=== PATIENT | female | born 1945 | race Caucasian/White ===

== ENCOUNTER → 2016-12-24 | Outpatient (CLI) | payer OTHER, BC ==
[~2016-12-24] MED LIST: ALBUAER INH; ALL60 PO; ASPI81TA21 PO; ATV/1 PO; ATV1 PO; CALC-393 PO; CALC600T14 PO; CARV6.252 PO; CHOL100027 PO; CRG625 PO; FEXO1TAB45 PO; FLNIN NAE; FLUT0.15 NAE; GABA-113 PO; GUAI400T29 PO; HYDR-5688 PO; LISI-461 PO; LRT5 PO; MELATAB2 PO; MUCUS RELIEF PO; MULT-513 PO; PROBCAP PO; QUALAQUIN PO; QUIN1CAP5 PO; SERT50TA PO; TRIA0.1C55 TOP
--- NOTE | 2016-12-24 14:55 | MAMMOGRAPHY REPORT ---
BILATERAL DIGITAL SCREENING MAMMOGRAM WITH CAD: 12/24/2016 CLINICAL HISTORY: Routine screening. Patient has no complaints. TECHNIQUE: Bilateral CC, MLO and repeat right cc views were obtained. Current study was also evalua naa with a Computer Aided Detection (CAD) system. COMPARISON: Comparison is made to exams dated: 12/19/2015 mammogram, 12/13/2014 mammogram, 12/09/2013 robbie mogram, 12/08/2012 mammogram, 12/04/2011 mammogram, and 11/27/2010 mammogram - [facility] er. BREAST COMPOSITION: There are scattered areas of fibroglandular density in both breasts. FINDINGS: There are stable intramammary lymph nodes in each upper outer posterior breast. Scattered benign-appearing calcifications in the breasts. No new suspicious mass, architectural distortion or cluster of microcalcifications is seen. IMPRESSION: ACR BI-RADS CATEGORY 1: NEGATIVE There is no mammographic evidence of malignancy. A 1 year screening mammogram is recommended. The pa tient will receive written notification of the results. Approximately 10% of breast cancers are not detected with mammography. A negative mammographic report should not delay biopsy if a clinically suggestive mass is present. Radha Terrazas M.D. ay/:12/24/2016 12:06:01 Neonatologist: Madie Valle, [facility] letter sent: Normal 1/2 BI-RADS Code: ACR BI-RADS Category 1: Negative
== END | disposition home or self-care (01) ==
LOC: C.MAMM 10:30
PROVIDERS: ATTEND Family Medicine
DX: Z12.31 Encounter for screening mammogram for malignant neoplasm of breast (principal)

== ENCOUNTER 2017-01-04 19:30 | Emergency (ER) | payer OTHER, BC ==
[~2017-01-04] VITALS: Ht 165.1 cm; Wt 128.4 kg
[~2017-01-04 19:30] MED LIST changes: -ALBUAER INH; -ATV/1 PO; -CALC-393 PO; -CARV6.252 PO; -FEXO1TAB45 PO; -FLUT0.15 NAE; -GUAI400T29 PO; -HYDR-5688 PO; -MULT-513 PO; -PROBCAP PO; -QUIN1CAP5 PO
[2017-01-04 19:32] VITALS: TEMP 36.9; Ht 165.1 cm; Wt 128.4 kg
--- NOTE | 2017-01-04 20:20 | DIAGNOSTIC IMAGING REPORT ---
RIGHT FOOT 3 VIEWS CLINICAL HISTORY: Right foot injury. FINDINGS: 3 views of the right foot are obtained. No prior studies are available for comparison at the time of dictation. The skeletal structures are osteopenic. Question a subtle nonobstructed fracture through the base of the fourth metatarsal. No additional fracture is suspected. Mild arthritic change is present at the first metatarsophalangeal joint. A large enthesophyte is seen at the base of the fifth metatarsal. Degenerative spurring is noted along the dorsal last of the tarsal bones. There are large dorsal and plantar calcaneal enthesophytes. Soft tissue swelling is present on the dorsal aspect of the foot. IMPRESSION: 1. Dorsal soft tissue swelling. 2. Question a subtle nonobstructed fracture through the base of the fourth metatarsal. Correlate for point tenderness at this site. 3. No additional findings are concerning for acute fracture. 4. Osteopenia, mild degenerative change, and large heel spurs as above. Electronically signed by: Freddie Irwin M.D. 01/04/2017 8:19 PM Dictated Date/Time: 01/04/2017 8:16 PM
--- NOTE | 2017-01-04 20:25 | EMERGENCY ROOM VISIT NOTE ---
ED Visit Note First contact with patient: 19:42 I have seen and examined this patient with Araceli Maddox and generally agree with the treatment plan as discussed. Current/Historical Medications Scheduled Aspirin Enteric Coated (Ecotrin Or Generic), 81 MG PO DAILY Calcium (Caltrate), 600 MG PO BID Carvedilol (Coreg *), 6.25 MG PO BID Cholecalciferol (Vitamin D 1000 Unit), 1,000 INTER.UNIT PO DAILY Fexofenadine Hcl (Amelia *), 180 MG PO DAILY Fluticasone Propionate (Flonase Nasal [place] *), 2 SPRAYS MERRY DAILY Gabapentin (Neurontin), 600 MG PO TID Hydrocodone/Acetaminophen 5MG/500MG (Vicodin 5MG/500MG), 1 TABLET PO Q4HR PRN Lisinopril (Zestril), 5 MG PO DAILY Lorazepam (Ativan *), 1-2 TABLETS PO DHS Melatonin (Melatonin Maximum Strengt), 1 TAB PO HS Sertraline (Zoloft), 1 TAB PO HS Triamcinolone Acet 0.1% (Aristocort 0.1%), 1 APPLN TOP BID PRN [Mucus Relief], 400 MG PO QID [Qualaquin], 1-2 TABLETS PO DAILY Allergies Coded Allergies: Tetracycline (Verified Allergy, Unknown, 11/25/11) Aspirin (Verified Adverse Reaction, Intermediate, HAS TAKEN IBUPROFEN W/O PROBLEM, ASPIRIN-EPISTAXIS, 11/25/11) Adhesives (Verified Adverse Reaction, Unknown, 11/25/11) Vital Signs Date Time Temp Pulse Resp B/P (MAP) Pulse Ox O2 Delivery O2 Flow Rate FiO2 01/04/17 19:32 36.9 79 18 184/84 95 Room Air Departure Information Referrals Terry Valenzuela M.D. (PCP) Patient Instructions My [facility]
--- NOTE | 2017-01-04 20:42 | EMERGENCY ROOM VISIT NOTE ---
ED Visit Note First contact with patient: 19:42 CHIEF COMPLAINT: Right Foot pain HISTORY OF PRESENT ILLNESS: This 71-year-old female patient presents to the emergency department with her , ambulatory, complaining of swelling and pain in the right foot at rest and worse with weight bearing. The patient sates she was helping her with railing on a porch, when she dropped a 2 x 4 on top of her right foot yesterday. She states the injury occurred approximately 28 hours ago. The patient rates the pain as throbbing, coming in waves, and 10/10. The patient has had minimal relief of the pain with the use of her Vicodin she takes on a regular basis. The patient is able to walk. No numbness or weakness. No ankle pain. There are no lacerations of the foot. The patient is able to move all of their toes and their ankle without pain. No previous fracture to this foot. REVIEW OF SYSTEMS: GENERAL: A 6 system review of systems was completed with positives and pertinent negatives in the HPI. ALLERGIES: Adhesives, NSAIDs, tetracycline MEDICATIONS: See list. I have personally reviewed all of the patient's medications with her. PMH: Arthritis, hypertension, hyperlipidemia, heart disease, osteopenia, anxiety , depression, chronic pain, seasonal allergies SOCIAL HISTORY: Pt. lives locally with her family. She denies tobacco, alcohol , drug use. PHYSICAL EXAM: Vital Signs: Reviewed Nurse's notes, vital signs stable. GENERAL : 71-year-old female, in no acute distress, but appears in pain, well-developed , well-nourished. MUSCULOSKELATAL: There is no visual deformity of the right foot. There is moderate erythema and ecchymosis. There is no warmth. There is tenderness and swelling over the entire dorsal aspect of the right foot. There is no tenderness over the lateral or medial malleolus. No tenderness of the tib /fib. The range of motion of the right foot and toes is mildly limited secondary to pain. There is no tenderness over the plantar fascia. The skin is intact and there are no lacerations or puncture wounds. Dorsalis pedis pulse 2+ . Capillary refill less than 2 seconds. EMERGENCY DEPARTMENT COURSE: I examined the patient. An X-ray of the right foot was reviewed by myself and radiologist and reveals: FINDINGS: 3 views of the right foot are obtained. No prior studies are available for comparison at the time of dictation. The skeletal structures are osteopenic. Question a subtle nonobstructed fracture through the base of the fourth metatarsal. No additional fracture is suspected. Mild arthritic change is present at the first metatarsophalangeal joint. A large enthesophyte is seen at the base of the fifth metatarsal. Degenerative spurring is noted along the dorsal last of the tarsal bones. There are large dorsal and plantar calcaneal enthesophytes. Soft tissue swelling is present on the dorsal aspect of the foot. IMPRESSION: 1. Dorsal soft tissue swelling. 2. Question a subtle nonobstructed fracture through the base of the fourth metatarsal. Correlate for point tenderness at this site. 3. No additional findings are concerning for acute fracture. 4. Osteopenia, mild degenerative change, and large heel spurs as above. The patient was placed in actual boot and advised to use her cane and walker she has at home to avoid weightbearing on the foot. I discussed the plan of care with Dr. Sanchez, who agrees with the assessment and plan. The patient was discharged home in good condition. DIAGNOSIS: Fourth metatarsal fracture DIFFERENTIAL DIAGNOSIS: Foot contusion, phalange fracture, DVT, and others TREATMENT: ORTHOPEDIC INSTRUCTIONS: Vicodin 5/325 mg: Take as directed by your PCP for breakthrough pain. Avoid alcohol, operating machinery or dangerous equipment, working on ladders or roofs , DRIVING, or situations where being under the influence may be dangerous. It is recommended to use an mxle-rxi-jsuczfd stool softener such as Colace, 100mg twice daily while taking this medication to avoid constipation. Acetaminophen(Tylenol) may be used for fever or pain. You may use up to 1000mg every six hours as needed. Avoid using more than 3000mg in a 24 hour period, this includes acetaminophen which is already found in the Vicodin you take on a regular basis. Ice compresses for 20 minutes at a time four times daily for 2-3 days. Use your cane or walker that you have at home to help you maneuver while wearing the boot. Rest and elevate your injury. Do not get the boot wet. If your splint feels excessively tight, you have worsening pain, develop numbness or tingling, or your digits appear blue, loosen the boot. If your symptoms are not quickly relieved return to the ER for re-evaluation. Return to the ER immediately for any numbness, tingling, severe pain, extreme swelling in the extremity or as needed. Call [facility], [phone], in 1 to 2 days to arrange follow up for your injury. Follow-up with your primary care physician in 2 to 3 days for a recheck of your current condition. Current/Historical Medications Scheduled Aspirin Enteric Coated (Ecotrin Or Generic), 81 MG PO DAILY Calcium (Caltrate), 600 MG PO BID Carvedilol (Coreg *), 6.25 MG PO BID Cholecalciferol (Vitamin D 1000 Unit), 1,000 INTER.UNIT PO DAILY Fexofenadine Hcl (Amelia *), 180 MG PO DAILY Fluticasone Propionate (Flonase Nasal [place] *), 2 SPRAYS MERRY DAILY Gabapentin (Neurontin), 600 MG PO TID Hydrocodone/Acetaminophen 5MG/500MG (Vicodin 5MG/500MG), 1 TABLET PO Q4HR PRN Lisinopril (Zestril), 5 MG PO DAILY Lorazepam (Ativan *), 1-2 TABLETS PO DHS Melatonin (Melatonin Maximum Strengt), 1 TAB PO HS Sertraline (Zoloft), 1 TAB PO HS Triamcinolone Acet 0.1% (Aristocort 0.1%), 1 APPLN TOP BID PRN [Mucus Relief], 400 MG PO QID [Qualaquin], 1-2 TABLETS PO DAILY Allergies Coded Allergies: Tetracycline (Verified Allergy, Unknown, 11/25/11) Aspirin (Verified Adverse Reaction, Intermediate, HAS TAKEN IBUPROFEN W/O PROBLEM, ASPIRIN-EPISTAXIS, 11/25/11) Adhesives (Verified Adverse Reaction, Unknown, 11/25/11) Vital Signs Date Time Temp Pulse Resp B/P (MAP) Pulse Ox O2 Delivery O2 Flow Rate FiO2 01/04/17 19:32 36.9 79 18 184/84 95 Room Air Departure Information Impression Primary Impression: Fracture of metatarsal bone Dispostion Home / Self-Care Condition GOOD Referrals Terry Valenzuela M.D. (PCP) [facility] Patient Instructions My [facility] Additional Instructions ORTHOPEDIC INSTRUCTIONS: Vicodin 5/325 mg: Take as directed by your PCP for breakthrough pain. Avoid alcohol, operating machinery or dangerous equipment, working on ladders or roofs , DRIVING, or situations where being under the influence may be dangerous. It is recommended to use an xraw-wpo-stpbkgn stool softener such as Colace, 100mg twice daily while taking this medication to avoid constipation. Acetaminophen(Tylenol) may be used for fever or pain. You may use up to 1000mg every six hours as needed. Avoid using more than 3000mg in a 24 hour period, this includes acetaminophen which is already found in the Vicodin you take on a regular basis. Ice compresses for 20 minutes at a time four times daily for 2-3 days. Use your cane or walker that you have at home to help you maneuver while wearing the boot. Rest and elevate your injury. Do not get the boot wet. If your splint feels excessively tight, you have worsening pain, develop numbness or tingling, or your digits appear blue, loosen the boot. If your symptoms are not quickly relieved return to the ER for re-evaluation. Return to the ER immediately for any numbness, tingling, severe pain, extreme swelling in the extremity or as needed. Call [facility], [phone], in 1 to 2 days to arrange follow up for your injury. Follow-up with your primary care physician in 2 to 3 days for a recheck of your current condition. Problem Qualifiers Primary Impression: Fracture of metatarsal bone Encounter type: initial encounter Metatarsal bone: fourth Fracture type: closed Fracture alignment: nondisplaced Laterality: right Qualified Codes: S92.344A - Nondisplaced fracture of fourth metatarsal bone, right foot, initial encounter for closed fracture
[2017-01-04] MEDS ORDERED: MULT-513 PO (20:46)
[2017-01-04] MEDS ORDERED: PROBCAP PO (20:46)
[2017-01-04] MEDS ORDERED: FLUT0.15 NAE (20:46)
[2017-01-04] MEDS ORDERED: GUAI400T29 PO (20:46)
[2017-01-04] MEDS ORDERED: CARV6.252 PO (20:46)
[2017-01-04] MEDS ORDERED: QUIN1CAP5 PO (20:46)
[2017-01-04] MEDS ORDERED: FEXO1TAB45 PO (20:46)
[2017-01-04] MEDS ORDERED: ATV/1 PO (20:46)
[2017-01-04] MEDS ORDERED: HYDR-5688 PO (20:46)
[2017-01-04] MEDS ORDERED: ALBUAER INH (20:46)
[2017-01-04] MEDS ORDERED: CALC-393 PO (20:47)
[2017-01-04 21:12] VITALS: BP 148/75; PULSE 64; O2SAT 95
== END 2017-01-04 21:13 | disposition home or self-care (01) ==
LOC: C.EDB 19:30 → C.EDD 21:13
DX: S92.344A Nondisplaced fracture of fourth metatarsal bone, right foot, initial encounter for closed fracture (principal); W20.8XXA Other cause of strike by thrown, projected or falling object, initial encounter; I10 Essential (primary) hypertension; E78.5 Hyperlipidemia, unspecified; F41.9 Anxiety disorder, unspecified; F32.9 Major depressive disorder, single episode, unspecified; M19.90 Unspecified osteoarthritis, unspecified site; I51.9 Heart disease, unspecified

== ENCOUNTER 2017-06-26 09:51 | Inpatient (IN) | payer OTHER, BC ==
[~2017-06-26] VITALS: Ht 154.9 cm; Wt 123.8 kg
[~2017-06-26 09:51] MED LIST changes: +ALBUAER INH; -ALL60 PO; +ASPI-319 PO; -ASPI81TA21 PO; +ATV/1 PO; -ATV1 PO; +CALC-393 PO; -CALC600T14 PO; +CARV6.252 PO; -CRG625 PO; +FEXO1TAB45 PO; -FLNIN NAE; +FLUT0.15 NAE; +GUAI400T29 PO; +HYDR-5688 PO; -LRT5 PO; -MUCUS RELIEF PO; +MULT-513 PO; +PROBCAP PO; -QUALAQUIN PO; +QUIN1CAP5 PO; -TRIA0.1C55 TOP
[2017-06-26] MEDS ORDERED: DILTIAZEM BOLUS / DRIP IV STA ×2 (10:07→12:31)
[2017-06-26] MEDS ORDERED: ASPIRIN 81 MG CHEW PO STA (10:10)
[2017-06-26] MEDS ORDERED: DILTIAZEM HCL INJ 125 MG in DEXTROSE 5% 100ML IV PRN ×2 (10:15→14:45)
[2017-06-26] MEDS ORDERED: DILTIAZEM BOLUS FROM BAG IV ONE (10:15)
[2017-06-26 10:45] LABS: BASO % 0.6 %; BASO ABS # 0.06 K/uL (0-0.2); EOS % 3.3 %; EOS ABS # 0.33 K/uL (0-0.5); HEMOGLOBIN 15.5 g/dL (12.0-16.0); IG# 0.02 K/uL (0.00-0.02); LYMPH % 33.9 %; LYMPH ABS # 3.39 K/uL (1.2-3.4); MEAN CELL VOLUME 90.5 fL (80-100); MEAN CORPUSCULAR HEMOGLOBIN 31.2 pg (25-34); MEAN CORPUSCULAR HGB CONC 34.4 g/dl (32-36); MEAN PLATELET VOLUME 9.3 fL (7.4-10.4); MONO % 7.2 %; MONO ABS # 0.72 K/uL (0.11-0.59); NEUT % 54.8 %; NEUT ABS # 5.48 K/uL (1.4-6.5); PLATELET COUNT 255 K/uL (130-400); RED CELL DISTRIBUTION WIDTH CV 13.4 % (11.5-14.5); RED CELL DISTRIBUTION WIDTH SD 43.6 fL (36.4-46.3)
[2017-06-26] MEDS ORDERED: MAGN400T6 PO (10:49)
[2017-06-26] MEDS ORDERED: CYM/30 PO (10:49)
[2017-06-26] MEDS ORDERED: ASPCH81X PO (10:49)
--- NOTE | 2017-06-26 10:49 | DIAGNOSTIC IMAGING REPORT ---
CHEST ONE VIEW PORTABLE CLINICAL HISTORY: Atypical chest pain COMPARISON STUDY: 11/25/2011 FINDINGS: The heart is mildly enlarged. There is no focal pulmonary consolidation. There is no failure. There are no pleural effusions.[ IMPRESSION: No active disease in the chest. Electronically signed by: Sav Odonnell M.D. 06/26/2017 10:47 AM Dictated Date/Time: 06/26/2017 10:47 AM
[2017-06-26 10:56] LABS: BLOOD UREA NITROGEN 15 mg/dl (7-18); CALCIUM 9.1 mg/dl (8.5-10.1); CARBON DIOXIDE 23 mmol/L (21-32); CREATININE 1.09 mg/dl (0.60-1.20); GLUCOSE 143 mg/dl (70-99); POTASSIUM 3.9 mmol/L (3.5-5.1); SODIUM 140 mmol/L (136-145)
[2017-06-26] MEDS ORDERED: ACETAMINOPHEN 325 MG TAB PO PRN (12:15)
[2017-06-26] MEDS ORDERED: LISI-730 PO (12:45)
[2017-06-26] MEDS ORDERED: HYDROCODONE/ACETAMIN 5/325MG TAB PO PRN (13:00)
[2017-06-26] MEDS ORDERED: ALBUTEROL HFA 8 GM INHALER INH PRN (13:00)
[2017-06-26] MEDS ORDERED: GUAIFENESIN 200 MG TAB PO PRN (13:00)
[2017-06-26] MEDS ORDERED: HEPARIN 25000 UNIT/500 ML D5W ONE (13:08)
[2017-06-26 14:28] VITALS: BP 147/97; PULSE 87; TEMP 36.6; O2SAT 96; Ht 154.9 cm; Wt 123.8 kg
--- NOTE | 2017-06-26 14:38 | NUR ---
A-ID: Patient transferred from the e.r.. Patient is alert and oriented. Denies any pain or resp issues. Lungs clear with sats 90's on room air. Telemetry in place and verified. See labs. Abd wnl.Patient on cardizem@5cc/hr, heparin to be started. +pp with no edema, denies any calf pain. Vss noted. Patient oob with supervision/cane and completes adls. Encourage patient to ring for assist do to iv's. Verbalizes understanding of orientation to room/code/fall paper work. Family at bedside . Call seo in reach. Will continue to monitor.
[2017-06-26 14:43] LABS: PTT PATIENT 24.1 SECONDS (21.0-31.0)
[2017-06-26] MEDS ORDERED: METOPROLOL TARTRATE 25 MG TAB PO ONE (15:19)
[2017-06-26 15:32] VITALS: BP 129/85; PULSE 88; TEMP 36.6; O2SAT 94
[2017-06-26] MEDS: HEPARIN 25,000 UNIT/500ML D5W 500 ML IV PRN ×2 (15:38→23:46)
[2017-06-26] MEDS: GABAPENTIN 600 MG TAB PO SCH ×2 (15:39→20:23)
--- NOTE | 2017-06-26 15:42 | CARDIOLOGY CONSULTATION ---
DATE OF CONSULTATION: 06/26/2017 INPATIENT CONSULTATION CONSULTATION REQUESTED BY: Tres Sandoval PA-C. REASON FOR CONSULTATION: New onset atrial fibrillation. HISTORY OF PRESENT ILLNESS: Mrs. Lozano is a very pleasant 71-year-old woman who presented to [facility] Emergency Department on 06/26/2017 with a complaint of palpitations. The patient states she woke up this morning and was in her normal state of health and then at approximately 8:00 a.m., she felt a flumping in her chest. She states it felt as though her heart was pounding over her chest and was associated with some substernal pressure sensation. She also became short of breath with this and just felt overwhelmed. Her convinced her to come in the Emergency Department and upon arrival, she was found to be in atrial fibrillation with rapid ventricular response. She was placed on a Cardizem drip and heparin in the Emergency Department with good symptomatic response once her heart rate came down in the 80s. She was admitted to the telemetry unit. She is currently symptom free at rest. Upon further questioning, the patient states that she never had similar symptoms in the past. Lately, she has been feeling okay, she has been a little tired but she has chalk this up to being busy getting ready for the holidays and she has been having shortness of breath with exertion, but this has been going on for over a year. Of note, she does have a history of paroxysmal supraventricular tachycardia; however, she states the palpitations she has experiencing now are very different from that. Of note, the patient does walk with the aid of a cane at home, but she has no significant dysfunction and is not a fall risk. PAST SURGICAL HISTORY: 1. Knee surgery. 2. Bladder repair. 3. Multiple colonoscopies. 4. Tubal ligation. 5. Cholecystectomy. 6. Total abdominal hysterectomy. 7. Upper endoscopy, which the patient was told that she has a very small esophagus and the pediatric probe should only be ever used on her in the future. MEDICAL ILLNESSES: 1. Hypertension. 2. Ovarian carcinoma status post hysterectomy. 3. Polyneuropathy. 4. Elevated BMI. 5. Osteoarthritis. 6. Crohn disease. 7. Obstructive sleep apnea. FAMILY HISTORY: Noncontributory. SOCIAL HISTORY: Denies any alcohol, tobacco or recreational drug use. She is . She lives at home with her . REVIEW OF SYSTEMS: As per HPI, all other review of systems reviewed and negative at this time. ALLERGIES: 1. TETRACYCLINE. 2. ADHESIVE TAPE. 3. CHOCOLATE FLAVOR. 4. NSAIDS. 5. TETRACYCLINE, AGAIN. MEDICATIONS AN OUTPATIENT: 1. Aspirin 81 mg daily. 2. Coreg 6.25 mg b.i.d. 3. Lisinopril 5 mg daily. 4. Cymbalta daily. 5. Percocet as needed. 6. Neurontin 3 times a day. PHYSICAL EXAMINATION: VITALS: Temperature 36.6, pulse 87, respiratory rate 12, blood pressure 147/97. GENERAL: Awake, alert, oriented x3 in no acute distress. HEENT: Normocephalic, atraumatic. Pupils equal, round, and reactive to light and accommodation. Extraocular muscles intact. Anicteric sclerae. Moist mucous membranes. NECK: No JVD, no bruit. CARDIOVASCULAR: Irregularly irregular, unable to appreciate any murmurs, rubs or gallops. PULMONARY: Clear to auscultation bilaterally. No rales, rhonchi, or wheezing. ABDOMEN: Bowel sounds x4, soft. No rebound, guarding, tenderness. No organomegaly. EXTREMITIES: No clubbing, cyanosis or edema. +2 pedal pulses bilaterally. SKIN: Warm and dry. TEST RESULTS: A 12-lead EKG performed in the Emergency Department independently reviewed at this time shows atrial fibrillation with rapid ventricular response at 156 beats per minute. LABORATORY STUDIES OF SIGNIFICANCE: Sodium 140, potassium 3.9, BUN 15, creatinine 1.1, magnesium and TSH were both attending. IMPRESSION: 1. New onset atrial fibrillation with rapid ventricular response, symptomatic. 2. Hypertension. 3. Elevated body mass index. 4. History of small esophagus. RECOMMENDATIONS: It was my pleasure to see Mrs. Lozano in consultation today. The patient and her were counseled, given the fact that she has difficulty with a small esophagus that a JOHN would not be an option at this point. So, we are pretty much forced to follow a rate control strategy. So, anticoagulation was discussed with she and her and the options of novel oral anticoagulant versus Coumadin was discussed with him including the risks and benefits of each and they would prefer to be on Coumadin, actually I will give her first dose of 10 mg today. I will change her Coreg to metoprolol tartrate for better rate control. She will be maintained on Cardizem drip for now, but likely transition to p.o. in the a.m. A 2D echocardiogram will be performed.
[2017-06-26] MEDS ORDERED: WARFARIN SOD 10 MG TAB PO ONE (16:00)
--- NOTE | 2017-06-26 16:00 | NUR ---
pt alert in bed. assessment completed cardizem titrated to 7.5. heparin drip @30/hr coumadin teaching initiated. call seo in reach will cont to monitor.
[2017-06-26] MEDS ORDERED: PERFLUTREN LIPID MICROSPHERE (DEFINITY) IV ONE (16:14)
--- NOTE | 2017-06-26 17:05 | EMERGENCY ROOM VISIT NOTE ---
History Report prepared by Aysha: Corbin Fischer Under the Supervision of: Dr. Christopher Kennedy D.O. First contact with patient: 09:59 Chief Complaint: CHEST PAIN Stated Complaint: CHEST PAIN AND PRESSURE, CARDIC HISTORY History of Present Illness The patient is a 71 year old female who presents to the Emergency Room with complaints of constant chest pressure that began 2 hours ago while not exerting herself getting breakfast. Patient admits to having similar symptoms before. Per , patient had a blood pressure of 132/102 at the time. Patient describes the pressure as not painful, but "like an elephant on her chest". Patient states that the pressure does not radiate. She states she has associated symptoms of shortness of breath and diaphoresis. Patient reports taking Corex and Cetaphil but denies taking any blood thinners. Patient adds that she has a history of irregular heartbeats, such as AFib, and hypertension. Patient denies having chronic AFib, a history of headaches, or being a smoker. Patient denies any jaw or arm pain. She adds she has no new swelling of legs. Pt denies change in vision, fevers, nausea, vomiting, diarrhea, pain with urination, and melena. Source of History: patient Onset: 2 hours ago Position: chest Quality: other ("elephant on her chest") Timing: constant Associated Symptoms: + diaphoresis, + SOB, No nausea, No vomiting, No diarrhea Review of Systems See HPI for pertinent positives & negatives. A total of 10 systems reviewed and were otherwise negative. Past Medical & Surgical Medical Problems: (1) Atrial fibrillation with RVR Family History No pertinent family medical history. Social History Smoking Status: Never Smoker Alcohol Use: none Marital Status: Current/Historical Medications Scheduled Aspirin (Aspirin Chewable), 81 MG PO DAILY Calcium Carbonate (Calcium), 600 MG PO BID Carvedilol (Coreg), 6.25 MG PO BID Cholecalciferol (Vitamin D 1000 Unit), 1,000 INTER.UNIT PO DAILY Duloxetine HCl (Cymbalta), 30 MG PO DAILY Fluticasone Propionate (Nasal) (Flonase Allergy Relief), 2 SPRAYS MERRY DAILY Gabapentin (Neurontin), 600 MG PO TID Guaifenesin (Mucus Relief), 400 MG PO UD Lisinopril (Lisinopril), 1 TAB PO DAILY Lorazepam (Ativan), 1 MG PO HS Magnesium Oxide (Mag-Ox), 400 MG PO DAILY Melatonin (Melatonin Maximum Strengt), 15 MG PO HS Multivitamins/Minerals (Mvi With Minerals), 1 TAB PO DAILY Probiotic Product ([employer]), 1 CAP PO DAILY Scheduled PRN Albuterol Sulfate (Proventil Hfa), 2 PUFF INH QID PRN for Wheezing Fexofenadine Hcl (Amelia), 60 MG PO BID PRN for ALLERGY SYMPTOMS Hydrocodone/Acetaminophen 5MG/325MG (Creola 5MG/325MG), 1 TABLET PO Q4 PRN for Pain Allergies Coded Allergies: Tetracycline (Verified Allergy, Unknown, 11/25/11) Aspirin (Verified Adverse Reaction, Intermediate, HAS TAKEN IBUPROFEN W/O PROBLEM, ASPIRIN-EPISTAXIS, 11/25/11) Adhesives (Verified Adverse Reaction, Unknown, 11/25/11) Physical Exam Vital Signs Date Time Temp Pulse Resp B/P (MAP) Pulse Ox O2 Delivery O2 Flow Rate FiO2 06/26/17 12:00 117 22 148/91 98 Room Air 06/26/17 10:51 111 24 155/83 06/26/17 10:42 150/95 06/26/17 10:41 103 22 06/26/17 10:33 176/110 06/26/17 10:31 115 21 94 06/26/17 10:28 126/76 06/26/17 10:27 140 20 126/76 98 Room Air 06/26/17 10:21 153 39 06/26/17 10:12 143 06/26/17 09:58 96 Room Air 06/26/17 09:54 36.3 76 20 97 Room Air Physical Exam GENERAL: Sitting up in bed, alert, disheveled, well nourished, minimal distress , non-toxic EYE EXAM: normal conjunctiva. OROPHARYNX: no exudate, no erythema, lips, buccal mucosa, and tongue normal and mucous membranes are moist NECK: supple, no nuchal rigidity, no adenopathy, non-tender LUNGS: Clear to auscultation. Normal chest wall mechanics HEART: Tachycardiac, irregular irregular ABDOMEN: abdomen soft, non-tender, normo-active bowel sounds, no masses, no rebound or guarding. BACK: Back is symmetrical on inspection and there is no deformity, no midline tenderness, no CVA tenderness. SKIN: no rashes and no bruising UPPER EXTREMITIES: upper extremities are grossly normal. LOWER EXTREMITIES: No pitting edema. NEURO EXAM: Normal sensorium, cranial nerves II-XII grossly intact, normal speech, no gross weakness of arms, no gross weakness of legs. Medical Decision & Procedures ER Provider Diagnostic Interpretation: Radiology results as stated below per my review and the radiologist's interpretation: CHEST ONE VIEW PORTABLE CLINICAL HISTORY: Atypical chest pain COMPARISON STUDY: 11/25/2011 FINDINGS: The heart is mildly enlarged. There is no focal pulmonary consolidation. There is no failure. There are no pleural effusions.[ IMPRESSION: No active disease in the chest. Electronically signed by: Sav Odonnell M.D. 06/26/2017 10:47 AM Laboratory Results 06/26/17 10:25 Red Blood Count 4.97, Mean Corpuscular Volume 90.5, Mean Corpuscular Hemoglobin 31.2, Mean Corpuscular Hemoglobin Concent 34.4, Mean Platelet Volume 9.3, Neutrophils (%) (Auto) 54.8, Lymphocytes (%) (Auto) 33.9, Monocytes (%) (Auto) 7.2, Eosinophils (%) (Auto) 3.3, Basophils (%) (Auto) 0.6, Neutrophils # (Auto) 5.48, Lymphocytes # (Auto) 3.39, Monocytes # (Auto) 0.72, Eosinophils # (Auto) 0.33, Basophils # (Auto) 0.06 06/26/17 10:25 Test 06/26/17 10:25 White Blood Count 10.00 K/uL (4.8-10.8) Red Blood Count 4.97 M/uL (4.2-5.4) Hemoglobin 15.5 g/dL (12.0-16.0) Hematocrit 45.0 % (37-47) Mean Corpuscular Volume 90.5 fL (80-100) Mean Corpuscular Hemoglobin 31.2 pg (25-34) Mean Corpuscular Hemoglobin Concent 34.4 g/dl (32-36) Platelet Count 255 K/uL (130-400) Mean Platelet Volume 9.3 fL (7.4-10.4) Neutrophils (%) (Auto) 54.8 % Lymphocytes (%) (Auto) 33.9 % Monocytes (%) (Auto) 7.2 % Eosinophils (%) (Auto) 3.3 % Basophils (%) (Auto) 0.6 % Neutrophils # (Auto) 5.48 K/uL (1.4-6.5) Lymphocytes # (Auto) 3.39 K/uL (1.2-3.4) Monocytes # (Auto) 0.72 K/uL (0.11-0.59) Eosinophils # (Auto) 0.33 K/uL (0-0.5) Basophils # (Auto) 0.06 K/uL (0-0.2) RDW Standard Deviation 43.6 fL (36.4-46.3) RDW Coefficient of Variation 13.4 % (11.5-14.5) Immature Granulocyte % (Auto) 0.2 % Immature Granulocyte # (Auto) 0.02 K/uL (0.00-0.02) Prothrombin Time 10.5 SECONDS (9.0-12.0) Prothromb Time International Ratio 1.0 (0.9-1.1) Activated Partial Thromboplast Time 24.1 SECONDS (21.0-31.0) Partial Thromboplastin Ratio 0.9 Anion Gap 9.0 mmol/L (3-11) Est Creatinine Clear Calc Drug Dose 61.5 ml/min Estimated GFR () 58.3 Estimated GFR (Non- 50.3 BUN/Creatinine Ratio 13.4 (10-20) Calcium Level 9.1 mg/dl (8.5-10.1) Magnesium Level 2.0 mg/dl (1.8-2.4) Total Creatine Kinase 98 U/L (26-192) Creatine Kinase MB 2.0 ng/ml (0.5-3.6) Creatine Kinase MB Ratio 2.0 (0-3.0) Troponin I < 0.015 ng/ml (0-0.045) Thyroid Stimulating Hormone (TSH) 1.420 uIu/ml (0.300-4.500) Laboratory results per my review. Medications Administered Medications (Trade) Dose Ordered Sig/Jordan Route Start Time Stop Time Status Last Admin Dose Admin Aspirin (Aspirin Chew) 324 mg NOW STAT PO 06/26/17 10:10 06/26/17 10:11 DC 06/26/17 10:19 324 MG Diltiazem HCl (Cardizem Bolus From Bag) 10 mg ONE ONCE IV 06/26/17 10:15 06/26/17 10:16 DC 06/26/17 10:31 10 MG Diltiazem HCl 125 mg/Dextrose 125 ml @ 0 mls/hr Q0M PRN IV 06/26/17 10:15 06/26/17 14:33 DC 06/26/17 10:31 5 MLS/HR ECG Indication: chest pain Rate (beats per minute): 156 Rhythm: atrial fibrillation (with RVR) Findings: nonspecific-ST abn (Inferior, anterior, and lateral), other (Normal axis.) Change: Nonspecific T wave change ED Course ED COURSE: Vital signs were reviewed and showed tachycardia The patients medical record was reviewed The above diagnostic studies were performed and reviewed. ED treatments and interventions as stated above. 1000: The patient was evaluated in room B2. A complete history and physical examination was performed. 1007: Diltiazem HCl 1 ea IV 1010: Aspirin 324mg PO 1118: I checked up with patient and she is resting comfortably. 1211: Upon reevaluation, the patient will be evaluated for further care.I discussed my findings with the patient and she understands and agrees with the treatment plan. Based on the patients age, coexisting illnesses, exam and lab findings the decision to treat as an outpatient was made. The patient remained stable while under my care. The patient will be evaluated for further management. Medical Decision Differential diagnoses includes but is not limited to acute coronary syndrome, myocardial infarction, pericarditis, pulmonary embolus, aortic dissection, pneumonia, pneumothorax, musculoskeletal, shingles, esophageal. Patient is a 71-year-old female who presents to ER for chest pain associated with shortness of breath. She does feel her heart racing. This all started around 8 AM this morning. On exam she is in A. fib with RVR which is confirmed with EKG. CBC all BMP, LFTs, bilirubin and troponin was negative. Chest x-ray was unremarkable. She was given a Cardizem bolus as her heart rate was in the 150s. Following this her heart rate trended down into the 100s. She is placed on a Cardizem drip as well. This stayed at a rate of 5. Heart rate remained in the low 100s. Her chest pain and shortness of breath completely resolved with this. She was given aspirin. Patient was feeling significantly better. She was admitted on a Cardizem drip with A. fib RVR. She did have a short period of time at which her systolic blood pressures dropped into the 70s but this resolved with a small fluid bolus. Medication Reconcilliation Current Medication List: was personally reviewed by me Blood Pressure Screening Patient's blood pressure: Elevated blood pressure Blood pressure disposition: Elevated BP felt to be situational Consults Time Called: 1119 Consulting Physician: Francine Sandoval PA-C - [facility] Returned Call: [phone] I reviewed the patient's case with Francine Sandoval PA-C. She will evaluate the patient for further management. Impression Primary Impression: Atrial fibrillation with RVR Critical Care I have personally spent 35 minutes of critical care time in the direct management of this patient. This includes bedside care, interpretation of diagnostic studies, and testing, discussion with consultants, patient, and family members, and other required patient management activities. This 35 minutes is in excess of all separately billable procedures. Scribe Attestation The scribe's documentation has been prepared under my direction and personally reviewed by me in its entirety. I confirm that the note above accurately reflects all work, treatment, procedures, and medical decision making performed by me. Departure Information Dispostion Being Evaluated By Hospitalist Terry Dao M.D. (PCP) Forms Call Back Authorization, HOME CARE DOCUMENTATION FORM, IMPORTANT VISIT INFORMATION Patient Instructions My [facility]
--- NOTE | 2017-06-26 17:17 | ECHOCARDIOGRAM REPORT ---
*NOTICE TO RECEIVING LIBERTARIAN AGENCY This information is strictly Confidential and protected under [place] law. [place] law prohibits you from making any further disclosure of this information unless further disclosure is expressly permitted by the written consent of the person to whom it pertains or is authorized by law. A general authorization for the release of medical or other information is not sufficient for this purpose. Hospital accepts no responsibility if the information is made available to any other person, INCLUDING THE PATIENT. Interpretation Summary * Name: KRISTOFER SUÁREZ Study Date: 06/26/2017 03:43 PM BP: 129/85 mmHg * Patient Location: C.2T\S\S236\S\1 HR: 101 * : 1945 (M/d/yyyy) Gender: Female Height: 61 in * Age: 71 yrs Ethnicity: CA Weight: 277 lb * Ordering Physician: Blair Cox * Referring Physician: Self, Referred * Performed By: Padmini Jafef RCS * * Reason For Study: A-FIB * BSA: 2.2 m2 * -- Conclusions -- * Technically difficult study due to patient body habitus. * Grossly normal LV chamber size. * Normal LV systolic function, EF 60-65%. * No segmental left ventricular wall motion abnormalities are noted. * Poorly visualized valvular structures without significant stenosis or regurgitation by Doppler. Procedure Details * A complete two-dimensional transthoracic echocardiogram was performed (2D, M-mode, Doppler and color flow Doppler). * The study was technically difficult. * There were technical limitations due to patient'sbody habitus * A contrast injection of Definity was performed to improve assessment of LV function. * Contrast was injected into an intravenous site in the right arm. * One vial of Definity ultrasound contrast was diluted in normal saline to a total volume of 10 ml. A total of '2' ml of solution was administered during imaging. * Lot # [id number] of Definity utilized for procedure. * Expiration date 1 AUG 26. * The attending nurse who injected the contrast agent was DARRON CARMONA, RN. Left Ventricle * The left ventricle is normal in size. * Left ventricular systolic function is normal. * No segmental left ventricular wall motion abnormalities are noted. * Ejection Fraction = 60-65%. * The left ventricular wall motion is normal. Right Ventricle * The right ventricular cavity size is normal (basal dimension <4.2 cm in right ventricular apical 4-chamber view). * The right ventricular systolic function is normal as assessed by tricuspid annular plane systolic excursion (TAPSE) (normal >1.5 cm). Atria * The left atrium is not well visualized. * Right atrium not well visualized. Mitral Valve * The mitral valve is not well visualized. * There is no mitral valve stenosis. * There is no mitral regurgitation noted. Tricuspid Valve * The tricuspid valve is not well visualized. * There is no tricuspid stenosis. * No tricuspid regurgitation. Aortic Valve * The aortic valve is not well visualized. * No hemodynamically significant valvular aortic stenosis. * There is no significant aortic regurgitation. Pulmonic Valve * The pulmonary valve is not well seen, but the Doppler examination is normal without significant regurgitation or stenosis. Great Vessels * The aortic root is not well visualized. Pericardium/Pleural * There is no pericardial effusion. MMode 2D Measurements and Calculations Ao root diam 2.5 cm Ao root area 4.8 cm\S\2 ACS 1.8 cm LA dimension 3.7 cm LA/Ao 1.5 Doppler Measurements and Calculations MV E max genoveva 98.4 cm/sec MV P1/2t max genoveva 100.9 cm/sec MV P1/2t 94.9 msec MVA(P1/2t) 2.3 cm\S\2 MV dec slope 311.5 cm/sec\S\2 MV dec time 0.24 sec Ao V2 max 117.4 cm/sec Ao max PG 5.5 mmHg Ao max PG (full) -0.65 mmHg LV V1 max PG 6.2 mmHg LV V1 max 124.2 cm/sec MR max genoveva 531.5 cm/sec MR max PG 113.0 mmHg TR max genoveva 249.3 cm/sec
--- NOTE | 2017-06-26 18:28 | History and Physical ---
History & Physical Date & Time of Service: Jun 26, 2017 at 12:00 Chief Complaint: Atrial Fibrillation With Rvr Primary Care Physician: Terry Valenzuela M.D. History of Present Illness Source: patient, family (, grandson at bedside ), clinic records, hospital records This is a 71yo F with PMH of HTN, HLD, RAYMUNDO (on CPAP), anxiety, OA and other problems listed below with presents with chest pressure and SOB that began today at 8am. States that she woke up with fast beating of her heart and 5/10 central chest pressure. Also endorses exertional lightheadedness and SOB. brought her to the ED for further evaluation. States that she was evaluated for similar symptoms in 2011. Per chart review, patient does have a reported history of paroxysmal SVT in 2011 that was symptomatic but has not experienced any symptomatic episode since then. Was found to be in A Fib with RVR at 156bpm initially in the ED and a cardizem drip was initiated. HR decreased to 110s and patient's chest pressure and SOB resolved. Denies h/o heart disease or CVA. Remote h/o DVT when patient was in her 20s on oral contraceptives. Past Medical/Surgical History Medical Problems: (1) HLD (hyperlipidemia) Status: Chronic (2) HTN (hypertension) Status: Chronic (3) RAYMUNDO (obstructive sleep apnea) Status: Chronic (4) Osteoporosis Status: Chronic Surgical Problems: (1) H/O total hysterectomy Status: Resolved Family History FH: heart disease FATHER Social History Smoking Status: Never Smoker Alcohol Use: none Marital Status: Housing status: lives with family Immunizations History of Influenza Vaccine: N/A History of Tetanus Vaccine?: Yes History of Pneumococcal: Yes History of Hepatitis B Vaccine: Yes Multi-Drug Resistant Organisms History of MDRO: No Allergies Coded Allergies: Tetracycline (Verified Allergy, Unknown, 11/25/11) Aspirin (Verified Adverse Reaction, Intermediate, HAS TAKEN IBUPROFEN W/O PROBLEM, ASPIRIN-EPISTAXIS, 11/25/11) Adhesives (Verified Adverse Reaction, Unknown, 11/25/11) Home Medications Scheduled Aspirin (Aspirin Chewable), 81 MG PO DAILY Calcium Carbonate (Calcium), 600 MG PO BID Cholecalciferol (Vitamin D 1000 Unit), 1,000 INTER.UNIT PO DAILY Duloxetine HCl (Cymbalta), 30 MG PO DAILY Fluticasone Propionate (Nasal) (Flonase Allergy Relief), 2 SPRAYS MERRY DAILY Gabapentin (Neurontin), 600 MG PO TID Guaifenesin (Mucus Relief), 400 MG PO UD Lisinopril (Lisinopril), 1 TAB PO DAILY Lorazepam (Ativan), 1 MG PO HS Magnesium Oxide (Mag-Ox), 400 MG PO DAILY Melatonin (Melatonin Maximum Strengt), 15 MG PO HS Metoprolol Tartrate (Lopressor) (Lopressor), 50 MG PO BID Multivitamins/Minerals (Mvi With Minerals), 1 TAB PO DAILY Probiotic Product ([employer]), 1 CAP PO DAILY Warfarin Sod (Coumadin), 2.5 MG PO DAILY Scheduled PRN Albuterol Sulfate (Proventil Hfa), 2 PUFF INH QID PRN for Wheezing Fexofenadine Hcl (Amelia), 60 MG PO BID PRN for ALLERGY SYMPTOMS Hydrocodone/Acetaminophen 5MG/325MG (Suches 5MG/325MG), 1 TABLET PO Q4 PRN for Pain Review of Systems Ten systems reviewed and negative except as noted in the HPI. Physical Exam Vital Signs Date Time Temp Pulse Resp B/P (MAP) Pulse Ox O2 Delivery O2 Flow Rate FiO2 06/26/17 16:00 Room Air 06/26/17 15:32 36.6 88 18 129/85 (100) 94 Room Air 06/26/17 14:28 36.6 87 20 147/97 96 Room Air 06/26/17 14:00 96 18 165/79 96 06/26/17 13:30 96 18 165/79 96 Room Air 06/26/17 12:00 117 22 148/91 98 Room Air 06/26/17 10:51 111 24 155/83 06/26/17 10:42 150/95 06/26/17 10:41 103 22 06/26/17 10:33 176/110 06/26/17 10:31 115 21 94 06/26/17 10:28 126/76 06/26/17 10:27 140 20 126/76 98 Room Air 06/26/17 10:21 153 39 06/26/17 10:12 143 06/26/17 09:58 96 Room Air 06/26/17 09:54 36.3 76 20 97 Room Air General Appearance: no apparent distress, + obese Head: normocephalic, atraumatic Eyes: normal inspection, PERRL, sclerae normal ENT: normal ENT inspection, hearing grossly normal, pharynx normal (moist mucous membranes ) Neck: supple, thyroid normal, trachea midline Respiratory/Chest: chest non-tender, lungs clear, normal breath sounds, no respiratory distress, no accessory muscle use Cardiovascular: no murmur, + irregularly irregular Abdomen/GI: non tender, soft, no organomegaly Extremities/Musculoskelatal: normal inspection, no calf tenderness, no pedal edema Neurologic/Psych: no motor/sensory deficits, alert, normal mood/affect, oriented x 3 Skin: normal color, warm/dry Diagnostics Laboratory Results Results Past 24 Hours Test 06/26/17 10:25 Range/Units White Blood Count 10.00 4.8-10.8 K/uL Red Blood Count 4.97 4.2-5.4 M/uL Hemoglobin 15.5 12.0-16.0 g/dL Hematocrit 45.0 37-47 % Mean Corpuscular Volume 90.5 80-100 fL Mean Corpuscular Hemoglobin 31.2 25-34 pg Mean Corpuscular Hemoglobin Concent 34.4 32-36 g/dl Platelet Count 255 130-400 K/uL Mean Platelet Volume 9.3 7.4-10.4 fL Neutrophils (%) (Auto) 54.8 % Lymphocytes (%) (Auto) 33.9 % Monocytes (%) (Auto) 7.2 % Eosinophils (%) (Auto) 3.3 % Basophils (%) (Auto) 0.6 % Neutrophils # (Auto) 5.48 1.4-6.5 K/uL Lymphocytes # (Auto) 3.39 1.2-3.4 K/uL Monocytes # (Auto) 0.72 0.11-0.59 K/uL Eosinophils # (Auto) 0.33 0-0.5 K/uL Basophils # (Auto) 0.06 0-0.2 K/uL RDW Standard Deviation 43.6 36.4-46.3 fL RDW Coefficient of Variation 13.4 11.5-14.5 % Immature Granulocyte % (Auto) 0.2 % Immature Granulocyte # (Auto) 0.02 0.00-0.02 K/uL Prothrombin Time 10.5 9.0-12.0 SECONDS Prothromb Time International Ratio 1.0 0.9-1.1 Activated Partial Thromboplast Time 24.1 21.0-31.0 SECONDS Partial Thromboplastin Ratio 0.9 Sodium Level 140 136-145 mmol/L Potassium Level 3.9 3.5-5.1 mmol/L Chloride Level 108 98-107 mmol/L Carbon Dioxide Level 23 21-32 mmol/L Anion Gap 9.0 3-11 mmol/L Blood Urea Nitrogen 15 7-18 mg/dl Creatinine 1.09 0.60-1.20 mg/dl Est Creatinine Clear Calc Drug Dose 61.5 ml/min Estimated GFR () 58.3 Estimated GFR (Non- 50.3 BUN/Creatinine Ratio 13.4 10-20 Random Glucose 143 70-99 mg/dl Calcium Level 9.1 8.5-10.1 mg/dl Magnesium Level 2.0 1.8-2.4 mg/dl Total Creatine Kinase 98 26-192 U/L Creatine Kinase MB 2.0 0.5-3.6 ng/ml Creatine Kinase MB Ratio 2.0 0-3.0 Troponin I < 0.015 0-0.045 ng/ml Thyroid Stimulating Hormone (TSH) 1.420 0.300-4.500 uIu/ml CXR normal EKG Atrial fibrillation with rapid ventricular response at 156 bpm Impression Assessment and Plan This is a 71yo F with PMH of HTN, HLD, RAYMUNDO (on CPAP), anxiety, OA and other problems listed below with presents with chest pressure and SOB that began today at 8am. A fib with RVR: -HR [id number], now 88 -Cardizem drip -IV heparin -Monitor on tele -Cardio consulted -TTE is not an option due to small esophagus -Started on warfarin 10mg daily -Transition to PO metoprolol in AM -2D echo: LV systolic function normal, EF of 60-65% No wall motion abnormalities HTN: -Cont lisinopril -Metoprolol to be added in AM RAYMUNDO: -Brought own CPAP Anxiety: -Stable -Continue cymbalta, ativan HS PRN OA: -Cont Suches, gabapentin per home dose Vit D deficiency: -Cont home dose Vit D, calcium DVT Ppx: On IV heparin for A Fib Code status: FULL PCP: Nicolas Dispo: Plan to return home once medically stable Patient seen in collaboration with Dr. Bateman. Please see addendum. Agree with above H and P. Briefly 71F presents with chest pressure , sob and palpitations and found to be in rapid a.fib. N fever/chills. No nausea. p/e Ge not in distress Cvs s1 and s2 heard irregular tachycardia Rs cta b/l no added sounds Abd benign a/p Rapid afib Cardizem drip iv heparin and Coumadin cardiology consult monitor in tele RAYMUNDO cpap Level of Care Telemetry Advanced Directives Existing Living Will: No Existing Power of Division Road Supervisor: No Resuscitation Status FULL RESUSCITATION VTE Prophylaxis VTE Risk Assessment Done? Y/N: Yes Risk Level: High Given or contraindicated: Other Anticoagulation (IV heparin)
[2017-06-26 18:51] VITALS: BP 113/71; PULSE 71; TEMP 36.4; O2SAT 94
--- NOTE | 2017-06-26 20:00 | NUR ---
pt reassessed. heart rate 60-75. cardizem titrated down. denies complaints. informed pt to have bring in melatonin bottles from home tomorrow so that pharmacy may verify medications. pt verbalized understanding. call seo in reach will cont to monitor.
[2017-06-26] MEDS: METOPROLOL TARTRATE 25 MG TAB PO SCH (20:22)
[2017-06-26] MEDS: CALCIUM CARBONATE 1250MG TAB PO SCH (20:23)
[2017-06-26] MEDS ORDERED: MELATONIN 3 MG PO SCH (21:00)
[2017-06-26] MEDS ORDERED: MELATONIN 10 MG PO SCH (21:00)
[2017-06-26] MEDS ORDERED: MELATONIN 5 MG PO SCH (21:00)
[2017-06-26] MEDS ORDERED: CARVEDILOL 6.25 MG TAB PO SCH (21:00)
[2017-06-26] MEDS: LORAZEPAM 1 MG TAB PO SCH (22:14)
[2017-06-26 22:55] LABS: PTT PATIENT 41.2 SECONDS (21.0-31.0)
[2017-06-26] MEDS ORDERED: HEPARIN IV BOLUS 3,000 UNIT in SYRINGE 0 ML IV ONE (23:30)
[2017-06-27] VITALS (8 sets, daily range): BP systolic 114–147; BP diastolic 70–108; PULSE 70–99; TEMP 36.4–37; O2SAT 93–97
--- NOTE | 2017-06-27 00:05 | NUR ---
A: Full assessment complete; see EMR. A&OX4. VSS. Afib on tele monitor; HR 80s. Lungs clear/diminished on CPAP. Denies CP, SOB, numbness/tingling, nausea, pain. Pulses WNL. No edema noted. Abdomen soft, NT & ND w/+BSx4. Voiding clear, yellow urine in toilet; OOB w/minimum assistance. Scattered ecchymosis noted to BUE. Heparin infusing at 33ml/hr per protocol. Denies needs at this time. Call seo within reach. RN will continue to monitor.
--- NOTE | 2017-06-27 04:03 | NUR ---
A: Patient OOB to VIT at this time. HR increased w/ambulation. Other VSS. Afib on tele monitor. Heparin continues to infuse per protocol. Denies pain/resp distress. Call seo within reach. RN will continue to monitor
[2017-06-27 06:21] LABS: HEMOGLOBIN 15.4 g/dL (12.0-16.0); MEAN CELL VOLUME 89.8 fL (80-100); MEAN CORPUSCULAR HEMOGLOBIN 30.7 pg (25-34); MEAN CORPUSCULAR HGB CONC 34.2 g/dl (32-36); MEAN PLATELET VOLUME 9.2 fL (7.4-10.4); PLATELET COUNT 236 K/uL (130-400); RED CELL DISTRIBUTION WIDTH CV 13.3 % (11.5-14.5); RED CELL DISTRIBUTION WIDTH SD 43.3 fL (36.4-46.3); WHITE BLOOD COUNT 12.67 K/uL (4.8-10.8)
[2017-06-27 06:45] LABS: PTT PATIENT 76.2 SECONDS (21.0-31.0)
[2017-06-27 06:46] LABS: CALCIUM 9.1 mg/dl (8.5-10.1); CREATININE 0.94 mg/dl (0.60-1.20); POTASSIUM 3.9 mmol/L (3.5-5.1)
--- NOTE | 2017-06-27 07:52 | Clinical Documentation Query ---
CLINICAL DOCUMENTATION QUERY Dr. LEE, In your clinical opinion is this patient being managed for: ( ) Morbid obesity with BMI 51.9 ( ) Not Agree ( ) Other explanation of clinical findings (Please Explain) ( ) Unable to determine (Please Define) ( ) Need to Discuss The medical record reflects the following clinical findings, treatment, and risk factors. Clinical Indicators: 71 yo female noted to be "obese". Also noted to have RAYMUNDO. Treatment: CPAP, treatment of associated comorbid diseases including HTN, HDL Comorbid conditions: RAYMUNDO, HTN, HDL Please clarify and document your clinical opinion in the progress notes and discharge summary. Terms such as "probable", "suspected", "likely", "questionable", "possible", or "still to be ruled out" are acceptable. IF IN AGREEMENT, YOU MUST DOCUMENT ABOVE DIAGNOSTIC STATEMENT IN DAILY PROGRESS NOTES AND DISCHARGE SUMMARY. This document is not part of the patient's record. Thank You, Skylar Alejo RN [phone]
--- NOTE | 2017-06-27 08:00 | NUR ---
A: Assessment completed. Patient oob with supervision and completes adls. Patients heart rate increased with setting up at bedside and continue at rest, spoke with Dr Cox,new medication ordered.Patient complains of hip pain, does take routine pain medications at home, ordered prn on admission, will speak with Dr Bateman. Telemetry in place, afib. No needs at this time. Continues on heparin gtt, site wnl. Call seo in reach. Will continue to monitor.See emr assessment
[2017-06-27] MEDS: ASPIRIN 81 MG ECTAB PO SCH (08:16)
[2017-06-27] MEDS: FLUTICASONE PROPIONATE NA SPR 16 GM BTL NAE SCH (08:16)
[2017-06-27] MEDS: GABAPENTIN 600 MG TAB PO SCH ×3 (08:16→20:53)
[2017-06-27] MEDS: METOPROLOL TARTRATE 25 MG TAB PO SCH ×2 (08:16→20:52)
[2017-06-27] MEDS: CALCIUM CARBONATE 1250MG TAB PO SCH ×2 (08:16→20:53)
[2017-06-27] MEDS: LACTOBACILLUS ACIDOPHILUS (FLORANEX) TAB PO SCH (08:16)
[2017-06-27] MEDS: MAGNESIUM OXIDE 400 MG TAB PO SCH (08:16)
[2017-06-27] MEDS: DULOXETINE (CYMBALTA) 30 MG CAP PO SCH ×2 (08:17→20:53)
[2017-06-27] MEDS: CHOLECALCIFEROL 1000 INTER.UNIT TAB PO SCH (08:17)
[2017-06-27] MEDS: LISINOPRIL 5 MG TAB PO SCH (08:17)
[2017-06-27] MEDS ORDERED: NURSING VERBAL MED ORDER ONE (08:45)
[2017-06-27] MEDS: DILTIAZEM HCL 120 MG CAPCR PO SCH (09:03)
--- NOTE | 2017-06-27 10:48 | Cardiology Follow-Up ---
Subjective Subjective Date of Service: Jun 27, 2017. Pt evaluation today including: conversation w/ patient, physical exam, chart review, lab review, review of studies, review of inpatient medication list Additional Details: Pt seen and examined, no further chest discomfort/palpitations since admission. Only complaint now is arthritis pain. Denies cp, sob, palpitations, lightheadedness or dizziness. Tele reviewed: afib with variable rates, rvr with activity Problem List Medical Problems: (1) Fracture of metatarsal bone Status: Acute Review of Systems Respiratory: No see HPI, No cough, No sputum, No wheezing, No shortness of breath, No dyspnea on exertion, No dyspnea at rest, No hemoptysis, No problem reported Cardiac: No see HPI, No chest pain, No orthopnea, No PND, No edema, No claudication, No palpitations, No problem reported Objective Vital Signs Last Vital Signs Documentation Date Time Temp Pulse Resp B/P (MAP) Pulse Ox O2 Delivery O2 Flow Rate FiO2 06/27/17 08:19 36.8 99 22 147/98 (114) 94 Room Air 138/108 (118) Physical Exam: General Appearance: WD/WN, no apparent distress Eyes: bilateral eyes normal inspection, bilateral eyes PERRL, bilateral eyes EOMI ENT: normal ENT inspection, hearing grossly normal, pharynx normal Neck: supple, no adenopathy, thyroid normal, no JVD, no carotid bruits, trachea midline Respiratory/Chest: chest non-tender, lungs clear, normal breath sounds, no respiratory distress, no accessory muscle use Cardiovascular: no edema, no gallop, no JVD, no murmur, + irregularly irregular Abdomen: normal bowel sounds, non tender, soft, no organomegaly, no pulsatile mass Extremities: normal inspection, no pedal edema, no calf tenderness Neurologic/Psychiatric: care program director II-XII nml as tested, no motor/sensory deficits, alert, normal mood/affect, oriented x 3 Skin: normal color, warm/dry, no rash Lymphatic: no adenopathy Assessment and Plan 1. new onset afib unable to perform JOHN due to esophageal disorder per patient rates improved overnight and cardizem gtt turned off rates now elevated this AM when active out of bed but asymptomatic will give cardizem cd 120mg now cont metoprolol 25mg bid, may uptitrate if necessary cont heparin bridge and coumadin goal INR of 2-3 may possibly go home with bid lovenox once rates controlled
[2017-06-27] MEDS ORDERED: HYDROCODONE/ACETAMIN 5/325MG TAB ONE (11:13)
--- NOTE | 2017-06-27 12:20 | NUR ---
A: Assessment completed. Patient oob to chair, continues to get tachy with activity,in the 120's improved. Denies any needs or concerns. at bedside. Call seo in reach. Will continue to monitor. See emr assessment
[2017-06-27 13:35] LABS: PTT PATIENT 59.6 SECONDS (21.0-31.0)
[2017-06-27] MEDS: HYDROCODONE/ACETAMIN 5/325MG TAB PO SCH ×2 (15:28→20:53)
[2017-06-27 15:40] LABS: INR 1.3 (0.9-1.1)
[2017-06-27] MEDS ORDERED: WARFARIN SOD 5 MG TAB PO SCH (16:00)
[2017-06-27] MEDS ORDERED: WARFARIN SOD 7.5 MG TAB PO SCH (16:00)
--- NOTE | 2017-06-27 16:00 | NUR ---
A:ID/ pt assessed. plan is to go home with when anticoagulated. currently no complaints. hr 108. heparin drip infusing per order. call seo in reach will cont to monitor.
--- NOTE | 2017-06-27 16:59 | Progress Note ---
Internal Med Progress Note Date of Service: Jun 27, 2017. Provider Documentation: SUBJECTIVE: says having pain in her hips and knees her chronic arthritis pain for which she takes pain meds ever 4hrs and while we placed prn and she missed them and requests to place pain Meds every 4hrs denies any palpitations no chest pain or sob moved bowels afebrile OBJECTIVE: Vital Signs-as noted below Exam: General-alert and oriented. not in distress ENT-Normal hearing Neck-no neck masses Lungs-Cta b/l no wheezing or crackles Heart-S1 and S2 heard irregular No murmurs Abdomen-Soft Bowel sounds present Non tender No distension Extremities-No edema No erythema Neuro-alert and awake moves extremities Lab data as noted below. ASSESSMENT & PLAN: This is a 71yo F with PMH of HTN, HLD, RAYMUNDO (on CPAP), anxiety, OA and other problems listed below with presents with chest pressure and SOB that began today at 8am. A fib with RVR: started on Cardizem drip iv heparin and Coumadin rates controlled and drip was stopped last night started on po Cardizem 120 cd today and to monitor HR and titrate echo unremarkable f/u inr monitor in tele appreciate cardiology inputs HTN: on lisinopril coreg stopped started on Cardizem cd will monitor RAYMUNDO: CPAP Anxiety: Stable on cymbalta, ativan HS PRN OA: will continue home meds [place], gabapentin per home dose Vit D deficiency: Vit D, calcium DVT Ppx: On IV heparin for A Fib Code status: FULL PCP: Nicolas Dispo: Plan to return home once medically stable Vital Signs: Date Time Temp Pulse Resp B/P (MAP) Pulse Ox O2 Delivery O2 Flow Rate FiO2 06/27/17 15:33 36.4 93 18 118/78 (91) 96 Room Air 06/27/17 12:00 Room Air 06/27/17 10:50 36.7 94 117/70 (86) 93 Room Air 06/27/17 08:19 36.8 99 22 147/98 (114) 94 Room Air 138/108 (118) 06/27/17 08:00 Room Air 06/27/17 04:07 36.8 81 18 134/83 (100) 97 BiPAP 06/27/17 04:00 CPAP 06/27/17 00:57 37.0 81 20 125/78 (94) 96 BiPAP 06/27/17 00:02 CPAP 06/26/17 20:00 Room Air 06/26/17 18:51 36.4 71 18 113/71 (85) 94 Room Air Lab Results: Results Past 24 Hours Test 06/26/17 22:12 06/27/17 05:41 06/27/17 13:07 Range/Units Activated Partial Thromboplast Time 41.2 76.2 59.6 21.0-31.0 SECONDS Partial Thromboplastin Ratio 1.6 2.9 2.3 White Blood Count 12.67 4.8-10.8 K/uL Red Blood Count 5.01 4.2-5.4 M/uL Hemoglobin 15.4 12.0-16.0 g/dL Hematocrit 45.0 37-47 % Mean Corpuscular Volume 89.8 80-100 fL Mean Corpuscular Hemoglobin 30.7 25-34 pg Mean Corpuscular Hemoglobin Concent 34.2 32-36 g/dl RDW Standard Deviation 43.3 36.4-46.3 fL RDW Coefficient of Variation 13.3 11.5-14.5 % Platelet Count 236 130-400 K/uL Mean Platelet Volume 9.2 7.4-10.4 fL Sodium Level 139 136-145 mmol/L Potassium Level 3.9 3.5-5.1 mmol/L Chloride Level 105 98-107 mmol/L Carbon Dioxide Level 28 21-32 mmol/L Anion Gap 6.0 3-11 mmol/L Blood Urea Nitrogen 16 7-18 mg/dl Creatinine 0.94 0.60-1.20 mg/dl Est Creatinine Clear Calc Drug Dose 66.1 ml/min Estimated GFR () 69.8 Estimated GFR (Non- 60.2 BUN/Creatinine Ratio 17.0 10-20 Random Glucose 111 70-99 mg/dl Calcium Level 9.1 8.5-10.1 mg/dl Magnesium Level 2.1 1.8-2.4 mg/dl Prothrombin Time 13.8 9.0-12.0 SECONDS Prothromb Time International Ratio 1.3 0.9-1.1
--- NOTE | 2017-06-27 20:00 | NUR ---
pt reassessed. currently no complaints. remains at bedside. heart rate into the 160's with ambulation, pt asymptomatic. heart rate immediately decreases with rest. call seo in reach will cont to monitor.
[2017-06-27] MEDS: LORAZEPAM 1 MG TAB PO SCH (20:53)
[2017-06-27] MEDS: MELATONIN 10 MG PO SCH (20:54)
[2017-06-27] MEDS: MELATONIN 5 MG PO SCH (20:54)
[2017-06-27] MEDS ORDERED: MELATONIN 5 MG PO SCH (21:00)
[2017-06-27] MEDS ORDERED: MELATONIN PO SCH (21:00)
[2017-06-28] VITALS (7 sets, daily range): BP systolic 93–136; BP diastolic 60–100; PULSE 64–106; TEMP 36.5–36.8; O2SAT 92–96
--- NOTE | 2017-06-28 | NUR ---
A: PT is alert and oriented x4, A-Fib on ekg monitor tech, denies chest pain or SOB, VSS, heparin infusing at 30ml/hr, pts on BiPAP at night, independent in room, denies pain, DC plan uncertain, assessment compleat.
[2017-06-28] MEDS: HEPARIN 25,000 UNIT/500ML D5W 500 ML IV PRN (02:10)
--- NOTE | 2017-06-28 04:00 | NUR ---
A: PT is alert and oriented x4, A-Fib on threat monitoring analyst, denies chest pain or SOB, VSS, heparin infusing at 30ml/hr, no complaints at this time, assessment compleat.
[2017-06-28] MEDS: HYDROCODONE/ACETAMIN 5/325MG TAB PO SCH ×6 (04:35→20:54)
[2017-06-28 06:16] LABS: INR 2.2 (0.9-1.1)
[2017-06-28 07:35] LABS: PTT PATIENT 66.9 SECONDS (21.0-31.0)
[2017-06-28] MEDS: DILTIAZEM HCL 120 MG CAPCR PO SCH (08:45)
[2017-06-28] MEDS: ASPIRIN 81 MG ECTAB PO SCH (08:56)
[2017-06-28] MEDS: LACTOBACILLUS ACIDOPHILUS (FLORANEX) TAB PO SCH (08:56)
[2017-06-28] MEDS: FLUTICASONE PROPIONATE NA SPR 16 GM BTL NAE SCH (08:56)
[2017-06-28] MEDS: METOPROLOL TARTRATE 50 MG TAB PO SCH ×2 (08:57→20:55)
[2017-06-28] MEDS: LISINOPRIL 5 MG TAB PO SCH (08:57)
[2017-06-28] MEDS: CHOLECALCIFEROL 1000 INTER.UNIT TAB PO SCH (08:57)
[2017-06-28] MEDS: MAGNESIUM OXIDE 400 MG TAB PO SCH (08:57)
[2017-06-28] MEDS: GABAPENTIN 600 MG TAB PO SCH ×3 (08:57→20:54)
[2017-06-28] MEDS: CALCIUM CARBONATE 1250MG TAB PO SCH ×2 (08:57→20:55)
--- NOTE | 2017-06-28 09:08 | NUR ---
NOTE-Heart rate fluctuating and Dr Bateman aware.
[2017-06-28] MEDS ORDERED: METOPROLOL TARTRATE 1 MG/ML VIAL IV PRN (09:15)
--- NOTE | 2017-06-28 09:48 | Cardiology Follow-Up ---
Subjective Subjective Date of Service: Jun 28, 2017. Pt evaluation today including: conversation w/ patient, physical exam, chart review, lab review, review of studies, review of inpatient medication list Additional Details: Pt seen and examined, states that she feels fine. Again this AM HR up into 160' s with activity but symptom free. Denies cp, sob, palpitations, lightheadedness or dizziness. Tele reviewed: afib with variable rates Problem List Medical Problems: (1) Fracture of metatarsal bone Status: Acute Review of Systems Respiratory: No see HPI, No cough, No sputum, No wheezing, No shortness of breath, No dyspnea on exertion, No dyspnea at rest, No hemoptysis, No problem reported Cardiac: No see HPI, No chest pain, No orthopnea, No PND, No edema, No claudication, No palpitations, No problem reported Objective Vital Signs Last Vital Signs Documentation Date Time Temp Pulse Resp B/P (MAP) Pulse Ox O2 Delivery O2 Flow Rate FiO2 06/28/17 08:02 Room Air 06/28/17 07:56 36.7 97 19 104/69 (81) 94 06/28/17 03:45 2.0 Physical Exam: General Appearance: WD/WN, no apparent distress Eyes: bilateral eyes normal inspection, bilateral eyes PERRL, bilateral eyes EOMI ENT: normal ENT inspection, hearing grossly normal, pharynx normal Neck: supple, no adenopathy, thyroid normal, no JVD, no carotid bruits, trachea midline Respiratory/Chest: chest non-tender, lungs clear, normal breath sounds, no respiratory distress, no accessory muscle use Cardiovascular: no edema, no gallop, no JVD, no murmur, + irregularly irregular Abdomen: normal bowel sounds, non tender, soft, no organomegaly, no pulsatile mass Extremities: normal inspection, no pedal edema, no calf tenderness Neurologic/Psychiatric: head rose grower II-XII nml as tested, no motor/sensory deficits, alert, normal mood/affect, oriented x 3 Skin: normal color, warm/dry, no rash Lymphatic: no adenopathy Assessment and Plan 1. new onset afib unable to perform JOHN due to esophageal disorder per patient rates remain elevated with activity will increase metoprolol to 50mg bid now will then have her ambulate in 2 hours and if rates remain elevated will increase cardizem cd to 240mg daily as well INR therapeutic at 2.2, will d/c heparin
[2017-06-28] MEDS ORDERED: DILTIAZEM HCL 120 MG CAPCR PO ONE (11:45)
--- NOTE | 2017-06-28 12:50 | NUR ---
Patient asymptomatic when in afib. Converted to NSR this pm.
[2017-06-28] MEDS ORDERED: WARFARIN SOD 5 MG TAB PO SCH (16:00)
--- NOTE | 2017-06-28 16:33 | Progress Note ---
Progress Note Date of Service Jun 28, 2017. Progress Note Pt spontaneously converted to sinus rhythm this PM. Did not feel any different INR therapeutic at 2.2 today will hold AM cardizem but cont metoprolol will likely d/c home in AM on metoprolol and coumadin f/u with me in 1 month along with outpatient coag clinic referral (my office will call to arrange both)
--- NOTE | 2017-06-28 17:00 | NUR ---
A note: pt alert and oriented x4. Voiding in the bathroom without difficulty. Denies chest pain and SOB. Scheduled [place] given for bilateral knee pain. Lungs clear on RA. Pt assessed and charted.
--- NOTE | 2017-06-28 18:23 | Progress Note ---
Internal Med Progress Note Date of Service: Jun 28, 2017. Provider Documentation: SUBJECTIVE: patient HR were elevated on monitor in the monitor samra patient didn't feel any palpitations denies chest pain or sob or dizziness no nausea got extra dose of Cardizem and Lopressor and later in the day converted to sinus OBJECTIVE: Vital Signs-as noted below Exam: General-alert and oriented. not in distress ENT-Normal hearing Neck-no neck masses Lungs-Cta b/l no wheezing or crackles Heart-S1 and S2 heard irregular No murmurs Abdomen-Soft Bowel sounds present Non tender No distension Extremities-No edema No erythema Neuro-alert and awake moves extremities Lab data as noted below. ASSESSMENT & PLAN: This is a 71yo F with PMH of HTN, HLD, RAYMUNDO (on CPAP), anxiety, OA and other problems listed below with presents with chest pressure and SOB that began today at 8am. A fib with RVR: started on Cardizem drip iv heparin and Coumadin rates controlled and drip was stopped last night started on po Cardizem 120 cd and to monitor HR and titrate echo unremarkable monitor in tele 06/28/17:HR elevated in morning received Lopressor 50mg and extra dose of cardizem 120mg later converted to sinus. plan to stop Cardizem and d/c on Lopressor 50mg bid in am if stable and f/u with cardiology inr 2.2. heparin stopped appreciate cardiology inputs HTN: on lisinopril coreg stopped started on Lopressor will monitor RAYMUNDO: CPAP Anxiety: Stable on Cymbalta, Ativan HS PRN OA: will continue home meds [place], gabapentin per home dose Vit D deficiency: Vit D, calcium DVT Ppx: On IV heparin for A Fib Code status: FULL PCP: Nicolas Dispo: Plan to return home possible in am pt/ot Vital Signs: Date Time Temp Pulse Resp B/P (MAP) Pulse Ox O2 Delivery O2 Flow Rate FiO2 06/28/17 16:30 Room Air 06/28/17 16:15 36.5 73 20 109/68 (82) 92 Room Air 06/28/17 12:43 93/60 (71) 06/28/17 12:11 36.7 106 19 136/100 (112) 92 Room Air 06/28/17 08:02 Room Air 06/28/17 07:56 36.7 97 19 104/69 (81) 94 Room Air 06/28/17 04:00 Room Air 06/28/17 03:45 36.8 97 18 102/62 (75) 94 Nasal Cannula 2.0 06/28/17 00:00 Room Air 06/27/17 23:30 36.7 70 20 114/70 (85) 95 Room Air 06/27/17 20:00 Room Air 06/27/17 19:59 36.4 87 20 138/76 (96) 95 Room Air Lab Results: Results Past 24 Hours Test 06/28/17 05:38 Range/Units Prothrombin Time 22.7 9.0-12.0 SECONDS Prothromb Time International Ratio 2.2 0.9-1.1 Activated Partial Thromboplast Time 66.9 21.0-31.0 SECONDS Partial Thromboplastin Ratio 2.6
--- NOTE | 2017-06-28 20:00 | NUR ---
Patient sitting in strait back chair beside . Pt denies discomfort. Monitor SR. Lungs clear. Pulses +. Reviewed Coumadin teaching. Pt reports having a copied Coumadin Teaching packet. Pt given Stroke teaching packet.
[2017-06-28] MEDS: LORAZEPAM 1 MG TAB PO SCH (20:54)
[2017-06-28] MEDS: MELATONIN 10 MG PO SCH (20:55)
[2017-06-28] MEDS: MELATONIN 5 MG PO SCH (20:55)
--- NOTE | 2017-06-28 21:00 | NUR ---
Patient placed her on BiPap treatment on. Laying on side. No c/o discomfort.
--- NOTE | 2017-06-28 22:00 | NUR ---
Pt sleeping comfortably on Bipap. Monitor unchanged.
[2017-06-29] VITALS: O2SAT 96
--- NOTE | 2017-06-29 00:20 | NUR ---
Patient awoken for [place]. Reports being pain free, No changes in assessment. Lungs unchanged.
[2017-06-29] MEDS: HYDROCODONE/ACETAMIN 5/325MG TAB PO SCH ×4 (00:28→12:25)
[2017-06-29 03:45] VITALS: BP 107/56; PULSE 62; TEMP 36.5; O2SAT 92
[2017-06-29 04:00] VITALS: O2SAT 95
--- NOTE | 2017-06-29 04:20 | NUR ---
Pt awoken for [place]. Patient asking questions about taking Coumadin such as can she Quilt. Reinforced need to maintain active life style within parameters. Reviewed what to do for minor cuts and injuries. Referred patient to physician who will be controlling Coumadin dosing.
[2017-06-29 06:47] LABS: INR 3.5 (0.9-1.1)
[2017-06-29 07:48] VITALS: BP 96/56; PULSE 69; TEMP 36.7; O2SAT 92
--- NOTE | 2017-06-29 08:05 | NUR ---
A/ID: Patient is AAOX4, denies n/t, pain to bilateral knees that is chronic. LS clear on RA, denies SOB or cough. SR on monitor in 60-70s, denies CP/palp, PPP, no edema noted. Abdomen soft nontender nondistended, denies n/v, tolerating diet. Voids in toilet, clear yellow. Skin intact. Up ad bita in room. Possible discharge home today, waiting to be cleared by cardiology. Call seo in reach, will continue to monitor.
[2017-06-29] MEDS: LACTOBACILLUS ACIDOPHILUS (FLORANEX) TAB PO SCH (08:24)
[2017-06-29] MEDS: LISINOPRIL 5 MG TAB PO SCH (08:24)
[2017-06-29] MEDS: MAGNESIUM OXIDE 400 MG TAB PO SCH (08:25)
[2017-06-29] MEDS: GABAPENTIN 600 MG TAB PO SCH (08:26)
[2017-06-29] MEDS: ASPIRIN 81 MG ECTAB PO SCH (08:26)
[2017-06-29] MEDS: CHOLECALCIFEROL 1000 INTER.UNIT TAB PO SCH (08:26)
[2017-06-29] MEDS: CALCIUM CARBONATE 1250MG TAB PO SCH (08:26)
[2017-06-29] MEDS: DULOXETINE (CYMBALTA) 30 MG CAP PO SCH (08:26)
[2017-06-29] MEDS: FLUTICASONE PROPIONATE NA SPR 16 GM BTL NAE SCH (08:27)
[2017-06-29] MEDS: METOPROLOL TARTRATE 50 MG TAB PO SCH (08:38)
--- NOTE | 2017-06-29 11:22 | PROGRESS NOTE ---
DATE: 06/29/2017 FOLLOWUP VISIT RECOMMENDATIONS: The patient converted to normal sinus rhythm spontaneously late yesterday. She was kept 1 additional night just for observation. Today, she has no complaints. She is maintaining sinus rhythm. All questions were answered for her and her . At this point, she can be discharged home. She already has arrangements made for followup through our office in 1 month.
--- NOTE | 2017-06-29 11:40 | NUR ---
A: Physical assessment unchanged, no complaints at this time. Cleared for discharge home per Dr Kalen RN notified hospitalist Dr Bateman and patient will be discharged home today.
[2017-06-29 11:43] VITALS: BP 88/50; PULSE 62; TEMP 36.5; O2SAT 95
[2017-06-29] MEDS ORDERED: CMD25 PO (11:57)
[2017-06-29] MEDS ORDERED: METO50TA16 PO (11:57)
[2017-06-29 11:58] VITALS: BP 96/56; PULSE 62; TEMP 36.5; O2SAT 95
--- NOTE | 2017-06-29 12:00 | Discharge Instructions ---
Discharge Instructions Date of Service Jun 29, 2017. Admission Reason for Admission: Atrial Fibrillation With Rvr Discharge Discharge Diagnosis / Problem: a FIB WITH rvr Discharge Goals Goal(s): Decrease discomfort Activity Recommendations Activity Limitations: resume your previous activity . Instructions / Follow-Up Instructions / Follow-Up FOLLOWUP WITH FAMILY DOCTOR ON Jun AT 10:45AM. FOLLOWUP WITH CARDIOLOGY SCHEDULED. TO NOT TAKE COUMADIN TODAY. TO START TAKING COUMADIN FROM TOMORROW : COUMADIN 2.5MG PO DAILY IN EVENING UNTIL FURTHER INSTRUCTIONS FROM COUMADIN CLINIC. LAB: PT/INR IN 3-4 DAYS AND FOLLOW RESULTS WITH COUMADIN CLINIC FOR FURTHER ADJUSTMENTS IN COUMADIN DOSING. Current Hospital Diet Patient's current hospital diet: Low Sodium Diet (2gm Na) Discharge Diet Recommended Diet: AHA Diet (Heart Healthy) Pending Studies Studies pending at discharge: no Medical Emergencies . Who to Call and When: Medical Emergencies: If at any time you feel your situation is an emergency, please call 911 immediately. . Non-Emergent Contact Non-Emergency issues call your: Primary Care Provider ([facility]) . . "Provider Documentation" section prepared by Zay Bateman. . VTE Core Measure Inpt VTE Proph given/why not?: Warfarin (Coumadin), Other Anticoagulation (IV heparin)
--- NOTE | 2017-06-29 18:27 | Progress Note ---
Internal Med Progress Note Date of Service: Jun 29, 2017. Provider Documentation: SUBJECTIVE: currently in sinus denies any palpitations ambulating fine' no chest pain ok for discharge OBJECTIVE: Vital Signs-as noted below Exam: General-alert and oriented. not in distress ENT-Normal hearing Neck-no neck masses Lungs-Cta b/l no wheezing or crackles Heart-S1 and S2 heard regular No murmurs Abdomen-Soft Bowel sounds present Non tender No distension Extremities-No edema No erythema Neuro-alert and awake moves extremities Lab data as noted below. ASSESSMENT & PLAN: This is a 71yo F with PMH of HTN, HLD, RAYMUNDO (on CPAP), anxiety, OA and other problems listed below with presents with chest pressure and SOB that began today at 8am. A fib with RVR: started on Cardizem drip iv heparin and Coumadin rates controlled and drip was stopped started on po Cardizem 120 cd and to monitor HR and titrate echo unremarkable monitor in tele 06/28/17:HR elevated in morning received Lopressor 50mg and extra dose of Cardizem 120mg later converted to sinus. plan to stop Cardizem and d/c on Lopressor 50mg bid if stable and f/u with cardiology inr 2.2. heparin stopped appreciate cardiology inputs discharged on Lopressor 50mg bid and Coumadin 2.5 mg daily f/u with pcp, cardiology and Coumadin clinic HTN: on lisinopril coreg stopped started on Lopressor will monitor RAYMUNDO: CPAP Anxiety: Stable on Cymbalta, Ativan HS PRN OA: will continue home meds [place], gabapentin per home dose Vit D deficiency: Vit D, calcium discharged home Vital Signs: Date Time Temp Pulse Resp B/P (MAP) Pulse Ox O2 Delivery O2 Flow Rate FiO2 06/29/17 11:58 36.5 62 18 95 Room Air 06/29/17 11:43 36.5 62 18 88/50 (63) 95 Room Air 06/29/17 08:00 Room Air 06/29/17 07:48 36.7 69 16 96/56 (69) 92 Room Air 06/29/17 04:00 95 BiPAP 06/29/17 03:45 36.5 62 19 107/56 (73) 92 BiPAP 06/29/17 00:00 96 BiPAP 06/28/17 23:30 36.8 64 18 135/77 (96) 96 BiPAP 06/28/17 20:09 36.5 73 18 97/65 (76) 94 Room Air 06/28/17 20:00 Room Air Lab Results: Results Past 24 Hours Test 06/29/17 06:10 Range/Units Prothrombin Time 36.0 9.0-12.0 SECONDS Prothromb Time International Ratio 3.5 0.9-1.1
--- NOTE | 2017-06-29 18:57 | Discharge Summary ---
Discharge Summary Date of Service Jun 29, 2017. Discharge Summary Admission Date: Jun 26, 2017 at 12:13 Discharge Date: Jun 29, 2017 Discharge Disposition: Home Principal Diagnosis: RAPID AFIB Secondary Diagnoses/Problems: (1) HLD (hyperlipidemia) Status: Chronic (2) HTN (hypertension) Status: Chronic (3) RAYMUNDO (obstructive sleep apnea) Status: Chronic (4) Osteoporosis Status: Chronic Procedures: CXR: No active disease in the chest. Consultations: CARDIOLOGY Medication Reconciliation New Medications: Warfarin Sod (Coumadin) 2.5 Mg Tab 2.5 MG PO DAILY, #30 2 Refills Metoprolol Tartrate (Lopressor) (Lopressor) 50 Mg Tab 50 MG PO BID, #60 TAB 1 Refill Continued Medications: Albuterol Sulfate (Proventil Hfa) 108 Mcg/Act Aer 2 PUFF INH QID PRN for Wheezing Aspirin (Aspirin Chewable) 81 Mg Chew 81 MG PO DAILY, TAB Calcium Carbonate (Calcium) 600 Mg Tab 600 MG PO BID Cholecalciferol (Vitamin D 1000 Unit) 1,000 Unit Cap 1000 INTER.UNIT PO DAILY, CAP Duloxetine HCl (Cymbalta) 30 Mg Cap 30 MG PO DAILY for 30 Days, #30 CAP 2 Refills Fexofenadine Hcl (Amelia) 60 Mg Tab 60 MG PO BID PRN for ALLERGY SYMPTOMS, TAB Fluticasone Propionate (Nasal) (Flonase Allergy Relief) 50 Mcg/Act Spr 2 SPRAYS MERRY DAILY Gabapentin (Neurontin) 300 Mg Cap 600 MG PO TID, 0 Refills Guaifenesin (Mucus Relief) 400 Mg Tab 400 MG PO UD Hydrocodone/Acetaminophen 5MG/325MG ([place] 5MG/325MG) Tab 1 TABLET PO Q4 PRN for Pain, TAB PRN PAIN Lisinopril (Lisinopril) 5 Mg Tab 1 TAB PO DAILY Lorazepam (Ativan) 1 Mg Tab 1 MG PO HS, TAB Magnesium Oxide (Mag-Ox) 400 Mg Tab 400 MG PO DAILY, TAB Melatonin (Melatonin Maximum Strengt) 5 Mg Tab 15 MG PO HS for 30 Days, #30 TAB Multivitamins/Minerals (Mvi With Minerals) Tab 1 TAB PO DAILY, TAB Probiotic Product (Kickanotch mobile) 1 Cap Cap 1 CAP PO DAILY Discontinued Medications: Carvedilol (Coreg) 6.25 Mg Tab 6.25 MG PO BID, TAB Admission Information HPI (per Admitting provider): This is a 71yo F with PMH of HTN, HLD, RAYMUNDO (on CPAP), anxiety, OA and other problems listed below with presents with chest pressure and SOB that began today at 8am. States that she woke up with fast beating of her heart and 5/10 central chest pressure. Also endorses exertional lightheadedness and SOB. brought her to the ED for further evaluation. States that she was evaluated for similar symptoms in 2011. Per chart review, patient does have a reported history of paroxysmal SVT in 2012 that was symptomatic but has not experienced any symptomatic episode since then. Was found to be in A Fib with RVR at 156bpm initially in the ED and a cardizem drip was initiated. HR decreased to 110s and patient's chest pressure and SOB resolved. Denies h/o heart disease or CVA. Remote h/o DVT when patient was in her 20s on oral contraceptives. Physical Exam (per Admitting): General Appearance: no apparent distress, + obese Head: normocephalic, atraumatic Eyes: normal inspection, PERRL, sclerae normal ENT: normal ENT inspection, hearing grossly normal, pharynx normal (moist mucous membranes ) Neck: supple, thyroid normal, trachea midline Respiratory/Chest: chest non-tender, lungs clear, normal breath sounds, no respiratory distress, no accessory muscle use Cardiovascular: no murmur, + irregularly irregular Abdomen/GI: non tender, soft, no organomegaly Extremities/Musculoskelatal: normal inspection, no calf tenderness, no pedal edema Neurologic/Psych: no motor/sensory deficits, alert, normal mood/affect, oriented x 3 Skin: normal color, warm/dry Hospital Course This is a 71yo F with PMH of HTN, HLD, RAYMUNDO (on CPAP), anxiety, OA and other problems listed below with presents with chest pressure and SOB that began today at 8am. A fib with RVR: started on Cardizem drip iv heparin and Coumadin rates controlled and drip was stopped started on po Cardizem 120 cd and to monitor HR and titrate echo unremarkable monitor in tele 06/28/17:HR elevated in morning received Lopressor 50mg and extra dose of Cardizem 120mg later converted to sinus. plan to stop Cardizem and d/c on Lopressor 50mg bid if stable and f/u with cardiology inr 2.2. heparin stopped appreciate cardiology inputs discharged on Lopressor 50mg bid and Coumadin 2.5 mg daily f/u with pcp, cardiology and Coumadin clinic HTN: on lisinopril coreg stopped started on Lopressor will monitor RAYMUNDO: CPAP Anxiety: Stable on Cymbalta, Ativan HS PRN OA: will continue home meds [place], gabapentin per home dose Vit D deficiency: Vit D, calcium discharged home Total time spent on discharge = 35MINUTES This includes examination of the patient, discharge planning, medication reconciliation, and communication with other providers. Discharge Instructions Discharge Instructions Date of Service Jun 29, 2017. Admission Reason for Admission: Atrial Fibrillation With Rvr Discharge Discharge Diagnosis / Problem: a FIB WITH rvr Discharge Goals Goal(s): Decrease discomfort Activity Recommendations Activity Limitations: resume your previous activity . Instructions / Follow-Up Instructions / Follow-Up FOLLOWUP WITH FAMILY DOCTOR ON Jun AT 10:45AM. FOLLOWUP WITH CARDIOLOGY SCHEDULED. TO NOT TAKE COUMADIN TODAY. TO START TAKING COUMADIN FROM TOMORROW : COUMADIN 2.5MG PO DAILY IN EVENING UNTIL FURTHER INSTRUCTIONS FROM COUMADIN CLINIC. LAB: PT/INR IN 3-4 DAYS AND FOLLOW RESULTS WITH COUMADIN CLINIC FOR FURTHER ADJUSTMENTS IN COUMADIN DOSING. Current Hospital Diet Patient's current hospital diet: Low Sodium Diet (2gm Na) Discharge Diet Recommended Diet: AHA Diet (Heart Healthy) Pending Studies Studies pending at discharge: no Medical Emergencies . Who to Call and When: Medical Emergencies: If at any time you feel your situation is an emergency, please call 911 immediately. . Non-Emergent Contact Non-Emergency issues call your: Primary Care Provider ([facility]) . . "Provider Documentation" section prepared by Zay Bateman. . VTE Core Measure Inpt VTE Proph given/why not?: Warfarin (Coumadin), Other Anticoagulation (IV heparin)
--- NOTE | 2017-07-04 13:04 | EDITING REQUIRED CODING QUERY ---
CODING QUERY To promote full compliance with coding requirements relating to patient care, provider participation is requested in all cases of clinical trial specialist uncertainty. Please assist us with the question(s) below: Coding Question(s): There is documentation in the record of elevated BMI and descriptor of "obese" in the physical section but no diagnosis of obesity. Please clarify below, in your clinical opinion. ( ) Obese and Elevated BMI mean diagnosis of obesity ( ) Unspecified Obesity ( x ) Morbid Obesity ( ) Obese and Elevated BMI are description only and do not mean a diagnosis of obesity Physician's Response(s): Thank you Litzy Galicia Principal Diagnosis: "_that condition established after study, to be chiefly responsible for occasioning the admission of the patient to the hospital for care." Co-Existing Principal Diagnosis: "_when two or more diagnoses equally meet the criteria for principal diagnosis as determined by the circumstances of admission, diagnostic work up, and/or therapy provided, and the Alphabetic Index, Tabular List, or another coding guideline does not provide sequencing direction, any one of the diagnoses may be sequenced first." "When the physician has documented what appears to be a current diagnosis in the body of the record, but has not included the diagnosis in the final diagnostic statement, the physician should be asked whether the diagnosis should be added." (Source Coding [facility] 2 QTR90. p3-4)
== END 2017-06-29 12:43 | disposition home or self-care (01) | DRG 309 ==
LOC: C.EDB 09:52 → C.2T 12:13 → EDBEDREQ 12:45 → ENRESERV 13:01
PROVIDERS: ADMIT Internal Medicine; ATTEND Internal Medicine
DX: I48.91 Unspecified atrial fibrillation (principal); Z68.43 Body mass index [BMI] 50.0-59.9, adult; I11.9 Hypertensive heart disease without heart failure; G62.9 Polyneuropathy, unspecified; G47.33 Obstructive sleep apnea (adult) (pediatric); F41.9 Anxiety disorder, unspecified; M19.90 Unspecified osteoarthritis, unspecified site; E55.9 Vitamin D deficiency, unspecified; E66.01 Morbid (severe) obesity due to excess calories; Z51.81 Encounter for therapeutic drug level monitoring; Z79.899 Other long term (current) drug therapy; Z79.82 Long term (current) use of aspirin; Z85.43 Personal history of malignant neoplasm of ovary

== ENCOUNTER 2021-10-22 10:03 | Inpatient (IN) ==
[2021-10-22] MEDS ORDERED: METOPROLOL TARTRATE 50 MG TAB PO STA (10:17)
[2021-10-22] MEDS ORDERED: SODIUM CHLORIDE 0.9% 1000ML 1,000 ML IV ONE (10:17)
--- NOTE | 2021-10-22 11:00 | Emergency Department Note ---
History of Present Illness General Chief complaint: Fall Stated complaint: BACK & KNEE PAIN, SOB, Time Seen by Provider: 10/22/21 10:13 History of Present Illness Provider complaint: Fall Onset (ago): minute(s) (90) Location: head, chest and abdomen Radiation: back Maximum Pain Intensity: 8 Current Pain Intensity: 8 Quality: + aching Associated symptoms: + headaches and + shortness of breath; no chest pain, no cough or no nausea/vomiting 76-year-old female presents emergency department status post fall. Patient sta eyad she was on the toilet earlier today and fell off striking her back. Patient also reports she hit her head. Patient reports difficulty breathing. She is reporting abdominal pain. Patient is on Coumadin. No loss of consciousness. Patient states she called her family member who came and got her after 20 minutes of her lying on the floor. Home Medications Medication Instructions Recorded Confirmed Type calcium carbonate 600 mg calcium 600 mg PO BID 04/04/18 10/22/21 History (1,500 mg) tablet cholecalciferol (vitamin D3) 25 1,000 unit PO QAM 04/04/18 10/22/21 History mcg (1,000 unit) capsule (Vitamin D3) duloxetine 30 mg capsule,delayed 60 mg PO HS 04/04/18 10/22/21 History release (Cymbalta) fexofenadine 60 mg tablet (Amelia 60 mg PO BID PRN 04/04/18 10/22/21 History Allergy) fluticasone propionate 50 2 spray [facility] 04/04/18 10/22/21 History mcg/actuation nasal spray,suspension (Flonase Allergy Relief) gabapentin 300 mg capsule 600 mg PO TID 04/04/18 10/22/21 History hydrocodone 5 mg-acetaminophen 325 1 tab PO Q4 PRN 04/04/18 10/22/21 History mg tablet melatonin 5 mg tablet 10 mg PO HS 04/04/18 10/22/21 History metoprolol tartrate 50 mg tablet 50 mg PO BID 04/04/18 10/22/21 History multivitamin 1 tab PO QAM 04/04/18 10/22/21 History warfarin 2.5 mg tablet 1.25 - 2.5 mg PO DAILY 04/04/18 10/22/21 History losartan 25 mg tablet 25 mg PO HS 09/14/20 10/22/21 History Lactobacills gasseri-Bifidobac 1 cap PO DAILY 10/22/21 10/22/21 History bifidum,longum 1.5 billion cell capsule (Wallarm) albuterol sulfate 90 mcg/actuation 2 inh INHALATION QID PRN 10/22/21 10/22/21 History aerosol inhaler aluminum chloride 20 % topical 1 applic TOPICAL HS 10/22/21 10/22/21 History solution (Drysol Dab-O-Matic) aspirin 81 mg tablet,delayed 81 mg PO DAILY 10/22/21 10/22/21 History release atorvastatin 20 mg tablet 20 mg PO DAILY 10/22/21 10/22/21 History diclofenac sodium 1 % topical gel 2 g TOPICAL QID 10/22/21 10/22/21 History furosemide 40 mg tablet 40 mg PO QAM 10/22/21 10/22/21 History guaifenesin 400 mg tablet (Mucus 400 mg PO QID PRN 10/22/21 10/22/21 History Relief) magnesium oxide 400 mg PO DAILY 10/22/21 10/22/21 History mupirocin 2 % topical ointment 1 applic TOPICAL BID 10/22/21 10/22/21 History potassium chloride 10 mEq 10 meq PO DAILY 10/22/21 10/22/21 History capsule,extended release triamcinolone acetonide 0.1 % 1 applic TOPICAL BID 10/22/21 10/22/21 History topical cream Allergies Allergy/AdvReac Type Severity Reaction Status Date / Time tetracycline Allergy Unknown Rash Verified 10/22/21 15:37 esomeprazole [From Nexium] AdvReac Intermediate EPISTAXIS Verified 10/22/21 15:37 adhesive AdvReac Unknown SKIN Verified 10/22/21 15:37 IRRITATION Past Med/Surg History Medical History Atrial fibrillation DX'D 06/2017 [facility]-HAS BEEN ON THINNER SINCE Cancer OVARIAN 1975 Chronic back pain Difficult airway for intubation [id number] INTUBATION-NEEDS SMALL SIZE TUBE-NO INTUBATION EXPERIENCES SINCE Hx of deep venous thrombosis HX LLE -WITHOUT ANY INJURY OR SURGERY-NO ISSUES SINCE Hyperlipidemia Hypertension Kidney stones no surgical intervention Morbid obesity with BMI of 45.0-49.9, adult Osteoarthritis Sleep apnea CPAP SOB (shortness of breath) LYING FLAT/WITH 1 FLIGHT STAIRS Surgical History History of cardiac cath 2014 X 2-[facility] NO STENTS-NO BLOCKAGES History of colonoscopy History of dilatation and curettage History of hysterectomy BSO History of surgical removal of skin lesion "fatty tumor" History of tonsillectomy History of total knee replacement RIGHT Hx of hemorrhoidectomy Family History Father Family hx of colon cancer Other No family history of adverse response to anesthesia Social History Smoking Status: Never smoker Second Hand Exposure: No; Hx Alcohol Use: No Hx Substance Use: No Preferred Language: Bur[place]ian Communication Ability: Effective Casing Tier Required: No Beliefs That Will Affect Care: None Current Living Situation: Alone Feels Safe at Home: Yes Assistive Devices: Cane, CPAP and Glasses Review of Systems A total of 10 systems reviewed and were otherwise negative Physical Exam Vital Signs Vital Signs - 24 hr 10/22/21 10:20 10/22/21 10:30 10/22/21 10:35 Temperature 36.7 C Temperature Source Oral Pulse Rate 136 H Pulse Rate [Apical] 139 H Pulse Rhythm Irregular Pulse Rhythm [Apical] Irregular Respiratory Rate 26 H 28 H Blood Pressure 90/49 L Blood Pressure [Right Arm] 97/58 L Blood Pressure Mean 62 Blood Pressure Mean [Right Arm] 71 Pulse Oximetry 94 93 Oxygen Delivery Method Room Air Room Air Room Air Oxygen Flow Rate Sepsis Recent Fever Within 48 Hours No Sepsis New/Unexplained Change in Mental Status No Sepsis Action Taken by Nursing No Action Required 10/22/21 11:02 10/22/21 12:00 10/22/21 13:30 Temperature Temperature Source Pulse Rate Pulse Rate [Apical] 92 H 91 H Pulse Rhythm Pulse Rhythm [Apical] Respiratory Rate 20 22 20 Blood Pressure Blood Pressure [Right Arm] 117/54 L Blood Pressure Mean Blood Pressure Mean [Right Arm] 75 Pulse Oximetry 95 99 98 Oxygen Delivery Method Nasal Cannula Nasal Cannula Nasal Cannula Oxygen Flow Rate 3 3 3 Sepsis Recent Fever Within 48 Hours Sepsis New/Unexplained Change in Mental Status Sepsis Action Taken by Nursing 10/22/21 15:33 Temperature Temperature Source Pulse Rate Pulse Rate [Apical] 85 Pulse Rhythm Pulse Rhythm [Apical] Respiratory Rate 20 Blood Pressure Blood Pressure [Right Arm] 117/61 Blood Pressure Mean Blood Pressure Mean [Right Arm] 79 Pulse Oximetry 95 Oxygen Delivery Method Nasal Cannula Oxygen Flow Rate Sepsis Recent Fever Within 48 Hours Sepsis New/Unexplained Change in Mental Status Sepsis Action Taken by Nursing Physical Exam HENT: Exam performed. -Head: Normocephalic and atraumatic. -Right Ear: External ear normal. No mastoid tenderness. -Left Ear: External ear normal. No mastoid tenderness. -Mouth/Throat: The oropharynx is clear and moist. No trismus in the jaw. No dental abscesses or uvula swelling. No oropharyngeal exudate or tonsillar abscesses. EYES: Conjunctivae and EOM are normal. Pupils are equal, round, and reactive to light. Right eye exhibits no discharge. Left eye exhibits no discharge. No scleral icterus. NECK: Normal range of motion. Neck supple. No JVD present. No spinous process tenderness present. No carotid bruit present. No rigidity. No tracheal deviation and normal range of motion present. No Brudzinski's sign and no Kernig's sign noted. CV: tachycardic rate, irregular rhythm, normal heart sounds and intact distal pulses. There is no peripheral edema. Palpable radial pulses bue. PULM/CHEST: Effort normal and breath sounds normal. No respiratory distress. No stridor. She has no wheezes. She has no rales. -Chest Wall: She exhibits no tenderness. ABD: The abdomen is soft. Bowel sounds are normal. She has no distension. No mass is present. There is no tenderness. There is no rebound, no guarding, no Whitt's sign and no tenderness at McBurney's point. Rovsig negative MUSC/SKEL: Pelvis stable. LYMPH: No cervical adenopathy. NEURO: Motor and Sensation grossly intact Course Course 1013: The patient was evaluated in room A12. A complete history and physical exam was performed Cardiac monitoring: An order was placed for continuous cardiac monitoring. The monitor shows a rate of 140 with atrial fibrilation rhythm Patient reports she did not take any of her home medications this morning. Patient has her list of medications from [facility] with her. Patient is supposed to take metoprolol 50 mg daily. Patient will be given metoprolol p.o. and labs and imaging will be conducted. 1115: Status post IV fluids and her home metoprolol the patient is in A. fib rhythm with a controlled ventricular rate. 1520: Vital signs stable status post IV fluids. Labs show leukocytosis of 25.9. INR therapeutic at 4.2. Creatinine elevated 2.8.. Patient's creatinine usually runs around 1. None elevated 156.7. Lactic acid 2.6 urine appears infected. Imaging of the head and C-spine showed no acute traumatic injury. CT of the abdomen pelvis shows no acute traumatic injury but does show 9 mm kidney stone at the UVJ with hydroureteronephrosis. Patient be treated with Rocephin 1 g IV piggyback. IV fluids ordered for the patient. Discussed case with Dr. Munoz on-call urology who agrees that the patient should be admitted to the hospitalist team and he will be on consult. 1602: X-ray showed no acute traumatic fractures. Vital signs stable. Discussed the case with Dr. Vincent Brito hospitalist who agrees to admit the patient to Administered Medications Sodium Chloride (Nss 1000ml) 1,000 mls @ 125 mls/hr IV .Q8H ELLIE Stop: 11/21/21 15:14 Last Admin: 10/22/21 15:32 Dose: 125 mls/hr Documented by: [id number] Discontinued Medications Sodium Chloride (Nss 1000ml) 1,000 mls @ 999 mls/hr IV .Q1H1M ONE Stop: 10/22/21 11:17 Last Infusion: 10/22/21 13:46 Dose: 0 mls/hr Documented by: [id number] Admin: 10/22/21 12:35 Dose: 999 mls/hr Documented by: [id number] Ceftriaxone Sodium (Rocephin) 1,000 mg in 50 mls @ 100 mls/hr IV NOW STA Stop: 10/22/21 15:42 Last Admin: 10/22/21 15:32 Dose: 100 mls/hr Documented by: [id number] Metoprolol Tartrate (Metoprolol Tartrate 50 Mg Tab) 50 mg PO NOW STA Stop: 10/22/21 10:18 Last Admin: 10/22/21 10:34 Dose: 50 mg Documented by: [id number] Medical Decision Making Laboratory Data Result diagrams: 10/22/21 12:29 10/22/21 12:29 Lab Results 10/22/21 10/22/21 10/22/21 Range/Units 12:29 12:29 12:29 WBC 25.96 H (4.8-10.8) K/uL RBC 3.98 L (4.2-5.4) M/uL Hgb 12.6 (12.0-16.0) g/dL Hct 38.2 (37-47) % MCV 96.0 (80-100) fL MCH 31.7 (25-34) pg MCHC 33.0 (32-36) g/dL RDW Std Deviation 50.8 H (36.4-46.3) fL RDW Coeff of Massiel 14.3 (11.5-14.5) % Plt Count 192 (130-400) K/uL MPV 9.5 (7.4-10.4) fL Neutrophils % (Manual) 92.5 % Lymphocytes % (Manual) 3.4 % Monocytes % (Manual) 2.5 % Basophils % (Manual) 0.8 % Metamyelocytes % (Man) 0.8 % Neutrophils # (Manual) 24.01 H (1.4-6.5) K/uL Total Absolute Neuts 24.01 H (1.4-6.5) K/uL Lymphocytes # (Manual) 0.88 L (1.2-3.4) K/uL Total Abs Lymphocytes 0.88 L (1.2-3.4) K/uL Monocytes # (Manual) 0.65 H (0.11-0.59) K/uL Basophils # (Manual) 0.21 H (0-0.2) K/uL Metamyelocytes # (Man) 0.21 H (0-0) K/uL PT (9.0-12.0) Seconds INR (0.9-1.1) APTT (21.0-31.0) Seconds PTT Ratio Sodium 136 (136-145) mmol/L Potassium 4.3 (3.5-5.1) mmol/L Chloride 103 (98-107) mmol/L Carbon Dioxide 25 (21-32) mmol/L Anion Gap 8 (3-11) BUN 37 H (6-23) mg/dl Creatinine 2.80 H (0.6-1.2) mg/dl Est Cr Clr Drug Dosing 24.3 ml/min Est GFR ( Amer) 18.0 ml/min Est GFR (Non-Af Amer) 15.5 ml/min BUN/Creatinine Ratio 13.2 (10-20) Glucose 100 H (70-99(Fasting)) mg/dl Lactate (0.4-2.0) mmol/L Calcium 8.6 (8.5-10.1) mg/dl Total Bilirubin 0.9 (0.2-1.0) mg/dl AST 168 H (13-39) U/L ALT 239 H (7-52) U/L Alkaline Phosphatase 118 H (34-104) U/L Troponin I High Sens 156.7 H* (0-14) pg/ml Total Protein 5.8 L (6.0-8.3) gm/dl Albumin 3.2 L (3.4-5.0) gm/dl Globulin 2.6 (2.5-4.0) gm/dl Albumin/Globulin Ratio 1.2 (0.9-2) Lipase 27 (11-82) U/L Urine Color Urine Appearance (Clear) Urine pH (4.5-7.5) Ur Specific [place] (1.000-1.030) Urine Protein (Negative) Urine Glucose (UA) (Negative) Urine Ketones (Negative) Urine Blood (Negative) Urine Nitrite (Negative) Urine Bilirubin (Negative) Urine Urobilinogen (Negative) Ur Leukocyte Esterase (Negative) Urine WBC (Auto) (0-5) /hpf Urine RBC (Auto) (0-4) /hpf U Hyaline Cast (Auto) (0-5) /lpf U Epithel Cells (Auto) (0-5) /lpf Urine Bacteria (Auto) (Negative) Granular Casts (0) /lpf Urine Yeast SARS-CoV-2, RNA, NAAT (NEGATIVE) 10/22/21 10/22/21 10/22/21 Range/Units 12:29 14:17 14:37 WBC (4.8-10.8) K/uL RBC (4.2-5.4) M/uL Hgb (12.0-16.0) g/dL Hct (37-47) % MCV (80-100) fL MCH (25-34) pg MCHC (32-36) g/dL RDW Std Deviation (36.4-46.3) fL RDW Coeff of Massiel (11.5-14.5) % Plt Count (130-400) K/uL MPV (7.4-10.4) fL Neutrophils % (Manual) % Lymphocytes % (Manual) % Monocytes % (Manual) % Basophils % (Manual) % Metamyelocytes % (Man) % Neutrophils # (Manual) (1.4-6.5) K/uL Total Absolute Neuts (1.4-6.5) K/uL Lymphocytes # (Manual) (1.2-3.4) K/uL Total Abs Lymphocytes (1.2-3.4) K/uL Monocytes # (Manual) (0.11-0.59) K/uL Basophils # (Manual) (0-0.2) K/uL Metamyelocytes # (Man) (0-0) K/uL PT 41.3 H (9.0-12.0) Seconds INR 4.2 H (0.9-1.1) APTT 39.5 H (21.0-31.0) Seconds PTT Ratio 1.4 Sodium (136-145) mmol/L Potassium (3.5-5.1) mmol/L Chloride (98-107) mmol/L Carbon Dioxide (21-32) mmol/L Anion Gap (3-11) BUN (6-23) mg/dl Creatinine (0.6-1.2) mg/dl Est Cr Clr Drug Dosing ml/min Est GFR ( Amer) ml/min Est GFR (Non-Af Amer) ml/min BUN/Creatinine Ratio (10-20) Glucose (70-99(Fasting)) mg/dl Lactate 2.6 H* (0.4-2.0) mmol/L Calcium (8.5-10.1) mg/dl Total Bilirubin (0.2-1.0) mg/dl AST (13-39) U/L ALT (7-52) U/L Alkaline Phosphatase (34-104) U/L Troponin I High Sens (0-14) pg/ml Total Protein (6.0-8.3) gm/dl Albumin (3.4-5.0) gm/dl Globulin (2.5-4.0) gm/dl Albumin/Globulin Ratio (0.9-2) Lipase (11-82) U/L Urine Color Dark Yellow Urine Appearance Turbid A (Clear) Urine pH 5.0 (4.5-7.5) Ur Specific [place] 1.022 (1.000-1.030) Urine Protein 1+ H (Negative) Urine Glucose (UA) Negative (Negative) Urine Ketones Trace H (Negative) Urine Blood 1+ H (Negative) Urine Nitrite Negative (Negative) Urine Bilirubin Negative (Negative) Urine Urobilinogen Negative (Negative) Ur Leukocyte Esterase 2+ H (Negative) Urine WBC (Auto) >30 H (0-5) /hpf Urine RBC (Auto) 5-10 H (0-4) /hpf U Hyaline Cast (Auto) 1-5 (0-5) /lpf U Epithel Cells (Auto) >30 H (0-5) /lpf Urine Bacteria (Auto) Negative (Negative) Granular Casts 1-5 H (0) /lpf Urine Yeast Not Reportable SARS-CoV-2, RNA, NAAT (NEGATIVE) 10/22/21 Range/Units 15:26 WBC (4.8-10.8) K/uL RBC (4.2-5.4) M/uL Hgb (12.0-16.0) g/dL Hct (37-47) % MCV (80-100) fL MCH (25-34) pg MCHC (32-36) g/dL RDW Std Deviation (36.4-46.3) fL RDW Coeff of Massiel (11.5-14.5) % Plt Count (130-400) K/uL MPV (7.4-10.4) fL Neutrophils % (Manual) % Lymphocytes % (Manual) % Monocytes % (Manual) % Basophils % (Manual) % Metamyelocytes % (Man) % Neutrophils # (Manual) (1.4-6.5) K/uL Total Absolute Neuts (1.4-6.5) K/uL Lymphocytes # (Manual) (1.2-3.4) K/uL Total Abs Lymphocytes (1.2-3.4) K/uL Monocytes # (Manual) (0.11-0.59) K/uL Basophils # (Manual) (0-0.2) K/uL Metamyelocytes # (Man) (0-0) K/uL PT (9.0-12.0) Seconds INR (0.9-1.1) APTT (21.0-31.0) Seconds PTT Ratio Sodium (136-145) mmol/L Potassium (3.5-5.1) mmol/L Chloride (98-107) mmol/L Carbon Dioxide (21-32) mmol/L Anion Gap (3-11) BUN (6-23) mg/dl Creatinine (0.6-1.2) mg/dl Est Cr Clr Drug Dosing ml/min Est GFR ( Amer) ml/min Est GFR (Non-Af Amer) ml/min BUN/Creatinine Ratio (10-20) Glucose (70-99(Fasting)) mg/dl Lactate (0.4-2.0) mmol/L Calcium (8.5-10.1) mg/dl Total Bilirubin (0.2-1.0) mg/dl AST (13-39) U/L ALT (7-52) U/L Alkaline Phosphatase (34-104) U/L Troponin I High Sens (0-14) pg/ml Total Protein (6.0-8.3) gm/dl Albumin (3.4-5.0) gm/dl Globulin (2.5-4.0) gm/dl Albumin/Globulin Ratio (0.9-2) Lipase (11-82) U/L Urine Color Urine Appearance (Clear) Urine pH (4.5-7.5) Ur Specific [place] (1.000-1.030) Urine Protein (Negative) Urine Glucose (UA) (Negative) Urine Ketones (Negative) Urine Blood (Negative) Urine Nitrite (Negative) Urine Bilirubin (Negative) Urine Urobilinogen (Negative) Ur Leukocyte Esterase (Negative) Urine WBC (Auto) (0-5) /hpf Urine RBC (Auto) (0-4) /hpf U Hyaline Cast (Auto) (0-5) /lpf U Epithel Cells (Auto) (0-5) /lpf Urine Bacteria (Auto) (Negative) Granular Casts (0) /lpf Urine Yeast SARS-CoV-2, RNA, NAAT NEGATIVE (NEGATIVE) Imaging Data Radiologist's Impression: Chest X-Ray 10/22/21 10:18 XR chest 1V portable HISTORY: 76 years-old Female Chest Pain acute atypical chest pain COMPARISON: Chest radiograph 06/26/2017 TECHNIQUE: Portable AP view of the chest FINDINGS: The cardiac silhouette is enlarged. Atherosclerosis of the thoracic aorta. No pneumothorax. Suspected trace pleural effusions with mild bibasilar densities. Pulmonary vascular congestion. Degenerative changes of the shoulders and spine. Mid thoracic dextroscoliosis. IMPRESSION: 1. Cardiomegaly with pulmonary vascular congestion. 2. Trace pleural effusions suspected with mild bibasilar opacities. ACT 112: Negative or not required by law. The above report was generated using voice recognition software. It may contain grammatical, syntax or spelling errors. Electronically signed by: Andrey Bates M.D. 10/22/2021 3:[address] 10/22/21 10:18 CT head/brain wo con CLINICAL HISTORY: 76 years-old Female with fall on coumadin. Acute head trauma status post fall TECHNIQUE: Multiple axial CT images of the head were obtained without contrast. A dose lowering technique was utilized adhering to the principles of ALARA. COMPARISON: CT cervical spine of same day FINDINGS: No acute intracranial hemorrhage, midline shift, intracranial mass, hydrocephalus, territorial ischemia or abnormal extra-axial collection. Motion degraded exam. The study was then repeated. Mild involutional changes. White matter hypodensities suggest chronic microvascular ischemic disease. The calvarium is intact. Prior bilateral lens repair. The paranasal sinuses, mastoid air cells, and middle ear cavities are clear. IMPRESSION: Motion degraded exam. No acute intracranial abnormality or calvarial fracture ACT 112: Negative or not required by law. The above report was generated using voice recognition software. It may contain grammatical, syntax or spelling errors. Electronically signed by: Andrey Bates M.D. 10/22/2021 2:45 PM Lumbar Spine X-Ray 10/22/21 10:18 XR lumbar spine 3V, XR pelvis 1-2V routine HISTORY: 76 years-old Female fall on coumadin acute low back and pelvic pain status post fall COMPARISON: CT abdomen and pelvis of same day TECHNIQUE: 3 views of the lumbar spine with 2 views of the pelvis FINDINGS: LUMBAR SPINE: Lumbar levoscoliosis. Bridging osteophytic spurring with intervertebral disc space narrowing and severe facet arthrosis. Transitional lumbosacral anatomy. No acute fracture, subluxation or endplate erosion. 10 mm anterolisthesis L4 on L5 is likely secondary to chronic severe facet disease. Transitional lumbosacral anatomy. 1.6 cm right renal calculus. PELVIS: Mild osteoarthritis of the hips. No acute fracture, dislocation or avascular necrosis. The 9 mm distal right ureteral calculus likely projects over the right pubic bone. Additional distal right ureteral calculus is not definitively seen. IMPRESSION: 1. Degenerative changes as above without acute fracture. 2. Right nephrolithiasis with 9 mm distal right ureteral calculus, better seen on the CT abdomen and pelvis study of same day. ACT 112: Negative or not required by law. The above report was generated using voice recognition software. It may contain grammatical, syntax or spelling errors. Electronically signed by: Andrey Bates M.D. 10/22/2021 3:[address] 10/22/21 10:20 CT cervical spine wo con CT DOSE: 4428.83 mGy.cm CLINICAL HISTORY: 76 years-old Female with fall on coumadin. Acute head and neck injury status post fall COMPARISON: Head CT of same day TECHNIQUE: Multiple axial CT images of the cervical spine were obtained without contrast. A dose lowering technique was utilized adhering to the principles of ALARA. FINDINGS: Motion degraded exam. Severe multilevel facet arthrosis. De xtroscoliosis. Moderate to advanced multilevel intervertebral disc space narrowing. Degenerative partial bony fusion at C2-C3. Severe multilevel facet arthrosis with multilevel partial bony fusion. Multilevel neural foraminal narrowing. The cervical soft tissues appear unremarkable. The visualized lung apices appear clear. IMPRESSION: No acute cervical spine fracture or subluxation. ACT 112: Negative or not required by law. The above report was generated using voice recognition software. It may contain grammatical, syntax or spelling errors. Electronically signed by: Andrey Bates M.D. 10/22/2021 2:49 PM Pelvis X-Ray 10/22/21 11:01 XR lumbar spine 3V, XR pelvis 1-2V routine HISTORY: 76 years-old Female fall on coumadin acute low back and pelvic pain status post fall COMPARISON: CT abdomen and pelvis of same day TECHNIQUE: 3 views of the lumbar spine with 2 views of the pelvis FINDINGS: LUMBAR SPINE: Lumbar levoscoliosis. Bridging osteophytic spurring with intervertebral disc space narrowing and severe facet arthrosis. Transitional lumbosacral anatomy. No acute fracture, subluxation or endplate erosion. 10 mm anterolisthesis L4 on L5 is likely secondary to chronic severe facet disease. Transitional lumbosacral anatomy. 1.6 cm right renal calculus. PELVIS: Mild osteoarthritis of the hips. No acute fracture, dislocation or avascular necrosis. The 9 mm distal right ureteral calculus likely projects over the right pubic bone. Additional distal right ureteral calculus is not definitively seen. IMPRESSION: 1. Degenerative changes as above without acute fracture. 2. Right nephrolithiasis with 9 mm distal right ureteral calculus, better seen on the CT abdomen and pelvis study of same day. ACT 112: Negative or not required by law. The above report was generated using voice recognition software. It may contain grammatical, syntax or spelling errors. Electronically signed by: Andrey Bates M.D. 10/22/2021 3:39 PM Abdomen/Pelvis CT 10/22/21 13:[address] WITHOUT CONTRAST HISTORY: Acute abdominal trauma status post fall fall TECHNIQUE: Multiaxial CT images of the abdomen and pelvis were performed without contrast. A dose lowering technique was utilized adhering to the principles of ALARA. COMPARISON STUDY: None FINDINGS: No acute process of the imaged lower chest. Mild subsegmental bi basilar atelectasis/scarring. 6 mm solid nodule the basal right lower lobe. No pneumatosis or pneumoperitoneum. Limited exam secondary to patient body habitus, motion and lack of contrast. The unenhanced spleen, pancreas and adrenal glands are unremarkable. Hepatic steatosis with mild hepatomegaly. No evidence of cirrhosis. The gallbladder appears surgically absent. Unremarkable left kidney. Moderate right-sided hydroureteronephrosis with perinephric and periureteral inflammation. Calculi of the left kidney measure up to 1.6 cm within the interpolar distribution. Obstructing 5 x 6 mm calculus of the right ureter on image 342 within the pelvis. 8 x 5 x 9 mm calculus is noted within the right ureterovesicular junction. Pelvic basin phleboliths. Partial distention of the urinary bladder. Hysterectomy with pelvic floor relaxation. No adnexal mass lesion. Atherosclerosis of the aorta without aneurysm. Small hiatal hernia. No bowel obstruction or bowel wall thickening. No ascites or mesenteric inflammation. No CT evidence of acute appendicitis. Unremarkable soft tissues. Degenerative changes of the spine, pelvis and hips. 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 No definite acute fracture identified. IMPRESSION: 1. Motion degraded exam. 2. Moderate right-sided hydroureteronephrosis secondary to two obstructing calculi in the distal right ureter, the largest of which is noted just proximal to the ureterovesicular junction measuring 9 mm. 3. Right nephrolithiasis. 4. No bowel obstruction or bowel wall thickening. 5. Hepatomegaly with hepatic steatosis. 6. Additional findings as above. ACT 112: Negative or not required by law. The above report was generated using voice recognition software. It may contain grammatical, syntax or spelling errors. Electronically signed by: Andrey Bates M.D. 10/22/2021 3:03 PM ECG Data Additional Comments: EKG #1 at 1018: Atrial fibrillation with a rate of 135. QRS [address] elevation or ST depression. EKG #2 at 1107: Atrial fibrillation with rate of 110. QRS [address] elevation or ST depression. [facility] Narrative 1013: The patient was evaluated in room A12. A complete history and physical exam was performed Cardiac monitoring: An order was placed for continuous cardiac monitoring. The monitor shows a rate of 140 with atrial fibrilation rhythm Patient reports she did not take any of her home medications this morning. Patient has her list of medications from [facility] with her. Patient is supposed to take metoprolol 50 mg daily. Patient will be given metoprolol p.o. and labs and imaging will be conducted. 1115: Status post IV fluids and her home metoprolol the patient is in A. fib rhythm with a controlled ventricular rate. 1520: Vital signs stable status post IV fluids. Labs show leukocytosis of 25.9. INR therapeutic at 4.2. Creatinine elevated 2.8.. Patient's creatinine usually runs around 1. None elevated 156.7. Lactic acid 2.6 urine appears infected. Imaging of the head and C-spine showed no acute traumatic injury. CT of the abdomen pelvis shows no acute traumatic injury but does show 9 mm kidney stone at the UVJ with hydroureteronephrosis. Patient be treated with Rocephin 1 g IV piggyback. IV fluids ordered for the patient. Discussed case with Dr. Munoz on-call urology who agrees that the patient should be admitted to the hospitalist team and he will be on consult. 1602: X-ray showed no acute traumatic fractures. Vital signs stable. Discussed the case with Dr. Vincent Brito hospitalist who agrees to admit the patient to Impression & Plan GILBERTO (acute kidney injury), Hydronephrosis concurrent with and due to calculi of kidney and ureter, Acute UTI, Atrial fibrillation Discharge Plan Visit Data Chief Complaint: Fall Stated Complaint: BACK & KNEE PAIN, SOB, ED Provider: Ambrose Leon Discharge Problem: GILBERTO (acute kidney injury), Hydronephrosis concurrent with and due to calculi of kidney and ureter, Acute UTI, Atrial fibrillation Patient Disposition: Admitted As Inpatient Forms Stand Alone Forms: [facility] Prescriptions Prescriptions: No Action losartan 25 mg Tablet 25 mg PO HS RF: 0 multivitamin Tablet 1 tab PO QAM RF: 0 fexofenadine [Amelia Allergy] 60 mg Tablet 60 mg PO BID PRN (Reason: allergies) RF: 0 hydrocodone-acetaminophen 5-325 mg Tablet 1 tab PO Q4 PRN (Reason: Mild Pain (Scale Score 1-4)) RF: 0 warfarin 2.5 mg Tablet 1.25 - 2.5 mg PO DAILY RF: 0 calcium carbonate 600 mg calcium (1,500 mg) Tablet 600 mg PO BID RF: 0 metoprolol tartrate 50 mg Tablet 50 mg PO BID RF: 0 gabapentin 300 mg Capsule 600 mg PO TID RF: 0 fluticasone propionate [Flonase Allergy Relief] 50 mcg/actuation [place],Suspens ion 2 spray INTRANASAL QAM RF: 0 duloxetine [Cymbalta] 30 mg Capsule,Delayed Release(Dr/Ec) 60 mg PO HS RF: 0 melatonin 5 mg Tablet 10 mg PO HS RF: 0 cholecalciferol (vitamin D3) [Vitamin D3] 1,000 unit Capsule 1,000 unit PO QAM RF: 0 furosemide 40 mg tablet 40 mg PO QAM RF: 0 potassium chloride 10 mEq capsule, extended release 10 meq PO DAILY RF: 0 atorvastatin 20 mg tablet 20 mg PO DAILY RF: 0 Drysol Dab-O-Matic 20 % solution 1 applic TOPICAL HS RF: 0 aspirin [Aspir-Low] 81 mg Tablet,Delayed Release (Dr/Ec) 81 mg PO DAILY RF: 0 triamcinolone acetonide 0.1 % cream 1 applic TOPICAL BID RF: 0 mupirocin 2 % ointment 1 applic TOPICAL BID RF: 0 albuterol sulfate 90 mcg/actuation Hfa Aerosol Inhaler 2 inh INHALATION QID PRN (Reason: Wheezing) RF: 0 guaifenesin [Mucus Relief] 400 mg Tablet 400 mg PO QID PRN (Reason: Congestion) RF: 0 diclofenac sodium 1 % gel 2 g TOPICAL QID RF: 0 [place] 1.5 billion cell Capsule 1 cap PO DAILY RF: 0 magnesium oxide 400 mg magnesium Capsule 400 mg PO DAILY RF: 0 Referrals Referrals: Terry Valenzuela MD [Primary Care Provider] -
--- NOTE | 2021-10-22 12:41 | Electrocardiogram Report ---
Test Reason : Blood Pressure : / mmHG Vent. Rate : 135 BPM Atrial Rate : 135 BPM P-R Int : 128 ms QRS Dur : 074 ms QT Int : 290 ms P-R-T Axes : 038 029 038 degrees QTc Int : 435 ms Sinus tachycardia with sinus arrhythmia Otherwise normal ECG When compared with ECG of 28-JUN-2017 06:31, Sinus rhythm has replaced Atrial fibrillation Confirmed by Krunal Mcintyre ([id number]) on 10/22/2021 12:40:55 PM Referred By: Confirmed By:Alfred Mcintyre
[2021-10-22 12:44] LABS: Hematocrit (blood only) 38.2 % (37-47); Hemoglobin 12.6 g/dL (12.0-16.0); Mean Corpuscular Hemoglobin 31.7 pg (25-34); Mean Platelet Volume 9.5 fL (7.4-10.4); Platelet Count 192 K/uL (130-400); RDW Coefficient of Variation 14.3 % (11.5-14.5); RDW Standard Deviation 50.8 fL (36.4-46.3); Red Blood Count 3.98 M/uL (4.2-5.4); White Blood Count 25.96 K/uL (4.8-10.8)
[2021-10-22 13:00] LABS: Albumin Globulin Ratio 1.2 (0.9-2); Albumin Level 3.2 gm/dl (3.4-5.0); BUN Creatinine Ratio 13.2 (10-20); Bilirubin,Total 0.9 mg/dl (0.2-1.0); Calcium 8.6 mg/dl (8.5-10.1); Creatinine Clr Calc Pharmacy 24.3 ml/min; Est GFR (Non-African American) 15.5 ml/min; Globulin 2.6 gm/dl (2.5-4.0); Potassium 4.3 mmol/L (3.5-5.1); Total Protein 5.8 gm/dl (6.0-8.3)
[2021-10-22 13:02] LABS: INR 4.2 (0.9-1.1); Partial Thromboplastin Ratio 1.4; Partial Thromboplastin Time 39.5 Seconds (21.0-31.0); Prothrombin Time 41.3 Seconds (9.0-12.0)
[2021-10-22 13:08] LABS: ALC (manual) 0.88 K/uL (1.2-3.4); ANC (manual) 24.01 K/uL (1.4-6.5); Basophils # (manual) 0.21 K/uL (0-0.2); Basophils % (manual) 0.8 %; Lymphocytes # (manual) 0.88 K/uL (1.2-3.4); Lymphocytes % (manual) 3.4 %; Metamyelocytes # (manual) 0.21 K/uL (0-0); Metamyelocytes % (manual) 0.8 %; Monocytes # (manual) 0.65 K/uL (0.11-0.59); Monocytes % (manual) 2.5 %; Neutrophils # (manual) 24.01 K/uL (1.4-6.5); Neutrophils % (manual) 92.5 %
--- NOTE | 2021-10-22 14:47 | CT Scan Report ---
CT head/brain wo con CLINICAL HISTORY: 76 years-old Female with fall on coumadin. Acute head trauma status post fall TECHNIQUE: Multiple axial CT images of the head were obtained without contrast. A dose lowering tech nique was utilized adhering to the principles of ALARA. COMPARISON: CT cervical spine of same day FINDINGS: No acute intracranial hemorrhage, midline shift, intracranial mass, hydrocephalus, territorial ischem ia or abnormal extra-axial collection. Motion degraded exam. The study was then repeated. Mild involu tional changes. White matter hypodensities suggest chronic microvascular ischemic disease. The calvarium is intact. Prior bilateral lens repair. The paranasal sinuses, mastoid air cells, and m iddle ear cavities are clear. IMPRESSION: Motion degraded exam. No acute intracranial abnormality or calvarial fracture ACT 112: Negative or not required by law. The above report was generated using voice recognition software. It may contain grammatical, syntax o r spelling errors. Electronically signed by: Andrey Bates M.D. 10/22/2021 2:45 PM
[2021-10-22 14:49] LABS: Appearance Urine Turbid (Clear); Bacteria Urine Automated Negative (Negative); Bilirubin Urine Negative (Negative); Blood Urine 1+ (Negative); Color Urine Dark Yellow; Epithelial Cell Urine Auto >30 /lpf (0-5); Glucose Urine UA Negative (Negative); Ketones Urine Trace (Negative); Leukocyte Esterase Urine 2+ (Negative); Nitrite Urine Negative (Negative); Protein Urine 1+ (Negative); Specific Gravity Urine 1.022 (1.000-1.030); Urobilinogen Urine Negative (Negative); WBC Urine Automated >30 /hpf (0-5)
--- NOTE | 2021-10-22 14:51 | CT Scan Report ---
CT cervical spine wo con CT DOSE: 4428.83 mGy.cm CLINICAL HISTORY: 76 years-old Female with fall on coumadin. Acute head and neck injury status post fall COMPARISON: Head CT of same day TECHNIQUE: Multiple axial CT images of the cervical spine were obtained without contrast. A dose low ering technique was utilized adhering to the principles of ALARA. FINDINGS: Motion degraded exam. Severe multilevel facet arthrosis. Dextroscoliosis. Moderate to advan kiah multilevel intervertebral disc space narrowing. Degenerative partial bony fusion at C2-C3. Severe multilevel facet arthrosis with multilevel partial bony fusion. Multilevel neural foraminal narrowin g. The cervical soft tissues appear unremarkable. The visualized lung apices appear clear. IMPRESSION: No acute cervical spine fracture or subluxation. ACT 112: Negative or not required by law. The above report was generated using voice recognition software. It may contain grammatical, syntax o r spelling errors. Electronically signed by: Andrey Bates M.D. 10/22/2021 2:49 PM
--- NOTE | 2021-10-22 15:05 | CT Scan Report ---
ABDOMEN AND PELVIS CT WITHOUT CONTRAST HISTORY: Acute abdominal trauma status post fall fall TECHNIQUE: Multiaxial CT images of the abdomen and pelvis were performed without contrast. A dose lo wering technique was utilized adhering to the principles of ALARA. COMPARISON STUDY: None FINDINGS: No acute process of the imaged lower chest. Mild subsegmental bibasilar atelectasis/scarrin g. 6 mm solid nodule the basal right lower lobe. No pneumatosis or pneumoperitoneum. Limited exam sec ondary to patient body habitus, motion and lack of contrast. The unenhanced spleen, pancreas and adre nal glands are unremarkable. Hepatic steatosis with mild hepatomegaly. No evidence of cirrhosis. The gallbladder appears surgically absent. Unremarkable left kidney. Moderate right-sided hydroureteronephrosis with perinephric and periuretera l inflammation. Calculi of the left kidney measure up to 1.6 cm within the interpolar distribution. O bstructing 5 x 6 mm calculus of the right ureter on image 342 within the pelvis. 8 x 5 x 9 mm calculu s is noted within the right ureterovesicular junction. Pelvic basin phleboliths. Partial distention o f the urinary bladder. Hysterectomy with pelvic floor relaxation. No adnexal mass lesion. Atheroscler osis of the aorta without aneurysm. Small hiatal hernia. No bowel obstruction or bowel wall thickening. No ascites or mesenteric inflamma tion. No CT evidence of acute appendicitis. Unremarkable soft tissues. Degenerative changes of the sp ine, pelvis and hips. Multilevel central canal stenosis of the lumbar spine. No definite acute fractu re identified. IMPRESSION: 1. Motion degraded exam. 2. Moderate right-sided hydroureteronephrosis secondary to two obstructing calculi in the distal righ t ureter, the largest of which is noted just proximal to the ureterovesicular junction measuring 9 mm . 3. Right nephrolithiasis. 4. No bowel obstruction or bowel wall thickening. 5. Hepatomegaly with hepatic steatosis. 6. Additional findings as above. ACT 112: Negative or not required by law. The above report was generated using voice recognition software. It may contain grammatical, syntax o r spelling errors. Electronically signed by: Andrey Bates M.D. 10/22/2021 3:03 PM
[2021-10-22] MEDS ORDERED: cefTRIAXone SODIUM 1,000 MG/50 ML BAG IV STA (15:13)
[2021-10-22] MEDS: SODIUM CHLORIDE 0.9% 1000ML 1,000 ML IV SCH (15:32)
--- NOTE | 2021-10-22 15:34 | XRay Report ---
XR chest 1V portable HISTORY: 76 years-old Female Chest Pain acute atypical chest pain COMPARISON: Chest radiograph 06/26/2017 TECHNIQUE: Portable AP view of the chest FINDINGS: The cardiac silhouette is enlarged. Atherosclerosis of the thoracic aorta. No pneumothorax. Suspected trace pleural effusions with mild bibasilar densities. Pulmonary vascular congestion. Degenerative c hanges of the shoulders and spine. Mid thoracic dextroscoliosis. IMPRESSION: 1. Cardiomegaly with pulmonary vascular congestion. 2. Trace pleural effusions suspected with mild bibasilar opacities. ACT 112: Negative or not required by law. The above report was generated using voice recognition software. It may contain grammatical, syntax o r spelling errors. Electronically signed by: Andrey Bates M.D. 10/22/2021 3:31 PM
--- NOTE | 2021-10-22 15:41 | XRay Report ---
XR lumbar spine 3V, XR pelvis 1-2V routine HISTORY: 76 years-old Female fall on coumadin acute low back and pelvic pain status post fall COMPARISON: CT abdomen and pelvis of same day TECHNIQUE: 3 views of the lumbar spine with 2 views of the pelvis FINDINGS: LUMBAR SPINE: Lumbar levoscoliosis. Bridging osteophytic spurring with intervertebral disc space narrowing and bibi re facet arthrosis. Transitional lumbosacral anatomy. No acute fracture, subluxation or endplate eros ion. 10 mm anterolisthesis L4 on L5 is likely secondary to chronic severe facet disease. Transitional lumbosacral anatomy. 1.6 cm right renal calculus. PELVIS: Mild osteoarthritis of the hips. No acute fracture, dislocation or avascular necrosis. The 9 mm dista l right ureteral calculus likely projects over the right pubic bone. Additional distal right ureteral calculus is not definitively seen. IMPRESSION: 1. Degenerative changes as above without acute fracture. 2. Right nephrolithiasis with 9 mm distal right ureteral calculus, better seen on the CT abdomen and pelvis study of same day. ACT 112: Negative or not required by law. The above report was generated using voice recognition software. It may contain grammatical, syntax o r spelling errors. Electronically signed by: Andrey Bates M.D. 10/22/2021 3:39 PM
--- NOTE | 2021-10-22 16:16 | Urology Consultation ---
Date of Consultation October 22, 2021 Assessment & Plan (1) GILBERTO (acute kidney injury): I suspect much of her GILBERTO is prerenal in nature, as her left kidney is not obstructed. However, on CT scan the right kidney appears slightly larger than the left, and may be contributing more to her overall renal function. Ideally, we will obtain maximal drainage of her kidneys with right ureteral stent placement. (2) Hydronephrosis concurrent with and due to calculi of kidney and ureter: Multiple obstructing stones in the distal right ureter, causing hydronephrosis, as well as large nonobstructing stone in the kidney. We discussed that the plan today will be ureteral stent placement to allow drainage, but we will not plan to remove the stones. Stone removal will be performed at a later date once she is more stable and any possible infection has been treated. (3) Acute UTI: Urinalysis equivocal for infection. The leukocyte esterase and blood may be simply related to irritation from the stone. Her leukocytosis, tachycardia and soft blood pressures raise concern that there may be infection, hence the discussion for ureteral stent placement. We discussed her nephrolithiasis. I think the stones are large enough that they are unlikely to pass spontaneously. Furthermore, I am concerned about the possibility of a urinary tract infection obstructed by the right ureteral stones. We discussed cystoscopy, right retrograde pyelogram and right ureteral stent placement to allow maximal drainage of the right kidney. We discussed the risks and benefits of this procedure including bleeding, infection, injury to the urinary tract, inability to place a stent, stent discomfort, need for future procedure to remove her stones. She expressed understanding and agreed to proceed with surgery. History of Present Illness Reason for Consultation: ureteral stone, possible UTI, GILBERTO Attending Physician: Jason Kaur MD History of Present Illness This is a 76 yo female with prior history of nephrolithiasis, AF, who presented to the ED on 10/22/2021 after a fall in the bathroom. She reports that over the past week she has been feeling progressively weaker. She also notes significant cramps in her legs. Today when she was in the bathroom, she just did not have enough strength to hold herself up and fell. She was on the floor for several minutes, but was able to eventually call her family who helped assist her up and to call EMS. In the emergency department, she was noted to be in atrial fibrillation with RVR. She was given her home medications and resuscitated with IV fluid, which helped control her heart rate. Lab work was performed which was notable for a leukocytosis (25.96). Creatinine was elevated to 2.80 (prior baseline was close to 1 in 2017). A urinalysis demonstrated 2+ leukocyte esterase, greater than 30 WBC/hpf, no bacteria and negative nitrites. A CT scan was performed which demonstrated obstructing stones in the distal right ureter as well as a stone in the right kidney. Urology was consulted for further evaluation regarding her nephrolithiasis, GILBERTO and possible urinary tract infection. She reports that she has always passed her stones and has never required surgery in the past. She reports having a history of urinary tract infections, but has not had the burning and dysuria that she typically gets. She denies any right- sided flank pain, although notes she has longstanding lower back pain. Allergies Allergy/AdvReac Type Severity Reaction Status Date / Time tetracycline Allergy Unknown Rash Verified 10/22/21 15:37 esomeprazole [From Nexium] AdvReac Intermediate EPISTAXIS Verified 10/22/21 15:37 adhesive AdvReac Unknown SKIN Verified 10/22/21 15:37 IRRITATION Home Medications Medication Instructions Recorded Confirmed Type calcium carbonate 600 mg calcium 600 mg PO BID 04/04/18 10/22/21 History (1,500 mg) tablet cholecalciferol (vitamin D3) 25 1,000 unit PO QAM 04/04/18 10/22/21 History mcg (1,000 unit) capsule (Vitamin D3) duloxetine 30 mg capsule,delayed 60 mg PO HS 04/04/18 10/22/21 History release (Cymbalta) fexofenadine 60 mg tablet (Amelia 60 mg PO BID PRN 04/04/18 10/22/21 History Allergy) fluticasone propionate 50 2 spray INTRANASAL QAM 04/04/18 10/22/21 History mcg/actuation nasal spray,suspension (Flonase Allergy Relief) gabapentin 300 mg capsule 600 mg PO TID 04/04/18 10/22/21 History hydrocodone 5 mg-acetaminophen 325 1 tab PO QID 04/04/18 10/22/21 History mg tablet melatonin 5 mg tablet 10 mg PO HS 04/04/18 10/22/21 History metoprolol tartrate 50 mg tablet 50 mg PO BID 04/04/18 10/22/21 History multivitamin 1 tab PO QAM 04/04/18 10/22/21 History warfarin 2.5 mg tablet 1.25 - 2.5 mg PO DAILY 04/04/18 10/22/21 History losartan 25 mg tablet 25 mg PO HS 09/14/20 10/22/21 History Lactobacills gasseri-Bifidobac 1 cap PO DAILY 10/22/21 10/22/21 History bifidum,longum 1.5 billion cell capsule ([employer]) aluminum chloride 20 % topical 1 applic TOPICAL HS 10/22/21 10/22/21 History solution (Drysol Dab-O-Matic) aspirin 81 mg tablet,delayed 81 mg PO DAILY 10/22/21 10/22/21 History release atorvastatin 20 mg tablet 20 mg PO DAILY 10/22/21 10/22/21 History diclofenac sodium 1 % topical gel 2 g TOPICAL QID 10/22/21 10/22/21 History furosemide 40 mg tablet 40 mg PO QAM 10/22/21 10/22/21 History guaifenesin 400 mg tablet (Mucus 400 mg PO QID PRN 10/22/21 10/22/21 History Relief) magnesium oxide 400 mg PO DAILY 10/22/21 10/22/21 History mupirocin 2 % topical ointment 1 applic TOPICAL BID 10/22/21 10/22/21 History potassium chloride 10 mEq 10 meq PO DAILY 10/22/21 10/22/21 History capsule,extended release triamcinolone acetonide 0.1 % 1 applic TOPICAL BID 10/22/21 10/22/21 History topical cream vitamin A-vitamin C-vit E-min 1 tab PO DAILY 10/22/21 10/22/21 History tablet Patient History Medical History Atrial fibrillation DX'D 06/2017 [facility]-HAS BEEN ON THINNER SINCE Cancer OVARIAN 1975 Chronic back pain Difficult airway for intubation [id number] INTUBATION-NEEDS SMALL SIZE TUBE-NO INTUBATION EXPERIENCES SINCE Hx of deep venous thrombosis HX LLE 1959'S-WITHOUT ANY INJURY OR SURGERY-NO ISSUES SINCE Hyperlipidemia Hypertension Kidney stones no surgical intervention Morbid obesity with BMI of 45.0-49.9, adult Osteoarthritis Sleep apnea CPAP SOB (shortness of breath) LYING FLAT/WITH 1 FLIGHT STAIRS Surgical History History of cardiac cath 2014 X 2-[facility] NO STENTS-NO BLOCKAGES History of colonoscopy History of dilatation and curettage History of hysterectomy BSO History of surgical removal of skin lesion "fatty tumor" History of tonsillectomy History of total knee replacement RIGHT Hx of hemorrhoidectomy Family History Father Family hx of colon cancer Other No family history of adverse response to anesthesia Social History Smoking Status: Never smoker Second Hand Exposure: No; Hx Alcohol Use: No Hx Substance Use: No Preferred Language: Turkmen Communication Ability: Effective Invoice Clerk Required: No Beliefs That Will Affect Care: None Current Living Situation: Alone Feels Safe at Home: Yes Assistive Devices: Cane, CPAP and Glasses Review of Systems Review of Systems: 14 point review of systems negative except for otherwise indicated. Constitutional: worsening fatigue over the past week Respiratory: Shortness of breath Genitourinary: Prior urinary tract infections Musculoskeletal: Chronic lower back pain Physical Exam Constitutional: Obese, uncomfortable appearing Eyes: Conjugate gaze. Respiratory: No increased work of breathing, on oxygen by nasal cannula. Cardiovascular: A. fib, rate well controlled on telemetry. Gastrointestinal (Abdomen): Obese, nontender. Musculoskeletal: Grossly normal Skin: Somewhat flushed Neurologic: Alert and oriented, grossly neurologically intact Results & Data ([facility]) Vital Signs (Past 12 Hours) Vital Signs Temp Pulse Pulse Resp BP BP Pulse Ox 10/22/21 15:33 85 20 117/61 95 10/22/21 13:30 91 H 20 117/54 L 98 10/22/21 12:00 92 H 22 99 10/22/21 11:02 20 95 10/22/21 10:35 139 H 28 H 97/58 L 93 10/22/21 10:20 36.7 C 136 H 26 H 90/49 L 94 PG Care Time/CCT Total # of Minutes Spent Total Time Spent with Patient: Total time spent is greater than 50% in coordination of care (as documented) at patient's floor/unit and/or counseling patient: Coding Level of Care Code 95355 Initial Inpt Care Lvl 2 Diagnoses GILBERTO (acute kidney injury) N17.9 Hydronephrosis concurrent with and due to calculi of kidney and ureter N13.2 Acute UTI N39.0
[2021-10-22] MEDS ORDERED: POLYETHYLENE (MIRALAX) 17 GM PACK PO PRN (16:20)
--- NOTE | 2021-10-22 16:46 | History & Physical Report ---
Date of Service October 22, 2021 Assessment & Plan (1) Hydronephrosis concurrent with and due to calculi of kidney and ureter: (2) Acute UTI: Plan: Sepsis, POA Obstructive uropathy Pt meets SIRS criteria for sepsis with elevated WBC at 25.9 K, and tachycardia HR 140, patient presented with A. fib with RVR Lactic acid 2.6 Creatinine elevated at 2.8, up from baseline 8.9, troponin elevated 157 - secondary to above, will monitor LFTs elevated - secondary to above, also poss. secondary to liver dis. (hepatomegaly w/ steatosis noted on CT), will monitor CT abd. pelvis Moderate right-sided hydroureteronephrosis secondary to two obstructing calculi in the distal right ureter, the largest of which is noted just proximal to the ureterovesicular junction measuring 9 mm. Blood cultx - ordered UA -positive for blood, leuk esterase, WBCs ucultx - pending Received IV normal saline in the ED, and IV ceftriaxone. Continue IV ceftriaxone for now Urology, Dr. Munoz consulted, plan for urological procedure today (10/22/21) (3) GILBERTO (acute kidney injury): Plan: Creatinine elevated at 2.8, up from baseline at 0.9 Secondary to obstructive uropathy Patient provided with IV fluids Plan for urological procedure which is believed to resolve the problem Monitor creatinine (4) Atrial fibrillation: Plan: Troponin elevated at 157, secondary to above Patient has history of A. fib, and history of A. fib with RVR Continue metoprolol and Coumadin After metoprolol given in the ED, heart rate better controlled INR 4.2, cont. to monitor trend trop Continue to monitor on telemetry RAYMUNDO (on CPAP) - provide CPAP at Morbid obesity -BMI over 50 -Last modification encouraged Anxiety - cont. home medications -cymbalta History of Present Illness Chief Complaint: Fall, flank pain Primary Care Provider: Terry Valenzuela MD Patient is a 76-year-old female, with history of hypertension, hyperlipidemia, A. fib with RVR, osteoarthritis, RAYMUNDO on CPAP, morbid obesity, nephrolithiasis, anxiety, who presents after a fall. Patient has been progressively weaker over the past several days, and then had a fall in the bathroom earlier today. She reports right flank pain however has also pain in her joints, which seem to be chronic. Denies having fevers or chills. Denies any nausea or vomiting, abdominal pain. Denies any burning with urination. Reports having history of UTIs, however did not notice blood in the urine or burning with urination recently. Says previously was drinking cranberry juice on a regular basis, but then stopped due to taking Coumadin. Patient's daughter is present at the bedside. Patient reports history of nephrolithiasis, however previously did not need any procedure, and stones passed on their own. Patient was brought in by EMS. In the ED, she was found to be in A. fib with RVR, heart rate elevated at 140. Patient did not take her home medications, and after getting metoprolol, her heart rate improved. CT of the abdomen pelvis, consistent with right-sided hydroureteronephrosis secondary to 2 obstructing calculi. Urology was contacted. Patient seen after receiving metoprolol, at that time patient denies any chest pain. She also denies any shortness of breath however is currently on supplemental oxygen, nasal cannula 2 to 3 L/min. At home patient does not use oxygen, however has history of RAYMUNDO and uses CPAP. In the ED, labs significant for leukocytosis with white blood cell count of 25.9 thousand, and elevated lactate at 2.6, creatinine also elevated at 2.8, and troponin at 157. Allergies Allergy/AdvReac Type Severity Reaction Status Date / Time tetracycline Allergy Unknown Rash Verified 10/22/21 15:37 esomeprazole [From Nexium] AdvReac Intermediate EPISTAXIS Verified 10/22/21 15:37 adhesive AdvReac Unknown SKIN Verified 10/22/21 15:37 IRRITATION Home Medications Medication Instructions Recorded Confirmed Type calcium carbonate 600 mg calcium 600 mg PO BID 04/04/18 10/22/21 History (1,500 mg) tablet cholecalciferol (vitamin D3) 25 1,000 unit PO QAM 04/04/18 10/22/21 History mcg (1,000 unit) capsule (Vitamin D3) duloxetine 30 mg capsule,delayed 60 mg PO HS 04/04/18 10/22/21 History release (Cymbalta) fexofenadine 60 mg tablet (Amelia 60 mg PO BID PRN 04/04/18 10/22/21 History Allergy) fluticasone propionate 50 2 spray INTRANASAL QAM 04/04/18 10/22/21 History mcg/actuation nasal spray,suspension (Flonase Allergy Relief) gabapentin 300 mg capsule 600 mg PO TID 04/04/18 10/22/21 History hydrocodone 5 mg-acetaminophen 325 1 tab PO QID 04/04/18 10/22/21 History mg tablet melatonin 5 mg tablet 10 mg PO HS 04/04/18 10/22/21 History metoprolol tartrate 50 mg tablet 50 mg PO BID 04/04/18 10/22/21 History multivitamin 1 tab PO QAM 04/04/18 10/22/21 History warfarin 2.5 mg tablet 1.25 - 2.5 mg PO DAILY 04/04/18 10/22/21 History losartan 25 mg tablet 25 mg PO HS 09/14/20 10/22/21 History Lactobacills gasseri-Bifidobac 1 cap PO DAILY 10/22/21 10/22/21 History bifidum,longum 1.5 billion cell capsule (qunb) aluminum chloride 20 % topical 1 applic TOPICAL HS 10/22/21 10/22/21 History solution (Drysol Dab-O-Matic) aspirin 81 mg tablet,delayed 81 mg PO DAILY 10/22/21 10/22/21 History release atorvastatin 20 mg tablet 20 mg PO DAILY 10/22/21 10/22/21 History diclofenac sodium 1 % topical gel 2 g TOPICAL QID 10/22/21 10/22/21 History furosemide 40 mg tablet 40 mg PO QAM 10/22/21 10/22/21 History guaifenesin 400 mg tablet (Mucus 400 mg PO QID PRN 10/22/21 10/22/21 History Relief) magnesium oxide 400 mg PO DAILY 10/22/21 10/22/21 History mupirocin 2 % topical ointment 1 applic TOPICAL BID 10/22/21 10/22/21 History potassium chloride 10 mEq 10 meq PO DAILY 10/22/21 10/22/21 History capsule,extended release triamcinolone acetonide 0.1 % 1 applic TOPICAL BID 10/22/21 10/22/21 History topical cream vitamin A-vitamin C-vit E-min 1 tab PO DAILY 10/22/21 10/22/21 History tablet Past Med/Surg History Medical History Atrial fibrillation DX'D 06/2017 [facility]-HAS BEEN ON THINNER SINCE Cancer OVARIAN 1975 Chronic back pain Difficult airway for intubation [id number] INTUBATION-NEEDS SMALL SIZE TUBE-NO INTUBATION EXPERIENCES SINCE Hx of deep venous thrombosis HX LLE 1959'S-WITHOUT ANY INJURY OR SURGERY-NO ISSUES SINCE Hyperlipidemia Hypertension Kidney stones no surgical intervention Morbid obesity with BMI of 45.0-49.9, adult Osteoarthritis Sleep apnea CPAP SOB (shortness of breath) LYING FLAT/WITH 1 FLIGHT STAIRS Surgical History History of cardiac cath 2014 X 2-[facility] NO STENTS-NO BLOCKAGES History of colonoscopy History of dilatation and curettage History of hysterectomy BSO History of surgical removal of skin lesion "fatty tumor" History of tonsillectomy History of total knee replacement RIGHT Hx of hemorrhoidectomy Family History Father Family hx of colon cancer Other No family history of adverse response to anesthesia Social History Smoking Status: Never smoker Second Hand Exposure: No; Hx Alcohol Use: No Hx Substance Use: No Preferred Language: Beninese Communication Ability: Effective 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 O2) Eyes: PERRL, conjunctivae normal, anicteric sclerae ENMT: external ear and nose normal, oropharynx normal Neck: + thick neck Respiratory: normal respiratory effort, lungs clear to auscultation Cardiovascular: Rate/Rhythm: + irregularly irregular Chest (Breasts): Chest: normal inspection of chest Gastrointestinal (Abdomen): Inspection/Auscultation: normal bowel sounds Percussion/Palpation: abdomen soft nontender to palp. Musculoskeletal: no cyanosis or clubbing, extremities motor strength 5/5 Skin: no rashes, warm and dry Neurologic: PERRL, EOMI, accommodation nl, no face palsy, no dysarthria Psychiatric: A+Ox3, euthymic affect Genitourinary: + CVA tenderness (R flank) Lymphatic: no lymphedema Results & Data Results & Data ([facility]) Vital Signs (Past 12 Hours) Vital Signs Temp Pulse Pulse Resp BP BP Pulse Ox 10/22/21 15:33 85 20 117/61 95 10/22/21 13:30 91 H 20 117/54 L 98 10/22/21 12:00 92 H 22 99 10/22/21 11:02 20 95 10/22/21 10:35 139 H 28 H 97/58 L 93 10/22/21 10:20 36.7 C 136 H 26 H 90/49 L 94 Laboratory Results 10/22/21 10/22/21 10/22/21 Range/Units 16:08 15:26 14:37 WBC (4.8-10.8) K/uL RBC (4.2-5.4) M/uL Hgb (12.0-16.0) g/dL Hct (37-47) % MCV (80-100) fL MCH (25-34) pg MCHC (32-36) g/dL RDW Std Deviation (36.4-46.3) fL RDW Coeff of Massiel (11.5-14.5) % Plt Count (130-400) K/uL MPV (7.4-10.4) fL Neutrophils % (Manual) % Lymphocytes % (Manual) % Monocytes % (Manual) % Basophils % (Manual) % Metamyelocytes % (Man) % Neutrophils # (Manual) (1.4-6.5) K/uL Total Absolute Neuts (1.4-6.5) K/uL Lymphocytes # (Manual) (1.2-3.4) K/uL Total Abs Lymphocytes (1.2-3.4) K/uL Monocytes # (Manual) (0.11-0.59) K/uL Basophils # (Manual) (0-0.2) K/uL Metamyelocytes # (Man) (0-0) K/uL PT (9.0-12.0) Seconds INR (0.9-1.1) APTT (21.0-31.0) Seconds PTT Ratio Sodium (136-145) mmol/L Potassium (3.5-5.1) mmol/L Chloride (98-107) mmol/L Carbon Dioxide (21-32) mmol/L Anion Gap (3-11) BUN (6-23) mg/dl Creatinine (0.6-1.2) mg/dl Est Cr Clr Drug Dosing ml/min Est GFR ( Amer) ml/min Est GFR (Non-Af Amer) ml/min BUN/Creatinine Ratio (10-20) Glucose (70-99(Fasting)) mg/dl Lactate Pending (0.4-2.0) mmol/L Calcium (8.5-10.1) mg/dl Total Bilirubin (0.2-1.0) mg/dl AST (13-39) U/L ALT (7-52) U/L Alkaline Phosphatase (34-104) U/L Troponin I High Sens (0-14) pg/ml Total Protein (6.0-8.3) gm/dl Albumin (3.4-5.0) gm/dl Globulin (2.5-4.0) gm/dl Albumin/Globulin Ratio (0.9-2) Lipase (11-82) U/L Urine Color Dark Yellow Urine Appearance Turbid A (Clear) Urine pH 5.0 (4.5-7.5) Ur Specific [place] 1.022 (1.000-1.030) Urine Protein 1+ H (Negative) Urine Glucose (UA) Negative (Negative) Urine Ketones Trace H (Negative) Urine Blood 1+ H (Negative) Urine Nitrite Negative (Negative) Urine Bilirubin Negative (Negative) Urine Urobilinogen Negative (Negative) Ur Leukocyte Esterase 2+ H (Negative) Urine WBC (Auto) >30 H (0-5) /hpf Urine RBC (Auto) 5-10 H (0-4) /hpf U Hyaline Cast (Auto) 1-5 (0-5) /lpf U Epithel Cells (Auto) >30 H (0-5) /lpf Urine Bacteria (Auto) Negative (Negative) Granular Casts 1-5 H (0) /lpf Urine Yeast Not Reportable SARS-CoV-2, RNA, NAAT NEGATIVE (NEGATIVE) 10/22/21 10/22/21 10/22/21 Range/Units 14:17 12:29 12:29 WBC (4.8-10.8) K/uL RBC (4.2-5.4) M/uL Hgb (12.0-16.0) g/dL Hct (37-47) % MCV (80-100) fL MCH (25-34) pg MCHC (32-36) g/dL RDW Std Deviation (36.4-46.3) fL RDW Coeff of Massiel (11.5-14.5) % Plt Count (130-400) K/uL MPV (7.4-10.4) fL Neutrophils % (Manual) % Lymphocytes % (Manual) % Monocytes % (Manual) % Basophils % (Manual) % Metamyelocytes % (Man) % Neutrophils # (Manual) (1.4-6.5) K/uL Total Absolute Neuts (1.4-6.5) K/uL Lymphocytes # (Manual) (1.2-3.4) K/uL Total Abs Lymphocytes (1.2-3.4) K/uL Monocytes # (Manual) (0.11-0.59) K/uL Basophils # (Manual) (0-0.2) K/uL Metamyelocytes # (Man) (0-0) K/uL PT 41.3 H (9.0-12.0) Seconds INR 4.2 H (0.9-1.1) APTT 39.5 H (21.0-31.0) Seconds PTT Ratio 1.4 Sodium 136 (136-145) mmol/L Potassium 4.3 (3.5-5.1) mmol/L Chloride 103 (98-107) mmol/L Carbon Dioxide 25 (21-32) mmol/L Anion Gap 8 (3-11) BUN 37 H (6-23) mg/dl Creatinine 2.80 H (0.6-1.2) mg/dl Est Cr Clr Drug Dosing 24.3 ml/min Est GFR ( Amer) 18.0 ml/min Est GFR (Non-Af Amer) 15.5 ml/min BUN/Creatinine Ratio 13.2 (10-20) Glucose 100 H (70-99(Fasting)) mg/dl Lactate 2.6 H* (0.4-2.0) mmol/L Calcium 8.6 (8.5-10.1) mg/dl Total Bilirubin 0.9 (0.2-1.0) mg/dl AST 168 H (13-39) U/L ALT 239 H (7-52) U/L Alkaline Phosphatase 118 H (34-104) U/L Troponin I High Sens (0-14) pg/ml Total Protein 5.8 L (6.0-8.3) gm/dl Albumin 3.2 L (3.4-5.0) gm/dl Globulin 2.6 (2.5-4.0) gm/dl Albumin/Globulin Ratio 1.2 (0.9-2) Lipase 27 (11-82) U/L Urine Color Urine Appearance (Clear) Urine pH (4.5-7.5) Ur Specific [place] (1.000-1.030) Urine Protein (Negative) Urine Glucose (UA) (Negative) Urine Ketones (Negative) Urine Blood (Negative) Urine Nitrite (Negative) Urine Bilirubin (Negative) Urine Urobilinogen (Negative) Ur Leukocyte Esterase (Negative) Urine WBC (Auto) (0-5) /hpf Urine RBC (Auto) (0-4) /hpf U Hyaline Cast (Auto) (0-5) /lpf U Epithel Cells (Auto) (0-5) /lpf Urine Bacteria (Auto) (Negative) Granular Casts (0) /lpf Urine Yeast SARS-CoV-2, RNA, NAAT (NEGATIVE) 10/22/21 10/22/21 Range/Units 12:29 12:29 WBC 25.96 H (4.8-10.8) K/uL RBC 3.98 L (4.2-5.4) M/uL Hgb 12.6 (12.0-16.0) g/dL Hct 38.2 (37-47) % MCV 96.0 (80-100) fL MCH 31.7 (25-34) pg MCHC 33.0 (32-36) g/dL RDW Std Deviation 50.8 H (36.4-46.3) fL RDW Coeff of Massiel 14.3 (11.5-14.5) % Plt Count 192 (130-400) K/uL MPV 9.5 (7.4-10.4) fL Neutrophils % (Manual) 92.5 % Lymphocytes % (Manual) 3.4 % Monocytes % (Manual) 2.5 % Basophils % (Manual) 0.8 % Metamyelocytes % (Man) 0.8 % Neutrophils # (Manual) 24.01 H (1.4-6.5) K/uL Total Absolute Neuts 24.01 H (1.4-6.5) K/uL Lymphocytes # (Manual) 0.88 L (1.2-3.4) K/uL Total Abs Lymphocytes 0.88 L (1.2-3.4) K/uL Monocytes # (Manual) 0.65 H (0.11-0.59) K/uL Basophils # (Manual) 0.21 H (0-0.2) K/uL Metamyelocytes # (Man) 0.21 H (0-0) K/uL PT (9.0-12.0) Seconds INR (0.9-1.1) APTT (21.0-31.0) Seconds PTT Ratio Sodium (136-145) mmol/L Potassium (3.5-5.1) mmol/L Chloride (98-107) mmol/L Carbon Dioxide (21-32) mmol/L Anion Gap (3-11) BUN (6-23) mg/dl Creatinine (0.6-1.2) mg/dl Est Cr Clr Drug Dosing ml/min Est GFR ( Amer) ml/min Est GFR (Non-Af Amer) ml/min BUN/Creatinine Ratio (10-20) Glucose (70-99(Fasting)) mg/dl Lactate (0.4-2.0) mmol/L Calcium (8.5-10.1) mg/dl Total Bilirubin (0.2-1.0) mg/dl AST (13-39) U/L ALT (7-52) U/L Alkaline Phosphatase (34-104) U/L Troponin I High Sens 156.7 H* (0-14) pg/ml Total Protein (6.0-8.3) gm/dl Albumin (3.4-5.0) gm/dl Globulin (2.5-4.0) gm/dl Albumin/Globulin Ratio (0.9-2) Lipase (11-82) U/L Urine Color Urine Appearance (Clear) Urine pH (4.5-7.5) Ur Specific [place] (1.000-1.030) Urine Protein (Negative) Urine Glucose (UA) (Negative) Urine Ketones (Negative) Urine Blood (Negative) Urine Nitrite (Negative) Urine Bilirubin (Negative) Urine Urobilinogen (Negative) Ur Leukocyte Esterase (Negative) Urine WBC (Auto) (0-5) /hpf Urine RBC (Auto) (0-4) /hpf U Hyaline Cast (Auto) (0-5) /lpf U Epithel Cells (Auto) (0-5) /lpf Urine Bacteria (Auto) (Negative) Granular Casts (0) /lpf Urine Yeast SARS-CoV-2, RNA, NAAT (NEGATIVE) Diagnostic Findings CT Abd. pelvis IMPRESSION: 1. Motion degraded exam. 2. Moderate right-sided hydroureteronephrosis secondary to two obstructing calculi in the distal right ureter, the largest of which is noted just proximal to the ureterovesicular junction measuring 9 mm. 3. Right nephrolithiasis. 4. No bowel obstruction or bowel wall thickening. 5. Hepatomegaly with hepatic steatosis. 6. Additional findings as above. CXR IMPRESSION: 1. Cardiomegaly with pulmonary vascular congestion. 2. Trace pleural effusions suspected with mild bibasilar opacities. Code Status & VTE Plan VTE Prophylaxis Plan VTE Prophylaxis will be ordered: Yes (1) Atrial fibrillation Atrial fibrillation type: unspecified Qualified Code(s): I48.91 - Unspecified atrial fibrillation
[2021-10-22] MEDS ORDERED: fentaNYL citrate 100 MCG/2 ML VIAL ONE (16:50)
[2021-10-22] MEDS ORDERED: ATROPINE SULFATE 0.1 MG/ML 10ML SYR IV PRN (17:02)
[2021-10-22] MEDS ORDERED: ePHEDrine sulfate 50 MG/ML AMP IV PRN (17:02)
--- NOTE | 2021-10-22 17:02 | Anesthesiology Consultation ---
Date of Service October 22, 2021 Assessment & Plan (1) Encounter for pre-operative examination: Consults Requested none emergent procedure History Surgery Operation Date: 10/22/21 17:00 Proposed Procedures p Cystoscopy - Rocky Munoz MD Height/Weight Height: 5 ft 5.5 in Weight: 144.9 kg Allergies Allergy/AdvReac Type Severity Reaction Status Date / Time tetracycline Allergy Unknown Rash Verified 10/22/21 15:37 esomeprazole [From Nexium] AdvReac Intermediate EPISTAXIS Verified 10/22/21 15:37 adhesive AdvReac Unknown SKIN Verified 10/22/21 15:37 IRRITATION Medications Home Medications Medication Instructions Recorded Confirmed Last Taken calcium carbonate 600 mg calcium 600 mg PO BID 04/04/18 10/22/21 04/07/18 10:30 (1,500 mg) tablet cholecalciferol (vitamin D3) 25 1,000 unit PO QAM 04/04/18 10/22/21 04/06/18 08:00 mcg (1,000 unit) capsule (Vitamin D3) duloxetine 30 mg capsule,delayed 60 mg PO 04/04/18 10/22/21 04/07/18 00:00 release (Cymbalta) fexofenadine 60 mg tablet (Amelia 60 mg PO BID PRN 04/04/18 10/22/21 04/06/18 08:30 Allergy) fluticasone propionate 50 2 spray INTRANASAL QA 04/04/18 10/22/21 04/05/18 mcg/actuation nasal spray,suspension (Flonase Allergy Relief) gabapentin 300 mg capsule 600 mg PO TID 04/04/18 10/22/21 04/08/18 02:30 hydrocodone 5 mg-acetaminophen 325 1 tab PO QID 04/04/18 10/22/21 04/08/18 02:30 mg tablet melatonin 5 mg tablet 10 mg PO HS 04/04/18 10/22/21 04/06/18 23:00 metoprolol tartrate 50 mg tablet 50 mg PO BID 04/04/18 10/22/21 04/08/18 02:30 multivitamin 1 tab PO QAM 04/04/18 10/22/21 04/06/18 08:30 warfarin 2.5 mg tablet 1.25 - 2.5 mg PO DAILY 04/04/18 10/22/21 10/21/21 losartan 25 mg tablet 25 mg PO HS 09/14/20 10/22/21 Unknown Lactobacills gasseri-Bifidobac 1 cap PO DAILY 10/22/21 10/22/21 Unknown bifidum,longum 1.5 billion cell capsule ([employer]) aluminum chloride 20 % topical 1 applic TOPICAL HS 10/22/21 10/22/21 Unknown solution (Drysol Dab-O-Matic) aspirin 81 mg tablet,delayed 81 mg PO DAILY 10/22/21 10/22/21 Unknown release atorvastatin 20 mg tablet 20 mg PO DAILY 10/22/21 10/22/21 Unknown diclofenac sodium 1 % topical gel 2 g TOPICAL QID 10/22/21 10/22/21 Unknown furosemide 40 mg tablet 40 mg PO QAM 10/22/21 10/22/21 Unknown guaifenesin 400 mg tablet (Mucus 400 mg PO QID PRN 10/22/21 10/22/21 Unknown Relief) magnesium oxide 400 mg PO DAILY 10/22/21 10/22/21 Unknown mupirocin 2 % topical ointment 1 applic TOPICAL BID 10/22/21 10/22/21 Unknown potassium chloride 10 mEq 10 meq PO DAILY 10/22/21 10/22/21 Unknown capsule,extended release triamcinolone acetonide 0.1 % 1 applic TOPICAL BID 10/22/21 10/22/21 Unknown topical cream vitamin A-vitamin C-vit E-min 1 tab PO DAILY 10/22/21 10/22/21 Unknown tablet Active Medications Generic Name Dose Route Start Last Admin Trade Name Freq PRN Reason Stop Dose Admin Sodium Chloride 1,000 mls @ 125 mls/hr 10/22/21 15:15 10/22/21 15:32 Nss 1000ml IV 11/21/21 15:14 125 mls/hr .Q8H ELLIE Administration Past Medical History Medical History Atrial fibrillation DX'D 06/2017 [facility]-HAS BEEN ON THINNER SINCE Cancer OVARIAN 1975 Chronic back pain Difficult airway for intubation [id number] INTUBATION-NEEDS SMALL SIZE TUBE-NO INTUBATION EXPERIENCES SINCE Hx of deep venous thrombosis HX LLE 1959'S-WITHOUT ANY INJURY OR SURGERY-NO ISSUES SINCE Hyperlipidemia Hypertension Kidney stones no surgical intervention Morbid obesity with BMI of 45.0-49.9, adult Osteoarthritis Sleep apnea CPAP SOB (shortness of breath) LYING FLAT/WITH 1 FLIGHT STAIRS Past Family History Family History Father Family hx of colon cancer Other No family history of adverse response to anesthesia Past Surgical History Surgical History History of cardiac cath 2014 X 2-[facility] NO STENTS-NO BLOCKAGES History of colonoscopy History of dilatation and curettage History of hysterectomy BSO History of surgical removal of skin lesion "fatty tumor" History of tonsillectomy History of total knee replacement RIGHT Hx of hemorrhoidectomy Social History Smoking Status: Never smoker Hx Alcohol Use: No Hx Substance Use: No substance use type: does not use Physical Exam Vital Signs Last Vital Signs Temp 98.1 F 10/22/21 10:20 Pulse 85 10/22/21 15:33 Resp 20 10/22/21 15:33 BP 117/61 10/22/21 15:33 Pulse Ox 95 10/22/21 15:33 Testing Laboratory Results 10/22/21 12:29 10/22/21 12:29 PT 41.3 Seconds (9.0-12.0) H 10/22/21 12:29 INR 4.2 (0.9-1.1) H 10/22/21 12:29 APTT 39.5 Seconds (21.0-31.0) H 10/22/21 12:29 Urine Color Dark Yellow 10/22/21 14:37 Urine Appearance Turbid (Clear) A 10/22/21 14:37 Urine pH 5.0 (4.5-7.5) 10/22/21 14:37 Ur Specific [place] 1.022 (1.000-1.030) 10/22/21 14:37 Urine Protein 1+ (Negative) H 10/22/21 14:37 Urine Glucose (UA) Negative (Negative) 10/22/21 14:37 Urine Ketones Trace (Negative) H 10/22/21 14:37 Urine Nitrite Negative (Negative) 10/22/21 14:37 Ur Leukocyte Esterase 2+ (Negative) H 10/22/21 14:37 Urine WBC (Auto) >30 /hpf (0-5) H 10/22/21 14:37 Urine RBC (Auto) 5-10 /hpf (0-4) H 10/22/21 14:37 U Hyaline Cast (Auto) 1-5 /lpf (0-5) 10/22/21 14:37 U Epithel Cells (Auto) >30 /lpf (0-5) H 10/22/21 14:37 Urine Bacteria (Auto) Negative (Negative) 10/22/21 14:37 Electrocardiogram Date: 10/22/21 Findings: + NSR @ (Tachycardia)
[2021-10-22] MEDS ORDERED: DIATRIZOATE MEGLUMINE 30% 100ML VIAL INSTIL ONE (18:06)
--- NOTE | 2021-10-22 18:15 | Operative Report ---
PG Post Operative Report Pre & Post Diagnosis Operation Date: 10/22/21 17:00 Pre-Op Diagnosis: Acute kidney injury Hydronephrosis concurrent with and due to calculi of right kidney and right ureter Acute urinary tract infection Post-Op Diagnosis: Acute kidney injury Hydronephrosis concurrent with and due to calculi of right kidney and right ureter Acute urinary tract infection I identified the patient and participated in the time-out.: Yes Procedure Operation Date: 10/22/21 17:00 Actual Procedures p Cystoscopy, Retrograde Pyelgram, Right Ureteral Stent Insertion(Right) - Rocky Munoz MD Surgeon Rocky Munoz MD Entertainment Manager None Estimated Blood Loss 0 Findings See Below Successful right ureteral stent placement with immediate drainage of purulent appearing urine. Specimens Urine from right kidney for culture Drains 6 [place] by 24 cm double-J ureteral stent in the right ureter 16 [place] Ang catheter per urethra with 10 mL in balloon Anesthesia Type MAC Complications none Disposition Disposition: Recovery Room Indications This is a 76-year-old female who presented to the emergency department on 10/22/2021 after sustaining a fall. She was noted to be in A. fib with RVR and was somewhat hypotensive. Urinalysis was equivocal and a CT scan demonstrated multiple stones in the distal right ureter with associated right-sided hydronephrosis. Out of concern for an obstructed urinary tract infection, she is being brought to the OR today for right ureteral stent placement. Description of Procedure The patient was identified in the holding area and informed consent was confirmed. They were marked on the right side, then were taken to the operating room where general anesthesia was initiated. They were placed in the dorsal lithotomy position with all pressure points appropriately padded. They were prepped and draped in the usual sterile fashion and a preoperative timeout was performed. A well-lubricated cystoscope was inserted per urethra and panendoscopy was performed. The bladder showed some cystitis cystica, but was otherwise normal with no tumors or stones appreciated. Ureteral orifices were in orthotopic position bilaterally. The right ureteral orifice was identified and cannulated with a 5 [place] open- ended catheter. A retrograde pyelogram was performed to confirm position of the ureter. I tried to minimize the amount of dye and pressure I used while injecting to minimize any possible pyelovenous backflow of the infection. A 0.038" ZIPwire was advanced to the level of the kidney under fluoroscopic guidance. As soon as the wire was advanced past the stones, there was drainage of purulent appearing urine. Over the wire, a 6 [place] x 24 centimeter double-J ureteral stent was advanced. When the wire was removed, the proximal curl was visualized in the kidney with x-ray, and the distal curl visualized in the bladder with the cystoscope. A sample of the purulent urine was collected and was sent for culture. A 16 [place] Ang catheter was placed per urethra with 10 mL in the balloon to allow maximal drainage of the urinary tract. The patient was then awakened from anesthesia and was brought to the PACU in stable condition. I attest to the content of the Intraoperative Record and any orders documented therein. Any exceptions are noted below.
[2021-10-22] MEDS ORDERED: FEXOFENADINE 60 MG TAB PO PRN (18:16)
--- NOTE | 2021-10-22 18:21 | Anesthesiology Progress Note ---
Date of Service October 22, 2021 Anesthesia Post Procedure Vital Signs Vital Signs: Temp Pulse Pulse Resp BP BP Pulse Ox 10/22/21 15:33 85 20 117/61 95 10/22/21 13:30 91 H 20 117/54 L 98 10/22/21 12:00 92 H 22 99 10/22/21 11:02 20 95 10/22/21 10:35 139 H 28 H 97/58 L 93 10/22/21 10:20 98.1 F 136 H 26 H 90/49 L 94 Pain Intensity Lower Back: Pain Intensity: 8 Bilateral Knee: Pain Intensity: 4 Transfer of Care Handoff Completed per policy Notes Mental Status: alert / awake / arousable and participated in evaluation Patient Amnestic to Procedure: Yes Nausea / Vomiting: adequately controlled Pain: adequately controlled Airway Patency, RR, SpO2: stable & adequate BP & HR: stable & adequate Hydration State: stable & adequate Anesthetic Complications: no major complications apparent and Pt Satisfied with anesthetic care
--- NOTE | 2021-10-22 18:26 | Fluoroscopy Report ---
FL KUB HISTORY: 76 years-old Female CYSTO STENT STATUS post placement of a right ureteral stent COMPARISON: CT abdomen and pelvis 10/22/2021 TECHNIQUE: One spot fluoroscopic image of the right abdomen was obtained utilizing 10.8 seconds fluor oscopy time FINDINGS: The proximal portion of a right ureteral stent appears to be in satisfactory positioning. The distal portion of the stent was not imaged. IMPRESSION: Fluoroscopic assistance as above. ACT 112: Negative or not required by law. The above report was generated using voice recognition software. It may contain grammatical, syntax o r spelling errors. Electronically signed by: Andrey Bates M.D. 10/22/2021 6:24 PM
[2021-10-22] MEDS ORDERED: MELATONIN 3 MG TAB PO PRN (18:39)
[2021-10-22] MEDS ORDERED: guaiFENesin 200 MG TAB PO PRN (18:41)
[2021-10-22] MEDS: HYDROCODONE/ACETAMOPHEN 5/325MG TAB PO PRN (20:07)
[2021-10-22] MEDS ORDERED: MICONAZOLE NITRATE POWDER 43 GM EXT PRN (21:59)
[2021-10-22] MEDS: ATORVASTATIN 20 MG TAB PO SCH (22:00)
[2021-10-22] MEDS: GABAPENTIN 300 MG CAP PO SCH (22:01)
[2021-10-22] MEDS: DULoxetine HCL 60 MG CAP PO SCH (22:01)
[2021-10-22] MEDS: METOPROLOL TARTRATE 50 MG TAB PO SCH (22:01)
[2021-10-23] MEDS: SODIUM CHLORIDE 0.9% 1000ML 1,000 ML IV SCH ×2 (04:18→12:11)
[2021-10-23 06:00] LABS: Hematocrit (blood only) 34.6 % (37-47); Hemoglobin 11.2 g/dL (12.0-16.0); Mean Corpuscular Hemoglobin 30.9 pg (25-34); Mean Corpuscular Hgb Conc 32.4 g/dL (32-36); Mean Corpuscular Volume 95.3 fL (80-100); Mean Platelet Volume 9.6 fL (7.4-10.4); Platelet Count 147 K/uL (130-400); RDW Coefficient of Variation 14.5 % (11.5-14.5); RDW Standard Deviation 51.2 fL (36.4-46.3); Red Blood Count 3.63 M/uL (4.2-5.4); White Blood Count 16.26 K/uL (4.8-10.8)
[2021-10-23 06:10] LABS: INR 2.6 (0.9-1.1); Prothrombin Time 26.3 Seconds (9.0-12.0)
[2021-10-23 06:37] LABS: Albumin Globulin Ratio 1.2 (0.9-2); Albumin Level 2.8 gm/dl (3.4-5.0); BUN Creatinine Ratio 18.8 (10-20); Bilirubin,Total 1.2 mg/dl (0.2-1.0); Calcium 8.3 mg/dl (8.5-10.1); Creatinine Clr Calc Pharmacy 36.7 ml/min; Est GFR (African American) 29.5 ml/min; Est GFR (Non-African American) 25.5 ml/min; Globulin 2.4 gm/dl (2.5-4.0); Potassium 4.6 mmol/L (3.5-5.1); Total Protein 5.2 gm/dl (6.0-8.3)
[2021-10-23 06:51] LABS: Troponin I High Sensitivity 56.3 pg/ml (0-14)
--- NOTE | 2021-10-23 07:39 | Hospitalist Progress Note ---
Date of Service October 23, 2021 Assessment & Plan (1) Hydronephrosis concurrent with and due to calculi of kidney and ureter: (2) Acute UTI: Plan: Sepsis, POA Obstructive uropathy Pt meets SIRS criteria for sepsis with elevated WBC at 25.9 K, and tachycardia HR 140, patient presented with A. fib with RVR Lactic acid 2.6 Creatinine elevated at 2.8, up from baseline 8.9, troponin elevated 157 - secondary to above, will monitor LFTs elevated - secondary to above, also poss. secondary to liver dis. (hepatomegaly w/ steatosis noted on CT), will monitor CT abd. pelvis Moderate right-sided hydroureteronephrosis secondary to two obstructing calculi in the distal right ureter, the largest of which is noted just proximal to the ureterovesicular junction measuring 9 mm. Blood cultx - ordered, pending UA -positive for blood, leuk esterase, WBCs ucultx - pending Received IV normal saline in the ED, and IV ceftriaxone. Continue IV ceftriaxone for now Urology, Dr. Munoz consulted Pt is s/p cystoscopy, retrograde pyelogram and right ureteral stent placement (10/22) Tolerated procedure well Continues to have Ang, now with pink urine (3) GILBERTO (acute kidney injury): Plan: Creatinine elevated at 2.8 on admission, up from baseline at 0.9 Secondary to obstructive uropathy Patient provided with IV fluids s/p urological procedure which is believed to resolve the problem Current Cr improved at 1.8, cont. to monitor creatinine (4) Atrial fibrillation: Plan: Troponin elevated at 157, secondary to above Patient has history of A. fib, and history of A. fib with RVR Continue metoprolol and Coumadin After metoprolol given in the ED, heart rate better controlled INR 4.2 on admission, current 2.6, cont. to monitor trend trop (trop now down to 50s), should resolve after GILBERTO resolves Continue to monitor on telemetry RAYMUNDO (on CPAP) - provide CPAP at HS Morbid obesity -BMI over 50 -Lifestyle modification encouraged Anxiety - cont. home medications -cymbalta Admission and Anticipated Discharge Date Admission Date: October 22, 2021 Subjective Patient seen in follow-up of obstructive uropathy, s/p urological procedure yesterday, right ureteral stent placement Currently patient is laying in bed, in no acute distress She reports she is feeling much better Currently she has a Ang, draining pink urine Patient denies any chest pain, shortness of breath, nausea vomiting, abdominal pain, only slight tenderness at right flank Review of Systems Review of Systems: All systems reviewed & are unremarkable except as noted in Subjective Physical Exam Constitutional: + morbidly obese (F in NAD, on suppl. O2) Eyes: PERRL, conjunctivae normal, anicteric sclerae ENMT: external ear and nose normal, oropharynx normal Neck: + thick neck Respiratory: normal respiratory effort, lungs clear to auscultation Cardiovascular: Rate/Rhythm: + irregularly irregular Chest (Breasts): Chest: normal inspection of chest Gastrointestinal (Abdomen): Inspection/Auscultation: normal bowel sounds Percussion/Palpation: abdomen soft Musculoskeletal: no cyanosis or clubbing, extremities motor strength 5/5 Skin: no rashes, warm and dry Neurologic: PERRL, EOMI, accommodation nl, no face palsy, no dysarthria Psychiatric: A+Ox3, euthymic affect Genitourinary: + CVA tenderness (R flank (improved)) Lymphatic: no lymphedema Results & Data Results & Data ([facility]) Vital Signs (Past 12 Hours) Vital Signs Temp Pulse Pulse Pulse Resp BP BP 10/23/21 06:14 81 10/23/21 02:43 37.3 C 87 18 104/64 10/22/21 22:35 36.4 C L 105 H 25 H 137/53 L 10/22/21 20:15 36.7 C 99 H 22 120/76 10/22/21 20:00 36.8 C 102 H 25 H 141/71 H Pulse Ox 10/23/21 06:14 10/23/21 02:43 94 10/22/21 22:35 97 10/22/21 20:15 98 10/22/21 20:00 95 Laboratory Results 10/23/21 10/23/21 10/23/21 Range/Units 05:33 05:33 05:33 WBC 16.26 H (4.8-10.8) K/uL RBC 3.63 L (4.2-5.4) M/uL Hgb 11.2 L (12.0-16.0) g/dL Hct 34.6 L (37-47) % MCV 95.3 (80-100) fL MCH 30.9 (25-34) pg MCHC 32.4 (32-36) g/dL RDW Std Deviation 51.2 H (36.4-46.3) fL RDW Coeff of Massiel 14.5 (11.5-14.5) % Plt Count 147 (130-400) K/uL MPV 9.6 (7.4-10.4) fL Neutrophils % (Manual) % Lymphocytes % (Manual) % Monocytes % (Manual) % Basophils % (Manual) % Metamyelocytes % (Man) % Neutrophils # (Manual) (1.4-6.5) K/uL Total Absolute Neuts (1.4-6.5) K/uL Lymphocytes # (Manual) (1.2-3.4) K/uL Total Abs Lymphocytes (1.2-3.4) K/uL Monocytes # (Manual) (0.11-0.59) K/uL Basophils # (Manual) (0-0.2) K/uL Metamyelocytes # (Man) (0-0) K/uL PT 26.3 H (9.0-12.0) Seconds INR 2.6 H (0.9-1.1) APTT (21.0-31.0) Seconds PTT Ratio Sodium 138 (136-145) mmol/L Potassium 4.6 (3.5-5.1) mmol/L Chloride 107 (98-107) mmol/L Carbon Dioxide 25 (21-32) mmol/L Anion Gap 6 (3-11) BUN 35 H (6-23) mg/dl Creatinine 1.86 H D (0.6-1.2) mg/dl Est Cr Clr Drug Dosing 36.7 ml/min Est GFR ( Amer) 29.5 ml/min Est GFR (Non-Af Amer) 25.5 ml/min BUN/Creatinine Ratio 18.8 (10-20) Glucose 117 H (70-99(Fasting)) mg/dl Lactate (0.4-2.0) mmol/L Calcium 8.3 L (8.5-10.1) mg/dl Phosphorus 4.0 (2.5-4.9) mg/dl Magnesium 2.0 (1.7-2.4) mg/dl Total Bilirubin 1.2 H (0.2-1.0) mg/dl AST 118 H (13-39) U/L ALT 165 H (7-52) U/L Alkaline Phosphatase 119 H (34-104) U/L Troponin I High Sens 56.3 H* D (0-14) pg/ml Total Protein 5.2 L (6.0-8.3) gm/dl Albumin 2.8 L (3.4-5.0) gm/dl Globulin 2.4 L (2.5-4.0) gm/dl Albumin/Globulin Ratio 1.2 (0.9-2) Lipase (11-82) U/L Urine Color Urine Appearance (Clear) Urine pH (4.5-7.5) Ur Specific [place] (1.000-1.030) Urine Protein (Negative) Urine Glucose (UA) (Negative) Urine Ketones (Negative) Urine Blood (Negative) Urine Nitrite (Negative) Urine Bilirubin (Negative) Urine Urobilinogen (Negative) Ur Leukocyte Esterase (Negative) Urine WBC (Auto) (0-5) /hpf Urine RBC (Auto) (0-4) /hpf U Hyaline Cast (Auto) (0-5) /lpf U Epithel Cells (Auto) (0-5) /lpf Urine Bacteria (Auto) (Negative) Granular Casts (0) /lpf Urine Yeast SARS-CoV-2, RNA, NAAT (NEGATIVE) 10/22/21 10/22/21 10/22/21 Range/Units 21:20 16:08 15:26 WBC (4.8-10.8) K/uL RBC (4.2-5.4) M/uL Hgb (12.0-16.0) g/dL Hct (37-47) % MCV (80-100) fL MCH (25-34) pg MCHC (32-36) g/dL RDW Std Deviation (36.4-46.3) fL RDW Coeff of Massiel (11.5-14.5) % Plt Count (130-400) K/uL MPV (7.4-10.4) fL Neutrophils % (Manual) % Lymphocytes % (Manual) % Monocytes % (Manual) % Basophils % (Manual) % Metamyelocytes % (Man) % Neutrophils # (Manual) (1.4-6.5) K/uL Total Absolute Neuts (1.4-6.5) K/uL Lymphocytes # (Manual) (1.2-3.4) K/uL Total Abs Lymphocytes (1.2-3.4) K/uL Monocytes # (Manual) (0.11-0.59) K/uL Basophils # (Manual) (0-0.2) K/uL Metamyelocytes # (Man) (0-0) K/uL PT (9.0-12.0) Seconds INR (0.9-1.1) APTT (21.0-31.0) Seconds PTT Ratio Sodium (136-145) mmol/L Potassium (3.5-5.1) mmol/L Chloride (98-107) mmol/L Carbon Dioxide (21-32) mmol/L Anion Gap (3-11) BUN (6-23) mg/dl Creatinine (0.6-1.2) mg/dl Est Cr Clr Drug Dosing ml/min Est GFR ( Amer) ml/min Est GFR (Non-Af Amer) ml/min BUN/Creatinine Ratio (10-20) Glucose (70-99(Fasting)) mg/dl Lactate 2.2 H* (0.4-2.0) mmol/L Calcium (8.5-10.1) mg/dl Phosphorus (2.5-4.9) mg/dl Magnesium (1.7-2.4) mg/dl Total Bilirubin (0.2-1.0) mg/dl AST (13-39) U/L ALT (7-52) U/L Alkaline Phosphatase (34-104) U/L Troponin I High Sens 90.4 H* D (0-14) pg/ml Total Protein (6.0-8.3) gm/dl Albumin (3.4-5.0) gm/dl Globulin (2.5-4.0) gm/dl Albumin/Globulin Ratio (0.9-2) Lipase (11-82) U/L Urine Color Urine Appearance (Clear) Urine pH (4.5-7.5) Ur Specific [place] (1.000-1.030) Urine Protein (Negative) Urine Glucose (UA) (Negative) Urine Ketones (Negative) Urine Blood (Negative) Urine Nitrite (Negative) Urine Bilirubin (Negative) Urine Urobilinogen (Negative) Ur Leukocyte Esterase (Negative) Urine WBC (Auto) (0-5) /hpf Urine RBC (Auto) (0-4) /hpf U Hyaline Cast (Auto) (0-5) /lpf U Epithel Cells (Auto) (0-5) /lpf Urine Bacteria (Auto) (Negative) Granular Casts (0) /lpf Urine Yeast SARS-CoV-2, RNA, NAAT NEGATIVE (NEGATIVE) 10/22/21 10/22/21 10/22/21 Range/Units 14:37 14:17 12:29 WBC (4.8-10.8) K/uL RBC (4.2-5.4) M/uL Hgb (12.0-16.0) g/dL Hct (37-47) % MCV (80-100) fL MCH (25-34) pg MCHC (32-36) g/dL RDW Std Deviation (36.4-46.3) fL RDW Coeff of Massiel (11.5-14.5) % Plt Count (130-400) K/uL MPV (7.4-10.4) fL Neutrophils % (Manual) % Lymphocytes % (Manual) % Monocytes % (Manual) % Basophils % (Manual) % Metamyelocytes % (Man) % Neutrophils # (Manual) (1.4-6.5) K/uL Total Absolute Neuts (1.4-6.5) K/uL Lymphocytes # (Manual) (1.2-3.4) K/uL Total Abs Lymphocytes (1.2-3.4) K/uL Monocytes # (Manual) (0.11-0.59) K/uL Basophils # (Manual) (0-0.2) K/uL Metamyelocytes # (Man) (0-0) K/uL PT 41.3 H (9.0-12.0) Seconds INR 4.2 H (0.9-1.1) APTT 39.5 H (21.0-31.0) Seconds PTT Ratio 1.4 Sodium (136-145) mmol/L Potassium (3.5-5.1) mmol/L Chloride (98-107) mmol/L Carbon Dioxide (21-32) mmol/L Anion Gap (3-11) BUN (6-23) mg/dl Creatinine (0.6-1.2) mg/dl Est Cr Clr Drug Dosing ml/min Est GFR ( Amer) ml/min Est GFR (Non-Af Amer) ml/min BUN/Creatinine Ratio (10-20) Glucose (70-99(Fasting)) mg/dl Lactate 2.6 H* (0.4-2.0) mmol/L Calcium (8.5-10.1) mg/dl Phosphorus (2.5-4.9) mg/dl Magnesium (1.7-2.4) mg/dl Total Bilirubin (0.2-1.0) mg/dl AST (13-39) U/L ALT (7-52) U/L Alkaline Phosphatase (34-104) U/L Troponin I High Sens (0-14) pg/ml Total Protein (6.0-8.3) gm/dl Albumin (3.4-5.0) gm/dl Globulin (2.5-4.0) gm/dl Albumin/Globulin Ratio (0.9-2) Lipase (11-82) U/L Urine Color Dark Yellow Urine Appearance Turbid A (Clear) Urine pH 5.0 (4.5-7.5) Ur Specific [place] 1.022 (1.000-1.030) Urine Protein 1+ H (Negative) Urine Glucose (UA) Negative (Negative) Urine Ketones Trace H (Negative) Urine Blood 1+ H (Negative) Urine Nitrite Negative (Negative) Urine Bilirubin Negative (Negative) Urine Urobilinogen Negative (Negative) Ur Leukocyte Esterase 2+ H (Negative) Urine WBC (Auto) >30 H (0-5) /hpf Urine RBC (Auto) 5-10 H (0-4) /hpf U Hyaline Cast (Auto) 1-5 (0-5) /lpf U Epithel Cells (Auto) >30 H (0-5) /lpf Urine Bacteria (Auto) Negative (Negative) Granular Casts 1-5 H (0) /lpf Urine Yeast Not Reportable SARS-CoV-2, RNA, NAAT (NEGATIVE) 10/22/21 10/22/21 10/22/21 Range/Units 12:29 12:29 12:29 WBC 25.96 H (4.8-10.8) K/uL RBC 3.98 L (4.2-5.4) M/uL Hgb 12.6 (12.0-16.0) g/dL Hct 38.2 (37-47) % MCV 96.0 (80-100) fL MCH 31.7 (25-34) pg MCHC 33.0 (32-36) g/dL RDW Std Deviation 50.8 H (36.4-46.3) fL RDW Coeff of Massiel 14.3 (11.5-14.5) % Plt Count 192 (130-400) K/uL MPV 9.5 (7.4-10.4) fL Neutrophils % (Manual) 92.5 % Lymphocytes % (Manual) 3.4 % Monocytes % (Manual) 2.5 % Basophils % (Manual) 0.8 % Metamyelocytes % (Man) 0.8 % Neutrophils # (Manual) 24.01 H (1.4-6.5) K/uL Total Absolute Neuts 24.01 H (1.4-6.5) K/uL Lymphocytes # (Manual) 0.88 L (1.2-3.4) K/uL Total Abs Lymphocytes 0.88 L (1.2-3.4) K/uL Monocytes # (Manual) 0.65 H (0.11-0.59) K/uL Basophils # (Manual) 0.21 H (0-0.2) K/uL Metamyelocytes # (Man) 0.21 H (0-0) K/uL PT (9.0-12.0) Seconds INR (0.9-1.1) APTT (21.0-31.0) Seconds PTT Ratio Sodium 136 (136-145) mmol/L Potassium 4.3 (3.5-5.1) mmol/L Chloride 103 (98-107) mmol/L Carbon Dioxide 25 (21-32) mmol/L Anion Gap 8 (3-11) BUN 37 H (6-23) mg/dl Creatinine 2.80 H (0.6-1.2) mg/dl Est Cr Clr Drug Dosing 24.3 ml/min Est GFR ( Amer) 18.0 ml/min Est GFR (Non-Af Amer) 15.5 ml/min BUN/Creatinine Ratio 13.2 (10-20) Glucose 100 H (70-99(Fasting)) mg/dl Lactate (0.4-2.0) mmol/L Calcium 8.6 (8.5-10.1) mg/dl Phosphorus (2.5-4.9) mg/dl Magnesium (1.7-2.4) mg/dl Total Bilirubin 0.9 (0.2-1.0) mg/dl AST 168 H (13-39) U/L ALT 239 H (7-52) U/L Alkaline Phosphatase 118 H (34-104) U/L Troponin I High Sens 156.7 H* (0-14) pg/ml Total Protein 5.8 L (6.0-8.3) gm/dl Albumin 3.2 L (3.4-5.0) gm/dl Globulin 2.6 (2.5-4.0) gm/dl Albumin/Globulin Ratio 1.2 (0.9-2) Lipase 27 (11-82) U/L Urine Color Urine Appearance (Clear) Urine pH (4.5-7.5) Ur Specific [place] (1.000-1.030) Urine Protein (Negative) Urine Glucose (UA) (Negative) Urine Ketones (Negative) Urine Blood (Negative) Urine Nitrite (Negative) Urine Bilirubin (Negative) Urine Urobilinogen (Negative) Ur Leukocyte Esterase (Negative) Urine WBC (Auto) (0-5) /hpf Urine RBC (Auto) (0-4) /hpf U Hyaline Cast (Auto) (0-5) /lpf U Epithel Cells (Auto) (0-5) /lpf Urine Bacteria (Auto) (Negative) Granular Casts (0) /lpf Urine Yeast SARS-CoV-2, RNA, NAAT (NEGATIVE) Medications Administered Current Inpatient Medications Acetaminophen (Acetaminophen 325 Mg Tab) 650 mg PO Q4H PRN PRN Reason: Pain or Fever Stop: 11/21/21 16:19 Hydrocodone Bitart/Acetaminophen (Hydrocodone/Acetamophen 5/325mg Tab) 1 tab PO Q4 PRN PRN Reason: Mild Pain (Scale Score 1-4) Stop: 11/05/21 18:15 Last Admin: 10/22/21 20:07 Dose: 1 tab Documented by: Albuterol (Albuterol Hfa 8 Gm Inhaler) 2 puffs INH QID PRN PRN Reason: Wheezing Stop: 11/21/21 18:15 Aspirin (Aspirin 81 Mg Ectab) 81 mg PO DAILY ELLIE Stop: 11/22/21 08:59 Atorvastatin Calcium (Atorvastatin 20 Mg Tab) 20 mg PO DAILY [facility] Stop: 11/21/21 18:15 Last Admin: 10/22/21 22:00 Dose: 20 mg Documented by: Duloxetine HCl (Duloxetine Hcl 60 Mg Cap) 60 mg PO HS [facility] Stop: 11/21/21 20:59 Last Admin: 10/22/21 22:01 Dose: 60 mg Documented by: Fexofenadine HCl (Fexofenadine 60 Mg Tab) 60 mg PO BID PRN PRN Reason: allergies Stop: 11/21/21 18:15 Fluticasone Propionate (Fluticasone Propionate Na Spr 16 Gm Btl) 2 sprays NA QAM [facility] Stop: 11/22/21 08:59 Gabapentin (Gabapentin 300 Mg Cap) 600 mg PO TID [facility] Stop: 11/21/21 20:59 Last Admin: 10/22/21 22:01 Dose: 600 mg Documented by: Guaifenesin (Guaifenesin 200 Mg Tab) 400 mg PO QID PRN PRN Reason: Congestion Stop: 11/21/21 18:40 Sodium Chloride (Nss 1000ml) 1,000 mls @ 125 mls/hr IV .Q8H [facility] Stop: 11/21/21 15:14 Last Admin: 10/23/21 04:18 Dose: 125 mls/hr Documented by: Ceftriaxone Sodium 2,000 mg/ (Dextrose) 70 mls @ 100 mls/hr IV Q24H [facility]; Protocol Stop: 10/25/21 15:59 Magnesium Oxide (Magnesium Oxide 400 Mg Tab) 400 mg PO DAILY [facility] Stop: 11/22/21 08:59 Melatonin (Melatonin 3 Mg Tab) 9 mg PO HSZ PRN PRN Reason: Sleep Stop: 11/21/21 18:38 Metoprolol Tartrate (Metoprolol Tartrate 50 Mg Tab) 50 mg PO BID [facility] Stop: 11/21/21 20:59 Last Admin: 10/22/21 22:01 Dose: 50 mg Documented by: Miconazole Nitrate (Miconazole Nitrate Powder 43 Gm) 1 appln EXT PRN PRN PRN Reason: Affected Skin Folds Stop: 11/21/21 21:58 Miscellaneous (Drysol~Order Awaiting Action) 1 ea N/A QS [facility] Stop: 11/22/21 07:59 Polyethylene Glycol (Polyethylene (Miralax) 17 Gm Pack) 17 gm PO DAILY PRN PRN Reason: Constipation Stop: 11/21/21 16:19 Warfarin Sodium (Warfarin Sod 2.5 Mg Tab) 2.5 mg PO [id number] ELLIE Stop: 11/23/21 15:59 Warfarin Sodium (Warfarin Sod 1.25 Mg Tab) 1.25 mg PO Mo@1600 ELLIE Stop: 11/22/21 15:59 (1) Atrial fibrillation Atrial fibrillation type: unspecified Qualified Code(s): I48.91 - Unspecified atrial fibrillation
[2021-10-23] MEDS: GABAPENTIN 300 MG CAP PO SCH ×3 (08:41→20:57)
[2021-10-23] MEDS: ASPIRIN 81 MG ECTAB PO SCH (08:41)
[2021-10-23] MEDS: MAGNESIUM OXIDE 400 MG TAB PO SCH (08:41)
[2021-10-23] MEDS: FLUTICASONE PROPIONATE NA SPR 16 GM BTL SCH (08:42)
[2021-10-23] MEDS: ATORVASTATIN 20 MG TAB PO SCH (08:42)
[2021-10-23] MEDS: METOPROLOL TARTRATE 50 MG TAB PO SCH ×2 (08:43→20:57)
--- NOTE | 2021-10-23 08:51 | Urology Progress Note ---
Date of Service October 23, 2021 Assessment & Plan (1) Hydronephrosis concurrent with and due to calculi of kidney and ureter: (2) S/P ureteral stent placement: (3) Acute UTI: Plan: - Pt POD#1 s/p cystoscopy, retrograde pyelogram and right ureteral stent placement with Dr. Munoz. - Subjectively doing well. - Afebrile overnight, lab work reviewed - creatinine improved to 1.86, WBC downtrending -> 16.26. - Urine culture and blood cultures are pending, currently on IV Ceftriaxone - follow cultures. - Tolerating right ureteral stent with minimal bother. - Ang catheter intact, patent and draining appropriately - likely d/c Ang catheter later this AM. - Continue supportive care, antibiotics and management per primary service. - Recommend d/c with course of appropriate PO antibiotics per sensitivities when medically stable. - Recommend d/c with Tamsulosin, prn Pyridium and prn pain medication if indicated for stent management. - Reviewed with pt that she will follow-up outpt with our service to discuss stone treatment after acute infection has resolved. - Expected clinical course reviewed, all questions answered. - Pt reassessed later this AM. After discussion, she wishes to keep catheter for time being. - Recommend remove catheter tomorrow or prior to discharge. - Will arrange outpatient follow-up with our service to discuss definitive stone management. - will sign off, please contact us for any additional questions or concerns. Admission and Anticipated Discharge Date Admission Date: October 22, 2021 Subjective Pt seen and examined at bedside this AM. She is awake, alert and sitting up in bed eating breakfast. Subjectively feeling better today. No acute issues overnight. No flank or abdominal pain. No nausea or vomiting. Ang catheter intact, patent and draining pink to light red urine. No dysuria. No fever or chills. Review of Systems Constitutional: as per Subjective / HPI Gastrointestinal: as per Subjective / HPI Genitourinary: as per Subjective / HPI Physical Exam Constitutional: well developed, well nourished and + obese; no acute distress and not ill appearing Respiratory: able to speak in complete sentences; no respiratory distress and no labored breathing O2 via nasal cannula Cardiovascular: Extremities: + pedal edema (trace) Gastrointestinal (Abdomen): Inspection/Auscultation: abdomen normal to inspection; abdomen not distended Neurologic: moves all extremities and awake Psychiatric: Orientation: alert and oriented x 3 Genitourinary: Ang intact, patent and draining pink to light red urine Results & Data ([facility]) Vital Signs (Past 12 Hours) Vital Signs Temp Pulse Pulse Resp BP BP Pulse Ox 10/23/21 07:45 36.8 C 98 H 20 125/66 97 10/23/21 06:14 81 10/23/21 02:43 37.3 C 87 18 104/64 94 10/22/21 22:35 36.4 C L 105 H 25 H 137/53 L 97 PG Care Time/CCT Total # of Minutes Spent Total Time Spent with Patient: Total time spent is greater than 50% in coordination of care (as documented) at patient's floor/unit and/or counseling patient: Coding Level of Care Code 57745 Subseq Hosp Care Lvl 2 Diagnoses Hydronephrosis concurrent with and due to calculi of kidney and ureter N13.2 Acute UTI N39.0 S/P ureteral stent placement Z96.0
[2021-10-23] MEDS ORDERED: NON-FORMULARY MEDICATION (L. Gasseri-B. Bifidum-B Longum [Phillips' Colon Health] 1.5 bill PO SCH (09:00)
[2021-10-23] MEDS: HYDROCODONE/ACETAMOPHEN 5/325MG TAB PO PRN (09:57)
[2021-10-23] MEDS: ACETAMINOPHEN 325 MG TAB PO PRN (13:22)
--- NOTE | 2021-10-23 14:00 | Electrocardiogram Report ---
Test Reason : Blood Pressure : / mmHG Vent. Rate : 110 BPM Atrial Rate : 110 BPM P-R Int : 130 ms QRS Dur : 084 ms QT Int : 314 ms P-R-T Axes : 040 034 034 degrees QTc Int : 424 ms Sinus tachycardia with Premature supraventricular complexes Otherwise normal ECG When compared with ECG of 22-OCT-2021 10:18, Premature supraventricular complexes are now Present Confirmed by Krunal Mcintyre ([id number]) on 10/23/2021 2:00:24 PM Referred By: REFERRED SELF Confirmed By:Alfred Mcintyre
[2021-10-23] MEDS ORDERED: FUROSEMIDE INJ 20 MG/2 ML VIAL IV ONE (14:46)
[2021-10-23] MEDS: ALBUTEROL HFA 8 GM INHALER INH PRN (14:56)
[2021-10-23] MEDS: cefTRIAXone SODIUM 2,000 MG in DEXTROSE 5% 50 ML IV SCH (15:52)
[2021-10-23] MEDS ORDERED: WARFARIN SOD 1.25 MG TAB PO SCH (16:00)
[2021-10-23] MEDS: DULoxetine HCL 60 MG CAP PO SCH (20:57)
[2021-10-24 06:07] LABS: Hematocrit (blood only) 34.2 % (37-47); Hemoglobin 11.2 g/dL (12.0-16.0); Mean Corpuscular Hemoglobin 31.3 pg (25-34); Mean Corpuscular Hgb Conc 32.7 g/dL (32-36); Mean Corpuscular Volume 95.5 fL (80-100); Mean Platelet Volume 9.9 fL (7.4-10.4); Platelet Count 127 K/uL (130-400); RDW Coefficient of Variation 14.4 % (11.5-14.5); RDW Standard Deviation 50.4 fL (36.4-46.3); Red Blood Count 3.58 M/uL (4.2-5.4); White Blood Count 13.52 K/uL (4.8-10.8)
[2021-10-24 06:14] LABS: INR 1.5 (0.9-1.1)
[2021-10-24 06:44] LABS: Albumin Level 2.7 gm/dl (3.4-5.0); BUN Creatinine Ratio 18.9 (10-20); Bilirubin,Total 1.2 mg/dl (0.2-1.0); Calcium 8.5 mg/dl (8.5-10.1); Est GFR (African American) 38.9 ml/min; Est GFR (Non-African American) 33.6 ml/min; Globulin 2.8 gm/dl (2.5-4.0); Magnesium 1.8 mg/dl (1.7-2.4); Potassium 4.4 mmol/L (3.5-5.1); Total Protein 5.5 gm/dl (6.0-8.3)
--- NOTE | 2021-10-24 08:54 | Hospitalist Progress Note ---
Date of Service October 24, 2021 Assessment & Plan (1) Hydronephrosis concurrent with and due to calculi of kidney and ureter: (2) Acute UTI: Plan: Sepsis, POA Obstructive uropathy Pt meets SIRS criteria for sepsis with elevated WBC at 25.9 K, and tachycardia HR 140, patient presented with A. fib with RVR Lactic acid 2.6 Creatinine elevated at 2.8, up from baseline 8.9, troponin elevated 157 - secondary to above, will monitor LFTs elevated - secondary to above, also poss. secondary to liver dis. (hepatomegaly w/ steatosis noted on CT), will monitor LFTs trending down CT abd. pelvis Moderate right-sided hydroureteronephrosis secondary to two obstructing calculi in the distal right ureter, the largest of which is noted just proximal to the ureterovesicular junction measuring 9 mm. Blood cultx - ordered, pending UA -positive for blood, leuk esterase, WBCs ucultx - Gram negat. bacilli, final pending Received IV normal saline in the ED, and IV ceftriaxone. Continue IV ceftriaxone for now Urology, Dr. Munoz consulted Pt is s/p cystoscopy, retrograde pyelogram and right ureteral stent placement (10/22) Tolerated procedure well Continues to have Ang, plan to DC today WBC down to 13K (3) GILBERTO (acute kidney injury): Plan: Creatinine elevated at 2.8 on admission, up from baseline at 0.9 Secondary to obstructive uropathy Patient provided with IV fluids s/p urological procedure which is believed to resolve the problem Current Cr improved at 1.5, cont. to monitor creatinine (4) Atrial fibrillation: Plan: Troponin elevated at 157, secondary to above Patient has history of A. fib, and history of A. fib with RVR Continue metoprolol and Coumadin After metoprolol given in the ED, heart rate better controlled INR 4.2 on admission, current 2.6, cont. to monitor trend trop (trop now down to 50s), should resolve after GILBERTO resolves Continue to monitor on telemetry RAYMUNDO (on CPAP) - provide CPAP at HS Morbid obesity -BMI over 50 -Lifestyle modification encouraged Anxiety - cont. home medications -cymbalta Admission and Anticipated Discharge Date Admission Date: October 22, 2021 Subjective Patient seen in follow-up of obstructive uropathy, s/p urological procedure yesterday, right ureteral stent placement Currently patient is laying in bed, in no acute distress She reports she is feeling much better Patient denies any chest pain, shortness of breath, nausea vomiting, abdominal pain, only slight tenderness at right flank Review of Systems Review of Systems: All systems reviewed & are unremarkable except as noted in Subjective Physical Exam Physical Exam: Constitutional:J + morbidly obese (F in NAD, on supp l. O2) Eyes: PERRL, conjunctiva e normal, anicteri c sclerae ENMT: external ear and n ose normal, oropha rynx normal Neck: + thick neck Respiratory: normal respiratory effort, lungs jossy ar to auscultation Cardiovascular:J Rate/Rhythm: + irr egularly irregular Chest (Breasts): Chest: normal insp ection of chest Gastrointestinal ( Abdomen): Inspection/Auscult ation: normal venus l sounds Percussi on/Palpation: abdo men soft Musculoskeletal: no cyanosis or clu bbing, extremities motor strength 5/ 5 Skin: no rashes, warm an d dry Neurologic: PERRL, EOMI, accom modation nl, no fa ce palsy, no dysar thria Psychiatric: A+Ox3, euthymic af fect Genitourinary: + CVA tenderness (R flank (improved )) Lymphatic: no lymphedema Results & Data Results & Data ([facility]) Vital Signs (Past 12 Hours) Vital Signs Temp Pulse Pulse Resp BP Pulse Ox 10/24/21 06:48 36.8 C 94 H 20 149/74 H 96 10/24/21 06:25 102 H 10/24/21 03:44 36.9 C 98 H 20 145/80 H 95 10/23/21 23:07 37.5 C 98 H 20 141/70 H 95 Laboratory Results 10/24/21 10/24/21 10/24/21 Range/Units 05:36 05:36 05:36 WBC 13.52 H (4.8-10.8) K/uL RBC 3.58 L (4.2-5.4) M/uL Hgb 11.2 L (12.0-16.0) g/dL Hct 34.2 L (37-47) % MCV 95.5 (80-100) fL MCH 31.3 (25-34) pg MCHC 32.7 (32-36) g/dL RDW Std Deviation 50.4 H (36.4-46.3) fL RDW Coeff of Massiel 14.4 (11.5-14.5) % Plt Count 127 L (130-400) K/uL MPV 9.9 (7.4-10.4) fL PT 16.0 H (9.0-12.0) Seconds INR 1.5 H (0.9-1.1) Sodium 137 (136-145) mmol/L Potassium 4.4 (3.5-5.1) mmol/L Chloride 106 (98-107) mmol/L Carbon Dioxide 25 (21-32) mmol/L Anion Gap 6 (3-11) BUN 28 H (6-23) mg/dl Creatinine 1.48 H D (0.6-1.2) mg/dl Est Cr Clr Drug Dosing 46.0 ml/min Est GFR ( Amer) 38.9 ml/min Est GFR (Non-Af Amer) 33.6 ml/min BUN/Creatinine Ratio 18.9 (10-20) Glucose 119 H (70-99(Fasting)) mg/dl Calcium 8.5 (8.5-10.1) mg/dl Magnesium 1.8 (1.7-2.4) mg/dl Total Bilirubin 1.2 H (0.2-1.0) mg/dl AST 73 H (13-39) U/L ALT 116 H (7-52) U/L Alkaline Phosphatase 133 H (34-104) U/L Total Protein 5.5 L (6.0-8.3) gm/dl Albumin 2.7 L (3.4-5.0) gm/dl Globulin 2.8 (2.5-4.0) gm/dl Albumin/Globulin Ratio 1.0 (0.9-2) Medications Administered Current Inpatient Medications Acetaminophen (Acetaminophen 325 Mg Tab) 650 mg PO Q4H PRN PRN Reason: Pain or Fever Stop: 11/21/21 16:19 Last Admin: 10/23/21 13:22 Dose: 650 mg Documented by: Hydrocodone Bitart/Acetaminophen (Hydrocodone/Acetamophen 5/325mg Tab) 1 tab PO Q4 PRN PRN Reason: Mild Pain (Scale Score 1-4) Stop: 11/05/21 18:15 Last Admin: 10/23/21 09:57 Dose: 1 tab Documented by: Albuterol (Albuterol Hfa 8 Gm Inhaler) 2 puffs INH QID PRN PRN Reason: Wheezing Stop: 11/21/21 18:15 Last Admin: 10/23/21 14:56 Dose: 2 puffs Documented by: Aspirin (Aspirin 81 Mg Ectab) 81 mg PO DAILY [facility] Stop: 11/22/21 08:59 Last Admin: 10/23/21 08:41 Dose: 81 mg Documented by: Atorvastatin Calcium (Atorvastatin 20 Mg Tab) 20 mg PO DAILY [facility] Stop: 11/21/21 18:15 Last Admin: 10/23/21 08:42 Dose: 20 mg Documented by: Duloxetine HCl (Duloxetine Hcl 60 Mg Cap) 60 mg PO HS [facility] Stop: 11/21/21 20:59 Last Admin: 10/23/21 20:57 Dose: 60 mg Documented by: Fexofenadine HCl (Fexofenadine 60 Mg Tab) 60 mg PO BID PRN PRN Reason: allergies Stop: 11/21/21 18:15 Fluticasone Propionate (Fluticasone Propionate Na Spr 16 Gm Btl) 2 sprays NA QAM [facility] Stop: 11/22/21 08:59 Last Admin: 10/23/21 08:42 Dose: 2 sprays Documented by: Gabapentin (Gabapentin 300 Mg Cap) 600 mg PO TID [facility] Stop: 11/21/21 20:59 Last Admin: 10/23/21 20:57 Dose: 600 mg Documented by: Guaifenesin (Guaifenesin 200 Mg Tab) 400 mg PO QID PRN PRN Reason: Congestion Stop: 11/21/21 18:40 Ceftriaxone Sodium 2,000 mg/ (Dextrose) 70 mls @ 100 mls/hr IV Q24H [facility]; Prot ocol Stop: 10/25/21 15:59 Last Infusion: 10/23/21 16:56 Dose: Infused Documented by: Magnesium Oxide (Magnesium Oxide 400 Mg Tab) 400 mg PO DAILY [facility] Stop: 11/22/21 08:59 Last Admin: 10/23/21 08:41 Dose: 400 mg Documented by: Melatonin (Melatonin 3 Mg Tab) 9 mg PO HSZ PRN PRN Reason: Sleep Stop: 11/21/21 18:38 Metoprolol Tartrate (Metoprolol Tartrate 50 Mg Tab) 50 mg PO BID [facility] Stop: 11/21/21 20:59 Last Admin: 10/23/21 20:57 Dose: 50 mg Documented by: Miconazole Nitrate (Miconazole Nitrate Powder 43 Gm) 1 appln EXT PRN PRN PRN Reason: Affected Skin Folds Stop: 11/21/21 21:58 Last Admin: 10/23/21 14:29 Dose: 1 appln Documented by: Polyethylene Glycol (Polyethylene (Miralax) 17 Gm Pack) 17 gm PO DAILY PRN PRN Reason: Constipation Stop: 11/21/21 16:19 Warfarin Sodium (Warfarin Sod 2.5 Mg Tab) 2.5 mg PO SuTuWeThFrSa@1600 [facility] Stop: 11/23/21 15:59 Warfarin Sodium (Warfarin Sod 1.25 Mg Tab) 1.25 mg PO Mo@1600 [facility] Stop: 11/22/21 15:59 Last Admin: 10/23/21 15:59 Dose: 1.25 mg Documented by: (1) Atrial fibrillation Atrial fibrillation type: unspecified Qualified Code(s): I48.91 - Unspecified atrial fibrillation
[2021-10-24] MEDS: FLUTICASONE PROPIONATE NA SPR 16 GM BTL SCH (09:40)
[2021-10-24] MEDS: GABAPENTIN 300 MG CAP PO SCH ×3 (09:41→20:00)
[2021-10-24] MEDS: ASPIRIN 81 MG ECTAB PO SCH (09:41)
[2021-10-24] MEDS: ATORVASTATIN 20 MG TAB PO SCH (09:41)
[2021-10-24] MEDS: MAGNESIUM OXIDE 400 MG TAB PO SCH (09:41)
[2021-10-24] MEDS: METOPROLOL TARTRATE 50 MG TAB PO SCH ×2 (09:42→20:01)
[2021-10-24] MEDS: ALBUTEROL HFA 8 GM INHALER INH PRN (11:49)
[2021-10-24] MEDS ORDERED: XOPENEX/ATROVENT 1.25mg/0.5MG NEB COMBO NEB PRN (14:53)
[2021-10-24] MEDS: cefTRIAXone SODIUM 2,000 MG in DEXTROSE 5% 50 ML IV SCH (15:21)
[2021-10-24] MEDS: WARFARIN SOD 2.5 MG TAB PO SCH (15:35)
[2021-10-24] MEDS ORDERED: LEVALBUTEROL HCL 1.25 MG/3 ML NEB ONE (15:36)
[2021-10-24] MEDS: IPRATROPIUM BROMIDE NEB SOLN 0.02% 2.5 ML VIAL INH PRN (15:38)
[2021-10-24] MEDS: LEVALBUTEROL 1.25MG/0.5ML NEB INH PRN (15:38)
[2021-10-24] MEDS: DULoxetine HCL 60 MG CAP PO SCH (20:01)
[2021-10-25] MEDS: ACETAMINOPHEN 325 MG TAB PO PRN (03:20)
[2021-10-25] MEDS ORDERED: METOPROLOL TARTRATE 1 MG/ML VIAL IV STA ×3 (05:08→10:21)
[2021-10-25] MEDS ORDERED: ACETAMINOPHEN 325 MG TAB PO STA (05:08)
[2021-10-25] MEDS ORDERED: ALBUMIN 25% 100 mL 25 GM/100 ML VIAL IV ONE (05:09)
[2021-10-25] MEDS ORDERED: METOPROLOL TARTRATE 1 MG/ML VIAL IV ONE (05:10)
[2021-10-25] MEDS ORDERED: CEFEPIME 2,000 MG in SYRINGE 0 ML IV SCH (05:15)
--- NOTE | 2021-10-25 05:16 | Communication Note ---
Date of Service: October 25, 2021 Patient noted to be in rapid A. fib, heart rate 180s at the highest, SBP 110s. Temperature elevation in early a.m. Patient sleeping but diaphoretic as per RN. AP Rapid A. fib Sepsis secondary to complicated UTI PCU transfer to for better heart rate control and monitoring IV Lopressor 1 dose now and IV digoxin in addition to early administration of oral Lopressor IV Cardizem bolus (cannot be given at med telemetry unit as per pharmacy) Broaden antibiotic coverage to Cefepime Will relay to AM provider.
[2021-10-25] MEDS ORDERED: DIGOXIN 250 MCG in SYRINGE 9 ML IV ONE (05:30)
[2021-10-25] MEDS: METOPROLOL TARTRATE 50 MG TAB PO SCH ×2 (05:35→20:24)
[2021-10-25] MEDS ORDERED: dilTIAZem HCl 5 MG/ML 5 ML VIAL IV STA (05:50)
[2021-10-25] MEDS ORDERED: MAGNESIUM SULFATE / D5W 1 GM/100 ML BAG IV ONE (06:00)
[2021-10-25] MEDS: CEFEPIME 1,000 MG in SYRINGE 0 ML IV SCH ×2 (06:04→17:05)
[2021-10-25 06:06] LABS: Hematocrit (blood only) 38.3 % (37-47); Hemoglobin 12.9 g/dL (12.0-16.0); Mean Corpuscular Hemoglobin 31.4 pg (25-34); Mean Corpuscular Hgb Conc 33.7 g/dL (32-36); Mean Corpuscular Volume 93.2 fL (80-100); Mean Platelet Volume 9.5 fL (7.4-10.4); Platelet Count 162 K/uL (130-400); RDW Coefficient of Variation 14.1 % (11.5-14.5); RDW Standard Deviation 48.2 fL (36.4-46.3); Red Blood Count 4.11 M/uL (4.2-5.4); White Blood Count 16.05 K/uL (4.8-10.8)
[2021-10-25 06:37] LABS: BUN Creatinine Ratio 17.6 (10-20); Calcium 8.8 mg/dl (8.5-10.1); Creatinine Clr Calc Pharmacy 57.3 ml/min; Est GFR (African American) 50.6 ml/min; Est GFR (Non-African American) 43.7 ml/min; Phosphorus 3.4 mg/dl (2.5-4.9); Potassium 4.3 mmol/L (3.5-5.1)
--- NOTE | 2021-10-25 06:55 | CT Scan Report ---
CT head/brain wo con CLINICAL HISTORY: 76 years-old Female with blurred vision, ffup scan for head trauma. Acute blurry v ision TECHNIQUE: Multiple axial CT images of the head were obtained without contrast. A dose lowering tech nique was utilized adhering to the principles of ALARA. CT DOSE: 1117.96 mGy.cm COMPARISON: 10/22/[address] FINDINGS: No acute intracranial hemorrhage, midline shift, intracranial mass, hydrocephalus, territorial ischem ia or abnormal extra-axial collection. Motion degraded exam. A portion of the study was then repeated . Mild involutional changes. White matter hypodensities suggest chronic microvascular ischemic diseas e. The calvarium is intact. Prior bilateral lens repair. The paranasal sinuses, mastoid air cells, an d middle ear cavities are clear. IMPRESSION: 1. Limited exam secondary to patient motion. 2. No acute intracranial abnormality identified. ACT 112: Negative or not required by law. The above report was generated using voice recognition software. It may contain grammatical, syntax o r spelling errors. Electronically signed by: Andrey Bates M.D. 10/25/2021 6:53 AM
--- NOTE | 2021-10-25 07:09 | Hospitalist Progress Note ---
Date of Service October 25, 2021 Assessment & Plan (1) Hydronephrosis concurrent with and due to calculi of kidney and ureter: (2) Acute UTI: Plan: Sepsis, POA Obstructive uropathy Pt meets SIRS criteria for sepsis with elevated WBC at 25.9 K, and tachycardia HR 140, patient presented with A. fib with RVR Lactic acid 2.6 Creatinine elevated at 2.8, up from baseline 8.9, troponin elevated 157 - secondary to above, will monitor LFTs elevated - secondary to above, also poss. secondary to liver dis. (hepatomegaly w/ steatosis noted on CT), will monitor LFTs trending down CT abd. pelvis Moderate right-sided hydroureteronephrosis secondary to two obstructing calculi in the distal right ureter, the largest of which is noted just proximal to the ureterovesicular junction measuring 9 mm. Blood cultx - no growth in 48 hrs UA -positive for blood, leuk esterase, WBCs ucultx -positive for Proteus mirabillis Received IV normal saline in the ED, and IV ceftriaxone. Continued with IV ceftriaxone, now switched to cefepime overnight, as she developed A. fib with RVR (10/25) Urology, Dr. Munoz consulted Pt is s/p cystoscopy, retrograde pyelogram and right ureteral stent placement (10/22) Tolerated procedure well Continued to have Ang, DC'ed on (10/24) WBC down to 13K, now up slightly again at 16K (10/25) Urinary retention 10/25 - Ang removed yesterday, this morning patient voided about 400 cc,. Bladder scan shows pt continues to retain about 300 cc, straight cath'ed 500cc Re- insert Ang and continue to monitor (3) GILBERTO (acute kidney injury): Plan: Creatinine elevated at 2.8 on admission, up from baseline at 0.9 Secondary to obstructive uropathy Patient provided with IV fluids s/p urological procedure which is believed to resolve the problem Current Cr improved at 1.2, cont. to monitor creatinine (4) Atrial fibrillation: Plan: Afib w/ RVR Troponin elevated at 157, secondary to above Patient has history of A. fib, and history of A. fib with RVR Continue metoprolol and Coumadin After metoprolol given in the ED, heart rate better controlled INR 4.2 on admission, current 2.6, cont. to monitor INR 1.2 (10/25) - start IV heparin, cont. coumadin trend trop (trop now down to 50s), should resolve after GILBERTO resolves Continue to monitor on telemetry 10/25 - overnight/this morning, patient again in A. fib with RVR. Digoxin, IV metoprolol, and Cardizem given by sound assistant. Patient continues to have elevated heart rates, IV metoprolol ordered, will further discuss with cardiology. RAYMUNDO (on CPAP) - provide CPAP at HS Morbid obesity -BMI over 50 -Lifestyle modification encouraged Anxiety - cont. home medications - [facility] Admission and Anticipated Discharge Date Admission Date: October 22, 2021 Subjective Patient seen in follow-up of obstructive uropathy, s/p urological procedure, right ureteral stent placement Overnight/early this morning, patient went into A. fib with RVR again. Patient received several medications by sound assistant, including digoxin, metoprolol, Cardizem. Patient continues to have elevated heart rates, IV metoprolol ordered. She seems to be retaining urine, after voiding over 400 cc, bladder scan positive for over 300 cc, she was straight cathed for 500c -we will reinsert Ang. White blood cell count was trending down to 13,000 yesterday, now slightly back up at 16,000. Currently patient is laying in bed, in no acute distress. Says she did not feel palpitations at all, she was sleeping. She reports being diaphoretic overnight, now feeling better. Patient denies any chest pain, shortness of breath, nausea vomiting, abdominal pain, only slight tenderness at right flank Review of Systems Review of Systems: All systems reviewed & are unremarkable except as noted in Subjective Physical Exam Physical Exam: Constitutional:J + morbidly obese (F in NAD, on supp l. O2) Eyes: PERRL, conjunctiva e normal, anicteri c sclerae ENMT: external ear and n ose normal, oropha rynx normal Neck: + thick neck Respiratory: normal respiratory effort, lungs jossy ar to auscultation Cardiovascular:J Rate/Rhythm: + tac hycardic, irregula rly irregular Chest (Breasts): Chest: normal insp ection of chest Gastrointestinal ( Abdomen): Inspection/Auscult ation: normal venus l sounds Percussi on/Palpation: abdo men soft Musculoskeletal: no cyanosis or clu bbing, extremities motor strength 5/ 5 Skin: no rashes, warm an d dry Neurologic: PERRL, EOMI, no fa ce palsy, no dysar thria Psychiatric: A+Ox3, euthymic af fect Genitourinary: + CVA tenderness (R flank (improved )) Lymphatic: no lymphedema Results & Data Results & Data ([facility]) Vital Signs (Past 12 Hours) Vital Signs Temp Pulse Pulse Resp BP BP Pulse Ox 10/25/21 05:59 174 H 10/25/21 05:49 183 H 118/80 10/25/21 05:14 190 H 119/66 10/25/21 05:09 37 C 181 H 22 119/66 96 10/25/21 03:07 37.8 C H 87 19 150/82 H 96 10/25/21 00:34 86 10/24/21 23:15 37.5 C 88 20 138/68 93 10/24/21 21:29 Pulse Ox 10/25/21 05:59 10/25/21 05:49 10/25/21 05:14 10/25/21 05:09 10/25/21 03:07 10/25/21 00:34 10/24/21 23:15 10/24/21 21:29 94 Laboratory Results 10/25/21 10/25/21 10/25/21 Range/Units 05:36 05:36 05:36 WBC 16.05 H (4.8-10.8) K/uL RBC 4.11 L (4.2-5.4) M/uL Hgb 12.9 (12.0-16.0) g/dL Hct 38.3 (37-47) % MCV 93.2 (80-100) fL MCH 31.4 (25-34) pg MCHC 33.7 (32-36) g/dL RDW Std Deviation 48.2 H (36.4-46.3) fL RDW Coeff of Massiel 14.1 (11.5-14.5) % Plt Count 162 (130-400) K/uL MPV 9.5 (7.4-10.4) fL PT (9.0-12.0) Seconds INR (0.9-1.1) APTT (21.0-31.0) Seconds PTT Ratio Sodium 138 (136-145) mmol/L Potassium 4.3 (3.5-5.1) mmol/L Chloride 106 (98-107) mmol/L Carbon Dioxide 24 (21-32) mmol/L Anion Gap 8 (3-11) BUN 21 (6-23) mg/dl Creatinine 1.19 (0.6-1.2) mg/dl Est Cr Clr Drug Dosing 57.3 ml/min Est GFR ( Amer) 50.6 ml/min Est GFR (Non-Af Amer) 43.7 ml/min BUN/Creatinine Ratio 17.6 (10-20) Glucose 127 H (70-99(Fasting)) mg/dl POC Glucose (70-99) mg/dl Calcium 8.8 (8.5-10.1) mg/dl Phosphorus 3.4 (2.5-4.9) mg/dl Magnesium 1.8 (1.7-2.4) mg/dl 10/25/21 10/24/21 Range/Units 05:19 18:02 WBC (4.8-10.8) K/uL RBC (4.2-5.4) M/uL Hgb (12.0-16.0) g/dL Hct (37-47) % MCV (80-100) fL MCH (25-34) pg MCHC (32-36) g/dL RDW Std Deviation (36.4-46.3) fL RDW Coeff of Massiel (11.5-14.5) % Plt Count (130-400) K/uL MPV (7.4-10.4) fL PT 13.0 H (9.0-12.0) Seconds INR 1.2 H (0.9-1.1) APTT 33.0 H (21.0-31.0) Seconds PTT Ratio 1.2 Sodium (136-145) mmol/L Potassium (3.5-5.1) mmol/L Chloride (98-107) mmol/L Carbon Dioxide (21-32) mmol/L Anion Gap (3-11) BUN (6-23) mg/dl Creatinine (0.6-1.2) mg/dl Est Cr Clr Drug Dosing ml/min Est GFR ( Amer) ml/min Est GFR (Non-Af Amer) ml/min BUN/Creatinine Ratio (10-20) Glucose (70-99(Fasting)) mg/dl POC Glucose 155 H (70-99) mg/dl Calcium (8.5-10.1) mg/dl Phosphorus (2.5-4.9) mg/dl Magnesium (1.7-2.4) mg/dl Medications Administered Current Inpatient Medications Acetaminophen (Acetaminophen 325 Mg Tab) 650 mg PO Q4H PRN PRN Reason: Pain or Fever Stop: 11/21/21 16:19 Last Admin: 10/25/21 03:20 Dose: 650 mg Documented by: Hydrocodone Bitart/Acetaminophen (Hydrocodone/Acetamophen 5/325mg Tab) 1 tab PO Q4 PRN PRN Reason: Mild Pain (Scale Score 1-4) Stop: 11/05/21 18:15 Last Admin: 10/25/21 08:37 Dose: 1 tab Documented by: Aspirin (Aspirin 81 Mg Ectab) 81 mg PO DAILY [facility] Stop: 11/22/21 08:59 Last Admin: 10/25/21 09:11 Dose: 81 mg Documented by: Atorvastatin Calcium (Atorvastatin 20 Mg Tab) 20 mg PO DAILY [facility] Stop: 11/21/21 18:15 Last Admin: 10/25/21 09:11 Dose: 20 mg Documented by: Duloxetine HCl (Duloxetine Hcl 60 Mg Cap) 60 mg PO HS [facility] Stop: 11/21/21 20:59 Last Admin: 10/24/21 20:01 Dose: 60 mg Documented by: Fexofenadine HCl (Fexofenadine 60 Mg Tab) 60 mg PO BID PRN PRN Reason: allergies Stop: 11/21/21 18:15 Fluticasone Propionate (Fluticasone Propionate Na Spr 16 Gm Btl) 2 sprays NA QAM [facility] Stop: 11/22/21 08:59 Last Admin: 10/25/21 09:11 Dose: 2 sprays Documented by: Gabapentin (Gabapentin 300 Mg Cap) 600 mg PO TID [facility] Stop: 11/21/21 20:59 Last Admin: 10/25/21 09:10 Dose: 600 mg Documented by: Guaifenesin (Guaifenesin 200 Mg Tab) 400 mg PO QID PRN PRN Reason: Congestion Stop: 11/21/21 18:40 Cefepime HCl 1,000 mg/ Syringe 11.3 mls @ 5.5 mls/min IV Q12H [facility]; Protocol Stop: 11/04/21 05:59 Last Admin: 10/25/21 06:04 Dose: 5.5 mls/min Documented by: Heparin Sodium/Dextrose (Heparin Sodium/Dextrose) 25,000 units in 500 mls @ 20 mls/hr IV .Q24H [facility]; Protocol Stop: 11/24/21 07:44 Last Admin: 10/25/21 08:32 Dose: 1,000 units/hr, 20 mls/hr Documented by: Albumin Human (Albumin 25% 100 Ml) 25 gm in 100 mls @ 50 mls/hr IV Q8H [facility] Stop: 10/28/21 09:59 Ipratropium Temple (Ipratropium [place] Neb Soln 0.02% 2.5 Ml Vial) 0.5 mg INH Q6R PRN PRN Reason: Wheezing Stop: 11/23/21 14:59 Last Admin: 10/25/21 07:35 Dose: 0.5 mg Documented by: Levalbuterol HCl (Levalbuterol 1.25mg/0.5ml Neb) 1.25 mg INH Q6R PRN PRN Reason: Wheezing Stop: 11/23/21 14:59 Last Admin: 10/25/21 07:34 Dose: 1.25 mg Documented by: Magnesium Oxide (Magnesium Oxide 400 Mg Tab) 400 mg PO DAILY [facility] Stop: 11/22/21 08:59 Last Admin: 10/25/21 09:10 Dose: 400 mg Documented by: Melatonin (Melatonin 3 Mg Tab) 9 mg PO HSZ PRN PRN Reason: Sleep Stop: 11/21/21 18:38 Metoprolol Tartrate (Metoprolol Tartrate 50 Mg Tab) 50 mg PO BID [facility] Stop: 11/24/21 05:19 Last Admin: 10/25/21 05:35 Dose: 50 mg Documented by: Miconazole Nitrate (Miconazole Nitrate Powder 43 Gm) 1 appln EXT PRN PRN PRN Reason: Affected Skin Folds Stop: 11/21/21 21:58 Last Admin: 10/23/21 14:29 Dose: 1 appln Documented by: Polyethylene Glycol (Polyethylene (Miralax) 17 Gm Pack) 17 gm PO DAILY PRN PRN Reason: Constipation Stop: 05/17/22 16:19 Warfarin Sodium (Warfarin Sod 2.5 Mg Tab) 2.5 mg PO SuTuWeThFrSa@1600 [facility] Stop: 11/23/21 15:59 Last Admin: 10/24/21 15:35 Dose: 2.5 mg Documented by: Warfarin Sodium (Warfarin Sod 1.25 Mg Tab) 1.25 mg PO Mo@1600 [facility] Stop: 11/22/21 15:59 Last Admin: 10/23/21 15:59 Dose: 1.25 mg Documented by: (1) Atrial fibrillation Atrial fibrillation type: unspecified Qualified Code(s): I48.91 - Unspecified atrial fibrillation
[2021-10-25 07:13] LABS: INR 1.2 (0.9-1.1); Partial Thromboplastin Ratio 1.2
[2021-10-25] MEDS: LEVALBUTEROL 1.25MG/0.5ML NEB INH PRN (07:34)
[2021-10-25] MEDS: IPRATROPIUM BROMIDE NEB SOLN 0.02% 2.5 ML VIAL INH PRN (07:35)
[2021-10-25] MEDS ORDERED: Heparin IV Adult Wt-Based Low-Dose *NO* Bolus Protocol IV SCH (07:42)
[2021-10-25] MEDS: HEPARIN SODIUM/DEXTROSE 25,000 UNITS/500 ML BAG IV SCH (08:32)
[2021-10-25] MEDS: HYDROCODONE/ACETAMOPHEN 5/325MG TAB PO PRN ×3 (08:37→19:27)
--- NOTE | 2021-10-25 08:41 | XRay Report ---
XR chest 1V portable CLINICAL HISTORY: afib RVR, sob, hx of abnormal cxr COMPARISON STUDY: Chest CT November 25, 2011. Chest radiograph October 22, 2021. FINDINGS: Patient is rotated. No pneumothorax is present. Possible trace left pleural effusion. Left basilar opacity has increased. Right basilar opacity is similar to prior exam. Cardiomegaly is noted without evidence for pulmonary edema. IMPRESSION: 1. Rotated study. 2. Cardiomegaly without evidence for pulmonary edema. 2. Increase in left basilar opacity. This favors atelectasis although an infectious process could kasi ear similar. ACT 112: Negative or not required by law. Electronically signed by: Jose Dunn M.D. 10/25/2021 8:39 AM
[2021-10-25] MEDS: MAGNESIUM OXIDE 400 MG TAB PO SCH (09:10)
[2021-10-25] MEDS: GABAPENTIN 300 MG CAP PO SCH ×3 (09:10→20:24)
[2021-10-25] MEDS: FLUTICASONE PROPIONATE NA SPR 16 GM BTL SCH (09:11)
[2021-10-25] MEDS: ASPIRIN 81 MG ECTAB PO SCH (09:11)
[2021-10-25] MEDS: ATORVASTATIN 20 MG TAB PO SCH (09:11)
[2021-10-25] MEDS: ALBUMIN 25% 100 mL 25 GM/100 ML VIAL IV SCH ×2 (09:46→17:05)
--- NOTE | 2021-10-25 10:29 | Cardiology Consultation ---
Date of Consultation October 25, 2021 Assessment & Plan (1) S/P ureteral stent placement: (2) Acute UTI: (3) Atrial fibrillation: The patient has a history of paroxysmal atrial fibrillation. She is currently treated with warfarin and metoprolol which has been effective for a long time. I think it would be reasonable to continue with the beta-agnes. If she has a reoccurrence of the atrial fibrillation that I think would not be unreasonable to start her on amiodarone at that point. History of Present Illness Attending Physician: Jason Kaur MD History of Present Illness Patient well-known to me. I followed her as an outpatient. She has a history of paroxysmal atrial fibrillation, obesity, and sleep apnea. She was admitted with sepsis and found to have hydronephrosis due to a stone. Patient had a ureteral stent placed and had been convalescing on the floor until late yesterday she developed atrial fibrillation with RVR. She was moved to the telemetry progressive care unit and early this morning converted spontaneously back to normal sinus rhythm. She has no ongoing complaints today. The plan is to move her to rehab when she is stable. PAST MEDICAL HISTORY: 1.Paroxysmal atrial fibrillation with achads Vasc score of 4 2.Hypertension. 3.Obstructive sleep apnea on nocturnal CPAP. 4.Elevated BMI. 5.Polyneuropathy. 6.A very small esophagus. Allergies Allergy/AdvReac Type Severity Reaction Status Date / Time tetracycline Allergy Unknown Rash Verified 10/22/21 15:37 esomeprazole [From Nexium] AdvReac Intermediate EPISTAXIS Verified 10/22/21 15:37 adhesive AdvReac Unknown SKIN Verified 10/22/21 15:37 IRRITATION Home Medications Medication Instructions Recorded Confirmed Type calcium carbonate 600 mg calcium 600 mg PO BID 04/04/18 10/22/21 History (1,500 mg) tablet cholecalciferol (vitamin D3) 25 1,000 unit PO QAM 04/04/18 10/22/21 History mcg (1,000 unit) capsule (Vitamin D3) duloxetine 30 mg capsule,delayed 60 mg PO HS 04/04/18 10/22/21 History release (Cymbalta) fexofenadine 60 mg tablet (Amelia 60 mg PO BID PRN 04/04/18 10/22/21 History Allergy) fluticasone propionate 50 2 spray INTRANASAL QAM 04/04/18 10/22/21 History mcg/actuation nasal spray,suspension (Flonase Allergy Relief) gabapentin 300 mg capsule 600 mg PO TID 04/04/18 10/22/21 History hydrocodone 5 mg-acetaminophen 325 1 tab PO QID 04/04/18 10/22/21 History mg tablet melatonin 5 mg tablet 10 mg PO HS 04/04/18 10/22/21 History metoprolol tartrate 50 mg tablet 50 mg PO BID 04/04/18 10/22/21 History multivitamin 1 tab PO QAM 04/04/18 10/22/21 History warfarin 2.5 mg tablet 1.25 - 2.5 mg PO DAILY 04/04/18 10/22/21 History losartan 25 mg tablet 25 mg PO HS 09/14/20 10/22/21 History Lactobacills gasseri-Bifidobac 1 cap PO DAILY 10/22/21 10/22/21 History bifidum,longum 1.5 billion cell capsule ([employer]) aluminum chloride 20 % topical 1 applic TOPICAL HS 10/22/21 10/22/21 History solution (Drysol Dab-O-Matic) aspirin 81 mg tablet,delayed 81 mg PO DAILY 10/22/21 10/22/21 History release atorvastatin 20 mg tablet 20 mg PO DAILY 10/22/21 10/22/21 History diclofenac sodium 1 % topical gel 2 g TOPICAL QID 10/22/21 10/22/21 History furosemide 40 mg tablet 40 mg PO QAM 10/22/21 10/22/21 History guaifenesin 400 mg tablet (Mucus 400 mg PO QID PRN 10/22/21 10/22/21 History Relief) magnesium oxide 400 mg PO DAILY 10/22/21 10/22/21 History mupirocin 2 % topical ointment 1 applic TOPICAL BID 10/22/21 10/22/21 History potassium chloride 10 mEq 10 meq PO DAILY 10/22/21 10/22/21 History capsule,extended release triamcinolone acetonide 0.1 % 1 applic TOPICAL BID 10/22/21 10/22/21 History topical cream vitamin A-vitamin C-vit E-min 1 tab PO DAILY 10/22/21 10/22/21 History tablet Patient History Medical History Atrial fibrillation DX'D 06/2017 [facility]-HAS BEEN ON THINNER SINCE Cancer OVARIAN 1975 Chronic back pain Difficult airway for intubation [id number] INTUBATION-NEEDS SMALL SIZE TUBE-NO INTUBATION EXPERI ENCES SINCE Hx of deep venous thrombosis HX LLE 1959'S-WITHOUT ANY INJURY OR SURGERY-NO ISSUES SINCE Hyperlipidemia Hypertension Kidney stones no surgical intervention Morbid obesity with BMI of 45.0-49.9, adult Osteoarthritis Sleep apnea CPAP SOB (shortness of breath) LYING FLAT/WITH 1 FLIGHT STAIRS Surgical History History of cardiac cath 2014 X 2-[facility] NO STENTS-NO BLOCKAGES History of colonoscopy History of dilatation and curettage History of hysterectomy BSO History of surgical removal of skin lesion "fatty tumor" History of tonsillectomy History of total knee replacement RIGHT Hx of hemorrhoidectomy Family History Father Family hx of colon cancer Other No family history of adverse response to anesthesia Social History Smoking Status: Never smoker Second Hand Exposure: No; Hx Alcohol Use: No Hx Substance Use: No Preferred Language: French Communication Ability: Effective Emergency Department Technician Required: No Beliefs That Will Affect Care: None marital status: / Current Living Situation: Alone Other Information That Helps Us Care for You: No Feels Safe at Home: Yes Safety Concerns: Feels Safe At This Time Assistive Devices: Cane, CPAP, Glasses and Walker Review of Systems Review of Systems: Review of Systems: See HPI for pertinent positives. All other 10 point review of systems are negative. Physical Exam Physical Exam: General: no acute distress and stated age Head: normocephalic, no masses, lesions, tenderness or abnormalities Eyes: conjunctiva are pink and non-injected, sclera clear Neck: supple, no adenopathy, no bruits, normal jugular venous pulse, no hepato jugular reflux Chest: normal shape and normal respiratory effort Lungs: clear to auscultation and percussion Cardiac Exam: - regular rate & rhythm, no murmurs gallops or rubs - normal S1, normal S2 Pulses: 2(+) throughout Abdomen: abdomen soft, non-tender, no abnormal masses and no hepatosplenomegaly Musculoskeletal: no gait disturbance, no joint inflammation, no deforming arthritis Extremities: no edema and no cyanosis Neuro: grossly normal exam Results & Data ([facility]) Vital Signs (Past 12 Hours) Vital Signs Temp Pulse Pulse Resp BP BP Pulse Ox 10/25/21 10:20 112/61 10/25/21 09:45 150 H 117/67 10/25/21 07:23 172 H 77 20 97 10/25/21 07:18 36.8 C 128 H 20 110/60 95 10/25/21 06:35 36.7 C 133 H 18 103/61 98 10/25/21 05:59 174 H 10/25/21 05:49 183 H 118/80 10/25/21 05:14 190 H 119/66 10/25/21 05:09 37 C 181 H 22 119/66 96 10/25/21 03:07 37.8 C H 87 19 150/82 H 96 10/25/21 00:34 86 10/24/21 23:15 37.5 C 88 20 138/68 93 Diagnostic Findings Laboratory Results - last 24 hr 10/24/21 10/25/21 10/25/21 18:02 05:19 05:36 WBC 16.05 H RBC 4.11 L Hgb 12.9 Hct 38.3 MCV 93.2 MCH 31.4 MCHC 33.7 RDW Std Deviation 48.2 H RDW Coeff of Massiel 14.1 Plt Count 162 MPV 9.5 PT 13.0 H INR 1.2 H APTT 33.0 H PTT Ratio 1.2 Sodium Potassium Chloride Carbon Dioxide Anion Gap BUN Creatinine Est Cr Clr Drug Dosing Est GFR ( Amer) Est GFR (Non-Af Amer) BUN/Creatinine Ratio Glucose POC Glucose 155 H Calcium Phosphorus Magnesium 10/25/21 10/25/21 05:36 05:36 WBC RBC Hgb Hct MCV MCH MCHC RDW Std Deviation RDW Coeff of Massiel Plt Count MPV PT INR APTT PTT Ratio Sodium 138 Potassium 4.3 Chloride 106 Carbon Dioxide 24 Anion Gap 8 BUN 21 Creatinine 1.19 Est Cr Clr Drug Dosing 57.3 Est GFR ( Amer) 50.6 Est GFR (Non-Af Amer) 43.7 BUN/Creatinine Ratio 17.6 Glucose 127 H POC Glucose Calcium 8.8 Phosphorus 3.4 Magnesium 1.8 Medications Administered Current Inpatient Medications Acetaminophen (Acetaminophen 325 Mg Tab) 650 mg PO Q4H PRN PRN Reason: Pain or Fever Stop: 11/21/21 16:19 Last Admin: 10/25/21 03:20 Dose: 650 mg Documented by: Hydrocodone Bitart/Acetaminophen (Hydrocodone/Acetamophen 5/325mg Tab) 1 tab PO Q4 PRN PRN Reason: Mild Pain (Scale Score 1-4) Stop: 11/05/21 18:15 Last Admin: 10/25/21 13:34 Dose: 1 tab Documented by: Aspirin (Aspirin 81 Mg Ectab) 81 mg PO DAILY [facility] Stop: 11/22/21 08:59 Last Admin: 10/25/21 09:11 Dose: 81 mg Documented by: Atorvastatin Calcium (Atorvastatin 20 Mg Tab) 20 mg PO DAILY [facility] Stop: 11/21/21 18:15 Last Admin: 10/25/21 09:11 Dose: 20 mg Documented by: Duloxetine HCl (Duloxetine Hcl 60 Mg Cap) 60 mg PO HS [facility] Stop: 11/21/21 20:59 Last Admin: 10/24/21 20:01 Dose: 60 mg Documented by: Fexofenadine HCl (Fexofenadine 60 Mg Tab) 60 mg PO BID PRN PRN Reason: allergies Stop: 11/21/21 18:15 Fluticasone Propionate (Fluticasone Propionate Na Spr 16 Gm Btl) 2 sprays NA QAM [facility] Stop: 11/22/21 08:59 Last Admin: 10/25/21 09:11 Dose: 2 sprays Documented by: Gabapentin (Gabapentin 300 Mg Cap) 600 mg PO TID [facility] Stop: 11/21/21 20:59 Last Admin: 10/25/21 13:35 Dose: 600 mg Documented by: Guaifenesin (Guaifenesin 200 Mg Tab) 400 mg PO QID PRN PRN Reason: Congestion Stop: 11/21/21 18:40 Cefepime HCl 1,000 mg/ Syringe 11.3 mls @ 5.5 mls/min IV Q12H [facility]; Protocol Stop: 11/04/21 05:59 Last Admin: 10/25/21 06:04 Dose: 5.5 mls/min Documented by: Heparin Sodium/Dextrose (Heparin Sodium/Dextrose) 25,000 units in 500 mls @ 20 mls/hr IV .Q24H [facility]; Protocol Stop: 11/24/21 07:44 Last Admin: 10/25/21 08:32 Dose: 1,000 units/hr, 20 mls/hr Documented by: Albumin Human (Albumin 25% 100 Ml) 25 gm in 100 mls @ 50 mls/hr IV Q8H [facility] Stop: 10/28/21 09:59 Last Infusion: 10/25/21 11:50 Dose: Infused Documented by: Ipratropium [place] (Ipratropium [place] Neb Soln 0.02% 2.5 Ml Vial) 0.5 mg INH Q6R PRN PRN Reason: Wheezing Stop: 11/23/21 14:59 Last Admin: 10/25/21 07:35 Dose: 0.5 mg Documented by: Levalbuterol HCl (Levalbuterol 1.25mg/0.5ml Neb) 1.25 mg INH Q6R PRN PRN Reason: Wheezing Stop: 11/23/21 14:59 Last Admin: 10/25/21 07:34 Dose: 1.25 mg Documented by: Magnesium Oxide (Magnesium Oxide 400 Mg Tab) 400 mg PO DAILY [facility] Stop: 11/22/21 08:59 Last Admin: 10/25/21 09:10 Dose: 400 mg Documented by: Melatonin (Melatonin 3 Mg Tab) 9 mg PO HSZ PRN PRN Reason: Sleep Stop: 11/21/21 18:38 Metoprolol Tartrate (Metoprolol Tartrate 50 Mg Tab) 50 mg PO BID [facility] Stop: 11/24/21 05:19 Last Admin: 10/25/21 05:35 Dose: 50 mg Documented by: Metoprolol Tartrate (Metoprolol Tartrate 1 Mg/Ml Vial) 5 mg IV Q4H PRN; Protocol PRN Reason: Tachycardia Stop: 11/24/21 12:50 Miconazole Nitrate (Miconazole Nitrate Powder 43 Gm) 1 appln EXT PRN PRN PRN Reason: Affected Skin Folds Stop: 11/21/21 21:58 Last Admin: 10/23/21 14:29 Dose: 1 appln Documented by: Polyethylene Glycol (Polyethylene (Miralax) 17 Gm Pack) 17 gm PO DAILY PRN PRN Reason: Constipation Stop: 11/21/21 16:19 Warfarin Sodium (Warfarin Sod 2.5 Mg Tab) 2.5 mg PO [id number]@1600 [facility] Stop: 11/23/21 15:59 Last Admin: 10/24/21 15:35 Dose: 2.5 mg Documented by: Warfarin Sodium (Warfarin Sod 1.25 Mg Tab) 1.25 mg PO Mo@1600 [facility] Stop: 11/22/21 15:59 Last Admin: 10/23/21 15:59 Dose: 1.25 mg Documented by: (1) Atrial fibrillation Atrial fibrillation type: unspecified Qualified Code(s): I48.91 - Unspecified atrial fibrillation
[2021-10-25] MEDS ORDERED: METOPROLOL TARTRATE 1 MG/ML VIAL IV PRN (12:51)
--- NOTE | 2021-10-25 15:35 | Electrocardiogram Report ---
Test Reason : Blood Pressure : / mmHG Vent. Rate : 174 BPM Atrial Rate : 187 BPM P-R Int : 000 ms QRS Dur : 084 ms QT Int : 262 ms P-R-T Axes : 000 043 254 degrees QTc Int : 445 ms Atrial fibrillation with rapid ventricular response Abnormal ECG When compared with ECG of 22-OCT-2021 11:07, Atrial fibrillation has replaced Sinus rhythm Vent. rate has increased BY [address] now depressed in Lateral leads Nonspecific T wave abnormality now evident in Inferior leads Nonspecific T wave abnormality now evident in Lateral leads Confirmed by Krunal Mcintyre ([id number]) on 10/25/2021 3:35:13 PM Referred By: REFERRED SELF Confirmed By:Alfred Mcintyre
[2021-10-25] MEDS: WARFARIN SOD 2.5 MG TAB PO SCH (16:57)
[2021-10-25 17:34] LABS: Partial Thromboplastin Ratio 1.2; Partial Thromboplastin Time 33.4 Seconds (21.0-31.0)
[2021-10-25] MEDS ORDERED: HEPARIN SOD (PORCINE) 1000 UNIT/ML IV ONE (17:50)
[2021-10-25] MEDS: DULoxetine HCL 60 MG CAP PO SCH (20:24)
[2021-10-26 00:48] LABS: Partial Thromboplastin Ratio 1.6; Partial Thromboplastin Time 43.7 Seconds (21.0-31.0)
[2021-10-26] MEDS: ALBUMIN 25% 100 mL 25 GM/100 ML VIAL IV SCH (01:11)
[2021-10-26] MEDS: HEPARIN SODIUM/DEXTROSE 25,000 UNITS/500 ML BAG IV SCH ×2 (05:02→23:55)
[2021-10-26] MEDS: CEFEPIME 1,000 MG in SYRINGE 0 ML IV SCH (05:12)
[2021-10-26 07:27] LABS: Hematocrit (blood only) 33.8 % (37-47); Mean Corpuscular Hemoglobin 30.6 pg (25-34); Mean Corpuscular Hgb Conc 32.5 g/dL (32-36); Mean Corpuscular Volume 93.9 fL (80-100); Mean Platelet Volume 9.7 fL (7.4-10.4); Platelet Count 171 K/uL (130-400); RDW Standard Deviation 48.3 fL (36.4-46.3)
[2021-10-26 08:12] LABS: BUN Creatinine Ratio 21.2 (10-20); Calcium 8.7 mg/dl (8.5-10.1); Creatinine Clr Calc Pharmacy 68.1 ml/min; Est GFR (African American) 63.3 ml/min; Est GFR (Non-African American) 54.6 ml/min; Potassium 4.1 mmol/L (3.5-5.1)
[2021-10-26 08:29] LABS: Partial Thromboplastin Ratio 2.3
[2021-10-26 08:30] LABS: Partial Thromboplastin Time 64.3 Seconds (21.0-31.0)
[2021-10-26] MEDS: ATORVASTATIN 20 MG TAB PO SCH (09:17)
[2021-10-26] MEDS: FLUTICASONE PROPIONATE NA SPR 16 GM BTL SCH (09:17)
[2021-10-26] MEDS: ASPIRIN 81 MG ECTAB PO SCH (09:17)
[2021-10-26] MEDS: GABAPENTIN 300 MG CAP PO SCH ×3 (09:18→20:23)
[2021-10-26] MEDS: MAGNESIUM OXIDE 400 MG TAB PO SCH (09:18)
[2021-10-26] MEDS: HYDROCODONE/ACETAMOPHEN 5/325MG TAB PO PRN ×2 (09:19→18:13)
[2021-10-26] MEDS: METOPROLOL TARTRATE 50 MG TAB PO SCH ×2 (09:19→20:24)
[2021-10-26] MEDS: ACETAMINOPHEN 325 MG TAB PO PRN (09:21)
[2021-10-26 09:29] LABS: INR 1.3 (0.9-1.1); Prothrombin Time 13.5 Seconds (9.0-12.0)
[2021-10-26] MEDS ORDERED: AMIODARONE / D5W 150 MG/100 ML BAG IV STA (09:59)
[2021-10-26] MEDS ORDERED: AMIODARONE IV BOLUS & DRIP IV STA (09:59)
[2021-10-26] MEDS ORDERED: STAT IV Infusion **Titration per Protocol STA (09:59)
[2021-10-26] MEDS ORDERED: 0.2 MICRON FILTER SET 1 EA IV ONE (09:59)
[2021-10-26] MEDS: AMIODARONE 360MG / 200ML D5W IV ONE ×2 (10:03→10:29)
[2021-10-26] MEDS: AMIODARONE 150MG / 100ML D5W IV ONE ×2 (10:03→10:19)
[2021-10-26] MEDS ORDERED: FUROSEMIDE 40 MG/4 ML VIAL IV ONE ×2 (10:04→10:06)
[2021-10-26] MEDS ORDERED: AMIODARONE / D5W 360 MG/200 ML BAG IV ONE (10:09)
--- NOTE | 2021-10-26 10:10 | Cardiology Progress Note ---
Date of Service October 26, 2021 Assessment & Plan (1) S/P ureteral stent placement: (2) Acute UTI: (3) Atrial fibrillation: Plan: The patient will receive a bolus and then infusion of amiodarone starting now. I also gave her 40 mg of IV Lasix. Hopefully like yesterday she will convert to normal sinus rhythm and then I would continue the amiodarone as oral. Admission and Anticipated Discharge Date Admission Date: October 22, 2021 Subjective The patient is sitting in a chair this morning and went into rapid atrial fibrillation. Review of Systems Review of Systems: Review of Systems: See HPI for pertinent positives. All other 10 point review of systems are negative. Physical Exam Physical Exam: General: no acute distress and stated age Head: normocephalic, no masses, lesions, tenderness or abnormalities Eyes: conjunctiva are pink and non-injected, sclera clear Neck: supple, no adenopathy, no bruits, normal jugular venous pulse, no hepatojugular reflux Chest: normal shape and normal respiratory effort Lungs: clear to auscultation and percussion Cardiac Exam: - irregular rate & rhythm, no murmurs gallops or rubs - normal S1, normal S2 Pulses: 2(+) throughout Abdomen: abdomen soft, non-tender, no abnormal masses and no hepatosplenomegaly Musculoskeletal: no gait disturbance, no joint inflammation, no deforming arthritis Extremities: no edema and no cyanosis Neuro: grossly normal exam Results & Data ([facility]) Vital Signs (Past 12 Hours) Vital Signs Temp Pulse Pulse Resp BP BP Pulse Ox 10/26/21 08:03 36.7 C 79 22 167/78 H 96 10/26/21 08:00 86 10/26/21 03:00 36.9 C 77 22 168/68 H 95 10/25/21 23:00 36.6 C 84 75 16 136/71 95 Laboratory Results Laboratory Results - last 24 hr 10/25/21 10/25/21 10/25/21 15:01 15:47 17:04 WBC RBC Hgb Hct MCV MCH MCHC RDW Std Deviation RDW Coeff of Massiel Plt Count MPV PT INR APTT Cancelled Cancelled 33.4 H PTT Ratio Cancelled Cancelled 1.2 Sodium Potassium Chloride Carbon Dioxide Anion Gap BUN Creatinine Est Cr Clr Drug Dosing Est GFR ( Amer) Est GFR (Non-Af Amer) BUN/Creatinine Ratio Glucose Calcium 10/26/21 10/26/21 10/26/21 00:13 07:09 07:09 WBC 15.10 H RBC 3.60 L Hgb 11.0 L Hct 33.8 L MCV 93.9 MCH 30.6 MCHC 32.5 RDW Std Deviation 48.3 H RDW Coeff of Massiel 14.0 Plt Count 171 MPV 9.7 PT INR APTT 43.7 H PTT Ratio 1.6 Sodium 136 Potassium 4.1 Chloride 103 Carbon Dioxide 26 Anion Gap 7 BUN 21 Creatinine 0.99 Est Cr Clr Drug Dosing 68.1 Est GFR ( Amer) 63.3 Est GFR (Non-Af Amer) 54.6 BUN/Creatinine Ratio 21.2 H Glucose 157 H Calcium 8.7 10/26/21 10/26/21 07:09 07:09 WBC RBC Hgb Hct MCV MCH MCHC RDW Std Deviation RDW Coeff of Massiel Plt Count MPV PT 13.5 H INR 1.3 H APTT 64.3 H* PTT Ratio 2.3 Sodium Potassium Chloride Carbon Dioxide Anion Gap BUN Creatinine Est Cr Clr Drug Dosing Est GFR ( Amer) Est GFR (Non-Af Amer) BUN/Creatinine Ratio Glucose Calcium Medications Administered Current Inpatient Medications Acetaminophen (Acetaminophen 325 Mg Tab) 650 mg PO Q4H PRN PRN Reason: Pain or Fever Stop: 11/21/21 16:19 Last Admin: 10/26/21 09:21 Dose: 650 mg Documented by: Hydrocodone Bitart/Acetaminophen (Hydrocodone/Acetamophen 5/325mg Tab) 1 tab PO Q4 PRN PRN Reason: Mild Pain (Scale Score 1-4) Stop: 11/05/21 18:15 Last Admin: 10/26/21 09:19 Dose: 1 tab Documented by: Aspirin (Aspirin 81 Mg Ectab) 81 mg PO DAILY [facility] Stop: 11/22/21 08:59 Last Admin: 10/26/21 09:17 Dose: 81 mg Documented by: Atorvastatin Calcium (Atorvastatin 20 Mg Tab) 20 mg PO DAILY [facility] Stop: 11/21/21 18:15 Last Admin: 10/26/21 09:17 Dose: 20 mg Documented by: Duloxetine HCl (Duloxetine Hcl 60 Mg Cap) 60 mg PO HS [facility] Stop: 11/21/21 20:59 Last Admin: 10/25/21 20:24 Dose: 60 mg Documented by: Fexofenadine HCl (Fexofenadine 60 Mg Tab) 60 mg PO BID PRN PRN Reason: allergies Stop: 11/21/21 18:15 Fluticasone Propionate (Fluticasone Propionate Na Spr 16 Gm Btl) 2 sprays NA QAM [facility] Stop: 11/22/21 08:59 Last Admin: 10/26/21 09:17 Dose: 2 sprays Documented by: Furosemide (Furosemide 40 Mg/4 Ml Vial) 40 mg IV ONE ONE Stop: 10/26/21 10:05 Gabapentin (Gabapentin 300 Mg Cap) 600 mg PO TID [facility] Stop: 11/21/21 20:59 Last Admin: 10/26/21 09:18 Dose: 600 mg Documented by: Guaifenesin (Guaifenesin 200 Mg Tab) 400 mg PO QID PRN PRN Reason: Congestion Stop: 11/21/21 18:40 Cefepime HCl 1,000 mg/ Syringe 11.3 mls @ 5.5 mls/min IV Q12H [facility]; Protocol Stop: 11/04/21 05:59 Last Admin: 10/26/21 05:12 Dose: 5.5 mls/min Documented by: Heparin Sodium/Dextrose (Heparin Sodium/Dextrose) 25,000 units in 500 mls @ 26 mls/hr IV .[id number] [facility]; Protocol Stop: 11/24/21 07:44 Last Titration: 10/26/21 07:07 Dose: 1,300 units/hr, 26 mls/hr Documented by: Amiodarone HCl/Dextrose (Nexterone / D5w) 360 mg in 200 mls @ 33.333 mls/hr IV ONE ONE Stop: 10/26/21 16:08 Amiodarone HCl/Dextrose (Nexterone / D5w) 360 mg in 200 mls @ 16.667 mls/hr IV .Q12H [facility] Stop: 11/25/21 15:59 Ipratropium [place] (Ipratropium [place] Neb Soln 0.02% 2.5 Ml Vial) 0.5 mg INH Q6R PRN PRN Reason: Wheezing Stop: 11/23/21 14:59 Last Admin: 10/25/21 07:35 Dose: 0.5 mg Documented by: Levalbuterol HCl (Levalbuterol 1.25mg/0.5ml Neb) 1.25 mg INH Q6R PRN PRN Reason: Wheezing Stop: 11/23/21 14:59 Last Admin: 10/25/21 07:34 Dose: 1.25 mg Documented by: Magnesium Oxide (Magnesium Oxide 400 Mg Tab) 400 mg PO DAILY [facility] Stop: 11/22/21 08:59 Last Admin: 10/26/21 09:18 Dose: 400 mg Documented by: Melatonin (Melatonin 3 Mg Tab) 9 mg PO HSZ PRN PRN Reason: Sleep Stop: 11/21/21 18:38 Metoprolol Tartrate (Metoprolol Tartrate 50 Mg Tab) 50 mg PO BID [facility] Stop: 11/24/21 05:19 Last Admin: 10/26/21 09:19 Dose: 50 mg Documented by: Metoprolol Tartrate (Metoprolol Tartrate 1 Mg/Ml Vial) 5 mg IV Q4H PRN; Protocol PRN Reason: Tachycardia Stop: 11/24/21 12:50 Miconazole Nitrate (Miconazole Nitrate Powder 43 Gm) 1 appln EXT PRN PRN PRN Reason: Affected Skin Folds Stop: 11/21/21 21:58 Last Admin: 10/23/21 14:29 Dose: 1 appln Documented by: Polyethylene Glycol (Polyethylene (Miralax) 17 Gm Pack) 17 gm PO DAILY PRN PRN Reason: Constipation Stop: 11/21/21 16:19 Warfarin Sodium (Warfarin Sod 2.5 Mg Tab) 2.5 mg PO [id number] [facility] Stop: 11/23/21 15:59 Last Admin: 10/25/21 16:57 Dose: 2.5 mg Documented by: Warfarin Sodium (Warfarin Sod 1.25 Mg Tab) 1.25 mg PO Mo@1600 [facility] Stop: 11/22/21 15:59 Last Admin: 10/23/21 15:59 Dose: 1.25 mg Documented by: (1) Atrial fibrillation Atrial fibrillation type: unspecified Qualified Code(s): I48.91 - Unspecified atrial fibrillation
[2021-10-26] MEDS: AMOXICILLIN/CLAVULANATE 875 MG TAB PO SCH (15:46)
[2021-10-26] MEDS: AMIODARONE / D5W 360 MG/200 ML BAG IV SCH (15:59)
[2021-10-26] MEDS ORDERED: WARFARIN SOD 5 MG TAB PO ONE (16:00)
--- NOTE | 2021-10-26 16:30 | Hospitalist Progress Note ---
Date of Service October 26, 2021 Assessment & Plan (1) Hydronephrosis concurrent with and due to calculi of kidney and ureter: (2) Acute UTI: Plan: Sepsis, POA Obstructive uropathy Pt meets SIRS criteria for sepsis with elevated WBC at 25.9 K, and tachycardia HR 140, patient presented with A. fib with RVR -sepsis treated and resolved Right Obstructing ureteral stone with hydronephrosis -s/p right ureteral stent placement 10/22 Complicated UTI -Urine culture positive for proteus. Patient was on ceftriaxone--> broadened to cefepime due to rapid A fib--> will switch to Augmentin. Plan for 7-10 day course Acute urinary retention -Failed void trial, yeboah catheter placed back in 10/25 -Will likely need yeboah at discharge, void trial again at [facility] when patient is more ambulatory (3) GILBERTO (acute kidney injury): Plan: Creatinine elevated at 2.8 on admission, up from baseline at 0.9 Secondary to obstructive uropathy Patient provided with IV fluids Current Cr improved at 1.2, cont. to monitor creatinine (4) Atrial fibrillation: Plan: -Patient with history of paroxysmal A fib -started on amiodarone drip today per cardiology -continue heparin to coumadin bridge. Plan: RAYMUNDO (on CPAP) - provide CPAP at HS Morbid obesity -BMI over 50 -Lifestyle modification encouraged Anxiety - cont. home medications - cymbalta Right knee pain and swelling -Will obtain X ray, Ortho evaluation Disposition -[facility] when medically stable. Hopefully in next 1-2 days Admission and Anticipated Discharge Date Admission Date: October 22, 2021 Subjective Went into A fib again today. Started on amiodarone drip then later went back into sinus rhythm Patient reports right knee pain and swelling which she noticed just yesterday, apparently she had fallen on that knee prior to hospitalization Physical Exam Physical Exam: Appears weak and debilitated, no acute distress Respiratory: breathing comfortably on room air, no wheezing/rhonchi/rales Cardiovascular: regular rate and rhythm, no murmurs/rubs/gallops Gastrointestinal (Abdomen): soft, non tender, non distended Musculoskeletal: right knee with significant effusion and tender to palpation Genitourinary: yeboah catheter in place and draining clear yellow urine Results & Data Results & Data ([facility]) Vital Signs (Past 12 Hours) Vital Signs Temp Pulse Pulse Resp BP BP Pulse Ox 10/26/21 15:23 37.3 C 71 20 136/84 94 10/26/21 14:59 71 10/26/21 11:47 37.0 C 73 18 136/58 L 95 10/26/21 08:03 36.7 C 79 22 167/78 H 96 10/26/21 08:00 86 Laboratory Results Short CBC 10/26/21 Range/Units 07:09 WBC 15.10 H (4.8-10.8) K/uL Hgb 11.0 L (12.0-16.0) g/dL Hct 33.8 L (37-47) % Plt Count 171 (130-400) K/uL BMP 10/26/21 07:09 Sodium 136 Potassium 4.1 Chloride 103 Carbon Dioxide 26 BUN 21 Creatinine 0.99 Glucose 157 H Calcium 8.7 Medications Administered Current Inpatient Medications Acetaminophen (Acetaminophen 325 Mg Tab) 650 mg PO Q4H PRN PRN Reason: Pain or Fever Stop: 11/21/21 16:19 Last Admin: 10/26/21 09:21 Dose: 650 mg Documented by: Hydrocodone Bitart/Acetaminophen (Hydrocodone/Acetamophen 5/325mg Tab) 1 tab PO Q4 PRN PRN Reason: Mild Pain (Scale Score 1-4) Stop: 11/05/21 18:15 Last Admin: 10/26/21 09:19 Dose: 1 tab Documented by: Amoxicillin/Clavulanate Potassium (Amoxicillin/Clavulanate 875 Mg Tab) 1 tab PO BIDM [facility] Stop: 11/02/21 16:59 Last Admin: 10/26/21 15:46 Dose: 1 tab Documented by: Aspirin (Aspirin 81 Mg Ectab) 81 mg PO DAILY [facility] Stop: 11/22/21 08:59 Last Admin: 10/26/21 09:17 Dose: 81 mg Documented by: Atorvastatin Calcium (Atorvastatin 20 Mg Tab) 20 mg PO DAILY [facility] Stop: 11/21/21 18:15 Last Admin: 10/26/21 09:17 Dose: 20 mg Documented by: Duloxetine HCl (Duloxetine Hcl 60 Mg Cap) 60 mg PO HS [facility] Stop: 11/21/21 20:59 Last Admin: 10/25/21 20:24 Dose: 60 mg Documented by: Fexofenadine HCl (Fexofenadine 60 Mg Tab) 60 mg PO BID PRN PRN Reason: allergies Stop: 11/21/21 18:15 Fluticasone Propionate (Fluticasone Propionate Na Spr 16 Gm Btl) 2 sprays NA QAM ELLIE Stop: 11/22/21 08:59 Last Admin: 10/26/21 09:17 Dose: 2 sprays Documented by: Gabapentin (Gabapentin 300 Mg Cap) 600 mg PO TID ELLIE Stop: 11/21/21 20:59 Last Admin: 10/26/21 13:28 Dose: 600 mg Documented by: Guaifenesin (Guaifenesin 200 Mg Tab) 400 mg PO QID PRN PRN Reason: Congestion Stop: 11/21/21 18:40 Heparin Sodium/Dextrose (Heparin Sodium/Dextrose) 25,000 units in 500 mls @ 26 mls/hr IV .[id number] ELLIE; Protocol Stop: 11/24/21 07:44 Last Titration: 10/26/21 07:07 Dose: 1,300 units/hr, 26 mls/hr Documented by: Amiodarone HCl/Dextrose (Nexterone / D5w) 360 mg in 200 mls @ 16.667 mls/hr IV .Q12H ELLIE Stop: 11/25/21 15:59 Last Admin: 10/26/21 15:59 Dose: 0.5 mg/min, 16.7 mls/hr Documented by: Ipratropium [place] (Ipratropium [place] Neb Soln 0.02% 2.5 Ml Vial) 0.5 mg INH Q6R PRN PRN Reason: Wheezing Stop: 11/23/21 14:59 Last Admin: 10/25/21 07:35 Dose: 0.5 mg Documented by: Levalbuterol HCl (Levalbuterol 1.25mg/0.5ml Neb) 1.25 mg INH Q6R PRN PRN Reason: Wheezing Stop: 11/23/21 14:59 Last Admin: 10/25/21 07:34 Dose: 1.25 mg Documented by: Magnesium Oxide (Magnesium Oxide 400 Mg Tab) 400 mg PO DAILY ELLIE Stop: 11/22/21 08:59 Last Admin: 10/26/21 09:18 Dose: 400 mg Documented by: Melatonin (Melatonin 3 Mg Tab) 9 mg PO HSZ PRN PRN Reason: Sleep Stop: 11/21/21 18:38 Metoprolol Tartrate (Metoprolol Tartrate 50 Mg Tab) 50 mg PO BID [facility] Stop: 11/24/21 05:19 Last Admin: 10/26/21 09:19 Dose: 50 mg Documented by: Metoprolol Tartrate (Metoprolol Tartrate 1 Mg/Ml Vial) 5 mg IV Q4H PRN; Romie col PRN Reason: Tachycardia Stop: 11/24/21 12:50 Miconazole Nitrate (Miconazole Nitrate Powder 43 Gm) 1 appln EXT PRN PRN PRN Reason: Affected Skin Folds Stop: 11/21/21 21:58 Last Admin: 10/23/21 14:29 Dose: 1 appln Documented by: Polyethylene Glycol (Polyethylene (Miralax) 17 Gm Pack) 17 gm PO DAILY PRN PRN Reason: Constipation Stop: 11/21/21 16:19 Saccharomyces Boulardii (Saccharomyces Boulardii 250 Mg Cap) 250 mg PO BID [facility] Stop: 11/25/21 20:59 Warfarin Sodium (Warfarin Sod 2.5 Mg Tab) 2.5 mg PO SuTuWeThFrSa@1600 [facility] Stop: 11/23/21 15:59 Last Admin: 10/25/21 16:57 Dose: 2.5 mg Documented by: Warfarin Sodium (Warfarin Sod 1.25 Mg Tab) 1.25 mg PO Mo@1600 [facility] Stop: 11/22/21 15:59 Last Admin: 10/23/21 15:59 Dose: 1.25 mg Documented by: (1) Atrial fibrillation Atrial fibrillation type: unspecified Qualified Code(s): I48.91 - Unspecified atrial fibrillation
--- NOTE | 2021-10-26 16:44 | XRay Report ---
XR knee RT 3V CLINICAL HISTORY: swelling and pain TECHNIQUE: 3 views of the right knee were obtained. Comparison: None available at the time of this dictation. FINDINGS: There is no evidence of an acute fracture. Total arthroplasty is seen in the knee. No periarticular l ucency or hardware fracture is seen. A small suprapatellar effusion is seen. No soft tissue abnormali ty is seen. IMPRESSION: Suprapatellar effusion without evidence of underlying bony injury. ACT 112: Negative or not required by law. Electronically signed by: Dani Byrnes M.D. 10/26/2021 4:43 PM
[2021-10-26] MEDS ORDERED: CEFEPIME 2,000 MG in SYRINGE 0 ML IV SCH (17:00)
[2021-10-26] MEDS: DULoxetine HCL 60 MG CAP PO SCH (20:22)
[2021-10-26] MEDS: SACCHAROMYCES BOULARDII 250 MG CAP PO SCH (20:22)
[2021-10-27] MEDS: AMIODARONE / D5W 360 MG/200 ML BAG IV SCH (03:34)
[2021-10-27] MEDS: HYDROCODONE/ACETAMOPHEN 5/325MG TAB PO PRN (05:38)
[2021-10-27 06:57] LABS: Hematocrit (blood only) 34.7 % (37-47); Hemoglobin 11.5 g/dL (12.0-16.0); Mean Corpuscular Hemoglobin 30.4 pg (25-34); Mean Corpuscular Hgb Conc 33.1 g/dL (32-36); Mean Corpuscular Volume 91.8 fL (80-100); Mean Platelet Volume 10.1 fL (7.4-10.4); Platelet Count 232 K/uL (130-400); RDW Coefficient of Variation 13.8 % (11.5-14.5); RDW Standard Deviation 46.5 fL (36.4-46.3); Red Blood Count 3.78 M/uL (4.2-5.4); White Blood Count 16.35 K/uL (4.8-10.8)
[2021-10-27 07:25] LABS: BUN Creatinine Ratio 22.2 (10-20); Calcium 8.7 mg/dl (8.5-10.1); Creatinine Clr Calc Pharmacy 74.6 ml/min; Est GFR (Non-African American) 61.2 ml/min; Magnesium 1.6 mg/dl (1.7-2.4); Potassium 4.1 mmol/L (3.5-5.1)
[2021-10-27 07:26] LABS: INR 1.5 (0.9-1.1); Prothrombin Time 15.2 Seconds (9.0-12.0)
[2021-10-27] MEDS: ATORVASTATIN 20 MG TAB PO SCH (07:39)
[2021-10-27] MEDS: MAGNESIUM OXIDE 400 MG TAB PO SCH ×2 (07:39→08:49)
[2021-10-27] MEDS: METOPROLOL TARTRATE 50 MG TAB PO SCH (07:39)
[2021-10-27] MEDS: GABAPENTIN 300 MG CAP PO SCH ×2 (07:40→13:46)
[2021-10-27] MEDS: ASPIRIN 81 MG ECTAB PO SCH (07:40)
[2021-10-27] MEDS: SACCHAROMYCES BOULARDII 250 MG CAP PO SCH (07:40)
[2021-10-27] MEDS: AMOXICILLIN/CLAVULANATE 875 MG TAB PO SCH (07:40)
[2021-10-27] MEDS: FLUTICASONE PROPIONATE NA SPR 16 GM BTL SCH (07:40)
[2021-10-27] MEDS: MAGNESIUM SULFATE / D5W 1 GM/100 ML BAG IV SCH ×2 (08:49→10:18)
[2021-10-27] MEDS ORDERED: MAGNESIUM OXIDE 400 MG TAB PO SCH (09:00)
[2021-10-27 09:15] LABS: Partial Thromboplastin Ratio 1.5; Partial Thromboplastin Time 39.9 Seconds (21.0-31.0)
--- NOTE | 2021-10-27 09:40 | Orthopedic Consultation ---
Date of Consultation October 27, 2021 Assessment & Plan (1) Right knee pain: 76-year-old white female with history of TKA done in 2007. Her symptoms of pain have all but resolved at this time. X-rays reviewed. No bony injuries noted at this time. She does not appear to have any gross loosening that I can appreciate with the knee prosthesis. She does have a small effusion which likely could be a small hemarthrosis status post fall with her being on Coumadin. Does not examine like a infected total knee arthroplasty. I don't feel there is any need for an aspiration at this time. Patient's symptoms are resolving. She can be weightbearing as tolerated on the right lower extremity. We discussed that if she experience the symptoms again during her stay, that we can come back and see her to examine the knee further. Otherwise in the future, she can follow-up with Dr. Nehemiah Chaves for any further needs or concerns with her right knee. Thank you for this consult. History of Present Illness Reason for Consultation: Right knee pain Attending Physician: Alisha Casey MD History of Present Illness Patient is a 76-year-old female, with history of hypertension, hyperlipidemia, A. fib with RVR on chronic Coumadin, osteoarthritis, RAYMUNDO on CPAP, morbid obesity, nephrolithiasis, anxiety, who presents after a fall. Patient was admitted on 10/22/2021 for obstructive uropathy and rule out sepsis. Patient had experienced a mechanical fall at home after several days of noticing increased weakness. While she was here, she noticed an increasing right knee pain. She states that she has been having some minor knee pain in that right knee in the last week but was fairly minimal. With the fall that she experienced, she feels that she had exacerbated her knee pain. He states that yesterday she was having moderate knee pain where she was unable to move the knee on her own. She needed help getting in and out of bed. This morning she is sitting at the edge of the bed. She states that her knee pain has all but resolved and is feeling well this morning. Patient had a right total knee arthroplasty performed by Dr. Nehemiah Chaves in 2007. She states that the knee has been doing otherwise well and she has no feeling of the knee giving out or instability. She felt that the knee was a little swollen yesterday but denies a large effusion, erythema, difficulty with painful ambulation or increased pain with range of motion. We have been asked to see her for her right knee pain. Allergies Allergy/AdvReac Type Severity Reaction Status Date / Time tetracycline Allergy Unknown Rash Verified 10/22/21 15:37 esomeprazole [From Nexium] AdvReac Intermediate EPISTAXIS Verified 10/22/21 15:37 adhesive AdvReac Unknown SKIN Verified 10/22/21 15:37 IRRITATION Home Medications Medication Instructions Recorded Confirmed Type calcium carbonate 600 mg calcium 600 mg PO BID 04/04/18 10/22/21 History (1,500 mg) tablet cholecalciferol (vitamin D3) 25 1,000 unit PO QAM 04/04/18 10/22/21 History mcg (1,000 unit) capsule (Vitamin D3) duloxetine 30 mg capsule,delayed 60 mg PO HS 04/04/18 10/22/21 History release (Cymbalta) fexofenadine 60 mg tablet (Amelia 60 mg PO BID PRN 04/04/18 10/22/21 History Allergy) fluticasone propionate 50 2 spray INTRANASAL [facility] 04/04/18 10/22/21 History mcg/actuation nasal spray,suspension (Flonase Allergy Relief) gabapentin 300 mg capsule 600 mg PO TID 04/04/18 10/22/21 History hydrocodone 5 mg-acetaminophen 325 1 tab PO QID 04/04/18 10/22/21 History mg tablet melatonin 5 mg tablet 10 mg PO HS 04/04/18 10/22/21 History metoprolol tartrate 50 mg tablet 50 mg PO BID 04/04/18 10/22/21 History multivitamin 1 tab PO QAM 04/04/18 10/22/21 History warfarin 2.5 mg tablet 1.25 - 2.5 mg PO DAILY 04/04/18 10/22/21 History losartan 25 mg tablet 25 mg PO HS 09/14/20 10/22/21 History Lactobacills gasseri-Bifidobac 1 cap PO DAILY 10/22/21 10/22/21 History bifidum,longum 1.5 billion cell capsule ([employer]) aluminum chloride 20 % topical 1 applic TOPICAL HS 10/22/21 10/22/21 History solution (Drysol Dab-O-Matic) aspirin 81 mg tablet,delayed 81 mg PO DAILY 10/22/21 10/22/21 History release atorvastatin 20 mg tablet 20 mg PO DAILY 10/22/21 10/22/21 History diclofenac sodium 1 % topical gel 2 g TOPICAL QID 10/22/21 10/22/21 History furosemide 40 mg tablet 40 mg PO QAM 10/22/21 10/22/21 History guaifenesin 400 mg tablet (Mucus 400 mg PO QID PRN 10/22/21 10/22/21 History Relief) magnesium oxide 400 mg PO DAILY 10/22/21 10/22/21 History mupirocin 2 % topical ointment 1 applic TOPICAL BID 10/22/21 10/22/21 History potassium chloride 10 mEq 10 meq PO DAILY 10/22/21 10/22/21 History capsule,extended release triamcinolone acetonide 0.1 % 1 applic TOPICAL BID 10/22/21 10/22/21 History topical cream vitamin A-vitamin C-vit E-min 1 tab PO DAILY 10/22/21 10/22/21 History tablet Patient History Medical History Atrial fibrillation DX'D 06/2017 [facility]-HAS BEEN ON THINNER SINCE Cancer OVARIAN 1975 Chronic back pain Difficult airway for intubation [id number] INTUBATION-NEEDS SMALL SIZE TUBE-NO INTUBATION EXPERIENCES SINCE Hx of deep venous thrombosis HX LLE 1959'S-WITHOUT ANY INJURY OR SURGERY-NO ISSUES SINCE Hyperlipidemia Hypertension Kidney stones no surgical intervention Morbid obesity with BMI of 45.0-49.9, adult Osteoarthritis Sleep apnea CPAP SOB (shortness of breath) LYING FLAT/WITH 1 FLIGHT STAIRS Surgical History History of cardiac cath 2014 X 2-[facility] NO STENTS-NO BLOCKAGES History of colonoscopy History of dilatation and curettage History of hysterectomy BSO History of surgical removal of skin lesion "fatty tumor" History of tonsillectomy History of total knee replacement RIGHT Hx of hemorrhoidectomy Family History Father Family hx of colon cancer Other No family history of adverse response to anesthesia Social History Smoking Status: Never smoker Second Hand Exposure: No; Hx Alcohol Use: No Hx Substance Use: No Preferred Language: Urdu Communication Ability: Effective 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 On examination of her right lower extremity, she is sitting at the edge of bed of which she states she would prefer to stay in that position at this time since she has been lying bed for so long. She has a well-healed scar over the right knee from previous TKA. Currently she has good range of motion and is able to actively extend and flex the knee quite well without discomfort. She has no noticeable erythema. No gross swelling of the soft tissues. There is no overt heat to the right knee compared to the left. I am able to take her through gentle passive range of motion from about 0 degrees extension to 95 200 degrees of flexion. I cannot appreciate any popping or clicking. She does have a slight click related to her patella which is normal. She has some mild lateral laxity. She has no play anterior to posterior. Range of motion is nontender. Patient states she is able to ambulate and weight-bear on the right lower extremity without difficulty. She denies feelings of instability or the knee giving out. I cannot appreciate any discrepancies in her quadriceps tendon. She is able to do a limited straight leg raise in the sitting position. She does not denote any quadriceps weakness with ambulation or getting in and out of bed. No gross motor or sensory loss seen at this time. Results & Data ([facility]) Vital Signs (Past 12 Hours) Vital Signs Temp Pulse Pulse Pulse Resp BP Pulse Ox 10/27/21 07:12 36.9 C 76 20 149/68 H 94 10/27/21 03:02 36.8 C 69 24 140/60 96 10/26/21 23:01 69 10/26/21 22:53 36.5 C 68 22 122/71 97 Diagnostic Findings Patient:KRISTOFER SUÁREZ Admit Date:10/22/21 MR#:[id number] Address1:[address] [place] [address] Acct ID:[id number] Address2: Date:1945 [facility] [place] [address] Age:76 Location:2S Sex:F Room/Bed:[facility] Att Phy:Alisha Casey MD Diagnosis:FALL, OBSTRUCTIVE UROPATHY Ev Phy:Terry Valenzuela MD Service Date:10/26/21 Fam Phy: Interpreting Phy:Dani Byrnes [facility] Phy:Jason Kaur MD Ordering Phy:Alisha Casey MD cc: ~ XR knee RT 3V CLINICAL HISTORY: swelling and pain TECHNIQUE: 3 views of the right knee were obtained. Comparison: None available at the time of this dictation. FINDINGS: There is no evidence of an acute fracture. Total arthroplasty is seen in the knee. No periarticular lucency or hardware fracture is seen. A small suprapatellar effusion is seen. No soft tissue abnormality is seen. IMPRESSION: Suprapatellar effusion without evidence of underlying bony injury. ACT 112: Negative or not required by law.
[2021-10-27] MEDS: HEPARIN SODIUM/DEXTROSE 25,000 UNITS/500 ML BAG IV SCH (09:49)
--- NOTE | 2021-10-27 10:06 | Cardiology Progress Note ---
Date of Service October 27, 2021 Assessment & Plan (1) S/P ureteral stent placement: (2) Acute UTI: (3) Atrial fibrillation: Plan: The patient will be switched over to oral amiodarone. She has been in sinus rhythm since yesterday. Currently on IV heparin but can be switched over to warfarin when appropriate. Admission and Anticipated Discharge Date Admission Date: October 22, 2021 Subjective Patient has no new cardiac complaints. She had an uneventful night. Review of Systems Review of Systems: Review of Systems: See HPI for pertinent positives. All other 10 point review of systems are negative. Physical Exam Physical Exam: General: no acute distress and stated age Head: normocephalic, no masses, lesions, tenderness or abnormalities Eyes: conjunctiva are pink and non-injected, sclera clear Neck: supple, no adenopathy, no bruits, normal jugular venous pulse, no hepatojugular reflux Chest: normal shape and normal respiratory effort Lungs: clear to auscultation and percussion Cardiac Exam: - irregular rate & rhythm, no murmurs gallops or rubs - normal S1, normal S2 Pulses: 2(+) throughout Abdomen: abdomen soft, non-tender, no abnormal masses and no hepatosplenomegaly Musculoskeletal: no gait disturbance, no joint inflammation, no deforming arthritis Extremities: no edema and no cyanosis Neuro: grossly normal exam Results & Data ([facility]) Vital Signs (Past 12 Hours) Vital Signs Temp Pulse Pulse Pulse Resp BP Pulse Ox 10/27/21 07:12 36.9 C 76 20 149/68 H 94 10/27/21 03:02 36.8 C 69 24 140/60 96 10/26/21 23:01 69 10/26/21 22:53 36.5 C 68 22 122/71 97 Laboratory Results Review of Systems: See HPI for pertinent positives. All other 10 point review of systems are negative. Medications Administered Current Inpatient Medications Acetaminophen (Acetaminophen 325 Mg Tab) 650 mg PO Q4H PRN PRN Reason: Pain or Fever Stop: 11/21/21 16:19 Last Admin: 10/26/21 09:21 Dose: 650 mg Documented by: Hydrocodone Bitart/Acetaminophen (Hydrocodone/Acetamophen 5/325mg Tab) 1 tab PO Q4 PRN PRN Reason: Mild Pain (Scale Score 1-4) Stop: 11/05/21 18:15 Last Admin: 10/27/21 05:38 Dose: 1 tab Documented by: Amiodarone HCl (Amiodarone 200 Mg Tab) 200 mg PO TIDM [facility] Stop: 11/26/21 11:59 Amoxicillin/Clavulanate Potassium (Amoxicillin/Clavulanate 875 Mg Tab) 1 tab PO BIDM [facility] Stop: 11/02/21 16:59 Last Admin: 10/27/21 07:40 Dose: 1 tab Documented by: Aspirin (Aspirin 81 Mg Ectab) 81 mg PO DAILY [facility] Stop: 11/22/21 08:59 Last Admin: 10/27/21 07:40 Dose: 81 mg Documented by: Atorvastatin Calcium (Atorvastatin 20 Mg Tab) 20 mg PO DAILY [facility] Stop: 11/21/21 18:15 Last Admin: 10/27/21 07:39 Dose: 20 mg Documented by: Duloxetine HCl (Duloxetine Hcl 60 Mg Cap) 60 mg PO HS [facility] Stop: 11/21/21 20:59 Last Admin: 10/26/21 20:22 Dose: 60 mg Documented by: Fexofenadine HCl (Fexofenadine 60 Mg Tab) 60 mg PO BID PRN PRN Reason: allergies Stop: 11/21/21 18:15 Fluticasone Propionate (Fluticasone Propionate Na Spr 16 Gm Btl) 2 sprays NA QAM [facility] Stop: 11/22/21 08:59 Last Admin: 10/27/21 07:40 Dose: 2 sprays Documented by: Gabapentin (Gabapentin 300 Mg Cap) 600 mg PO TID [facility] Stop: 11/21/21 20:59 Last Admin: 10/27/21 07:40 Dose: 600 mg Documented by: Guaifenesin (Guaifenesin 200 Mg Tab) 400 mg PO QID PRN PRN Reason: Congestion Stop: 11/21/21 18:40 Heparin Sodium/Dextrose (Heparin Sodium/Dextrose) 25,000 units in 500 mls @ 28 mls/hr IV .[id number] [facility]; Protocol Stop: 11/24/21 07:44 Last Admin: 10/27/21 09:49 Dose: Not Given Documented by: Magnesium Sulfate/Dextrose (Magnesium Sulfate / D5w) 1 gm in 100 mls @ 50 mls/hr IV Q2H [facility] Stop: 10/27/21 12:29 Last Admin: 10/27/21 08:49 Dose: 50 mls/hr Documented by: Ipratropium [place] (Ipratropium [place] Neb Soln 0.02% 2.5 Ml Vial) 0.5 mg INH Q6R PRN PRN Reason: Wheezing Stop: 11/23/21 14:59 Last Admin: 10/25/21 07:35 Dose: 0.5 mg Documented by: Levalbuterol HCl (Levalbuterol 1.25mg/0.5ml Neb) 1.25 mg INH Q6R PRN PRN Reason: Wheezing Stop: 11/23/21 14:59 Last Admin: 10/25/21 07:34 Dose: 1.25 mg Documented by: Magnesium Oxide (Magnesium Oxide 400 Mg Tab) 400 mg PO DAILY [facility] Stop: 11/22/21 08:59 Last Admin: 10/27/21 08:49 Dose: 400 mg Documented by: Magnesium Oxide (Magnesium Oxide 400 Mg Tab) 400 mg PO QAM [facility] Stop: 11/26/21 08:59 Last Admin: 10/27/21 08:51 Dose: 400 mg Documented by: Melatonin (Melatonin 3 Mg Tab) 9 mg PO HSZ PRN PRN Reason: Sleep Stop: 11/21/21 18:38 Metoprolol Tartrate (Metoprolol Tartrate 50 Mg Tab) 50 mg PO BID [facility] Stop: 11/24/21 05:19 Last Admin: 10/27/21 07:39 Dose: 50 mg Documented by: Metoprolol Tartrate (Metoprolol Tartrate 1 Mg/Ml Vial) 5 mg IV Q4H PRN; Protocol PRN Reason: Tachycardia Stop: 11/24/21 12:50 Miconazole Nitrate (Miconazole Nitrate Powder 43 Gm) 1 appln EXT PRN PRN PRN Reason: Affected Skin Folds Stop: 11/21/21 21:58 Last Admin: 10/23/21 14:29 Dose: 1 appln Documented by: Polyethylene Glycol (Polyethylene (Miralax) 17 Gm Pack) 17 gm PO DAILY PRN PRN Reason: Constipation Stop: 11/21/21 16:19 Saccharomyces Boulardii (Saccharomyces [place]oul[place]ii 250 Mg Cap) 250 mg PO BID [facility] Stop: 11/25/21 20:59 Last Admin: 10/27/21 07:40 Dose: 250 mg Documented by: Warfarin Sodium (Warfarin Sod 2.5 Mg Tab) 2.5 mg PO SuTuWeThFrSa@1600 [facility] Stop: 11/23/21 15:59 Last Admin: 10/25/21 16:57 Dose: 2.5 mg Documented by: Warfarin Sodium (Warfarin Sod 1.25 Mg Tab) 1.25 mg PO Mo@1600 [facility] Stop: 11/22/21 15:59 Last Admin: 10/23/21 15:59 Dose: 1.25 mg Documented by: (1) Atrial fibrillation Atrial fibrillation type: unspecified Qualified Code(s): I48.91 - Unspecified atrial fibrillation
[2021-10-27] MEDS ORDERED: AMIODARONE 200 MG TAB PO SCH (12:00)
--- NOTE | 2021-10-27 12:17 | Electrocardiogram Report ---
Test Reason : Blood Pressure : / mmHG Vent. Rate : 148 BPM Atrial Rate : 174 BPM P-R Int : 000 ms QRS Dur : 080 ms QT Int : 292 ms P-R-T Axes : 000 038 -08 degrees QTc Int : 458 ms Atrial fibrillation with rapid ventricular response Nonspecific ST and T wave abnormality Abnormal ECG When compared with ECG of 25-OCT-2021 05:11, No significant change was found Confirmed by Krunal Mcintyre ([id number]) on 10/27/2021 12:17:12 PM Referred By: REFERRED SELF Confirmed By:Alfred Mcintyre
--- NOTE | 2021-10-27 12:40 | Hospitalist Progress Note ---
Date of Service October 27, 2021 Assessment & Plan (1) Hydronephrosis concurrent with and due to calculi of kidney and ureter: (2) Acute UTI: Plan: Sepsis, POA Obstructive uropathy Pt meets SIRS criteria for sepsis with elevated WBC at 25.9 K, and tachycardia HR 140, patient presented with A. fib with RVR -sepsis treated and resolved Right Obstructing ureteral stone with hydronephrosis -s/p right ureteral stent placement 10/22 Complicated UTI -Urine culture positive for proteus. Patient was on ceftriaxone--> broadened to cefepime due to rapid A fib--> switched to Augmentin 10/26. Plan for 7-10 day course Acute urinary retention -Failed void trial, yeboah catheter placed back in 10/25 -Will likely need yeboah at discharge, void trial again at [facility] when patient is more ambulatory (3) GILBERTO (acute kidney injury): Plan: Creatinine elevated at 2.8 on admission, up from baseline at 0.9 Secondary to obstructive uropathy Patient provided with IV fluids (4) Atrial fibrillation: Plan: -Patient with history of paroxysmal A fib -started on amiodarone drip 10/26 and patient converted back to SR again. Switched to PO amiodarone today per cardiology -continue heparin to coumadin bridge. Plan: RAYMUNDO (on CPAP) - provide CPAP at HS Morbid obesity -BMI over 50 -Lifestyle modification encouraged Anxiety - cont. home medications - cymbalta Right knee pain and swelling -X ray shows small effusion. Appreciat ortho input Disposition -[facility] when medically stable. She can be discharged tomorrow Admission and Anticipated Discharge Date Admission Date: October 22, 2021 Subjective Patient feels much better. Leg swelling has resolved Remains in sinus rhythm Physical Exam Physical Exam: Appears well, no acute distress, non toxic Respiratory: breathing comfortably on room air, no wheezing/rhonchi/rales Cardiovascular: regular rate and rhythm, no murmurs/rubs/gallops Gastrointestinal (Abdomen): soft, non tender, non distended Musculoskeletal: no edema, right knee effusion improved Skin: multiple bruises Neurologic: awake, alert, spontaneously moving extremities Results & Data Results & Data ([facility]) Vital Signs (Past 12 Hours) Vital Signs Temp Pulse Pulse Pulse Resp BP BP 10/27/21 11:49 37.2 C 69 20 133/56 L 10/27/21 08:00 71 10/27/21 07:12 36.9 C 76 20 149/68 H 10/27/21 03:02 36.8 C 69 24 140/60 Pulse Ox 10/27/21 11:49 95 10/27/21 08:00 10/27/21 07:12 94 10/27/21 03:02 96 Laboratory Results Short CBC 10/27/21 Range/Units 05:25 WBC 16.35 H (4.8-10.8) K/uL Hgb 11.5 L (12.0-16.0) g/dL Hct 34.7 L (37-47) % Plt Count 232 (130-400) K/uL BMP 10/27/21 05:25 Sodium 137 Potassium 4.1 Chloride 100 Carbon Dioxide 29 BUN 20 Creatinine 0.90 Glucose 129 H Calcium 8.7 Medications Administered Current Inpatient Medications Acetaminophen (Acetaminophen 325 Mg Tab) 650 mg PO Q4H PRN PRN Reason: Pain or Fever Stop: 11/21/21 16:19 Last Admin: 10/26/21 09:21 Dose: 650 mg Documented by: Hydrocodone Bitart/Acetaminophen (Hydrocodone/Acetamophen 5/325mg Tab) 1 tab PO Q4 PRN PRN Reason: Mild Pain (Scale Score 1-4) Stop: 11/05/21 18:15 Last Admin: 10/27/21 05:38 Dose: 1 tab Documented by: Amiodarone HCl (Amiodarone 200 Mg Tab) 200 mg PO TIDM [facility] Stop: 11/26/21 11:59 Last Admin: 10/27/21 11:40 Dose: 200 mg Documented by: Amoxicillin/Clavulanate Potassium (Amoxicillin/Clavulanate 875 Mg Tab) 1 tab PO BIDM [facility] Stop: 11/02/21 16:59 Last Admin: 10/27/21 07:40 Dose: 1 tab Documented by: Aspirin (Aspirin 81 Mg Ectab) 81 mg PO DAILY [facility] Stop: 11/22/21 08:59 Last Admin: 10/27/21 07:40 Dose: 81 mg Documented by: Atorvastatin Calcium (Atorvastatin 20 Mg Tab) 20 mg PO DAILY [facility] Stop: 11/21/21 18:15 Last Admin: 10/27/21 07:39 Dose: 20 mg Documented by: Duloxetine HCl (Duloxetine Hcl 60 Mg Cap) 60 mg PO HS [facility] Stop: 11/21/21 20:59 Last Admin: 10/26/21 20:22 Dose: 60 mg Documented by: Fexofenadine HCl (Fexofenadine 60 Mg Tab) 60 mg PO BID PRN PRN Reason: allergies Stop: 11/21/21 18:15 Fluticasone Propionate (Fluticasone Propionate Na Spr 16 Gm Btl) 2 sprays NA QAM ELLIE Stop: 11/22/21 08:59 Last Admin: 10/27/21 07:40 Dose: 2 sprays Documented by: Gabapentin (Gabapentin 300 Mg Cap) 600 mg PO TID ELLIE Stop: 11/21/21 20:59 Last Admin: 10/27/21 07:40 Dose: 600 mg Documented by: Guaifenesin (Guaifenesin 200 Mg Tab) 400 mg PO QID PRN PRN Reason: Congestion Stop: 11/21/21 18:40 Heparin Sodium/Dextrose (Heparin Sodium/Dextrose) 25,000 units in 500 mls @ 28 mls/hr IV .[id number] [facility]; Protocol Stop: 11/24/21 07:44 Last Admin: 10/27/21 09:49 Dose: Not Given Documented by: Ipratropium [place] (Ipratropium [place] Neb Soln 0.02% 2.5 Ml Vial) 0.5 mg INH Q6R PRN PRN Reason: Wheezing Stop: 11/23/21 14:59 Last Admin: 10/25/21 07:35 Dose: 0.5 mg Documented by: Levalbuterol HCl (Levalbuterol 1.25mg/0.5ml Neb) 1.25 mg INH Q6R PRN PRN Reason: Wheezing Stop: 11/23/21 14:59 Last Admin: 10/25/21 07:34 Dose: 1.25 mg Documented by: Magnesium Oxide (Magnesium Oxide 400 Mg Tab) 400 mg PO DAILY ELLIE Stop: 11/22/21 08:59 Last Admin: 10/27/21 08:49 Dose: 400 mg Documented by: Magnesium Oxide (Magnesium Oxide 400 Mg Tab) 400 mg PO QAM [facility] Stop: 11/26/21 08:59 Last Admin: 10/27/21 08:51 Dose: 400 mg Documented by: Melatonin (Melatonin 3 Mg Tab) 9 mg PO HSZ PRN PRN Reason: Sleep Stop: 11/21/21 18:38 Metoprolol Tartrate (Metoprolol Tartrate 50 Mg Tab) 50 mg PO BID [facility] Stop: 11/24/21 05:19 Last Admin: 10/27/21 07:39 Dose: 50 mg Documented by: Metoprolol Tartrate (Metoprolol Tartrate 1 Mg/Ml Vial) 5 mg IV Q4H PRN; Protocol PRN Reason: Tachycardia Stop: 11/24/21 12:50 Miconazole Nitrate (Miconazole Nitrate Powder 43 Gm) 1 appln EXT PRN PRN PRN Reason: Affected Skin Folds Stop: 11/21/21 21:58 Last Admin: 10/23/21 14:29 Dose: 1 appln Documented by: Polyethylene Glycol (Polyethylene (Miralax) 17 Gm Pack) 17 gm PO DAILY PRN PRN Reason: Constipation Stop: 11/21/21 16:19 Saccharomyces Boulardii (Saccharomyces Boulardii 250 Mg Cap) 250 mg PO BID [facility] Stop: 11/25/21 20:59 Last Admin: 10/27/21 07:40 Dose: 250 mg Documented by: Warfarin Sodium (Warfarin Sod 2.5 Mg Tab) 2.5 mg PO [id number]@1600 [facility] Stop: 11/23/21 15:59 Last Admin: 10/25/21 16:57 Dose: 2.5 mg Documented by: Warfarin Sodium (Warfarin Sod 1.25 Mg Tab) 1.25 mg PO Mo@1600 [facility] Stop: 11/22/21 15:59 Last Admin: 10/23/21 15:59 Dose: 1.25 mg Documented by: (1) Atrial fibrillation Atrial fibrillation type: unspecified Qualified Code(s): I48.91 - Unspecified atrial fibrillation
--- NOTE | 2021-10-27 15:58 | Discharge Summary ---
Date of Service October 27, 2021 Admission HPI Per Admitting Provider Patient is a 76-year-old female, with history of hypertension, hyperlipidemia, A. fib with RVR, osteoarthritis, RAYMUNDO on CPAP, morbid obesity, nephrolithiasis, anxiety, who presents after a fall. Patient has been progressively weaker over the past several days, and then had a fall in the bathroom earlier today. She reports right flank pain however has also pain in her joints, which seem to be chronic. Denies having fevers or chills. Denies any nausea or vomiting, abdominal pain. Denies any burning with urination. Reports having history of UTIs, however did not notice blood in the urine or burning with urination recently. Says previously was drinking cranberry juice on a regular basis, but then stopped due to taking Coumadin. Patient's daughter is present at the bedside. Patient reports history of nephrolithiasis, however previously did not need any procedure, and stones passed on their own. Patient was brought in by EMS. In the ED, she was found to be in A. fib with RVR, heart rate elevated at 140. Patient did not take her home medications, and after getting metoprolol, her heart rate improved. CT of the abdomen pelvis, consistent with right-sided hydroureteronephrosis secondary to 2 obstructing calculi. Urology was contacted. Patient seen after receiving metoprolol, at that time patient denies any chest pain. She also denies any shortness of breath however is currently on supplemen genaro oxygen, nasal cannula 2 to 3 L/min. At home patient does not use oxygen, however has history of RAYMUNDO and uses CPAP. In the ED, labs significant for leukocytosis with white blood cell count of 25.9 thousand, and elevated lactate at 2.6, creatinine also elevated at 2.8, and troponin at 157. Principal Diagnosis Right ureteral stone with hydronephrosis Proteus UTI Sepsis, present on admission Acute urinary retention Atrial fibrillation with RVR Multiple contusions, bruising, present on admission Small right knee effusion Discharge Exam Feels well. Breathing improved. Leg swelling improved. Remains in sinus rhythm. Discharge Data Allergies Allergy/AdvReac Type Severity Reaction Status Date / Time tetracycline Allergy Unknown Rash Verified 10/22/21 15:37 esomeprazole [From Nexium] AdvReac Intermediate EPISTAXIS Verified 10/22/21 15:37 adhesive AdvReac Unknown SKIN Verified 10/22/21 15:37 IRRITATION Consultations 10/22/21 15:13 ED Decision to Admit Stat 10/22/21 16:20 Consult Urology Routine 10/25/21 09:23 Consult Cardiology Routine 10/26/21 16:12 Consult Orthopedic Surgery Routine Procedures Performed Operation Date: 10/22/21 17:00 Actual Procedures p Cystoscopy, Retrograde Pyelgram, Right Ureteral Stent Insertion - Rocky Munoz MD Ordered Studies 10/22/21 FL KUB Routine 10/22/21 10:18 CT head/brain wo con Stat 10/22/21 10:20 CT cervical spine wo con Stat 10/22/21 13:22 CT abd pelvis wo con Stat 10/24/21 21:58 CT head/brain wo con Urgent Hospital Course (1) Hydronephrosis concurrent with and due to calculi of kidney and ureter: (2) Acute UTI: (3) GILBERTO (acute kidney injury): (4) Atrial fibrillation: Ms Leslie Lozano is a 76 year old female with history of paroxysmal A fib on coumadin, nephrolithiasis, RAYMUNDO and remaining PMHx per H&P presented to the ER on 10/22 for several days of weakness then subsequent fall in the bathroom. Upon arrival, she was found to have a right obstructing ureteral stone with hydronephrosis and sepsis. Hospital course by problem list as below. Sepsis, POA Obstructive uropathy Pt meets SIRS criteria for sepsis with elevated WBC at 25.9 K, and tachycardia HR 140, patient presented with A. fib with RVR -sepsis treated and resolved Right Obstructing ureteral stone with hydronephrosis Complicated proteus UTI -s/p right ureteral stent placement 10/22 -Urine culture positive for proteus. Patient was on ceftriaxone--> broadened to cefepime due to rapid A fib during hospital course but later switched to Augmentin once sensitivities were finalized. She will be discharged on 7 additional days of Augmentin (total 12 day course from her stent placement) -Patient will need to follow up with Urology for definitive stone management and stent removal -While here, she had a yeboah catheter placed to help with hydronephrosis. Attempt at void trial 10/25 was unsuccessful and yeboah catheter was replaced. Once she is more ambulatory, at [facility], would recommend void trial again in 2-3 days. GILBERTO -Due to post obstructive process -Cr back to baseline at time of discharge Paroxysmal A fib -Went into A fib with RVR several times while here. Each time, she spontaneously converted back to sinus rhythm -She was started on amiodarone drip then oral loading dose. -she remained in NSR for 24 hours prior to discharge -she was discharged on admiodaron 200mg TID x 3 days then 200mg BID x 7 days then 200mg daily -Coumadin resumed prior to discharge. INR 1.5. Recommend repeat INR at [facility] in 2 days Right knee pain and swelling -Complained of right knee pain and swelling after her fall -Right knee x ray shows prepatellar swelling -Swelling and pain improved with lasix -She was seen by Orthopedic surgery and recommended conservative management. She can follow up with her primary orthopedist PRN at discharge RAYMUNDO (on CPAP) - continued on CPAP at Morbid obesity -BMI over 50 -Lifestyle modification encouraged Anxiety - cont. home medications - cymbalta Total Time Total Time Spent Total Time Spent (In Minutes): 45 Discharge Plan Discharge Items Patient Disposition: Transfer Halfway Fac Reason For Visit: FALL, OBSTRUCTIVE UROPATHY Discharge Diagnosis: Right ureteral stone with hydronephrosis Proteus UTI Sepsis, present on admission Acute urinary retention Atrial fibrillation with RVR Multiple contusions, bruising, present on admission Small right knee effusion Condition on Discharge: Good Activity: Resume your previous activity Weightbearing: Full weightbearing Non-emergency contact: Primary Care Provider, Surgeon, Straddle Truck Operator and Urologist Call non-emergency contact if: you have any medication questions and you have a fever Follow-up/Referrals: Rocky Munoz MD [Physician] - Chicho Higuera DO [Straddle Truck Operator] - Terry Valenzuela MD [Primary Care Provider] - Diet: Heart Healthy Fluids: 1800ml (7 cups) Addtl Attending Provider Instructions: Atrial Fibrillation Coumadin dosing at discharge: 2.5mg daily except on Mondays it is 1.25mg INR is 1.5 today Repeat INR in 2 days. Goal INR is 2-3 Follow up with Cardiology in 3-4 weeks for A fib and amiodarone management Amiodarone loading dose at discharge: amiodarone 200mg TID x 3 days then amiodarone 200mg BID x 7 days then amiodarone 200mg daily until follow up with Cardiology Kidney Stone and UTI Follow up with Urology in 1 week to discuss stone and stent management Augmentin for another 7 days for UTI Remove yeboah catheter in 2 days for void trial Right knee pain Follow up with Orthopedic surgeon for right knee pain as needed Pending Studies at Discharge: No Stand-Alone Forms: My [facility] Skilled Items Patient informed of condition?: Yes DNR: No Discharge Level of Care: Skilled Communicable Disease: No Discharge Prognosis: Stable Lines: None Urinary Catheter: Yes Medications and DC Order Prescriptions: New amoxicillin-pot clavulanate 875-125 mg tablet 1 tab PO Q12H 7 Days Qty: 14 RF: 0 amiodarone 200 mg Tablet See Rx Instructions .ROUTE .COMPLEX 60 Days Qty: 90 RF: 0 Continued losartan 25 mg Tablet 25 mg PO HS RF: 0 multivitamin Tablet 1 tab PO QAM RF: 0 fexofenadine [Amelia Allergy] 60 mg Tablet 60 mg PO BID PRN (Reason: allergies) RF: 0 calcium carbonate 600 mg calcium (1,500 mg) Tablet 600 mg PO BID RF: 0 metoprolol tartrate 50 mg Tablet 50 mg PO BID RF: 0 gabapentin 300 mg Capsule 600 mg PO TID RF: 0 fluticasone propionate [Flonase Allergy Relief] 50 mcg/actuation Round O,Suspension 2 spray INTRANASAL QAM RF: 0 duloxetine [Cymbalta] 30 mg Capsule,Delayed Release(Dr/Ec) 60 mg PO HS RF: 0 melatonin 5 mg Tablet 10 mg PO HS RF: 0 cholecalciferol (vitamin D3) [Vitamin D3] 1,000 unit Capsule 1,000 unit PO QAM RF: 0 furosemide 40 mg tablet 40 mg PO QAM RF: 0 potassium chloride 10 mEq capsule, extended release 10 meq PO DAILY RF: 0 atorvastatin 20 mg tablet 20 mg PO DAILY RF: 0 Drysol Dab-O-Matic 20 % solution 1 applic TOPICAL HS RF: 0 aspirin 81 mg Tablet,Delayed Release (Dr/Ec) 81 mg PO DAILY RF: 0 triamcinolone acetonide 0.1 % cream 1 applic TOPICAL BID RF: 0 mupirocin 2 % ointment 1 applic TOPICAL BID RF: 0 guaifenesin [Mucus Relief] 400 mg Tablet 400 mg PO QID PRN (Reason: Congestion) RF: 0 diclofenac sodium 1 % gel 2 g TOPICAL QID RF: 0 Edusoft 1.5 billion cell Capsule 1 cap PO DAILY RF: 0 magnesium oxide 400 mg magnesium Capsule 400 mg PO DAILY RF: 0 vitamin A-vitamin C-vit E-min Tablet 1 tab PO DAILY RF: 0 hydrocodone-acetaminophen 5-325 mg Tablet 1 tab PO QID 5 Days Qty: 15 RF: 0 warfarin 2.5 mg Tablet 1.25 - 2.5 mg PO DAILY Qty: 30 RF: 0 Discharge Orders: Discharge Order (Routine); Ordered 10/27/21 Ordered By: Alisha Casey Admission Data Admit Date/Time: 10/22/21 16:20 Attending Provider: Alisha Casey Admit Provider: Jason Kaur Primary Care Provider: Terry Valenzuela Other Providers: [facility] ; Jason Kaur ; Rocky Munoz ; Chicho Higuera ; Dennis Myers Other Interventions: Discharge Summary Assessment (RN) Last Done: 10/27/21 14:11
== END 2021-10-27 15:21 | DRG 854 ==
LOC: ED 10:03 → SUATTDRO 16:20 → 2N 16:20 → OR 17:15 → 2N 17:16 → 2S 10-25 06:49

== ENCOUNTER 2022-02-14 13:56 | Inpatient (IN) ==
[2022-02-14] MEDS ORDERED: SODIUM CHLORIDE 0.9% 1000ML 1,000 ML IV SCH (14:15)
[2022-02-14] MEDS ORDERED: CEFEPIME 2,000 MG/20 ML VIAL IV STA (14:17)
[2022-02-14] MEDS ORDERED: DAPTOmycin 500 MG in SYRINGE 0 ML IV ONE (14:17)
[2022-02-14] MEDS ORDERED: SODIUM CHLORIDE 0.9% 1000ML 1,000 ML IV ONE (14:17)
--- NOTE | 2022-02-14 14:21 | Emergency Department Note ---
Impression & Plan Altered mental status, GILBERTO (acute kidney injury), Hypotension, Acute dehydration, Acute UTI ED Provider Note NAME: KRISTOFER SUÁREZ AGE: 76 SEX: F : 1945 ARRIVES VIA: Ambulance INFORMANT: [Patient][ems, nursing] ED PROVIDER(S): [Freddie Polanco MD] CHIEF COMPLAINT: Altered mental status HISTORY OF PRESENT ILLNESS: The patient is a 76-year-old female presents to the ER with a mental status change. The patient has a very complicated recent past history. She suffered a fall and a thoracic fracture which resulted in lower extremity paralysis. She has known renal stones and currently has a ureteral stent in place. She was diagnosed with a UTI a few days ago, she is currently on Cipro since the second, Macrobid since the fourth. The urine culture grew out Pseudomonas and a VRE. The patient does have A. fib, she is on Eliquis. The patient when asked how she feels just shrugs her shoulders. She does not appear to be a reliable historian. The history above was obtained from the records, EMS and the nursing staff. REVIEW OF SYSTEMS: Unobtainable given the mental state. PMHx/PSHx: See Below SOCIAL HISTORY: See Below. PHYSICAL EXAM: GENERAL: Patient is in no acute distress. HEENT: No acute trauma, normocephalic atraumatic, mucous membranes dry, no nasal congestion, no scleral icterus. NECK: No stridor, no adenopathy, no meningismus, trachea is midline. LUNGS: Clear bilaterally when listening anterior. No respiratory distress, no wheeze. HEART: Subtle systolic murmur, irregular rhythm, normal rate. ABDOMEN: Soft, nontender, bowel sounds positive, no peritonitis. Obese. EXTREMITIES: No cyanosis. Moderate bilateral pedal edema. Upper extremities have multiple contusions of different ages. NEUROLOGIC: Somnolent, no speech slur. Upper extremities appear to move equally. SKIN: No rash, no jaundice, no diaphoresis. DIFFERENTIAL DIAGNOSIS: Sepsis, UTI, pyelonephritis, COVID-19, pneumonia, metabolic abnormality, electrolyte abnormalities, cardiac sources, cellulitis, bacteremia, intracerebral event, toxicologic etiology, neurologic event, as well as other pathologies. EMERGENCY DEPARTMENT COURSE/PROCEDURES: ECG: Indication was confusion and weakness. The ECG shows atrial fibrillation with a rate of 100. There is some nonspecific ST change. There is no ST elevation, no PVCs. The QTC is 510. Continuous Cardiac Monitoring: An order was placed for continuous cardiac monitoring. The monitor shows a rate of 95 with atrial fibrillation. Critical Care Note: I have personally spent 54 minutes of critical care time in the direct management of this patient. This includes bedside care, interpretation of diagnostic studies, and testing, discussion with consultants, patient, and family members, and other required patient management activities. This 54 minutes is in excess of all separately billable procedures. MEDICAL DECISION MAKING: There is no leukocytosis. The patient is anemic but she carries a history of anemia. There is a normal platelet count. INR is 1.2, mildly elevated. Creatinine is high consistent with some acute kidney injury. Lactic acid level was not elevated making severe sepsis less likely. No concerning liver enzyme elevation. Procalcitonin level was not elevated. ECG shows atrial fibrillation, no acute ischemic change. Cardiac enzyme testing x1 is not consistent with acute cardiac injury. Urinalysis returns with results consisten t for infection. COVID, influenza and RSV test were negative. Chest film shows some effusion and consolidation on the right, this appears stable looking back at recent chest x-rays. Brain CT showed no acute bleed or mass-effect. Abdominal and pelvis CT showed the ureteral stent to be in position. No bowel obstruction, no acute surgical process by CT imaging. The patient had an IV placed--of note, the patient was a difficult IV stick. She received 2 L of IV saline for hydration. She was given IV daptomycin and IV cefepime. She received IV morphine for pain control. She was given IV Tylenol for pain. Given the patients BMI >30, IBW was used to calculate the 30ml/kg fluid bolus. Patient seems more interactive and awake since the fluid hydration. She did dr op her blood pressure for a while after receiving her pain medication. Her blood pressure had initially improved with the IV hydration. The patient is in need of a hospital stay. She has a resistant UTI, she has a ureteral stent in place. She presents dehydrated, in acute kidney injury and somnolent. Sepsis is certainly a concern. I spoke with the patient and case management. I spoke with the patient's daughter. The on-call hospitalist was consulted. Past Med/Surg History Medical History Anemia No known hx of blood transfusions Anxiety Atrial fibrillation Follows with Dr. Cox Cardiology risk stratification request note from surgeon/urology in [facility] routed to Dr. Cox* CAD (coronary artery disease) Chronic back pain CKD (chronic kidney disease) stage 3, GFR 30-59 ml/min Crohns disease Heart failure, unspecified Hx of cervical cancer s/p hysterectomy BSO Hx of deep venous thrombosis LLE (1960s), no definitive etiology, no issues since Hx of ovarian cancer s/p hysterectomy BSO Hyperlipidemia Hypertension Irritable bowel syndrome (IBS) Kidney stones Macular degeneration Morbid obesity with BMI of 45.0-49.9, adult On home oxygen therapy 2L O2 continuous Osteoarthritis Osteomyelitis Presentation to [facility] [place]/23/21 as a transfer from [facility] for traumatic fall with pathologic T7/8 fracture concerning for OM s/p bone biopsy (+) Proteus and discharged on 6 weeks of IV Ceftriaxone with end date of 01/23/2022. [facility] infectious disease (01/24/22): "Recommend no additional antibiotics at this time, pt antibiotic course was completed.. Follow up as needed." Peripheral neuropathy Sleep apnea CPAP Surgical History Difficult airway for intubation Difficult intubation 1975 ([facility]) "Needs small size/pediatric tube" History of cardiac cath 2014 x2 ([facility]) > no stents History of cataract surgery R/L History of cholecystectomy History of colonoscopy History of cystoscopy Cystoscopy, right stent (10/22/21): MAC at [facility]. No issues noted per post-op anesthesia progress note. 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 Required: No Beliefs That Will Affect Care: None marital status: / Current Living Situation: Personal Care Facility Current Living Situation Comment: [place] Feels Safe at Home: Yes Assistive Devices: CPAP, Glasses, Lift Chair, Mechanical Lift, Oxygen - Continuous and Wheelchair Allergies Allergies Allergy/AdvReac Type Severity Reaction Status Date / Time Latex, Natural Rubber Allergy Mild Skin Verified 02/14/22 17:30 irritation tetracycline Allergy Mild Rash Verified 02/14/22 17:30 NSAIDS (Non-Steroidal Allergy Unknown Unknown Verified 02/14/22 17:30 Anti-Inflamma esomeprazole [From Nexium] AdvReac Intermediate Epistaxis Verified 02/14/22 17:30 adhesive AdvReac Mild Skin Verified 02/14/22 17:30 irritation Home Meds Home Medications Medication Instructions Recorded Confirmed cholecalciferol (vitamin D3) 25 1,000 unit PO QAM 04/04/18 02/14/22 mcg (1,000 unit) capsule (Vitamin D3) duloxetine 30 mg capsule,delayed 60 mg PO 04/04/18 02/14/22 release (Cymbalta) fluticasone propionate 50 2 spray intranasal [facility] 04/04/18 02/14/22 mcg/actuation nasal spray,suspension (Flonase Allergy Relief) gabapentin 300 mg capsule 600 mg PO TID 04/04/18 02/14/22 metoprolol tartrate 50 mg tablet 50 mg PO BID 04/04/18 02/14/22 multivitamin 1 tab PO QAM 04/04/18 02/14/22 losartan 25 mg tablet 25 mg PO QA 09/14/20 02/14/22 Lactobacills gasseri-Bifidobac 1 cap PO QAM 10/22/21 02/14/22 bifidum,longum 1.5 billion cell capsule ([employer]) atorvastatin 20 mg tablet 20 mg PO HS 10/22/21 02/14/22 furosemide 40 mg tablet 40 mg PO QAM 10/22/21 02/14/22 magnesium oxide 400 mg PO QAM 10/22/21 02/14/22 acetaminophen 325 mg tablet 975 mg PO TID 02/01/22 02/14/22 albuterol sulfate 90 mcg/actuation 2 inh inhalation Q6H PRN sob 02/01/2204/28 aerosol inhaler amiodarone 200 mg tablet 200 mg PO QAM 02/01/22 02/14/22 carisoprodol 350 mg tablet 350 mg PO Q6H PRN muscle spasms 02/01/22 02/14/22 docusate sodium 100 mg tablet 100 mg PO BID 02/01/22 02/14/22 lidocaine 4 % topical patch 1 patch topical BID PRN rib pain 02/01/22 02/14/22 oxycodone 5 mg tablet 5 mg PO Q4H PRN Pain 02/01/22 02/14/22 vit with calcium-iron 1 tab PO QAM 02/01/22 02/14/22 fum-folic acid 27 mg-1 mg tablet sennosides 8.6 mg tablet (senna) 17.2 mg PO BID 02/01/22 02/14/22 tamsulosin 0.4 mg capsule (Flomax) 0.4 mg PO QAM 02/01/22 02/14/22 aluminum-mag hydroxide-simethicone 10 ml PO Q4 PRN Indigestion 02/14/22 02/14/22 400 mg-400 mg-40 mg/5 mL oral susp calcium carbonate 600 mg-vitamin 2 tab PO QAM 02/14/22 02/14/22 D3 5 mcg (200 unit) tablet (Calcium 600 + D(3)) nitrofurantoin 100 mg PO Q12 02/14/22 02/14/22 monohydrate/macrocrystals 100 mg capsule oxycodone 5 mg tablet 10 mg PO BID 02/14/22 02/14/22 Results & Data (ED) Vital Signs Vital Signs - 24 hr 02/14/22 13:49 02/14/22 16:34 02/14/22 16:34 Temperature 36.8 C Temperature Source Oral Pulse Rate 95 H Pulse Rate [Apical] 104 H Pulse Rhythm Regular Respiratory Rate 20 22 Respiratory Effort / Characteristics Non-Labored Respiratory Depth Normal Normal Blood Pressure 94/54 L Blood Pressure [Left Arm] 121/77 Blood Pressure Mean 67 Blood Pressure Mean [Left Arm] 91 Pulse Oximetry 95 95 Oxygen Delivery Method Room Air Room Air Sepsis Recent Fever Within 48 Hours No Sepsis New/Unexplained Change in Mental Status No Sepsis Action Taken by Nursing No Action Required Home Medications Current Medication List: was personally reviewed by me Laboratory Data Attestation: I reviewed the patient's lab results. Result diagrams: 02/14/22 15:03 02/14/22 15:03 Lab Results 02/14/22 02/14/22 02/14/22 Range/Units 15:03 15:03 15:03 WBC 8.85 (4.8-10.8) K/ul RBC 3.63 L (3.93-5.22) M/uL Hgb 10.0 L (12.0-16.0) g/dl Hct 32.3 L (34.1-44.9) % MCV 89.0 (80.0-100.0) fL MCH 27.5 (25.0-34.0) pg MCHC 31.0 L (32.0-36.0) g/dL RDW Std Deviation 49.7 H (36.4-46.3) fL RDW Coeff of Massiel 15.2 H (11.5-14.5) % Plt Count 389 (130-400) K/uL MPV 8.3 L (9.4-12.3) fL Immature Gran % (Auto) 1.9 % Neut % (Auto) 61.3 % Lymph % (Auto) 20.2 % [place] % (Auto) 13.0 % Eos % (Auto) 3.1 % Baso % (Auto) 0.5 % Neut # (Auto) 5.43 (1.4-6.5) K/uL Lymph # (Auto) 1.79 (1.2-3.4) K/uL [place] # (Auto) 1.15 H (0.24-0.82) K/uL Eos # (Auto) 0.27 (0-0.50) K/uL Baso # (Auto) 0.04 (0-0.2) K/uL Immature Gran # (Auto) 0.17 H (0.00-0.02) K/uL PT 12.3 H (9.0-12.0) Seconds INR 1.2 H (0.9-1.1) APTT 27.0 (21.0-31.0) Seconds PTT Ratio 1.0 Sodium (136-145) mmol/L Potassium (3.5-5.1) mmol/L Chloride (98-107) mmol/L Carbon Dioxide (21-32) mmol/L Anion Gap (3-11) BUN (6-23) mg/dl Creatinine (0.6-1.2) mg/dl Est Cr Clr Drug Dosing ml/min Est GFR ( Amer) ml/min Est GFR (Non-Af Amer) ml/min BUN/Creatinine Ratio (10-20) Glucose (70-99(Fasting)) mg/dl Lactate (0.4-2.0) mmol/L Calcium (8.5-10.1) mg/dl Magnesium (1.7-2.4) mg/dl Total Bilirubin (0.2-1.0) mg/dl AST (13-39) U/L ALT (7-52) U/L Alkaline Phosphatase (34-104) U/L Troponin I High Sens (0-14) pg/ml Total Protein (6.0-8.3) gm/dl Albumin (3.4-5.0) gm/dl Globulin (2.5-4.0) gm/dl Albumin/Globulin Ratio (0.9-2) Procalcitonin 0.32 (0-0.5) ng/ml Urine Color Urine Appearance (Clear) Urine pH (4.5-7.5) Ur Specific Cameron (1.000-1.030) Urine Protein (Negative) Urine Glucose (UA) (Negative) Urine Ketones (Negative) Urine Blood (Negative) Urine Nitrite (Negative) Urine Bilirubin (Negative) Urine Urobilinogen (Negative) Ur Leukocyte Esterase (Negative) Urine WBC (Auto) (0-5) /hpf Urine RBC (Auto) (0-4) /hpf U Hyaline Cast (Auto) (0-5) /lpf U Epithel Cells (Auto) (0-5) /lpf Urine Bacteria (Auto) (Negative) Urine Yeast SARS-CoV-2 (PCR) (Negative) Influenza Type A (PCR) (Neg) Influenza Type B (PCR) (Neg) RSV (RT-PCR) (Neg) 02/14/22 02/14/22 02/14/22 Range/Units 15:03 15:03 16:05 WBC (4.8-10.8) K/ul RBC (3.93-5.22) M/uL Hgb (12.0-16.0) g/dl Hct (34.1-44.9) % MCV (80.0-100.0) fL MCH (25.0-34.0) pg MCHC (32.0-36.0) g/dL RDW Std Deviation (36.4-46.3) fL RDW Coeff of Massiel (11.5-14.5) % Plt Count (130-400) K/uL MPV (9.4-12.3) fL Immature Gran % (Auto) % Neut % (Auto) % Lymph % (Auto) % [place] % (Auto) % Eos % (Auto) % Baso % (Auto) % Neut # (Auto) (1.4-6.5) K/uL Lymph # (Auto) (1.2-3.4) K/uL [place] # (Auto) (0.24-0.82) K/uL Eos # (Auto) (0-0.50) K/uL Baso # (Auto) (0-0.2) K/uL Immature Gran # (Auto) (0.00-0.02) K/uL PT (9.0-12.0) Seconds INR (0.9-1.1) APTT (21.0-31.0) Seconds PTT Ratio Sodium 138 (136-145) mmol/L Potassium 3.5 (3.5-5.1) mmol/L Chloride 102 (98-107) mmol/L Carbon Dioxide 33 H (21-32) mmol/L Anion Gap 3 (3-11) BUN 58 H (6-23) mg/dl Creatinine 1.79 H D (0.6-1.2) mg/dl Est Cr Clr Drug Dosing 36.1 ml/min Est GFR ( Amer) 30.9 ml/min Est GFR (Non-Af Amer) 26.7 ml/min BUN/Creatinine Ratio 32.4 H (10-20) Glucose 115 H (70-99(Fasting)) mg/dl Lactate 1.2 (0.4-2.0) mmol/L Calcium 9.1 (8.5-10.1) mg/dl Magnesium 2.4 (1.7-2.4) mg/dl Total Bilirubin 0.2 (0.2-1.0) mg/dl AST 22 (13-39) U/L ALT 26 (7-52) U/L Alkaline Phosphatase 51 (34-104) U/L Troponin I High Sens 8.0 (0-14) pg/ml Total Protein 5.5 L (6.0-8.3) gm/dl Albumin 2.5 L (3.4-5.0) gm/dl Globulin 3.0 (2.5-4.0) gm/dl Albumin/Globulin Ratio 0.8 L (0.9-2) Procalcitonin (0-0.5) ng/ml Urine Color Urine Appearance (Clear) Urine pH (4.5-7.5) Ur Specific [place] (1.000-1.030) Urine Protein (Negative) Urine Glucose (UA) (Negative) Urine Ketones (Negative) Urine Blood (Negative) Urine Nitrite (Negative) Urine Bilirubin (Negative) Urine Urobilinogen (Negative) Ur Leukocyte Esterase (Negative) Urine WBC (Auto) (0-5) /hpf Urine RBC (Auto) (0-4) /hpf U Hyaline Cast (Auto) (0-5) /lpf U Epithel Cells (Auto) (0-5) /lpf Urine Bacteria (Auto) (Negative) Urine Yeast SARS-CoV-2 (PCR) NEGATIVE (Negative) Influenza Type A (PCR) Negative (Neg) Influenza Type B (PCR) Negative (Neg) RSV (RT-PCR) Negative (Neg) 02/14/22 Range/Units 17:02 WBC (4.8-10.8) K/ul RBC (3.93-5.22) M/uL Hgb (12.0-16.0) g/dl Hct (34.1-44.9) % MCV (80.0-100.0) fL MCH (25.0-34.0) pg MCHC (32.0-36.0) g/dL RDW Std Deviation (36.4-46.3) fL RDW Coeff of Massiel (11.5-14.5) % Plt Count (130-400) K/uL MPV (9.4-12.3) fL Immature Gran % (Auto) % Neut % (Auto) % Lymph % (Auto) % [place] % (Auto) % Eos % (Auto) % Baso % (Auto) % Neut # (Auto) (1.4-6.5) K/uL Lymph # (Auto) (1.2-3.4) K/uL [place] # (Auto) (0.24-0.82) K/uL Eos # (Auto) (0-0.50) K/uL Baso # (Auto) (0-0.2) K/uL Immature Gran # (Auto) (0.00-0.02) K/uL PT (9.0-12.0) Seconds INR (0.9-1.1) APTT (21.0-31.0) Seconds PTT Ratio Sodium (136-145) mmol/L Potassium (3.5-5.1) mmol/L Chloride (98-107) mmol/L Carbon Dioxide (21-32) mmol/L Anion Gap (3-11) BUN (6-23) mg/dl Creatinine (0.6-1.2) mg/dl Est Cr Clr Drug Dosing ml/min Est GFR ( Amer) ml/min Est GFR (Non-Af Amer) ml/min BUN/Creatinine Ratio (10-20) Glucose (70-99(Fasting)) mg/dl Lactate (0.4-2.0) mmol/L Calcium (8.5-10.1) mg/dl Magnesium (1.7-2.4) mg/dl Total Bilirubin (0.2-1.0) mg/dl AST (13-39) U/L ALT (7-52) U/L Alkaline Phosphatase (34-104) U/L Troponin I High Sens (0-14) pg/ml Total Protein (6.0-8.3) gm/dl Albumin (3.4-5.0) gm/dl Globulin (2.5-4.0) gm/dl Albumin/Globulin Ratio (0.9-2) Procalcitonin (0-0.5) ng/ml Urine Color Yellow Urine Appearance Turbid A (Clear) Urine pH 5.5 (4.5-7.5) Ur Specific [place] 1.015 (1.000-1.030) Urine Protein 1+ H (Negative) Urine Glucose (UA) Negative (Negative) Urine Ketones Negative (Negative) Urine Blood 3+ H (Negative) Urine Nitrite Negative (Negative) Urine Bilirubin Negative (Negative) Urine Urobilinogen Negative (Negative) Ur Leukocyte Esterase 3+ H (Negative) Urine WBC (Auto) >30 H (0-5) /hpf Urine RBC (Auto) 10-30 H (0-4) /hpf U Hyaline Cast (Auto) 1-5 (0-5) /lpf U Epithel Cells (Auto) >30 H (0-5) /lpf Urine Bacteria (Auto) 2+ H (Negative) Urine Yeast Not Reportable SARS-CoV-2 (PCR) (Negative) Influenza Type A (PCR) (Neg) Influenza Type B (PCR) (Neg) RSV (RT-PCR) (Neg) Administered Medications Morphine Sulfate (Morphine Sulfate 2 Mg/Ml Carp) 2 mg IV Q30M PRN PRN Reason: Pain Stop: 02/28/22 16:14 Last Admin: 02/14/22 16:40 Dose: 2 mg Documented By: RC Discontinued Medications Acetaminophen (Acetaminophen 1000 Mg/100 Ml Iv) 1,000 mg IV NOW STA Stop: 02/14/22 16:16 Last Admin: 02/14/22 16:40 Dose: 1,000 mg Documented By: LAI Cefepime HCl (Cefepime 2,000 Mg/20 Ml Vial) Confirm Administered Dose 2,000 mg .ROUTE .STK-MED ONE Stop: 02/14/22 16:39 Last Admin: 02/14/22 17:07 Dose: Not Given Documented By: AP Sodium Chloride (Nss 1000ml) 1,000 mls @ 999 mls/hr IV .Q1H1M ELLIE Stop: 02/14/22 15:15 Last Infusion: 02/14/22 18:02 Dose: 0 mls/hr Documented By: Admin: 02/14/22 17:00 Dose: 999 mls/hr Documented By: AP Cefepime HCl (Maxipime) 2,000 mg in 20 mls @ 5 mls/min IV NOW STA; Protocol Stop: 02/14/22 14:20 Last Admin: 02/14/22 16:40 Dose: 5 mls/min Documented By: LAI Daptomycin 500 mg/ Syringe 10 mls @ 5 mls/min IV ONE ONE; Protocol Stop: 02/14/22 14:18 Last Admin: 02/14/22 19:00 Dose: 5 mls/min Documented By: AP Sodium Chloride (Nss 1000ml) 1,000 mls @ 999 mls/hr IV .Q1H1M ONE Stop: 02/14/22 15:17 Last Infusion: 02/14/22 17:06 Dose: 0 mls/hr Documented By: Admin: 02/14/22 16:00 Dose: 999 mls/hr Documented By: Imaging Data Radiologist's Impression: Abdomen/Pelvis CT 02/14/22 14:[address] WITHOUT CONTRAST CT DOSE: 3093.09 mGy.cm HISTORY: Acute generalized abdominal pain with a right ureteral stent stents, infection, poss obstruction TECHNIQUE: Multiaxial CT images of the abdomen and pelvis were performed without contrast. A dose lowering technique was utilized adhering to the principles of ALARA. COMPARISON STUDY: CT chest, abdomen and pelvis 11/23/2021. FINDINGS: Trace left and small right pleural effusions. Dense airspace consolidation of the right lung base with air bronchograms. Subsegmental left basilar atelectasis. Limited study secondary to patient body habitus, positioning, respiratory motion artifact and lack of contrast. Cardiomegaly. The unenhanced spleen, pancreas and adrenal glands are unremarkable. The gallbladder appears surgically absent. The liver is enlarged. Nonspecific bilateral perinephric stranding. Nonobstructing conglomerate calculus the posterior interpolar right kidney measures 2 cm. There is mild right-sided hydroureteronephrosis with a right ureteral stent in place. There are numerous tiny stone fragments noted along the distal portion of the stent measuring up to 3 mm. Mild nonspecific urinary bladder wall thickening with pelvic floor relaxation. Hysterectomy. Indeterminate intermediate density lesion of the superior pole right kidney measures 10 mm. Atherosclerosis of the aorta without aneurysm. There is no lymphadenopathy identified. Hyperdense material is noted within the distal esophagus and stomach. No bowel obstruction. Nonspecific trace free fluid within the dependent pelvis. Mild colonic diverticulosis. There is wall thickening of the ascending and transverse colon with partial distention. Normal appendix. Straightening of the anterior abdominal wall suggestive of additional injection sites. Indeterminate 6 mm omental nodule within the abdomen on image 194 is unchanged. Degenerative changes of the spine, pelvis and hips. Healing subacute nondisplaced right-sided rib fractures. Decreased paravertebral edema of the mid to lower thoracic spine. Subacute T7 fracture with progressive bony destruction. There is progressive superior endplate compression of the T8 vertebral body with endplate irregularity noted at T6, T7 and T8. IMPRESSION: 1. Mild right-sided hydroureteronephrosis with satisfactory positioning of the right ureteral stent. There are several persistent small calculi of the distal right ureter measuring up to 3 mm. 2. Right nephrolithiasis. 3. No bowel obstruction or bowel wall thickening. 4. Subacute T7 burst fracture with progressive bony destruction and persistent paravertebral edema. Additionally, there is progressive superior endplate compression of the T8 vertebral body with endplate irregularity noted at T6, T7 and T8. These findings may be posttraumatic, however follow-up is recommended to exclude acute discitis/osteomyelitis. 5. Small right pleural effusion with right basilar consolidation suggestive of atelectasis or pneumonia. ACT 112: Negative or not required by law. The above report was generated using voice recognition software. It may contain grammatical, syntax or spelling errors. Electronically signed by: Andrey Bates M.D. 02/14/2022 3:[address] 02/14/22 14:11 CT head/brain wo con CLINICAL HISTORY: confusion COMPARISON STUDY: 10/24/2021 CT DOSE: TECHNIQUE: Standard CT of the Brain was performed without IV contrast. A dose lowering technique was utilized adhering to the principles of ALARA. FINDINGS: Extraaxial space: There is no evidence for subdural hematoma. There are no extra-axial fluid collections. Ventricles and cisterns: The ventricles are again mildly dilated bilaterally. There is no evidence for midline shift or mass effect. Parenchyma: There is no subarachnoid or intraparenchymal hemorrhage. There is no evidence for an acute infarct or cerebral edema. There is mild cerebral cortical atrophy and decreased attenuation in the periventricular white matter representing remote small vessel disease. There are no gross mass lesions. Osseous structures: There is no evidence for an acute fracture. The visualized paranasal sinuses are clear. The mastoid air cells are clear bilaterally. Soft tissues: There is no evidence for focal soft tissue swelling. IMPRESSION: 1. No acute intracerebral pathology. 2. Mild cerebral cortical atrophy and remote small vessel disease. ACT 112: Negative or not required by law. Electronically signed by: Shane Valerio M.D. 02/14/2022 3:36 PM Chest X-Ray 02/14/22 14:12 XR chest 1V portable HISTORY: 76 years-old Female SEPSIS acute sepsis COMPARISON: Chest radiograph 02/06/2022, chest CT 11/23/2021 TECHNIQUE: Portable AP view of the chest FINDINGS: The cardiac silhouette is enlarged. Small pleural effusions with bibasilar opac ities are redemonstrated. Prominent epicardial fat pad resulting in a right lung base opacity redemonstrated along with right hemidiaphragmatic elevation. Pulmonary vascular congestion. Degenerative changes of the shoulders and spine. Healed chronic right-sided rib fractures. T8 burst fracture is redemonstrated and better seen on the comparison CT exams. Questioned endplate lucency at T7- T8. IMPRESSION: 1. Cardiomegaly with pulmonary vascular congestion. 2. Small pleural effusions with bibasilar opacities suggestive of atelectasis versus pneumonitis. 3. T8 burst fracture redemonstrated. ACT 112: Negative or not required by law. The above report was generated using voice recognition software. It may contain grammatical, syntax or spelling errors. Electronically signed by: Andrey Bates M.D. 02/14/2022 3:23 PM Discharge Plan Visit Data Chief Complaint: Altered Mental Status Stated Complaint: AMS, ED Provider: Freddie Polanco Discharge Problem: Altered mental status, GILBERTO (acute kidney injury), Hypotension, Acute dehydration, Acute UTI Patient Disposition: Admitted As Inpatient Condition: Serious
[2022-02-14 15:22] LABS: Basophils # (auto) 0.04 K/uL (0-0.2); Basophils % (auto) 0.5 %; Eosinophils # (auto) 0.27 K/uL (0-0.50); Eosinophils % (auto) 3.1 %; Hematocrit (blood only) 32.3 % (34.1-44.9); Immature Granulocytes # (auto) 0.17 K/uL (0.00-0.02); Immature Granulocytes % (auto) 1.9 %; Lymphocytes # (auto) 1.79 K/uL (1.2-3.4); Lymphocytes % (auto) 20.2 %; Mean Corpuscular Hemoglobin 27.5 pg (25.0-34.0); Mean Platelet Volume 8.3 fL (9.4-12.3); Monocytes # (auto) 1.15 K/uL (0.24-0.82); Neutrophils # (auto) 5.43 K/uL (1.4-6.5); Neutrophils % (auto) 61.3 %; Platelet Count 389 K/uL (130-400); RDW Coefficient of Variation 15.2 % (11.5-14.5); RDW Standard Deviation 49.7 fL (36.4-46.3); Red Blood Count 3.63 M/uL (3.93-5.22); White Blood Count 8.85 K/ul (4.8-10.8)
--- NOTE | 2022-02-14 15:26 | XRay Report ---
XR chest 1V portable HISTORY: 76 years-old Female SEPSIS acute sepsis COMPARISON: Chest radiograph 02/06/2022, chest CT 11/23/2021 TECHNIQUE: Portable AP view of the chest FINDINGS: The cardiac silhouette is enlarged. Small pleural effusions with bibasilar opacities are redemonstrat ed. Prominent epicardial fat pad resulting in a right lung base opacity redemonstrated along with rig ht hemidiaphragmatic elevation. Pulmonary vascular congestion. Degenerative changes of the shoulders and spine. Healed chronic right-sided rib fractures. T8 burst fracture is redemonstrated and better s een on the comparison CT exams. Questioned endplate lucency at T7-T8. IMPRESSION: 1. Cardiomegaly with pulmonary vascular congestion. 2. Small pleural effusions with bibasilar opacities suggestive of atelectasis versus pneumonitis. 3. T8 burst fracture redemonstrated. ACT 112: Negative or not required by law. The above report was generated using voice recognition software. It may contain grammatical, syntax o r spelling errors. Electronically signed by: Andrey Bates M.D. 02/14/2022 3:23 PM
--- NOTE | 2022-02-14 15:37 | CT Scan Report ---
CT head/brain wo con CLINICAL HISTORY: confusion COMPARISON STUDY: 10/24/2021 CT DOSE: TECHNIQUE: Standard CT of the Brain was performed without IV contrast. A dose lowering technique was utilized adhering to the principles of ALARA. FINDINGS: Extraaxial space: There is no evidence for subdural hematoma. There are no extra-axial fluid collecti ons. Ventricles and cisterns: The ventricles are again mildly dilated bilaterally. There is no evidence fo r midline shift or mass effect. Parenchyma: There is no subarachnoid or intraparenchymal hemorrhage. There is no evidence for an acut e infarct or cerebral edema. There is mild cerebral cortical atrophy and decreased attenuation in the periventricular white matter representing remote small vessel disease. There are no gross mass lesio ns. Osseous structures: There is no evidence for an acute fracture. The visualized paranasal sinuses are clear. The mastoid air cells are clear bilaterally. Soft tissues: There is no evidence for focal soft tissue swelling. IMPRESSION: 1. No acute intracerebral pathology. 2. Mild cerebral cortical atrophy and remote small vessel disease. ACT 112: Negative or not required by law. Electronically signed by: Shane Valerio M.D. 02/14/2022 3:36 PM
[2022-02-14 15:39] LABS: INR 1.2 (0.9-1.1); Prothrombin Time 12.3 Seconds (9.0-12.0)
--- NOTE | 2022-02-14 15:48 | CT Scan Report ---
ABDOMEN AND PELVIS CT WITHOUT CONTRAST CT DOSE: 3093.09 mGy.cm HISTORY: Acute generalized abdominal pain with a right ureteral stent stents, infection, poss obstru ction TECHNIQUE: Multiaxial CT images of the abdomen and pelvis were performed without contrast. A dose lo wering technique was utilized adhering to the principles of ALARA. COMPARISON STUDY: CT chest, abdomen and pelvis 11/23/2021. FINDINGS: Trace left and small right pleural effusions. Dense airspace consolidation of the right phyllis g base with air bronchograms. Subsegmental left basilar atelectasis. Limited study secondary to patie nt body habitus, positioning, respiratory motion artifact and lack of contrast. Cardiomegaly. The unenhanced spleen, pancreas and adrenal glands are unremarkable. The gallbladder appears surgical ly absent. The liver is enlarged. Nonspecific bilateral perinephric stranding. Nonobstructing conglom erate calculus the posterior interpolar right kidney measures 2 cm. There is mild right-sided hydrour eteronephrosis with a right ureteral stent in place. There are numerous tiny stone fragments noted al jeannine the distal portion of the stent measuring up to 3 mm. Mild nonspecific urinary bladder wall thick ening with pelvic floor relaxation. Hysterectomy. Indeterminate intermediate density lesion of the osborn perior pole right kidney measures 10 mm. Atherosclerosis of the aorta without aneurysm. There is no l ymphadenopathy identified. Hyperdense material is noted within the distal esophagus and stomach. No bowel obstruction. Nonspecif ic trace free fluid within the dependent pelvis. Mild colonic diverticulosis. There is wall thickenin g of the ascending and transverse colon with partial distention. Normal appendix. Straightening of th e anterior abdominal wall suggestive of additional injection sites. Indeterminate 6 mm omental nodule within the abdomen on image 194 is unchanged. Degenerative changes of the spine, pelvis and hips. He aling subacute nondisplaced right-sided rib fractures. Decreased paravertebral edema of the mid to lo wer thoracic spine. Subacute T7 fracture with progressive bony destruction. There is progressive supe rior endplate compression of the T8 vertebral body with endplate irregularity noted at T6, T7 and T8. IMPRESSION: 1. Mild right-sided hydroureteronephrosis with satisfactory positioning of the right ureteral stent. There are several persistent small calculi of the distal right ureter measuring up to 3 mm. 2. Right nephrolithiasis. 3. No bowel obstruction or bowel wall thickening. 4. Subacute T7 burst fracture with progressive bony destruction and persistent paravertebral edema. A dditionally, there is progressive superior endplate compression of the T8 vertebral body with endplat e irregularity noted at T6, T7 and T8. These findings may be posttraumatic, however follow-up is tamiko mmended to exclude acute discitis/osteomyelitis. 5. Small right pleural effusion with right basilar consolidation suggestive of atelectasis or pneumon ia. ACT 112: Negative or not required by law. The above report was generated using voice recognition software. It may contain grammatical, syntax o r spelling errors. Electronically signed by: Andrey Bates M.D. 02/14/2022 3:47 PM
[2022-02-14 15:52] LABS: Albumin Globulin Ratio 0.8 (0.9-2); Albumin Level 2.5 gm/dl (3.4-5.0); BUN Creatinine Ratio 32.4 (10-20); Bilirubin,Total 0.2 mg/dl (0.2-1.0); Calcium 9.1 mg/dl (8.5-10.1); Creatinine Clr Calc Pharmacy 36.1 ml/min; Est GFR (African American) 30.9 ml/min; Est GFR (Non-African American) 26.7 ml/min; Magnesium 2.4 mg/dl (1.7-2.4); Potassium 3.5 mmol/L (3.5-5.1); Total Protein 5.5 gm/dl (6.0-8.3)
[2022-02-14] MEDS ORDERED: ACETAMINOPHEN 1000 MG/100 ML IV IV STA (16:15)
[2022-02-14] MEDS ORDERED: MoRPHine SULFATE 2 MG/ML CARP IV PRN (16:15)
[2022-02-14] MEDS ORDERED: CEFEPIME 2,000 MG/20 ML VIAL ONE (16:38)
--- NOTE | 2022-02-14 16:38 | History & Physical Report ---
Date of Service February 14, 2022 Assessment & Plan (1) UTI (urinary tract infection): Plan: Patient is COVID UTI, currently positive for Pseudomonas and VRE. Ureteral stent in place Will admit to general medical bed Agree with cefepime and Cubicin as recommended by pharmacy Will wait for repeat culture results, collected today and emergency room Will consult urology for further recommendations considering patient's low relationship and current stent (2) Back pain: Plan: Chronic in the patient, may be were secondary to UTI Will restart patient's p.o. oxycodone. Will also add low-dose IV oxycodone for breakthrough pain (3) GILBERTO (acute kidney injury): Plan: Secondary to UTI with stent as above. Gentle IV hydration, continue to monitor renal function (4) HTN (hypertension): Plan: Continue metoprolol I will hold losartan and furosemide while patient has acute renal dysfunction (5) HLD (hyperlipidemia): Plan: Continue atorvastatin 20 mg nightly (6) Atrial fibrillation with RVR: Plan: Patient is anticoagulated with Eliquis we will continue Continue amiodarone History of Present Illness Chief Complaint: Change in mental status Primary Care Provider: [facility] This is a 76-year-old female with complicated past medical history including repeated kidney stones with ureteral stent, PAF on Eliquis, and chronic back pain secondary to previous burst fracture of T8 that presents today with worsening change in mental status. Patient is unable provide much history but the patient's daughter is at bedside. Daughter tells me that the patient has a stent from a previous infected kidney stone. She is following with urology. She did have an appointment in the near future to have the stent removed but approximately 1 week ago the patient started having some mild mental status changes. She became more lethargic and confused which is not her typical baseline. She was also diagnosed with a UTI and was started on oral ciprofloxacin on 02/06, this was changed over to Macrobid on 02/08. Cultures have returned Pseudomonas and VRE. The patient was sent from [facility] for more definitive treatment. The time my evaluation, the patient was awake but extremely comfortable. She was complaining of back pain, which is chronic for her. She is typically on oxycodone but has not received any dosing today which may explain her worsening pain. Vital signs are stable although she was somewhat tacky, likely secondary to distress from pain. ER physician apparently discussed with patient and daughter, patient is a full code. Allergies Allergy/AdvReac Type Severity Reaction Status Date / Time Latex, Natural Rubber Allergy Mild Skin Verified 02/05/22 11:40 irritation tetracycline Allergy Mild Rash Verified 02/01/22 09:27 NSAIDS (Non-Steroidal Allergy Unknown Unknown Verified 02/01/22 09:27 Anti-Inflamma esomeprazole [From Nexium] AdvReac Intermediate Epistaxis Verified 02/05/22 11:40 adhesive AdvReac Mild Skin Verified 02/05/22 11:40 irritation Home Medications Medication Instructions Recorded Confirmed Type calcium carbonate 600 mg calcium 600 mg PO BID 04/04/18 02/01/22 History (1,500 mg) tablet cholecalciferol (vitamin D3) 25 1,000 unit PO QAM 04/04/18 02/01/22 History mcg (1,000 unit) capsule (Vitamin D3) duloxetine 30 mg capsule,delayed 60 mg PO HS 04/04/18 02/01/22 History release (Cymbalta) fexofenadine 60 mg tablet (Amelia 60 mg PO BID PRN allergies 04/04/18 02/01/22 History Allergy) fluticasone propionate 50 2 spray intranasal QAM 04/04/18 02/01/22 History mcg/actuation nasal spray,suspension (Flonase Allergy Relief) gabapentin 300 mg capsule 600 mg PO TID 04/04/18 02/01/22 History melatonin 5 mg tablet 10 mg PO HS 04/04/18 02/01/22 History metoprolol tartrate 50 mg tablet 50 mg PO BID 04/04/18 02/01/22 History multivitamin 1 tab PO QAM 04/04/18 02/01/22 History losartan 25 mg tablet 25 mg PO QAM 09/14/20 02/01/22 History Lactobacills gasseri-Bifidobac 1 cap PO QAM 10/22/21 02/01/22 History bifidum,longum 1.5 billion cell capsule (Fitbit) aspirin 81 mg tablet,delayed 81 mg PO QAM 10/22/21 02/01/22 History release atorvastatin 20 mg tablet 20 mg PO HS 10/22/21 02/01/22 History diclofenac sodium 1 % topical gel 2 g topical QID PRN Pain 10/22/21 02/01/22 History furosemide 40 mg tablet 40 mg PO QAM 10/22/21 02/01/22 History magnesium oxide 400 mg PO QAM 10/22/21 02/01/22 History triamcinolone acetonide 0.1 % 1 applic topical BID 10/22/21 02/01/22 History topical cream acetaminophen 325 mg tablet 975 mg PO TID 02/01/22 02/01/22 History albuterol sulfate 90 mcg/actuation 2 inh inhalation Q6H PRN sob 02/01/22 02/01/22 History aerosol inhaler amiodarone 200 mg tablet 200 mg PO QAM 02/01/22 02/01/22 History apixaban 5 mg tablet (Eliquis) 5 mg PO BID 02/01/22 02/01/22 History carisoprodol 350 mg tablet 350 mg PO Q6H PRN muscle spasms 02/01/22 02/01/22 History docusate sodium 100 mg tablet 100 mg PO BID 02/01/22 02/01/22 History lidocaine 4 % topical patch 1 patch topical BID PRN rib pain 02/01/22 02/01/22 History oxycodone 5 mg tablet 5 - 10 mg PO Q4H PRN Pain 02/01/22 02/01/22 History vit with calcium-iron 1 tab PO QAM 02/01/22 02/01/22 History fum-folic acid 27 mg-1 mg tablet sennosides 8.6 mg tablet (senna) 8.6 mg PO BID 02/01/22 02/01/22 History tamsulosin 0.4 mg capsule (Flomax) 0.4 mg PO QAM 02/01/22 02/01/22 History Past Med/Surg History Medical History Anemia No known hx of blood transfusions Anxiety Atrial fibrillation Follows with Dr. Cox Cardiology risk stratification request note from surgeon/urology in [facility] routed to Dr. Cox* CAD (coronary artery disease) Chronic back pain CKD (chronic kidney disease) stage 3, GFR 30-59 ml/min Crohns disease Heart failure, unspecified Hx of cervical cancer s/p hysterectomy BSO Hx of deep venous thrombosis LLE (1960s), no definitive etiology, no issues since Hx of ovarian cancer s/p hysterectomy BSO Hyperlipidemia Hypertension Irritable bowel syndrome (IBS) Kidney stones Macular degeneration Morbid obesity with BMI of 45.0-49.9, adult On home oxygen therapy 2L O2 continuous Osteoarthritis Osteomyelitis Presentation to [facility] 11/23/21 as a transfer from [facility] for traumatic fall with pathologic T7/8 fracture concerning for OM s/p bone biopsy (+) Proteus and discharged on 6 weeks of IV Ceftriaxone with end date of 01/23/2022. [facility] infectious disease (01/24/22): "Recommend no additional antibiotics at this time, pt antibiotic course was completed.. Follow up as needed." Peripheral neuropathy Sleep apnea CPAP Surgical History Difficult airway for intubation Difficult intubation 1975 ([facility]) "Needs small size/pediatric tube" History of cardiac cath 2014 x2 ([facility]) > no stents History of cataract surgery R/L History of cholecystectomy History of colonoscopy History of cystoscopy Cystoscopy, right stent (10/22/21): MAC at [facility]. No issues noted per post-op anesthesia progress note. History of dilatation and curettage History of hysterectomy BSO History of surgical removal of skin lesion Fatty tumor History of tonsillectomy History of tooth extraction History of total knee replacement Right Hx of hemorrhoidectomy Family History Father Family hx of colon cancer Daughter FHx: breast cancer FHx: ovarian cancer Other No family history of adverse response to anesthesia Social History Smoking Status: Never smoker Second Hand Exposure: No; Hx Alcohol Use: No Hx Substance Use: No Preferred Language: Faroese Communication Ability: Effective Visual Merchandising Specialist Required: No Beliefs That Will Affect Care: None marital status: / Current Living Situation: Personal Care Facility Current Living Situation Comment: [facility] Feels Safe at Home: Yes Assistive Devices: CPAP, Glasses, Lift Chair, Mechanical Lift, Oxygen - Continuous and Wheelchair Review of Systems Review of Systems: As noted in HPI, otherwise unobtainable from patient Physical Exam 2 Constitutional: + acute distress (due to pain) and + morbidly obese Neck: trachea midline, no thyromegaly Respiratory: normal respiratory effort Auscultation: lungs clear to auscultation bilaterally; no crackles, no rales, no rhonchi and no wheezes limited due to habitus Cardiovascular: Rate/Rhythm: regular rate and + irregularly irregular Heart Sounds: normal S1 and normal S2 Extremities: + edema (1-2+) Gastrointestinal (Abdomen): Inspection/Auscultation: abdomen normal to inspection Percussion/Palpation: abdomen soft; abdomen nontender, no guarding, abdomen not rigid and no hepatosplenomegaly Skin: no rashes, warm and dry Results & Data Results & Data ([facility]) Vital Signs (Past 12 Hours) Vital Signs Temp Pulse Resp BP 02/14/22 13:49 36.8 C 95 H 20 94/54 L Laboratory Results Laboratory Results WBC 8.85 K/ul (4.8-10.8) 02/14/22 15:03 RBC 3.63 M/uL (3.93-5.22) L 02/14/22 15:03 Hgb 10.0 g/dl (12.0-16.0) L 02/14/22 15:03 Hct 32.3 % (34.1-44.9) L 02/14/22 15:03 MCV 89.0 fL (80.0-100.0) 02/14/22 15:03 MCH 27.5 pg (25.0-34.0) 02/14/22 15:03 MCHC 31.0 g/dL (32.0-36.0) L 02/14/22 15:03 RDW Std Deviation 49.7 fL (36.4-46.3) H 02/14/22 15:03 RDW Coeff of Massiel 15.2 % (11.5-14.5) H 02/14/22 15:03 Plt Count 389 K/uL (130-400) 02/14/22 15:03 MPV 8.3 fL (9.4-12.3) L 02/14/22 15:03 Immature Gran % (Auto) 1.9 % 02/14/22 15:03 Neut % (Auto) 61.3 % 02/14/22 15:03 Lymph % (Auto) 20.2 % 02/14/22 15:03 Dade % (Auto) 13.0 % 02/14/22 15:03 Eos % (Auto) 3.1 % 02/14/22 15:03 Baso % (Auto) 0.5 % 02/14/22 15:03 Neut # (Auto) 5.43 K/uL (1.4-6.5) 02/14/22 15:03 Lymph # (Auto) 1.79 K/uL (1.2-3.4) 02/14/22 15:03 Dade # (Auto) 1.15 K/uL (0.24-0.82) H 02/14/22 15:03 Eos # (Auto) 0.27 K/uL (0-0.50) 02/14/22 15:03 Baso # (Auto) 0.04 K/uL (0-0.2) 02/14/22 15:03 Immature Gran # (Auto) 0.17 K/uL (0.00-0.02) H 02/14/22 15:03 PT 12.3 Seconds (9.0-12.0) H 02/14/22 15:03 INR 1.2 (0.9-1.1) H 02/14/22 15:03 APTT 27.0 Seconds (21.0-31.0) 02/14/22 15:03 PTT Ratio 1.0 02/14/22 15:03 Sodium 138 mmol/L (136-145) 02/14/22 15:03 Potassium 3.5 mmol/L (3.5-5.1) 02/14/22 15:03 Chloride 102 mmol/L (98-107) 02/14/22 15:03 Carbon Dioxide 33 mmol/L (21-32) H 02/14/22 15:03 Anion Gap 3 (3-11) 02/14/22 15:03 BUN 58 mg/dl (6-23) H 02/14/22 15:03 Creatinine 1.79 mg/dl (0.6-1.2) H D 02/14/22 15:03 Est Cr Clr Drug Dosing 36.1 ml/min 02/14/22 15:03 Est GFR ( Amer) 30.9 ml/min 02/14/22 15:03 Est GFR (Non-Af Amer) 26.7 ml/min 02/14/22 15:03 BUN/Creatinine Ratio 32.4 (10-20) H 02/14/22 15:03 Glucose 115 mg/dl (70-99(Fasting)) H 02/14/22 15:03 Lactate 1.2 mmol/L (0.4-2.0) 02/14/22 15:03 Calcium 9.1 mg/dl (8.5-10.1) 02/14/22 15:03 Magnesium 2.4 mg/dl (1.7-2.4) 02/14/22 15:03 Total Bilirubin 0.2 mg/dl (0.2-1.0) 02/14/22 15:03 AST 22 U/L (13-39) 02/14/22 15:03 ALT 26 U/L (7-52) 02/14/22 15:03 Alkaline Phosphatase 51 U/L (34-104) 02/14/22 15:03 Troponin I High Sens 8.0 pg/ml (0-14) 02/14/22 15:03 Total Protein 5.5 gm/dl (6.0-8.3) L 02/14/22 15:03 Albumin 2.5 gm/dl (3.4-5.0) L 02/14/22 15:03 Globulin 3.0 gm/dl (2.5-4.0) 02/14/22 15:03 Albumin/Globulin Ratio 0.8 (0.9-2) L 02/14/22 15:03 Procalcitonin 0.32 ng/ml (0-0.5) 02/14/22 15:03 Impressions Abdomen/Pelvis CT 02/14/22 14:[address] WITHOUT CONTRAST CT DOSE: 3093.09 mGy.cm HISTORY: Acute generalized abdominal pain with a right ureteral stent stents, infection, poss obstruction TECHNIQUE: Multiaxial CT images of the abdomen and pelvis were performed without contrast. A dose lowering technique was utilized adhering to the principles of ALARA. COMPARISON STUDY: CT chest, abdomen and pelvis 11/23/2021. FINDINGS: Trace left and small right pleural effusions. Dense airspace consolidation of the right lung base with air bronchograms. Subsegmental left basilar atelectasis. Limited study secondary to patient body habitus, positioning, respiratory motion artifact and lack of contrast. Cardiomegaly. The unenhanced spleen, pancreas and adrenal glands are unremarkable. The gallbladder appears surgically absent. The liver is enlarged. Nonspecific bilateral perinephric stranding. Nonobstructing conglomerate calculus the posterior interpolar right kidney measures 2 cm. There is mild right-sided hydroureteronephrosis with a right ureteral stent in place. There are numerous tiny stone fragments noted along the distal portion of the stent measuring up to 3 mm. Mild nonspecific urinary bladder wall thickening with pelvic floor relaxation. Hysterectomy. Indeterminate intermediate density lesion of the superior pole right kidney measures 10 mm. Atherosclerosis of the aorta without aneurysm. There is no lymphadenopathy identified. Hyperdense material is noted within the distal esophagus and stomach. No bowel obstruction. Nonspecific trace free fluid within the dependent pelvis. Mild colonic diverticulosis. There is wall thickening of the ascending and transverse colon with partial distention. Normal appendix. Straightening of the anterior abdominal wall suggestive of additional injection sites. Indeterminate 6 mm omental nodule within the abdomen on image 194 is unchanged. Degenerative changes of the spine, pelvis and hips. Healing subacute nondisplaced right-sided rib fractures. Decreased paravertebral edema of the mid to lower thoracic spine. Subacute T7 fracture with progressive bony destruction. There is progressive superior endplate compression of the T8 vertebral body with endplate irregularity noted at T6, T7 and T8. IMPRESSION: 1. Mild right-sided hydroureteronephrosis with satisfactory positioning of the right ureteral stent. There are several persistent small calculi of the distal right ureter measuring up to 3 mm. 2. Right nephrolithiasis. 3. No bowel obstruction or bowel wall thickening. 4. Subacute T7 burst fracture with progressive bony destruction and persistent paravertebral edema. Additionally, there is progressive superior endplate compression of the T8 vertebral body with endplate irregularity noted at T6, T7 and T8. These findings may be posttraumatic, however follow-up is recommended to exclude acute discitis/osteomyelitis. 5. Small right pleural effusion with right basilar consolidation suggestive of atelectasis or pneumonia. ACT 112: Negative or not required by law. The above report was generated using voice recognition software. It may contain grammatical, syntax or spelling errors. Electronically signed by: Andrey Bates M.D. 02/14/2022 3:[address] 02/14/22 14:11 CT head/brain wo con CLINICAL HISTORY: confusion COMPARISON STUDY: 10/24/2021 CT DOSE: TECHNIQUE: Standard CT of the Brain was performed without IV contrast. A dose lowering technique was utilized adhering to the principles of ALARA. FINDINGS: Extraaxial space: There is no evidence for subdural hematoma. There are no extra-axial fluid collections. Ventricles and cisterns: The ventricles are again mildly dilated bilaterally. There is no evidence for midline shift or mass effect. Parenchyma: There is no subarachnoid or intraparenchymal hemorrhage. There is no evidence for an acute infarct or cerebral edema. There is mild cerebral cortical atrophy and decreased attenuation in the periventricular white matter representing remote small vessel disease. There are no gross mass lesions. Osseous structures: There is no evidence for an acute fracture. The visualized paranasal sinuses are clear. The mastoid air cells are clear bilaterally. Soft tissues: There is no evidence for focal soft tissue swelling. IMPRESSION: 1. No acute intracerebral pathology. 2. Mild cerebral cortical atrophy and remote small vessel disease. ACT 112: Negative or not required by law. Electronically signed by: Shane Valerio M.D. 02/14/2022 3:36 PM Chest X-Ray 02/14/22 14:12 XR chest 1V portable HISTORY: 76 years-old Female SEPSIS acute sepsis COMPARISON: Chest radiograph 02/06/2022, chest CT 11/23/2021 TECHNIQUE: Portable AP view of the chest FINDINGS: The cardiac silhouette is enlarged. Small pleural effusions with bibasilar opacities are redemonstrated. Prominent epicardial fat pad resulting in a right lung base opacity redemonstrated along with right hemidiaphragmatic elevation. Pulmonary vascular congestion. Degenerative changes of the shoulders and spine. Healed chronic right-sided rib fractures. T8 burst fracture is redemonstrated and better seen on the comparison CT exams. Questioned endplate lucency at T7- T8. IMPRESSION: 1. Cardiomegaly with pulmonary vascular congestion. 2. Small pleural effusions with bibasilar opacities suggestive of atelectasis versus pneumonitis. 3. T8 burst fracture redemonstrated. ACT 112: Negative or not required by law. The above report was generated using voice recognition software. It may contain grammatical, syntax or spelling errors. Electronically signed by: Andrey Bates M.D. 02/14/2022 3:23 PM PG Care Time/CCT Total # of Minutes Spent Total Time Spent with Patient: Total time spent is greater than 50% in coordination of care (as documented) at patient's floor/unit and/or counseling patient: Coding Level of Care Code 40455 Initial Inpt Care Lvl 3 Diagnoses UTI (urinary tract infection) N39.0 Back pain M54.9 GILBERTO (acute kidney injury) N17.9 HTN (hypertension) I10 HLD (hyperlipidemia) E78.5 Atrial fibrillation with RVR I48.91
[2022-02-14 17:05] LABS: Influenza A virus by PCR Negative (Neg); Influenza B virus by PCR Negative (Neg); RSV by PCR Negative (Neg); SARS CoV2 RNA(COVID-19) InHosp NEGATIVE (Negative)
[2022-02-14 17:17] LABS: Appearance Urine Turbid (Clear); Bacteria Urine Automated 2+ (Negative); Bilirubin Urine Negative (Negative); Blood Urine 3+ (Negative); Color Urine Yellow; Epithelial Cell Urine Auto >30 /lpf (0-5); Glucose Urine UA Negative (Negative); Ketones Urine Negative (Negative); Leukocyte Esterase Urine 3+ (Negative); Nitrite Urine Negative (Negative); Protein Urine 1+ (Negative); Specific Gravity Urine 1.015 (1.000-1.030); Urobilinogen Urine Negative (Negative); WBC Urine Automated >30 /hpf (0-5); pH Urine 5.5 (4.5-7.5)
[2022-02-14] MEDS ORDERED: CARISOPRODOL 350 MG TABLET PO PRN (19:50)
[2022-02-14] MEDS ORDERED: ONDANSETRON INJ 2 MG/ML 2 ML VIAL IV PRN (19:50)
[2022-02-14] MEDS ORDERED: ACETAMINOPHEN 325 MG TAB PO PRN (19:50)
[2022-02-14] MEDS: SODIUM CHLORIDE 0.9% 1000ML 1,000 ML IV SCH (20:25)
[2022-02-14] MEDS ORDERED: ATORVASTATIN 20 MG TAB PO SCH (21:00)
[2022-02-14] MEDS: METOPROLOL TARTRATE 50 MG TAB PO SCH (22:22)
[2022-02-14] MEDS: DULoxetine HCL 60 MG CAP PO SCH (22:22)
[2022-02-14] MEDS: GABAPENTIN 600 MG TAB PO SCH (22:22)
[2022-02-14] MEDS: CALCIUM CARBONATE 1250MG TAB PO SCH (22:22)
[2022-02-14] MEDS: MELATONIN 3 MG TAB PO SCH (22:22)
[2022-02-14] MEDS: APIXABAN 5 MG TABLET PO SCH (22:23)
[2022-02-14] MEDS: SENNA 8.6 MG TAB PO SCH (22:23)
[2022-02-14] MEDS: DOCUSATE SODIUM 100 MG CAP PO SCH (22:23)
[2022-02-14] MEDS: oxyCODONE HCL IR 5 MG TAB (IMMEDIATE RELEASE) PO PRN (22:24)
[2022-02-15] MEDS: CEFEPIME 2,000 MG in SYRINGE 0 ML IV SCH ×2 (04:09→17:01)
[2022-02-15] MEDS: SODIUM CHLORIDE 0.9% 1000ML 1,000 ML IV SCH ×2 (06:32→16:24)
--- NOTE | 2022-02-15 07:30 | Hospitalist Progress Note ---
Date of Service February 15, 2022 Assessment & Plan (1) UTI (urinary tract infection): Plan: 76F w/ R ureteral stent, recurrent kidney stones, PAF on Eliquis, and chronic back pain 2/2 previous burst fracture who presents w/ sepsis 2/2 UTI that has failed outpatient abx. - UTI, currently positive for Pseudomonas and VRE. Ureteral stent in place - Dapto and cefepime - urology consulted: continue broad spectrum abx and fluids - repeat urine cultures ordered (2) Acute metabolic encephalopathy: Plan: In setting of presumed mild-mod dementia - sepsis per SIRS-3 criteria - hypotension has resolved - blood cultures ordered (3) Back pain: Plan: Chronic in the patient 2/2 T8 burst fracture. Also has Healing subacute right-sided rib fractures. May have component from the UTI Hold oxycodone for now in setting of somnolence and AMS but may consider dose if intractable pain Hold prn Soma for muscle spasm (4) Pulmonary vascular congestion: Plan: - cxr w/ cardiomegaly and pulm vascular congestion. Small pleural effusions with bibasilar opacities suggestive of atelectasis versus pneumonitis. - repeat cxr in AM - last echo in 2017 in our records. EF 60-65. Patient follows [facility]. Will need to reach out to see if there is more recent echo. 2+ LE edema, may be from dependent edema. (5) Atrial fibrillation with RVR: Plan: Continue home Eliquis Has had several multi second pauses (2 last night, 1 this morning), during transitions from afib to sinus and back Cardiology consulted: PO metoprolol reduced. Consideration for pacemaker implantation when infectious issues have resolved. May have element of tachybrady. continue amiodarone currently in sinus (6) GILBERTO (acute kidney injury): Plan: Secondary to UTI with stent as above. Gentle IV hydration, continue to monitor renal function (7) HTN (hypertension): Plan: Metoprolol reduced to 25mg PO BID Hold losartan and furosemide while patient has acute renal dysfunction (8) HLD (hyperlipidemia): Plan: Hold statin in setting of daptomycin Plan Diet, fluids: HH. NSS 100/hr. ppx: home Eliquis code: full dispo: med surg upgraded to PCU Admission and Anticipated Discharge Date Admission Date: February 14, 2022 Supervising Physician Co-Signing Physician Notes I also saw the patient confirmed robins portions of the history and physical examination. I agree with the impression and plan as noted in the resident documentation. The patient was seen in the emergency department as a bed hold. Fortunately, the patient's daughter and son-in-law came to visit and we were able to obtain some collateral information. It sounds as if she has been declining for the past 2 weeks, difficulty feeding herself, increased fatigue/sedation, and episodic confusion. The patient currently resides at [facility]; her daughter is able to visit her daily on her way home from work. The patient has been at [facility] since being [facility] was transferred there from this facility after a fall in which she suffered several rib fractures and a T7-T8 fractures. Upon examination just before lunch, the patient is sleeping but awakens to voice. She realizes she is in the hospital. She does acknowledge that she has a urinary tract infection - " another one?" - but does seem pretty sleepy and quickly falls asleep. She was in atrial fibrillation earlier this morning by the time of our exam has converted to a sinus rhythm. There was some concern about a pause on her rhythm strip, but this appears to be at the conversion point between atrial fibrillation and normal sinus rhythm. Data Hemoglobin 10 BUN 58, creatinine 1.79 Chest x-ray completed 02/14/2022 shows cardiomegaly with pulmonary vascular congestion, small pleural effusions with bibasilar opacities suggestive of atelectasis versus pneumonitis. A T8 burst fracture is redemonstrated. Metabolic encephalopathy Sepsis Acute urinary tract infection Continue current antibiotics (daptomycin and cefepime) Fluid resuscitation with close eye on her overall volume status Urology consultation appreciated Stone treatment and stent exchange once more stable Atrial fibrillation Postconversion sinus pause, question tachybradycardia syndrome Continue Eliquis, amiodarone Holding Lasix and losartan Cardiology consultation appreciated Consideration for pacemaker once infection has cleared GILBERTO Holding Lasix and losartan Trend BMP Repeat chest x-ray in a.m. Subjective Hx limited. Denies abd pain and grossly denies other symptoms. + confused. Spoke w/ daughter later in morning. Concerns for baseline dementia. Waxing/waning at baseline. Has had recurrent UTIs. [facility] this summer and was doing well until late January. Review of Systems Review of Systems: All systems reviewed & are unremarkable except as noted in HPI & below Physical Exam Physical Exam: General: A&Ox1. NAD. Cooperative. Somnolent. Slightly improved late morning. HEENT: Atraumatic, normocephalic. Pulm: CTAB anteriorly, limited by habitus and positioning. No respiratory distress. Cardiac: RRR, -mrg. 2+ BLE edema. Abdominal: Nontender, nondistended, soft. Integ. L yip has chronic venous statis changes. : + yeboah Results & Data Results & Data ([facility]) Vital Signs (Past 12 Hours) Vital Signs Pulse Pulse Resp BP BP Pulse Ox O2 Del Method 02/15/22 06:54 115 H 16 93/69 L 100 Nasal Cannula 02/15/22 04:00 108 H 16 100/75 100 Nasal Cannula 02/15/22 00:14 97 H 17 91/56 L 100 Nasal Cannula 02/15/22 00:13 97 H 02/14/22 20:00 115 H 16 129/111 H 96 Nasal Cannula O2 Flow Rate 02/15/22 06:54 3 02/15/22 04:00 3 02/15/22 00:14 02/15/22 00:13 02/14/22 20:00 2 Resident Activity Tracking Resident Involvement: Resident Care Provided Care Provided: Adult Hospital Medicine
--- NOTE | 2022-02-15 08:19 | Urology Consultation ---
Date of Consultation February 15, 2022 Assessment & Plan (1) GILBERTO (acute kidney injury): Right ureteral stent appears to be in good position and it is to be expected that she would have some hydronephrosis with this in place. I think it is unlikely that her GILBERTO is obstructive in nature and would favor more of a prerenal etiology. (2) Acute UTI: She has had multiple drug-resistant organisms in the past, and recent preop culture had shown that she was not appropriately covered leading up to intervention. Her surgery was canceled in the hopes that we could pretreat her appropriately to minimize surgical risk. (3) S/P ureteral stent placement: Ureteral stent appears to be in good position with mild hydronephrosis on the right side. The stent has been since October, and will need to be removed or exchanged, however in the setting of acute urinary tract infection I worry that this could start more bacteria. (4) Nephrolithiasis: Stone visible in the lower pole of the right kidney and some small stones in the distal ureter on the right side. She will need ureteroscopy with laser lithotripsy to remove the stones. The stones in the kidney could be struvite and will require removal. Prior to this surgical intervention would recommend pretreatment with culture appropriate antibiotics for approximately 1 week. If she is still in the hospital, intervention could potentially be done next week after she is medically optimized. This may be her best option to get her through surgery in the safest way possible, as she is going to be a fairly high risk surgery to begin with. Plan Agree with broad-spectrum antibiotics, can narrow based on cultures. Continue to follow creatinine, fluid resuscitation We will tentatively plan on stone treatment and stent exchange in the upcoming days when she is medically optimized. History of Present Illness Reason for Consultation: Nephrolithiasis, ureteral stent in place, urinary tract infection Attending Physician: Calixto Garcia DO History of Present Illness This is a 76-year-old female followed by urology for nephrolithiasis. She underwent cystoscopy and right ureteral stent placement on 10/22/2021. She recovered well and was eventually discharged. She was scheduled to undergo ureteroscopy with laser lithotripsy, however prior to her OR day, she sustained a fall associated with rib and spine fractures. 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 She was seen back in the urology office on 01/31/2022 to coordinate stone treatment. She was again scheduled for ureteroscopy and laser lithotripsy, however urine culture from immediately prior to her surgery came back positive with bacteria that she had not been covered for. Due to the high risk of stirring up infection with stent exchange/removal and laser lithotripsy, we elected to cancel her case with the hope of getting her established with infectious disease. Before she could be rescheduled, she was found to have an elevated creatinine and altered mental status. She was transferred to the hospital for further evaluation. Today she is unable to provide much meaningful history. Evaluation in the emergency department was notable for normal WBC (8.5). Her creatinine remains elevated, 1.79 down from 2.15 on presentation. Urine was notable for 3+ leukocyte esterase, 3+ blood, negative nitrites, 2+ bacteria. She is currently COVID-negative. A CT scan was performed, which I independently reviewed. Her left kidney appears normal with no stones or hydronephrosis. She has a stent on the right side which appears to be in good position. There is some hydronephrosis of the right kidney, consistent with having the stent in place. She has a persistent stone in the lower pole of the right kidney, which has ever Hounsfield units near 500. This may represent struvite stone given her recent UTIs. She has a couple small stones in the distal ureter alongside the stent. Allergies Allergy/AdvReac Type Severity Reaction Status Date / Time Latex, Natural Rubber Allergy Mild Skin Verified 02/14/22 17:30 irritation tetracycline Allergy Mild Rash Verified 02/14/22 17:30 NSAIDS (Non-Steroidal Allergy Unknown Unknown Verified 02/14/22 17:30 Anti-Inflamma esomeprazole [From Nexium] AdvReac Intermediate Epistaxis Verified 02/14/22 17:30 adhesive AdvReac Mild Skin Verified 02/14/22 17:30 irritation Home Medications Medication Instructions Recorded Confirmed Type cholecalciferol (vitamin D3) 25 1,000 unit PO QAM 04/04/18 02/14/22 History mcg (1,000 unit) capsule (Vitamin D3) duloxetine 30 mg capsule,delayed 60 mg PO HS 04/04/18 02/14/22 History release (Cymbalta) fluticasone propionate 50 2 spray intranasal QAM 04/04/18 02/14/22 History mcg/actuation nasal spray,suspension (Flonase Allergy Relief) gabapentin 300 mg capsule 600 mg PO TID 04/04/18 02/14/22 History metoprolol tartrate 50 mg tablet 50 mg PO BID 04/04/18 02/14/22 History multivitamin 1 tab PO QAM 04/04/18 02/14/22 History losartan 25 mg tablet 25 mg PO QAM 09/14/20 02/14/22 History Lactobacills gasseri-Bifidobac 1 cap PO QAM 10/22/21 02/14/22 History bifidum,longum 1.5 billion cell capsule (Pixium Vision) atorvastatin 20 mg tablet 20 mg PO HS 10/22/21 02/14/22 History furosemide 40 mg tablet 40 mg PO QAM 10/22/21 02/14/22 History magnesium oxide 400 mg PO QAM 10/22/21 02/14/22 History acetaminophen 325 mg tablet 975 mg PO TID 02/01/22 02/14/22 History albuterol sulfate 90 mcg/actuation 2 inh inhalation Q6H PRN sob 02/01/22 02/14/22 History aerosol inhaler amiodarone 200 mg tablet 200 mg PO QAM 02/01/22 02/14/22 History carisoprodol 350 mg tablet 350 mg PO Q6H PRN muscle spasms 02/01/22 02/14/22 History docusate sodium 100 mg tablet 100 mg PO BID 02/01/22 02/14/22 History lidocaine 4 % topical patch 1 patch topical BID PRN rib pain 02/01/22 02/14/22 History oxycodone 5 mg tablet 5 mg PO Q4H PRN Pain 02/01/22 02/14/22 History vit with calcium-iron 1 tab PO QAM 02/01/22 02/14/22 History fum-folic acid 27 mg-1 mg tablet sennosides 8.6 mg tablet (senna) 17.2 mg PO BID 02/01/22 02/14/22 History tamsulosin 0.4 mg capsule (Flomax) 0.4 mg PO QAM 02/01/22 02/14/22 History aluminum-mag hydroxide-simethicone 10 ml PO Q4 PRN Indigestion 02/14/22 02/14/22 History 400 mg-400 mg-40 mg/5 mL oral susp calcium carbonate 600 mg-vitamin 2 tab PO QAM 02/14/22 02/14/22 History D3 5 mcg (200 unit) tablet (Calcium 600 + D(3)) nitrofurantoin 100 mg PO Q12 02/14/22 02/14/22 History monohydrate/macrocrystals 100 mg capsule oxycodone 5 mg tablet 10 mg PO BID 02/14/22 02/14/22 History Patient History Medical History Anemia No known hx of blood transfusions Anxiety Atrial fibrillation Follows with Dr. Cox Cardiology risk stratification request note from surgeon/urology in [facility] [place] routed to Dr. Cox* CAD (coronary artery disease) Chronic back pain CKD (chronic kidney disease) stage 3, GFR 30-59 ml/min Crohns disease Heart failure, unspecified Hx of cervical cancer s/p hysterectomy BSO Hx of deep venous thrombosis LLE (1960s), no definitive etiology, no issues since Hx of ovarian cancer s/p hysterectomy BSO Hyperlipidemia Hypertension Irritable bowel syndrome (IBS) Kidney stones Macular degeneration Morbid obesity with BMI of 45.0-49.9, adult On home oxygen therapy 2L O2 continuous Osteoarthritis Osteomyelitis Present[place] [facility] [place] as a transfer from [facility] for traumatic fall with pathologic T7/8 fracture concerning for OM s/p bone biopsy (+) Proteus and discharged on 6 weeks of IV Ceftriaxone with end date of 01/23/2022. [facility] infectious disease (01/24/22): "Recommend no additional antibiotics at this time, pt antibiotic course was completed.. Follow up as needed." Peripheral neuropathy Sleep apnea CPAP Surgical History Difficult airway for intubation Difficult intubation 1975 ([facility]) "Needs small size/pediatric tube" History of cardiac cath 2014 x2 ([facility]) > no stents History of cataract surgery R/L History of cholecystectomy History of colonoscopy History of cystoscopy Cystoscopy, right stent (10/22/21): MAC at [facility]. No issues noted per post-op anesthesia progress note. History of dilatation and curettage History of hysterectomy BSO History of surgical removal of skin lesion Fatty tumor History of tonsillectomy History of tooth extraction History of total knee replacement Right Hx of hemorrhoidectomy Family History Father Family hx of colon cancer Daughter FHx: breast cancer FHx: ovarian cancer Other No family history of adverse response to anesthesia Social History Smoking Status: Never smoker Second Hand Exposure: No; Hx Alcohol Use: No Hx Substance Use: No Preferred Language: Lao Communication Ability: Effective Shovel Operator Required: No Beliefs That Will Affect Care: None marital status: / Current Living Situation: Personal Care Facility Current Living Situation Comment: [facility] Feels Safe at Home: Yes Assistive Devices: CPAP, Glasses, Lift Chair, Mechanical Lift, Oxygen - Continuous and Wheelchair Review of Systems Review of Systems: Unobtainable due to cognitive status Physical Exam Physical Exam: Resting in bed, NAD Constitutional: Frail-appearing Respiratory: On supplemental oxygen by nasal cannula, saturating well Cardiovascular: Tachycardic on telemetry Gastrointestinal (Abdomen): Obese Neurologic: Movement of the lower extremities, moving upper extremities Results & Data ([facility]) Vital Signs (Past 12 Hours) Vital Signs Pulse Pulse Resp BP BP Pulse Ox O2 Del Method 02/15/22 06:54 115 H 16 93/69 L 100 Nasal Cannula 02/15/22 04:00 108 H 16 100/75 100 Nasal Cannula 02/15/22 00:14 97 H 17 91/56 L 100 Nasal Cannula 02/15/22 00:13 97 H O2 Flow Rate 02/15/22 06:54 3 02/15/22 04:00 3 02/15/22 00:14 02/15/22 00:13 PG Care Time/CCT Total # of Minutes Spent Total Time Spent with Patient: Total time spent is greater than 50% in coordination of care (as documented) at patient's floor/unit and/or counseling patient: Coding Level of Care Code 95505 Initial Inpt Care Lvl 2 Diagnoses GILBERTO (acute kidney injury) N17.9 Acute UTI N39.0 S/P ureteral stent placement Z96.0 Nephrolithiasis N20.0
[2022-02-15] MEDS: APIXABAN 5 MG TABLET PO SCH ×2 (09:13→20:17)
[2022-02-15] MEDS: ASPIRIN 81 MG ECTAB PO SCH (09:13)
[2022-02-15] MEDS: DOCUSATE SODIUM 100 MG CAP PO SCH ×2 (09:14→20:16)
[2022-02-15] MEDS: METOPROLOL TARTRATE 50 MG TAB PO SCH (09:14)
[2022-02-15] MEDS: GABAPENTIN 600 MG TAB PO SCH ×3 (09:14→20:17)
[2022-02-15] MEDS: MAGNESIUM OXIDE 400 MG TAB PO SCH (09:14)
[2022-02-15] MEDS: MULTIVITAMIN TAB PO SCH (09:14)
[2022-02-15] MEDS ORDERED: POTASSIUM CHLORIDE CRTAB 20 MEQ TABCR PO STA (09:14)
[2022-02-15] MEDS: CALCIUM CARBONATE 1250MG TAB PO SCH ×2 (09:14→20:17)
[2022-02-15] MEDS: CHOLECALCIFEROL 1,000 UNITS 25 MCG TAB PO SCH (09:14)
[2022-02-15] MEDS: TAMSULOSIN HCL 0.4 MG CAP PO SCH (09:15)
[2022-02-15] MEDS: SENNA 8.6 MG TAB PO SCH ×2 (09:15→20:17)
[2022-02-15] MEDS: AMIODARONE 200 MG TAB PO SCH (10:46)
--- NOTE | 2022-02-15 12:00 | Cardiology Consultation ---
Date of Consultation February 15, 2022 Assessment & Plan (1) Paroxysmal atrial fibrillation: (2) Tachycardia-bradycardia syndrome: (3) Sepsis due to urinary tract infection: (4) S/P ureteral stent placement: (5) GILBERTO (acute kidney injury): (6) Acute dehydration: (7) RAYMUNDO (obstructive sleep apnea): Plan Complex 76-year-old female admitted with change in mental status secondary to sepsis. Recent urine cultures positive for Pseudomonas and VRE. Receiving appropriate antibiotic coverage and IV hydration as per internal medicine. Telemetry reveals paroxysmal atrial fibrillation with heart rate ranging from 110-120 bpm. She appears asymptomatic from a atrial fibrillation perspective. There approximately 4 postconversion pauses ranging from 3.0-3.9 seconds. The most recent pause occurred during my bedside evaluation. Currently she is maintaining sinus rhythm at 72 bpm. Findings suggest tachybradycardia syndrome without associated symptoms. Continue oral amiodarone. Reduce metoprolol to 25 mg twice daily and monitor telemetry. Consideration for pacemaker implantation when infectious issues have resolved. Continue anticoagulation with Eliquis. Recommend bridging therapy with IV heparin if Eliquis must be discontinued for more than 24 hours. Agree with IV hydration. Hold furosemide and losartan. Repeat basic metabolic panel in a.m. Thank you for allow me to participate in the care of your patient. History of Present Illness Reason for Consultation: Paroxysmal atrial fibrillation, pauses Requesting Physician: Dr. Easton Attending Physician: Jp Easton, History of Present Illness 76-year-old female with a history of paroxysmal atrial fibrillation maintained in sinus rhythm with amiodarone presented to the emergency department with change in mental status. Complex history includes recurrent nephrolithiasis with UTI and T8 burst fracture. Recent urine cultures positive for Pseudomonas and VRE. Due to decline in mental status, she was sent in from correction for further evaluation and treatment. Telemetry reveals atrial fibrillation with heart rate ranging from 110-120 BPM. On 4 occasions she converted to sinus rhythm briefly with a 3.0-3.9-second post- conversion pause. No associated symptoms or hypotension. She is a poor historian. Oriented to person only currently. Denies palpitations, chest discomfort or shortness of breath. No orthopnea or PND. Previously anticoagulated with warfarin which was transitioned to Eliquis at some point over the past 2 months. Anticoagulation currently on hold. During my evaluation at the bedside, patient converted from atrial fibrillation to sinus rhythm at 70 bpm. There is a 3.9-second post-conversion pause on monitor without associated symptoms. She has received IV antibiotics and IV normal saline. Blood pressure has improved. She received dose of a.m. Eliquis, metoprolol, and amiodarone. Metoprolol currently placed on hold by the primary service. Allergies Allergy/AdvReac Type Severity Reaction Status Date / Time Latex, Natural Rubber Allergy Mild Skin Verified 02/14/22 17:30 irritation tetracycline Allergy Mild Rash Verified 02/14/22 17:30 NSAIDS (Non-Steroidal Allergy Unknown Unknown Verified 02/14/22 17:30 Anti-Inflamma esomeprazole [From Nexium] AdvReac Intermediate Epistaxis Verified 02/14/22 17:30 adhesive AdvReac Mild Skin Verified 02/14/22 17:30 irritation Home Medications Medication Instructions Recorded Confirmed Type cholecalciferol (vitamin D3) 25 1,000 unit PO QAM 04/04/18 02/14/22 History mcg (1,000 unit) capsule (Vitamin D3) duloxetine 30 mg capsule,delayed 60 mg PO 04/04/18 02/14/22 History release (Cymbalta) fluticasone propionate 50 2 spray intranasal QA 04/04/18 02/14/22 History mcg/actuation nasal spray,suspension (Flonase Allergy Relief) gabapentin 300 mg capsule 600 mg PO TID 04/04/18 02/14/22 History metoprolol tartrate 50 mg tablet 50 mg PO BID 04/04/18 02/14/22 History multivitamin 1 tab PO [facility] 04/04/18 02/14/22 History losartan 25 mg tablet 25 mg PO QA 09/14/20 02/14/22 History Lactobacills gasseri-Bifidobac 1 cap PO QAM 10/22/21 02/14/22 History bifidum,longum 1.5 billion cell capsule ([employer]) atorvastatin 20 mg tablet 20 mg PO 10/22/21 02/14/22 History furosemide 40 mg tablet 40 mg PO QAM 10/22/21 02/14/22 History magnesium oxide 400 mg PO QAM 10/22/21 02/14/22 History acetaminophen 325 mg tablet 975 mg PO TID 02/01/22 02/14/22 History albuterol sulfate 90 mcg/actuation 2 inh inhalation Q6H PRN sob 02/01/22 02/14/22 History aerosol inhaler amiodarone 200 mg tablet 200 mg PO QAM 02/01/22 02/14/22 History carisoprodol 350 mg tablet 350 mg PO Q6H PRN muscle spasms 02/01/22 02/14/22 History docusate sodium 100 mg tablet 100 mg PO BID 02/01/22 02/14/22 History lidocaine 4 % topical patch 1 patch topical BID PRN rib pain 02/01/22 02/14/22 History oxycodone 5 mg tablet 5 mg PO Q4H PRN Pain 02/01/22 02/14/22 History vit with calcium-iron 1 tab PO QAM 02/01/22 02/14/22 History fum-folic acid 27 mg-1 mg tablet sennosides 8.6 mg tablet (senna) 17.2 mg PO BID 02/01/22 02/14/22 History tamsulosin 0.4 mg capsule (Flomax) 0.4 mg PO QAM 02/01/22 02/14/22 History aluminum-mag hydroxide-simethicone 10 ml PO Q4 PRN Indigestion 02/14/22 02/14/22 History 400 mg-400 mg-40 mg/5 mL oral susp calcium carbonate 600 mg-vitamin 2 tab PO QAM 02/14/22 02/14/22 History D3 5 mcg (200 unit) tablet (Calcium 600 + D(3)) nitrofurantoin 100 mg PO Q12 02/14/22 02/14/22 History monohydrate/macrocrystals 100 mg capsule oxycodone 5 mg tablet 10 mg PO BID 02/14/22 02/14/22 History Patient History Medical History Anemia No known hx of blood transfusions Anxiety Atrial fibrillation Follows with Dr. Cox Cardiology risk stratification request note from surgeon/urology in [facility] routed to Dr. Cox* CAD (coronary artery disease) Chronic back pain CKD (chronic kidney disease) stage 3, GFR 30-59 ml/min Crohns disease Heart failure, unspecified Hx of cervical cancer s/p hysterectomy BSO Hx of deep venous thrombosis LLE (), no definitive etiology, no issues since Hx of ovarian cancer s/p hysterectomy BSO Hyperlipidemia Hypertension Irritable bowel syndrome (IBS) Kidney stones Macular degeneration Morbid obesity with BMI of 45.0-49.9, adult On home oxygen therapy 2L O2 continuous Osteoarthritis Osteomyelitis Presentation to [facility] [place]/23/21 as a transfer from [facility] for traumatic fall with pathologic T7/8 fracture concerning for OM s/p bone biopsy (+) Proteus and discharged on 6 weeks of IV Ceftriaxone with end date of 01/23/2022. S infectious disease (01/24/22): "Recommend no additional antibiotics at this time, pt antibiotic course was completed.. Follow up as needed." Peripheral neuropathy Sleep apnea CPAP Surgical History Difficult airway for intubation Difficult intubation 1975 ([facility]) "Needs small size/pediatric tube" History of cardiac cath 2014 x2 ([facility]) > no stents History of cataract surgery R/L History of cholecystectomy History of colonoscopy History of cystoscopy Cystoscopy, right stent (10/22/21): MAC at [facility]. No issues noted per post-op anesthesia progress note. History of dilatation and curettage History of hysterectomy BSO History of surgical removal of skin lesion Fatty tumor History of tonsillectomy History of tooth extraction History of total knee replacement Right Hx of hemorrhoidectomy Family History Father Family hx of colon cancer Daughter FHx: breast cancer FHx: ovarian cancer Other No family history of adverse response to anesthesia Social History Smoking Status: Never smoker Second Hand Exposure: No; Hx Alcohol Use: No Hx Substance Use: No Preferred Language: Luxembourgish Communication Ability: Effective Community Mental Health Social Worker Required: No Beliefs That Will Affect Care: None marital status: / Current Living Situation: Long-Term Current Living Situation Comment: [facility] Feels Safe at Home: Yes Assistive Devices: CPAP, Glasses, Mechanical Lift, Walker and Wheelchair Review of Systems Review of Systems: Unobtainable due to cognitive status Physical Exam Constitutional: + morbidly obese; no acute distress Respiratory: no respiratory distress, no labored breathing and no retractions Auscultation: + diminished lung sounds (Bilateral, poor effort.); no rales, no rhonchi and no wheezes Cardiovascular: Rate/Rhythm: + tachycardic and + irregularly irregular Heart Sounds: normal S1 and normal S2; no murmur Vessels: no JVD (Difficult to assess due to body habitus) Extremities: + edema (Mild bilateral pretibial edema) Gastrointestinal (Abdomen): Inspection/Auscultation: abdomen not distended Percussion/Palpation: abdomen soft; abdomen nontender, no guarding and abdomen not rigid Neurologic: CN's II-XI intact bilaterally [facility] Vital Signs (Past 12 Hours) Vital Signs Pulse Pulse Resp BP BP Pulse Ox O2 Del Method 02/15/22 10:50 119 H 25 H 100 02/15/22 10:40 96 H 25 H 98 02/15/22 10:30 90 15 99 02/15/22 10:20 96 H 17 97 02/15/22 10:10 113 H 23 100 02/15/22 10:01 121 H 13 100 02/15/22 10:01 141/99 H 02/15/22 10:00 116 H 16 100 02/15/22 09:50 130 H 14 99 02/15/22 09:40 117 H 14 97 02/15/22 09:36 131 H 21 100 02/15/22 09:10 118 H 15 100 02/15/22 09:01 113 H 18 100 02/15/22 09:01 124/75 02/15/22 09:00 112 H 25 H 96 02/15/22 08:50 111 H 19 93 02/15/22 08:40 102 H 28 H 100 02/15/22 08:30 134 H 17 100 02/15/22 08:20 109 H 16 100 02/15/22 08:10 138 H 23 97 02/15/22 08:01 114 H 14 100 02/15/22 08:01 83/63 L 02/15/22 08:00 121 H 16 100 02/15/22 07:50 121 H 18 99 02/15/22 07:40 120 H 16 100 02/15/22 07:30 121 H 30 H 99 02/15/22 07:20 118 H 29 H 97 02/15/22 07:10 119 H 25 H 100 02/15/22 07:00 136 H 15 100 02/15/22 07:00 108/67 02/15/22 06:50 112 H 21 100 02/15/22 06:40 111 H 19 100 02/15/22 06:30 123 H 16 100 02/15/22 06:20 116 H 20 99 02/15/22 06:10 116 H 26 H 100 02/15/22 06:04 108 H 17 96 02/15/22 06:04 93/69 L 02/15/22 06:01 105 H 22 99 02/15/22 06:01 76/54 L 02/15/22 06:00 109 H 20 100 02/15/22 05:50 109 H 17 100 02/15/22 05:40 122 H 18 100 02/15/22 05:30 117 H 18 100 02/15/22 05:20 115 H 20 98 02/15/22 05:10 86 20 98 02/15/22 05:00 106 H 15 100 02/15/22 05:00 101/62 02/15/22 04:50 0 L 16 100 02/15/22 04:40 109 H 16 100 02/15/22 04:30 109 H 18 96 02/15/22 06:54 115 H 16 93/69 L 100 Nasal Cannula 02/15/22 04:00 108 H 16 100/75 100 Nasal Cannula 02/15/22 00:14 97 H 17 91/56 L 100 Nasal Cannula 02/15/22 00:13 97 H O2 Flow Rate 02/15/22 10:50 02/15/22 10:40 02/15/22 10:30 02/15/22 10:20 02/15/22 10:10 02/15/22 10:01 02/15/22 10:01 02/15/22 10:00 02/15/22 09:50 02/15/22 09:40 02/15/22 09:36 02/15/22 09:10 02/15/22 09:01 02/15/22 09:01 02/15/22 09:00 02/15/22 08:50 02/15/22 08:40 02/15/22 08:30 02/15/22 08:20 02/15/22 08:10 02/15/22 08:01 02/15/22 08:01 02/15/22 08:00 02/15/22 07:50 02/15/22 07:40 02/15/22 07:30 02/15/22 07:20 02/15/22 07:10 02/15/22 07:00 02/15/22 07:00 02/15/22 06:50 02/15/22 06:40 02/15/22 06:30 02/15/22 06:20 02/15/22 06:10 02/15/22 06:04 02/15/22 06:04 02/15/22 06:01 02/15/22 06:01 02/15/22 06:00 02/15/22 05:50 02/15/22 05:40 02/15/22 05:30 02/15/22 05:20 02/15/22 05:10 02/15/22 05:00 02/15/22 05:00 02/15/22 04:50 02/15/22 04:40 02/15/22 04:30 02/15/22 06:54 3 02/15/22 04:00 3 02/15/22 00:14 02/15/22 00:13
[2022-02-15 18:11] LABS: Basophils # (auto) 0.06 K/uL (0-0.2); Basophils % (auto) 0.6 %; Eosinophils # (auto) 0.22 K/uL (0-0.50); Eosinophils % (auto) 2.2 %; Hematocrit (blood only) 35.5 % (34.1-44.9); Hemoglobin 10.6 g/dl (12.0-16.0); Immature Granulocytes # (auto) 0.21 K/uL (0.00-0.02); Immature Granulocytes % (auto) 2.1 %; Lymphocytes # (auto) 1.88 K/uL (1.2-3.4); Lymphocytes % (auto) 19.2 %; Mean Corpuscular Hemoglobin 27.2 pg (25.0-34.0); Mean Corpuscular Hgb Conc 29.9 g/dL (32.0-36.0); Mean Corpuscular Volume 91.3 fL (80.0-100.0); Monocytes # (auto) 1.09 K/uL (0.24-0.82); Monocytes % (auto) 11.1 %; Neutrophils # (auto) 6.32 K/uL (1.4-6.5); Neutrophils % (auto) 64.8 %; Platelet Count 361 K/uL (130-400); RDW Coefficient of Variation 15.5 % (11.5-14.5); RDW Standard Deviation 51.4 fL (36.4-46.3); Red Blood Count 3.89 M/uL (3.93-5.22); White Blood Count 9.78 K/ul (4.8-10.8)
[2022-02-15 18:38] LABS: BUN Creatinine Ratio 41.8 (10-20); Calcium 9.1 mg/dl (8.5-10.1); Creatinine Clr Calc Pharmacy 81.9 ml/min; Est GFR (African American) 83.1 ml/min; Est GFR (Non-African American) 71.7 ml/min; Potassium 3.4 mmol/L (3.5-5.1)
[2022-02-15] MEDS ORDERED: DAPTOmycin 525 MG in SYRINGE 0 ML IV SCH (19:00)
[2022-02-15] MEDS: ACETAMINOPHEN 500 MG TAB PO SCH (20:15)
[2022-02-15] MEDS: DAPTOmycin 700 MG in SYRINGE 0 ML IV SCH (20:16)
[2022-02-15] MEDS: DULoxetine HCL 60 MG CAP PO SCH (20:16)
[2022-02-15] MEDS: METOPROLOL TARTRATE 25 MG TAB PO SCH (20:17)
[2022-02-15] MEDS: MELATONIN 3 MG TAB PO SCH (20:18)
[2022-02-15] MEDS: POTASSIUM CHLORIDE CRTAB 20 MEQ TABCR PO SCH ×2 (20:36→22:33)
[2022-02-16] MEDS: POTASSIUM CHLORIDE CRTAB 20 MEQ TABCR PO SCH (00:17)
[2022-02-16] MEDS: SODIUM CHLORIDE 0.9% 1000ML 1,000 ML IV SCH (01:50)
[2022-02-16] MEDS: ACETAMINOPHEN 500 MG TAB PO SCH ×3 (02:49→18:51)
[2022-02-16] MEDS: CEFEPIME 2,000 MG in SYRINGE 0 ML IV SCH ×3 (04:41→20:11)
[2022-02-16 05:04] LABS: A calco-baum cmplx NotReported Not Detected (NotDetected); Bact fragilis Not Reported Not Detected (NotDetected); C auris Not Reported Not Detected (NotDetected); Calbicans Not Reported Not Detected (NotDetected); Candida glabrata Not Reported Not Detected (NotDetected); Candida krusei Not Reported Not Detected (NotDetected); Cneoformans/gatti Not Reported Not Detected (NotDetected); Cparapsilosis Not Reported Not Detected (NotDetected); Ctropicalis Not Reported Not Detected (NotDetected); E cloacae compx Not Reported Not Detected (NotDetected); Efaecalis Not Reported Not Detected (NotDetected); Efaecium Not Reported Not Detected (NotDetected); Enterobacterales Not Reported Not Detected (NotDetected); Escherichia coli Not Reported Not Detected (NotDetected); H influenzae Not Reported Not Detected (NotDetected); K aerogenes Not Reported Not Detected (NotDetected); Koxytoca Not Reported Not Detected (NotDetected); Kpneumoniae grp Not Reported Not Detected (NotDetected); Lmonocyt Not Reported Not Detected (NotDetected); N meningitidis Not Reported Not Detected (NotDetected); P aeruginosa Not Reported Not Detected (NotDetected); Proteus spp Not Reported Not Detected (NotDetected); Salmonella spp Not Reported Not Detected (NotDetected); Smarcescens Not Reported Not Detected (NotDetected); Staph lugdunensis Not Reported Not Detected (NotDetected); Staph spp. Not Reported DETECTED (NotDetected); Staphaureus Not Reported Not Detected (NotDetected); Staphepi Not Reported DETECTED (NotDetected); Staphylococcus epidermidis DETECTED (NotDetected); Staphylococcus spp. DETECTED (NotDetected); Stenmaltophilia Not Reported Not Detected (NotDetected); Strep agal(GrpB) Not Reported Not Detected (NotDetected); Strep pneum Not Reported Not Detected (NotDetected); Strep pyog (GrpA) Not Reported Not Detected (NotDetected); Strep spp Not Reported Not Detected (NotDetected); mecAC Resistant Gene DETECTED (NotDetected)
--- NOTE | 2022-02-16 05:51 | Electrocardiogram Report ---
Test Reason : Blood Pressure : / mmHG Vent. Rate : 100 BPM Atrial Rate : 312 BPM P-R Int : 000 ms QRS Dur : 102 ms QT Int : 396 ms P-R-T Axes : 000 041 056 degrees QTc Int : 510 ms Atrial fibrillation Low voltage QRS Prolonged QT Abnormal ECG When compared with ECG of 23-NOV-2021 11:34, Atrial fibrillation has replaced Sinus rhythm QRS duration has increased T wave amplitude has decreased in Lateral leads QT has lengthened Confirmed by Shaun Zhu ([id number]) on 02/16/2022 5:51:18 AM Referred By: [facility] Confirmed By:Shaun Zhu
[2022-02-16 07:03] LABS: Basophils # (auto) 0.03 K/uL (0-0.2); Basophils % (auto) 0.3 %; Eosinophils # (auto) 0.32 K/uL (0-0.50); Eosinophils % (auto) 3.4 %; Hematocrit (blood only) 33.5 % (34.1-44.9); Hemoglobin 10.1 g/dl (12.0-16.0); Immature Granulocytes # (auto) 0.22 K/uL (0.00-0.02); Immature Granulocytes % (auto) 2.4 %; Lymphocytes # (auto) 2.39 K/uL (1.2-3.4); Lymphocytes % (auto) 25.7 %; Mean Corpuscular Hemoglobin 27.7 pg (25.0-34.0); Mean Corpuscular Hgb Conc 30.1 g/dL (32.0-36.0); Mean Corpuscular Volume 91.8 fL (80.0-100.0); Monocytes # (auto) 1.09 K/uL (0.24-0.82); Monocytes % (auto) 11.7 %; Neutrophils # (auto) 5.26 K/uL (1.4-6.5); Neutrophils % (auto) 56.5 %; Platelet Count 357 K/uL (130-400); RDW Coefficient of Variation 15.4 % (11.5-14.5); RDW Standard Deviation 51.2 fL (36.4-46.3); Red Blood Count 3.65 M/uL (3.93-5.22); White Blood Count 9.31 K/ul (4.8-10.8)
--- NOTE | 2022-02-16 07:10 | XRay Report ---
XR chest 1V portable HISTORY: 76 years-old Female f/u pulm vasc congestion and opacities acute shortness of breath COMPARISON: CT abdomen and pelvis 02/14/2022, Chest radiograph 02/14/2022 TECHNIQUE: Portable AP view of the chest FINDINGS: Cardiomegaly. Right greater than left pleural effusions with persistent right lung base predominant c onsolidation redemonstrated. Pulmonary vascular congestion. Mildly progressed right lung volume loss. No pneumothorax. Degenerative changes of the shoulders and spine. IMPRESSION: 1. Cardiomegaly with pulmonary vascular congestion. 2. Right greater left pleural effusions redemonstrated. 3. Right basilar predominant consolidation with mildly worsened right lung volume loss. ACT 112: Negative or not required by law. The above report was generated using voice recognition software. It may contain grammatical, syntax o r spelling errors. Electronically signed by: Andrey Bates M.D. 02/16/2022 7:08 AM
[2022-02-16 07:40] LABS: Albumin Globulin Ratio 0.9 (0.9-2); Albumin Level 2.6 gm/dl (3.4-5.0); BUN Creatinine Ratio 38.5 (10-20); Bilirubin,Total 0.3 mg/dl (0.2-1.0); Creatinine Clr Calc Pharmacy 99.5 ml/min; Est GFR (African American) 98.6 ml/min; Magnesium 1.7 mg/dl (1.7-2.4); Potassium 3.7 mmol/L (3.5-5.1); Total Protein 5.6 gm/dl (6.0-8.3)
[2022-02-16] MEDS: METOPROLOL TARTRATE 25 MG TAB PO SCH ×2 (08:27→20:06)
[2022-02-16] MEDS: DOCUSATE SODIUM 100 MG CAP PO SCH ×2 (08:27→20:05)
[2022-02-16] MEDS: SENNA 8.6 MG TAB PO SCH ×2 (08:27→20:06)
[2022-02-16] MEDS: GABAPENTIN 600 MG TAB PO SCH ×3 (08:27→20:05)
[2022-02-16] MEDS: CALCIUM CARBONATE 1250MG TAB PO SCH ×2 (08:27→20:05)
[2022-02-16] MEDS: ASPIRIN 81 MG ECTAB PO SCH (08:28)
[2022-02-16] MEDS: MAGNESIUM OXIDE 400 MG TAB PO SCH (08:28)
[2022-02-16] MEDS: AMIODARONE 200 MG TAB PO SCH (08:28)
[2022-02-16] MEDS: MULTIVITAMIN TAB PO SCH (08:28)
[2022-02-16] MEDS: APIXABAN 5 MG TABLET PO SCH ×2 (08:28→20:04)
[2022-02-16] MEDS: CHOLECALCIFEROL 1,000 UNITS 25 MCG TAB PO SCH (08:28)
[2022-02-16] MEDS: TAMSULOSIN HCL 0.4 MG CAP PO SCH (08:28)
--- NOTE | 2022-02-16 09:27 | Hospitalist Progress Note ---
Date of Service February 16, 2022 Assessment & Plan (1) UTI (urinary tract infection): Plan: 76-year-old woman with complicated medical history that includes multiple kidney stones (with ureteral stent), permanent A. fib on Eliquis, T8 burst fracture and accompanying chronic back pain, here for continued management of complicated UTI (VRE, Pseudomonas), as well as MRSA bacteremia, now on daptomycin and cefepime. Metabolic encephalopathy/Sepsis/Acute urinary tract infection/bacteremia * Continue current antibiotics (daptomycin and cefepime): Day 3/14 * Holding statin, given Dapto treatment. Plan to resume once Dapto course complete. * Holding oxycodone * Urology consultation appreciated * Stone treatment and stent exchange once more stable Atrial fibrillation/Postconversion sinus pause, question tachybradycardia syndrome * Continue Eliquis, amiodarone * IV Lasix * Holding losartan * Cardiology consultation appreciated * Consideration for pacemaker once infection has cleared GILBERTO * Holding Lasix and losartan * Trend BMP * Repeat chest x-ray in a.m. Code: Full code Dispo: Med-Surg with telemetry FEN/GI: heart healthy DVT Prophylaxis: Eliquis PT/OT: Ordered Consults: Urology, cardiology Case management: (2) Acute metabolic encephalopathy: (3) Back pain: (4) Pulmonary vascular congestion: (5) Atrial fibrillation with RVR: (6) GILBERTO (acute kidney injury): (7) HTN (hypertension): (8) HLD (hyperlipidemia): Admission and Anticipated Discharge Date Admission Date: February 14, 2022 Supervising Physician Co-Signing Physician Notes Patient seen and examined independently of PGY-2 Dr. Alvarado. Agree with history, exam findings, assessment and plan of care as outlined. In brief, 76 year old female with right ureteral stent, recurrent kidney stones, pAF (AC with Eliquis) and chronic back pain secondary to prior burst fracture admitted with sepsis secondary to urinary tract infection. Overall, feels well. Although earlier today had a bad dream that her daughter was badly injured in a car accident. This was emotionally exhausting for her. VS and nursing notes reviewed. Non-toxic appearing. II/ Systolic murmur. Regular rate. Lungs with good air movement throughout. Bibasilar crackles. Abdomen is soft, nontender. Labs and imaging reviewed. 1. UTI. Urine positive for Pseudomonas and VRE. Continue dapto and cefepime; will need 10 days course. Appreciate urology recommendations. 2. Positive blood culture. blood cultures with methicillin/oxacillin resistant Staph epidermidis/staph spp. Antibiotic coverage as above. 3. Acute metabolic encephalopathy in the setting of mild to moderate dementia. Improving. 4. Back pain. Chronic. Prior T8 burst fracture. Holding oxycodone and Soma due to somnolence. 5. Pulmonary vascular congestion. Received 20mg IV Lasix today. Monitor I/Os. 6. Atrial fibrillation with RVR. Now rate controlled and converted back to sinus. Appreciate cardiology recommendations. Continue with decreased metoprolol dose 25mg BID, continue amiodarone 200mg. May have an element of tachy-acacia and may need pacer at some point down the line. Repeat TTE on 02/16 with EF 55-60%, mild concentric LVH, moderate aortic valve sclerosis without significant abortive valvular stenosis, mild to moderate tricuspid regurgitation. 7. HTN. Continue with decreased metoprolol dose. Holding losartan and Lasix. 8. GILBERTO. Secondary to infection. IVFs. 9. HLD. Holding statin since she is getting dapto. Dispo: pending clinical improvement. Noted that she is a bed hold at [facility]. Subjective No acute events overnight. Patient reports only fatigue this morning, though improved from yesterday. She denies headache, shortness of breath, abdominal pain, nausea, vomiting, or pain in the extremities. She is oriented to self and location/situation, though not entirely oriented to time. She has no acute concerns. Review of Systems Review of Systems: All systems reviewed & are unremarkable except as noted in HPI & below Physical Exam Physical Exam: General: Morbidly obese woman, who is otherwise alert, interactive, and in no acute distress. HEENT: Normocephalic, atraumatic. EOM intact. Good conjugate gaze. Nares patent. Moist mucosal membranes. Neck: Supple. No lymphadenopathy. Normal ROM. CV: Regular rate and rhythm. Normal S1 and S2. Systolic murmur heard on auscultation. Respiratory: Normal respiratory effort. Bibasilar crackles. No rhonchi, or wheezes. Abdomen: Significantly distended abdomen, with large pannus. No bruits heard on auscultation. No tenderness to deep palpation. No guarding or rebound. Extremities: Capillary refill <2 sec. 2+ dp equal bilaterally. Bilateral pedal edema to the shins. Neuro: Alert and oriented x3. Skin: Clean, dry, and intact. No rashes, bruises, or erythema. Results & Data Results & Data ([facility]) Vital Signs (Past 12 Hours) Vital Signs Temp Pulse Pulse Resp BP Pulse Ox Pulse Ox 02/16/22 08:42 02/16/22 08:36 02/16/22 08:25 87 18 145/81 H 99 02/16/22 07:37 37.0 C 84 19 153/69 H 96 02/16/22 04:41 80 16 136/52 L 99 02/15/22 23:00 80 02/16/22 00:15 36.4 C L 82 14 138/65 100 02/15/22 23:00 99 02/15/22 22:34 94 O2 Del Method O2 Del Method O2 Flow Rate O2 Flow Rate 02/16/22 08:42 Nasal Cannula 2 02/16/22 08:36 Nasal Cannula 2 02/16/22 08:25 Room Air 2 02/16/22 07:37 Nasal Cannula 2 02/16/22 04:41 Room Air 02/15/22 23:00 02/16/22 00:15 Nasal Cannula 2 02/15/22 23:00 Nasal Cannula 2 02/15/22 22:34 Nasal Cannula 2 Resident Activity Tracking Resident Involvement: Resident Care Provided Care Provided: Adult Hospital Medicine
--- NOTE | 2022-02-16 09:42 | Cardiology Progress Note ---
Date of Service February 16, 2022 Assessment & Plan (1) Paroxysmal atrial fibrillation: (2) Tachycardia-bradycardia syndrome: (3) Sepsis due to urinary tract infection: (4) S/P ureteral stent placement: (5) Acute dehydration: (6) RAYMUNDO (obstructive sleep apnea): Plan 76-year-old female admitted with sepsis. Cardiology consultation requested due to paroxysmal atrial fibrillation with 3-4-second asymptomatic post-conversion pauses. She has remained in sinus rhythm overnight. Appropriately anticoagulated with Eliquis. Metoprolol reduced to 25 mg twice daily. Continue amiodarone 200 mg daily. Monitor telemetry. Fluid balance positive due to IV fluids and antibiotics. Recommend discontinue IV normal saline. Renal function has returned to baseline. Give 1 dose of IV furosemide 20 mg now. Monitor daily weight and fluid balance. Gram-positive cocci in clusters noted on blood culture. Recommend resting 2D transthoracic echocardiogram today. Thank you for allow me to participate in the care of your patient. Admission and Anticipated Discharge Date Admission Date: February 14, 2022 Subjective Patient seen and examined at the bedside. More alert today. Fluid balance positive 1436cc. Serum creatinine trended down to 0.65mg/dl. Remains in sinus rhythm over night. No further episodes of AF or pauses. Review of Systems Review of Systems: All systems reviewed & are unremarkable except as noted in Subjective Physical Exam Constitutional: + morbidly obese; no acute distress Respiratory: no respiratory distress, no labored breathing and no retractions Auscultation: + diminished lung sounds (Bilateral, poor effort.); no rales, no rhonchi and no wheezes Cardiovascular: Rate/Rhythm: + tachycardic and + irregularly irregular Heart Sounds: normal S1 and normal S2; no murmur Vessels: no JVD (Difficult to assess due to body habitus) Extremities: + edema (Mild bilateral pretibial edema) Gastrointestinal (Abdomen): Inspection/Auscultation: abdomen not distended Percussion/Palpation: abdomen soft; abdomen nontender, no guarding and abdomen not rigid Neurologic: CN's II-XI intact bilaterally Results & Data ([facility]) Vital Signs (Past 12 Hours) Vital Signs Temp Pulse Pulse Resp BP Pulse Ox Pulse Ox 02/16/22 08:42 02/16/22 08:36 02/16/22 08:25 87 18 145/81 H 99 02/16/22 07:37 37.0 C 84 19 153/69 H 96 02/16/22 04:41 80 16 136/52 L 99 02/15/22 23:00 80 02/16/22 00:15 36.4 C L 82 14 138/65 100 02/15/22 23:00 99 02/15/22 22:34 94 O2 Del Method O2 Del Method O2 Flow Rate O2 Flow Rate 02/16/22 08:42 Nasal Cannula 2 02/16/22 08:36 Nasal Cannula 2 02/16/22 08:25 Room Air 2 02/16/22 07:37 Nasal Cannula 2 02/16/22 04:41 Room Air 02/15/22 23:00 02/16/22 00:15 Nasal Cannula 2 02/15/22 23:00 Nasal Cannula 2 02/15/22 22:34 Nasal Cannula 2
[2022-02-16] MEDS ORDERED: FUROSEMIDE INJ 20 MG/2 ML VIAL IV ONE ×2 (10:30→13:11)
--- NOTE | 2022-02-16 10:36 | Urology Progress Note ---
Date of Service February 16, 2022 Assessment & Plan (1) GILBERTO (acute kidney injury): (2) UTI (urinary tract infection): (3) Nephrolithiasis: (4) S/P ureteral stent placement: Plan 76yo F w/ a right ureteral stent admitted w/ sepsis 2/2 UTI that has failed outpatient abx. -Afebrile and hemodynamically stable. -Labs reviewed-no leukocytosis, creatinine 0.65 today. -Urine culture pending, blood cultures with gram-positive cocci clusters in 1/4 tubes. -Continues on IV daptomycin and cefepime, follow cultures. -Maintain Ang catheter. -Continue supportive care and antibiotic therapy. -If she is still in the hospital, will tentatively plan for intervention next week after she is medically optimized. -Urology will follow. Admission and Anticipated Discharge Date Admission Date: February 14, 2022 Subjective Patient examined at bedside this AM in the ED. Awake, alert, and resting in bed on arrival. Nursing at bedside. Denies any pain or discomfort at present. Reports she is feeling a little better today than yesterday. Ang catheter intact, draining pink-tinged urine. Review of Systems Constitutional: as per Subjective / HPI Genitourinary: as per Subjective / HPI Physical Exam Constitutional: + ill appearing and + obese; no acute distress Respiratory: no respiratory distress and no labored breathing Neurologic: awake Psychiatric: Orientation: alert and oriented to person Genitourinary: Ang catheter intact, draining pink-tinged urine. Results & Data ([facility]) Vital Signs (Past 12 Hours) Vital Signs Temp Pulse Pulse Resp BP Pulse Ox Pulse Ox 02/16/22 08:42 02/16/22 08:36 02/16/22 08:25 87 18 145/81 H 99 02/16/22 07:37 37.0 C 84 19 153/69 H 96 02/16/22 04:41 80 16 136/52 L 99 02/15/22 23:00 80 02/16/22 00:15 36.4 C L 82 14 138/65 100 02/15/22 23:00 99 02/15/22 22:34 94 O2 Del Method O2 Del Method O2 Flow Rate O2 Flow Rate 02/16/22 08:42 Nasal Cannula 2 02/16/22 08:36 Nasal Cannula 2 02/16/22 08:25 Room Air 2 02/16/22 07:37 Nasal Cannula 2 02/16/22 04:41 Room Air 02/15/22 23:00 02/16/22 00:15 Nasal Cannula 2 02/15/22 23:00 Nasal Cannula 2 02/15/22 22:34 Nasal Cannula 2 PG Care Time/CCT Total # of Minutes Spent Total Time Spent with Patient: Total time spent is greater than 50% in coordination of care (as documented) at patient's floor/unit and/or counseling patient: Coding Level of Care Code 21860 Subseq Hosp Care Lvl 2 Diagnoses GILBERTO (acute kidney injury) N17.9 UTI (urinary tract infection) N39.0 Nephrolithiasis N20.0 S/P ureteral stent placement Z96.0
[2022-02-16] MEDS: DAPTOmycin 700 MG in SYRINGE 0 ML IV SCH (18:56)
[2022-02-16] MEDS: MELATONIN 3 MG TAB PO SCH (20:39)
[2022-02-16] MEDS: DULoxetine HCL 60 MG CAP PO SCH (20:39)
[2022-02-17] MEDS: ACETAMINOPHEN 500 MG TAB PO SCH ×3 (03:10→18:59)
[2022-02-17] MEDS: CEFEPIME 2,000 MG in SYRINGE 0 ML IV SCH ×3 (03:10→21:10)
--- NOTE | 2022-02-17 06:28 | Electrocardiogram Report ---
Test Reason : Blood Pressure : / mmHG Vent. Rate : 079 BPM Atrial Rate : 079 BPM P-R Int : 156 ms QRS Dur : 090 ms QT Int : 410 ms P-R-T Axes : 048 031 048 degrees QTc Int : 470 ms Normal sinus rhythm Low voltage QRS Borderline ECG When compared with ECG of 14-FEB-2022 14:49, Sinus rhythm has replaced Atrial fibrillation Confirmed by Shaun Zhu ([id number]) on 02/17/2022 6:27:41 AM Referred By: [facility] Confirmed By:Shaun Zhu
--- NOTE | 2022-02-17 07:10 | Hospitalist Progress Note ---
Date of Service February 17, 2022 Assessment & Plan (1) UTI (urinary tract infection): Plan: 76-year-old woman with complicated medical history that includes multiple kidney stones (with ureteral stent), permanent A. fib on Eliquis, T8 burst fracture and accompanying chronic back pain, here for continued management of complicated UTI (VRE, Pseudomonas), as well as MRSA bacteremia, now on daptomycin and cefepime. Sepsis/Acute urinary tract infection -Initially received vancomycin until urine cultures returned VRE. Patient switched to daptomycin. -Metabolic encephalopathy present on admission now appears resolved. -WBC elevated at 12, up from 9 on 02/16/2022. Patient afebrile, dyspneic, or otherwise symptomatic. * Continue current antibiotics (daptomycin and cefepime): Day 10. * Consider CXR, additional blood cultures * Holding statin, given daptomycin course. Plan to resume upon completion of antibiotics. * Per urology: Tentative intervention once patient is medically stabilized Atrial fibrillation/Postconversion sinus pause, question tachybradycardia syndrome * Continue Eliquis, amiodarone * IV Lasix 40 mg daily * Holding losartan * Cardiology following * Consideration for pacemaker once infection has cleared Hypertension -Patient's home regimen appears to be losartan 25 mg daily, Lopressor 50 mg twice daily, furosemide 40 mg daily -Losartan held in the setting of patient's now resolved GILBERTO. -Lopressor given at half home dose, likely due to hypotension on admission. Patient normotensive at present. * Continue holding losartan * Lopressor at half home dose (25 mg twice daily) * Trend vitals Pedal edema/volume overload -Patient weight on admission 135.8 kg, which appears to be baseline weight in 2021. Patient received IV fluids were discontinued yesterday for septic presentation. Home Lasix also held due to GILBERTO (now resolved) -Patient now on 140.8 kg, with 1+ pitting edema bilaterally. No signs of pulmonary edema. Received IV Lasix 20 mg yesterday. Net I/O: +2.386 L, though net -1.05 L over last 24 hours. * Daily standing weights * Daily I's & O's * IV Lasix as above Hyperlipidemia: Holding home atorvastatin until after course complete Chronic back pain: Continue home gabapentin. Holding home oxycodone Constipation: Continue home regimen Code: Full code Dispo: Med-Surg with telemetry FEN/GI: heart healthy DVT Prophylaxis: Eliquis 5 mg twice daily PT/OT: Ordered Consults: Urology, cardiology Case management: (2) Acute metabolic encephalopathy: (3) Back pain: (4) Pulmonary vascular congestion: (5) Atrial fibrillation with RVR: (6) GILBERTO (acute kidney injury): (7) HTN (hypertension): (8) HLD (hyperlipidemia): Admission and Anticipated Discharge Date Admission Date: February 14, 2022 Supervising Physician Co-Signing Physician Notes Patient seen and examined independently of PGY-2 Dr. Alvarado. Agree with history, exam findings, assessment and plan of care as outlined. In brief, 76 year old female with right ureteral stent, recurrent kidney stones, pAF (AC with Eliquis) and chronic back pain secondary to prior burst fracture admitted with sepsis secondary to urinary tract infection. Overall, feels well. No urinary complaints. No fevers, chills. No abdominal pain. No new cough. VS and nursing notes reviewed. Non-toxic appearing. II/ Systolic murmur. Regular rate. Lungs with good air movement throughout. Bibasilar crackles. Abdomen is soft, nontender. Labs and imaging reviewed. 1. UTI. Urine positive for Pseudomonas and VRE; repeat urine culture form 02/14 showing VRE. Continue dapto and cefepime; will need 10 day course. Appreciate urology recommendations. 2. Positive blood culture. blood cultures with coag negative staph. Likely contaminant. 3. Acute metabolic encephalopathy in the setting of mild to moderate dementia. Improving. 4. Back pain. Chronic. Prior T8 burst fracture. Holding oxycodone and Soma due to somnolence; can restart in the AM if she continues to improve. 5. Pulmonary vascular congestion. Received 20mg IV Lasix yesterday and 40mg IV Lasix today. Monitor I/Os, daily weights. Wean O2 as able. 6. Atrial fibrillation with RVR. Now rate controlled and converted back to sinus. Appreciate cardiology recommendations. Continue with decreased metoprolol dose 25mg BID, continue amiodarone 200mg. May have an element of tachy-acacia and may need pacer at some point down the line. Repeat TTE on 02/16 with EF 55-60%, mild concentric LVH, moderate aortic valve sclerosis without significant abortive valvular stenosis, mild to moderate tricuspid regurgitation. 7. HTN. Continue with decreased metoprolol dose. Holding losartan. IV Lasix as above. 8. GILBERTO. Secondary to infection. Improved. 9. HLD. Holding statin since she is getting dapto. Dispo: pending clinical improvement. Noted that she is a bed hold at [facility]. Subjective No acute events overnight. Patient feels better overall today. She denies headache, shortness of breath, fatigue, chest pain, or abdominal pain. She is alert and oriented x3. She has no acute concerns at this time. Review of Systems Review of Systems: All systems reviewed & are unremarkable except as noted in HPI & below Physical Exam Physical Exam: General: Morbidly obese woman, who is otherwise alert, interactive, and in no acute distress. HEENT: Normocephalic, atraumatic. EOM intact. Good conjugate gaze. Nares patent. Moist mucosal membranes. Neck: Supple. No lymphadenopathy. Normal ROM. CV: Regular rate and rhythm. Normal S1 and S2. Systolic murmur heard on auscultation. Respiratory: Normal respiratory effort. Mild bibasilar crackles, improved yesterday. No rhonchi, or wheezes. Abdomen: Significantly distended abdomen, with large pannus. No bruits heard on auscultation. No tenderness to deep palpation. No guarding or rebound. Ang catheter with dark, coke-colored urine. Extremities: Capillary refill <2 sec. 2+ bilateral pitting edema to the shins. Neuro: Alert and oriented x3. Skin: Clean, dry, and intact. No rashes, bruises, or erythema. Results & Data Results & Data ([facility]) Vital Signs (Past 12 Hours) Vital Signs Temp Pulse Pulse Resp BP Pulse Ox O2 Del Method 02/17/22 02:53 36.8 C 96 H 18 159/71 H 96 Nasal Cannula 02/16/22 23:59 75 02/17/22 00:15 Nasal Cannula 02/16/22 23:03 36.7 C 81 20 152/82 H 98 Nasal Cannula 02/16/22 19:13 36.5 C 81 18 156/82 H 94 Nasal Cannula O2 Flow Rate 02/17/22 02:53 2 02/16/22 23:59 02/17/22 00:15 2 02/16/22 23:03 2 02/16/22 19:13 2 Resident Activity Tracking Resident Involvement: Resident Care Provided Care Provided: Adult Hospital Medicine
[2022-02-17 08:41] LABS: Basophils # (auto) 0.04 K/uL (0-0.2); Basophils % (auto) 0.3 %; Eosinophils % (auto) 4.2 %; Hematocrit (blood only) 34.4 % (34.1-44.9); Hemoglobin 10.5 g/dl (12.0-16.0); Immature Granulocytes # (auto) 0.17 K/uL (0.00-0.02); Immature Granulocytes % (auto) 1.4 %; Lymphocytes # (auto) 2.46 K/uL (1.2-3.4); Lymphocytes % (auto) 20.5 %; Mean Corpuscular Hemoglobin 27.2 pg (25.0-34.0); Mean Corpuscular Hgb Conc 30.5 g/dL (32.0-36.0); Mean Corpuscular Volume 89.1 fL (80.0-100.0); Mean Platelet Volume 8.2 fL (9.4-12.3); Monocytes # (auto) 0.85 K/uL (0.24-0.82); Monocytes % (auto) 7.1 %; Neutrophils % (auto) 66.5 %; Platelet Count 339 K/uL (130-400); RDW Coefficient of Variation 15.7 % (11.5-14.5); RDW Standard Deviation 50.9 fL (36.4-46.3); Red Blood Count 3.86 M/uL (3.93-5.22); White Blood Count 12.02 K/ul (4.8-10.8)
[2022-02-17 09:13] LABS: Albumin Globulin Ratio 0.8 (0.9-2); Albumin Level 2.6 gm/dl (3.4-5.0); BUN Creatinine Ratio 30.9 (10-20); Bilirubin,Total 0.3 mg/dl (0.2-1.0); Calcium 9.1 mg/dl (8.5-10.1); Creatinine Clr Calc Pharmacy 120.5 ml/min; Est GFR (African American) 104.1 ml/min; Est GFR (Non-African American) 89.8 ml/min; Globulin 3.1 gm/dl (2.5-4.0); Potassium 3.4 mmol/L (3.5-5.1); Total Protein 5.7 gm/dl (6.0-8.3)
[2022-02-17] MEDS: METOPROLOL TARTRATE 25 MG TAB PO SCH ×2 (09:38→21:19)
[2022-02-17] MEDS: GABAPENTIN 600 MG TAB PO SCH ×3 (09:38→21:18)
[2022-02-17] MEDS: DOCUSATE SODIUM 100 MG CAP PO SCH ×2 (09:39→21:16)
[2022-02-17] MEDS: SENNA 8.6 MG TAB PO SCH ×2 (09:40→21:18)
[2022-02-17] MEDS: ASPIRIN 81 MG ECTAB PO SCH (09:40)
[2022-02-17] MEDS: APIXABAN 5 MG TABLET PO SCH ×2 (09:40→21:17)
[2022-02-17] MEDS: TAMSULOSIN HCL 0.4 MG CAP PO SCH (09:41)
[2022-02-17] MEDS: CALCIUM CARBONATE 1250MG TAB PO SCH ×2 (09:41→21:17)
[2022-02-17] MEDS: AMIODARONE 200 MG TAB PO SCH (09:41)
[2022-02-17] MEDS: MULTIVITAMIN TAB PO SCH (09:42)
[2022-02-17] MEDS: MAGNESIUM OXIDE 400 MG TAB PO SCH (09:42)
[2022-02-17] MEDS: CHOLECALCIFEROL 1,000 UNITS 25 MCG TAB PO SCH (09:42)
--- NOTE | 2022-02-17 10:08 | Urology Progress Note ---
Date of Service February 17, 2022 Assessment & Plan (1) UTI (urinary tract infection): (2) Nephrolithiasis: Plan 76-year-old female with multiple medical comorbidities, doing well on cefepime and daptomycin. Ureteral stent remains in place for ureteral stones. She also has a fairly large stone in the kidney which may be struvite due to the low Hounsfield units. She still requires stent exchange, ureteroscopy and stone removal, however remains a high risk surgical candidate. I think the optimal approach may be to continue cefepime and daptomycin over the next couple days, repeat blood cultures to ensure that they are negative, optimize other comorbidities and plan for ureteroscopy with stone removal and stent exchange. We could tentatively plan to do this on 02/21/2022. Urology will continue to follow along. Admission and Anticipated Discharge Date Admission Date: February 14, 2022 Subjective Feeling well this morning, the best that she has a month Denies any pain Not having any urinary symptoms Tolerating a diet without any issues Mild increase in WBC today (12.02). Creatinine is at baseline (0.55). Urine culture with Enterococcus faecium VRE, blood cultures with gram-positive cocci in 1 of 2 tubes from 02/14/2022. She remains on cefepime and daptomycin Physical Exam Physical Exam: Resting in bed Respiratory: Breathing on 2 L oxygen by nasal cannula, no respiratory distress Gastrointestinal (Abdomen): Obese, nontender Genitourinary: Ang catheter in place draining urine with brown sediment Results & Data ([facility]) Vital Signs (Past 12 Hours) Vital Signs Temp Pulse Pulse Resp BP Pulse Ox O2 Del Method 02/17/22 07:39 37.1 C 90 19 155/70 H 97 Nasal Cannula 02/17/22 02:53 36.8 C 96 H 18 159/71 H 96 Nasal Cannula 02/16/22 23:59 75 02/17/22 00:15 Nasal Cannula 02/16/22 23:03 36.7 C 81 20 152/82 H 98 Nasal Cannula O2 Flow Rate 02/17/22 07:39 2 02/17/22 02:53 2 02/16/22 23:59 02/17/22 00:15 2 02/16/22 23:03 2 PG Care Time/CCT Total # of Minutes Spent Total Time Spent with Patient: Total time spent is greater than 50% in coordination of care (as documented) at patient's floor/unit and/or counseling patient: Coding Level of Care Code 54650 Subseq Hosp Care Lvl 2 Diagnoses UTI (urinary tract infection) N39.0 Nephrolithiasis N20.0
[2022-02-17] MEDS ORDERED: POTASSIUM CHLORIDE CRTAB 20 MEQ TABCR PO STA (10:17)
--- NOTE | 2022-02-17 10:22 | Cardiology Progress Note ---
Date of Service February 17, 2022 Assessment & Plan (1) Acute on chronic heart failure with preserved ejection fraction (HFpEF): (2) Paroxysmal atrial fibrillation: (3) Tachycardia-bradycardia syndrome: (4) Sepsis due to urinary tract infection: (5) S/P ureteral stent placement: (6) Acute dehydration: (7) RAYMUNDO (obstructive sleep apnea): Plan 76-year-old female admitted with sepsis. Urine culture growing vancomycin- resistant Enterococcus. Cardiology consultation requested due to paroxysmal atrial fibrillation with 3-4-second asymptomatic post-conversion pauses. She has remained in sinus rhythm x 48 hours. No recurrent bradycardia or significant pauses. Appropriately anticoagulated with Eliquis. Metoprolol reduced to 25 mg twice daily. Continue amiodarone 200 mg daily. Monitor telemetry. Recommend furosemide 40 mg IV daily. IV normal saline discontinued 02/16/2022. Supplement potassium and magnesium as indicated. Recommend Monitor daily weight, fluid balance, GFR, and electrolytes. Admission and Anticipated Discharge Date Admission Date: February 14, 2022 Subjective Patient seen and examined at the bedside. Fluid balance -2.6 L. Renal function remains stable. Denies chest pain or shortness of breath. Telemetry reveals sinus rhythm in the 70s. No recurrent atrial fibrillation. No significant pauses or bradycardia recorded. Blood pressure within acceptable range. Review of Systems Review of Systems: All systems reviewed & are unremarkable except as noted in Subjective Physical Exam Constitutional: + morbidly obese; no acute distress Respiratory: no respiratory distress, no labored breathing and no retractions Auscultation: + diminished lung sounds (Bilateral, poor effort.); no rales, no rhonchi and no wheezes Cardiovascular: Rate/Rhythm: regular rate and regular rhythm Heart Sounds: normal S1 and normal S2; no murmur Vessels: no JVD (Difficult to assess due to body habitus) Extremities: + edema (2+ pretibial edema extending to the hips) Gastrointestinal (Abdomen): Inspection/Auscultation: abdomen not distended Percussion/Palpation: abdomen soft; abdomen nontender, no guarding and abdomen not rigid Neurologic: CN's II-XI intact bilaterally Results & Data ([facility]) Vital Signs (Past 12 Hours) Vital Signs Temp Pulse Pulse Resp BP Pulse Ox O2 Del Method 02/17/22 07:39 37.1 C 90 19 155/70 H 97 Nasal Cannula 02/17/22 02:53 36.8 C 96 H 18 159/71 H 96 Nasal Cannula 02/16/22 23:59 75 02/17/22 00:15 Nasal Cannula 02/16/22 23:03 36.7 C 81 20 152/82 H 98 Nasal Cannula O2 Flow Rate 02/17/22 07:39 2 02/17/22 02:53 2 02/16/22 23:59 02/17/22 00:15 2 02/16/22 23:03 2
[2022-02-17] MEDS: FUROSEMIDE 40 MG/4 ML VIAL IV SCH (10:35)
[2022-02-17] MEDS: DAPTOmycin 700 MG in SYRINGE 0 ML IV SCH (18:58)
[2022-02-17] MEDS: MAGNESIUM SULFATE / D5W 1 GM/100 ML BAG IV SCH ×2 (21:10→22:53)
[2022-02-17] MEDS: MELATONIN 3 MG TAB PO SCH (21:16)
[2022-02-17] MEDS: DULoxetine HCL 60 MG CAP PO SCH (21:17)
[2022-02-18] MEDS: ACETAMINOPHEN 500 MG TAB PO SCH ×3 (04:16→18:19)
[2022-02-18] MEDS: CEFEPIME 2,000 MG in SYRINGE 0 ML IV SCH ×3 (04:16→20:29)
--- NOTE | 2022-02-18 07:08 | Hospitalist Progress Note ---
Date of Service February 18, 2022 Assessment & Plan (1) UTI (urinary tract infection): Plan: 76-year-old woman with complicated medical history that includes multiple kidney stones (with ureteral stent), permanent A. fib on Eliquis, T8 burst fracture and accompanying chronic back pain, here for continued management of complicated UTI (VRE, Pseudomonas) on daptomycin and cefepime. Acute urinary tract infection -Initially received vancomycin until urine cultures returned VRE. Patient switched to daptomycin. -Metabolic encephalopathy present on admission now appears resolved. -WBC elevated at 12, up from 9 on 02/16/2022. Patient afebrile, dyspneic, or otherwise symptomatic. * Continue current antibiotics (daptomycin and cefepime): Day 5/10. * Consider CXR, additional blood cultures * Holding statin, given daptomycin course. Plan to resume upon completion of antibiotics. * Per urology: Tentative intervention once patient is medically stabilized Atrial fibrillation/Post-conversion sinus pause, question tachybradycardia syndrome * Continue Eliquis, amiodarone * IV Lasix 40 mg daily * Cardiology following * Consideration for pacemaker once infection has cleared Pressure ulcer(s) x2 -Newly developing sacral decubitus stage I ulcer. Patient has no recorded history of prior decubitus ulcer. Stage I ulcer of left heel. -Patient has been afebrile, with WBC downtrending on antibiotic therapy (daptomycin, cefepime). * Wound care consult placed. Appreciate recs with respect to hospital bed substitution. * Frequent repositioning Fecal incontinence -Unsure of etiology. Patient has been afebrile, and otherwise asymptomatic. WBC initially increased to 12 from 9. Now downtrending again at 10. -Could be secondary to cephalosporin therapy, or burgeoning C. difficile infection. * C. difficile stool panel ordered. Await results * Holding constipation meds: Senna, magnesium oxide, Colace. * Contact precautions ordered Hypertension -Home regimen: Losartan 25 mg daily, Lopressor 50 mg twice daily, furosemide 40 mg daily -Losartan held in the setting of patient's now resolved GILBERTO. -Lopressor dose adjusted due to hypotension on admission. Patient normotensive at present. * Continue holding losartan * Lopressor at half home dose (25 mg twice daily) * Trend vitals Pedal edema/volume overload -Patient weight on admission 135.8 kg, which appears to be baseline weight in 2021. Patient received IV fluids were discontinued yesterday for septic presentation. Home Lasix also held due to GILBERTO (now resolved) -Patient now 140.8 kg, with 1+ pitting edema bilaterally. No signs of pulmonary edema. Net I/O: + 1.3, down from 2.386 L. -1.27 L over last 24 hours * Daily standing weights * Daily I's & O's * IV Lasix as above Hyperlipidemia: Holding home atorvastatin Chronic back pain: Continue home gabapentin. Holding home oxycodone Constipation: Continue home regimen Code: Full code Dispo: Med-Surg with telemetry FEN/GI: heart healthy DVT Prophylaxis: Eliquis 5 mg twice daily PT/OT: Ordered Consults: Urology, cardiology Case management: (2) Acute metabolic encephalopathy: (3) Back pain: (4) Pulmonary vascular congestion: (5) Atrial fibrillation with RVR: (6) GILBERTO (acute kidney injury): (7) HTN (hypertension): (8) HLD (hyperlipidemia): Admission and Anticipated Discharge Date Admission Date: February 14, 2022 Supervising Physician Co-Signing Physician Notes Patient seen and examined independently of PGY-2 Dr. Alvarado. Agree with history, exam findings, assessment and plan of care as outlined. In brief, 76 year old female with right ureteral stent, recurrent kidney stones, pAF (AC with Eliquis) and chronic back pain secondary to prior burst fracture admitted with sepsis secondary to urinary tract infection. Overall, feels well. No urinary complaints. No fevers, chills. No abdominal pain. No new cough. Noting loose stools. Also with pressure ulcer on the sacrum. VS and nursing notes reviewed. Non-toxic appearing. II/ Systolic murmur. Regular rate. Lungs with good air movement throughout. No crackles. Abdomen is soft, nontender. Labs and imaging reviewed. 1. UTI. Urine positive for Pseudomonas and VRE; repeat urine culture form 02/14 showing VRE. Continue dapto and cefepime; will need 10 day course. Appreciate urology recommendations. 2. Positive blood culture. blood cultures with coag negative staph. Likely contaminant. Repeat blood cultures pending. 3. Loose stools. C. Diff gene negative. May be related to antibiotics. Imodium PRN. 4. Sacral ulcer. Wound care consulted. 5. Acute metabolic encephalopathy in the setting of mild to moderate dementia. Improved. 6. Back pain. Chronic. Prior T8 burst fracture. Restart oxycodone and Soma now that sensorium is clearer. 7. Pulmonary vascular congestion. Received 20mg IV Lasix yesterday and 40mg IV Lasix today. Monitor I/Os, daily weights. Wean O2 as able. 8. Atrial fibrillation with RVR. Now rate controlled and converted back to sinus. Repeat TTE on 02/16 with EF 55-60%, mild concentric LVH, moderate aortic valve sclerosis without significant abortive valvular stenosis, mild to moderate tricuspid regurgitation. 9. HTN. Continue with decreased metoprolol dose. Holding losartan. IV Lasix as above. 10. HLD. Holding statin since she is getting dapto. Dispo: Plans for procedure with urology on 02/21 (Dr. Munoz). Subjective No acute events overnight. Patient reports feeling much better today versus yesterday. She denies headache, shortness of breath, abdominal pain, chest pain. She is alert and oriented x3. Per nursing, she has been fecally incontinent, requiring bed changes multiple times overnight and this morning. Patient is unaware of incontinence, as she has no sensation of an urge to defecate, or fecal leaking. Review of Systems Review of Systems: All systems reviewed & are unremarkable except as noted in HPI & below Physical Exam Physical Exam: General: Morbidly obese woman, who is otherwise alert, interactive, and in no acute distress. HEENT: Normocephalic, atraumatic. EOM intact. Good conjugate gaze. Nares patent. Moist mucosal membranes. Neck: Supple. No lymphadenopathy. Normal ROM. CV: Regular rate and rhythm. Normal S1 and S2. Systolic murmur heard on auscultation. Respiratory: Normal respiratory effort. Mild bibasilar crackles, improved yesterday. No rhonchi, or wheezes. Abdomen: Significantly distended abdomen, with large pannus. No bruits heard on auscultation. No tenderness to deep palpation. Ang catheter with dark, coke- colored urine. Extremities: Capillary refill <2 sec. 2+ bilateral pitting edema to the shins. Neuro: Alert and oriented x3. Skin: Large erythematous, partially fluctuant pressure-lesion above gluteal fold in sacrum, without pus like discharge. Full assessment of skin changes on the buttocks limited by presence of fecal matter. Stage I ulcer on patient's left heel. Results & Data Results & Data ([facility]) Vital Signs (Past 12 Hours) Vital Signs Temp Pulse Pulse Resp BP Pulse Ox O2 Del Method 02/17/22 23:59 77 02/18/22 04:14 36.5 C 85 20 150/70 H 95 Nasal Cannula 02/17/22 23:30 Nasal Cannula 02/17/22 23:22 36.4 C L 75 20 133/74 97 Nasal Cannula 02/17/22 19:38 36.6 C 86 20 138/73 96 Nasal Cannula O2 Flow Rate 02/17/22 23:59 02/18/22 04:14 2 02/17/22 23:30 2 02/17/22 23:22 2 02/17/22 19:38 2 Resident Activity Tracking Resident Involvement: Resident Care Provided Care Provided: Adult Hospital Medicine
[2022-02-18 07:35] LABS: Basophils # (auto) 0.04 K/uL (0-0.2); Basophils % (auto) 0.4 %; Eosinophils # (auto) 0.46 K/uL (0-0.50); Eosinophils % (auto) 4.3 %; Hematocrit (blood only) 34.3 % (34.1-44.9); Hemoglobin 10.3 g/dl (12.0-16.0); Immature Granulocytes # (auto) 0.09 K/uL (0.00-0.02); Immature Granulocytes % (auto) 0.8 %; Lymphocytes # (auto) 2.55 K/uL (1.2-3.4); Lymphocytes % (auto) 24.1 %; Mean Corpuscular Hemoglobin 27.3 pg (25.0-34.0); Mean Platelet Volume 8.1 fL (9.4-12.3); Monocytes # (auto) 0.74 K/uL (0.24-0.82); Neutrophils # (auto) 6.71 K/uL (1.4-6.5); Neutrophils % (auto) 63.4 %; Platelet Count 297 K/uL (130-400); RDW Coefficient of Variation 15.5 % (11.5-14.5); RDW Standard Deviation 51.2 fL (36.4-46.3); Red Blood Count 3.77 M/uL (3.93-5.22); White Blood Count 10.59 K/ul (4.8-10.8)
[2022-02-18 07:56] LABS: BUN Creatinine Ratio 21.7 (10-20); Calcium 8.9 mg/dl (8.5-10.1); Creatinine Clr Calc Pharmacy 110.4 ml/min; Est GFR (African American) 101.2 ml/min; Est GFR (Non-African American) 87.3 ml/min; Magnesium 1.7 mg/dl (1.7-2.4); Potassium 3.7 mmol/L (3.5-5.1)
[2022-02-18] MEDS: AMIODARONE 200 MG TAB PO SCH (08:30)
[2022-02-18] MEDS: APIXABAN 5 MG TABLET PO SCH ×2 (08:31→20:32)
[2022-02-18] MEDS: CALCIUM CARBONATE 1250MG TAB PO SCH ×2 (08:31→20:31)
[2022-02-18] MEDS: ASPIRIN 81 MG ECTAB PO SCH (08:31)
[2022-02-18] MEDS: DOCUSATE SODIUM 100 MG CAP PO SCH (08:32)
[2022-02-18] MEDS: SENNA 8.6 MG TAB PO SCH (08:32)
[2022-02-18] MEDS: GABAPENTIN 600 MG TAB PO SCH ×3 (08:32→20:31)
[2022-02-18] MEDS: TAMSULOSIN HCL 0.4 MG CAP PO SCH (08:33)
[2022-02-18] MEDS: MULTIVITAMIN TAB PO SCH (08:33)
[2022-02-18] MEDS: MAGNESIUM OXIDE 400 MG TAB PO SCH (08:33)
[2022-02-18] MEDS: FUROSEMIDE 40 MG/4 ML VIAL IV SCH ×2 (08:34→17:10)
[2022-02-18] MEDS: METOPROLOL TARTRATE 25 MG TAB PO SCH ×2 (08:34→20:31)
[2022-02-18] MEDS: CHOLECALCIFEROL 1,000 UNITS 25 MCG TAB PO SCH (08:34)
[2022-02-18] MEDS ORDERED: POTASSIUM CHLORIDE CRTAB 20 MEQ TABCR PO SCH (09:00)
--- NOTE | 2022-02-18 13:36 | Cardiology Progress Note ---
Date of Service February 18, 2022 Assessment & Plan (1) Acute on chronic heart failure with preserved ejection fraction (HFpEF): (2) Paroxysmal atrial fibrillation: (3) Tachycardia-bradycardia syndrome: (4) Sepsis due to urinary tract infection: (5) S/P ureteral stent placement: (6) Acute dehydration: (7) RAYMUNDO (obstructive sleep apnea): Plan 76-year-old female admitted with sepsis. Urine culture growing vancomycin- resistant Enterococcus. Blood culture growing coagulase-negative staph (likely contaminant). Cardiology consultation requested due to paroxysmal atrial fibrillation with 3-4-second asymptomatic post-conversion pauses. She has remained in sinus rhythm x 72 hours. No recurrent bradycardia or significant pauses. Appropriately anticoagulated with Eliquis. Metoprolol reduced to 25 mg twice daily. Continue amiodarone 200 mg daily. Monitor telemetry. Recommend titrate furosemide to 40 mg twice daily. IV normal saline discontinued 02/16/2022. Supplement potassium and magnesium as indicated. Monitor daily weight, fluid balance, GFR, and electrolytes. Admission and Anticipated Discharge Date Admission Date: February 14, 2022 Subjective Patient seen and examined the bedside. Feeling better today. Fluid balance negative more than 1 L. Renal function remained stable. Edema unchanged. No fevers overnight. Denies chest pain or shortness of breath. Telemetry reveals sinus rhythm in the 70s. No dysrhythmias. Review of Systems Review of Systems: All systems reviewed & are unremarkable except as noted in Subjective Physical Exam Constitutional: + morbidly obese; no acute distress Respiratory: no respiratory distress, no labored breathing and no retractions Auscultation: + diminished lung sounds (Bilateral, poor effort.); no rales, no rhonchi and no wheezes Cardiovascular: Rate/Rhythm: regular rate, regular rhythm, + tachycardic and + irregularly irregular Heart Sounds: normal S1 and normal S2; no murmur Vessels: no JVD (Difficult to assess due to body habitus) Extremities: + edema (2+ pretibial edema extending to the hips) Gastrointestinal (Abdomen): Inspection/Auscultation: abdomen not distended Percussion/Palpation: abdomen soft; abdomen nontender, no guarding and abdomen not rigid Neurologic: CN's II-XI intact bilaterally Results & Data ([facility]) Vital Signs (Past 12 Hours) Vital Signs Temp Pulse Pulse Resp BP Pulse Ox O2 Del Method 02/18/22 13:14 97 Room Air 02/18/22 08:00 Nasal Cannula 02/18/22 08:00 75 02/18/22 10:49 36.3 C L 71 19 123/67 100 Nasal Cannula 02/18/22 07:48 36.6 C 97 H 20 169/77 H 96 Nasal Cannula 02/18/22 04:14 36.5 C 85 20 150/70 H 95 Nasal Cannula O2 Flow Rate 02/18/22 13:14 02/18/22 08:00 2 02/18/22 08:00 02/18/22 10:49 2 02/18/22 07:48 2 02/18/22 04:14 2
[2022-02-18] MEDS ORDERED: LOPERAMIDE HCL 2 MG CAP PO STA (16:33)
[2022-02-18] MEDS: DAPTOmycin 700 MG in SYRINGE 0 ML IV SCH (18:34)
[2022-02-18] MEDS: MELATONIN 3 MG TAB PO SCH (20:30)
[2022-02-18] MEDS: DULoxetine HCL 60 MG CAP PO SCH (20:32)
[2022-02-19] MEDS: ACETAMINOPHEN 500 MG TAB PO SCH ×3 (03:55→17:52)
[2022-02-19] MEDS: CEFEPIME 2,000 MG in SYRINGE 0 ML IV SCH ×3 (03:55→20:02)
[2022-02-19 05:53] LABS: Basophils # (auto) 0.05 K/uL (0-0.2); Basophils % (auto) 0.4 %; Eosinophils # (auto) 0.51 K/uL (0-0.50); Eosinophils % (auto) 3.9 %; Hematocrit (blood only) 35.3 % (34.1-44.9); Hemoglobin 10.6 g/dl (12.0-16.0); Immature Granulocytes # (auto) 0.13 K/uL (0.00-0.02); Lymphocytes # (auto) 3.37 K/uL (1.2-3.4); Lymphocytes % (auto) 25.5 %; Mean Corpuscular Hemoglobin 26.8 pg (25.0-34.0); Mean Corpuscular Volume 89.1 fL (80.0-100.0); Mean Platelet Volume 8.6 fL (9.4-12.3); Monocytes # (auto) 0.92 K/uL (0.24-0.82); Neutrophils # (auto) 8.21 K/uL (1.4-6.5); Neutrophils % (auto) 62.2 %; Platelet Count 305 K/uL (130-400); RDW Coefficient of Variation 15.4 % (11.5-14.5); RDW Standard Deviation 50.4 fL (36.4-46.3); Red Blood Count 3.96 M/uL (3.93-5.22); White Blood Count 13.19 K/ul (4.8-10.8)
[2022-02-19 06:13] LABS: BUN Creatinine Ratio 20.3 (10-20); Calcium 8.5 mg/dl (8.5-10.1); Creatinine Clr Calc Pharmacy 112.3 ml/min; Est GFR (African American) 101.7 ml/min; Est GFR (Non-African American) 87.8 ml/min; Magnesium 1.4 mg/dl (1.7-2.4); Potassium 3.1 mmol/L (3.5-5.1)
[2022-02-19] MEDS: oxyCODONE HCL IR 5 MG TAB (IMMEDIATE RELEASE) PO PRN (08:49)
[2022-02-19] MEDS: METOPROLOL TARTRATE 25 MG TAB PO SCH ×2 (08:51→20:03)
[2022-02-19] MEDS: FUROSEMIDE 40 MG/4 ML VIAL IV SCH ×2 (08:51→17:53)
[2022-02-19] MEDS: CALCIUM CARBONATE 1250MG TAB PO SCH ×2 (08:51→20:03)
[2022-02-19] MEDS: ASPIRIN 81 MG ECTAB PO SCH (08:52)
[2022-02-19] MEDS: GABAPENTIN 600 MG TAB PO SCH ×3 (08:52→20:03)
[2022-02-19] MEDS: APIXABAN 5 MG TABLET PO SCH ×2 (08:53→20:04)
[2022-02-19] MEDS: TAMSULOSIN HCL 0.4 MG CAP PO SCH (08:54)
[2022-02-19] MEDS: AMIODARONE 200 MG TAB PO SCH (08:54)
[2022-02-19] MEDS: CHOLECALCIFEROL 1,000 UNITS 25 MCG TAB PO SCH (08:54)
[2022-02-19] MEDS: MULTIVITAMIN TAB PO SCH (08:55)
--- NOTE | 2022-02-19 08:57 | Urology Progress Note ---
Date of Service February 19, 2022 Assessment & Plan (1) UTI (urinary tract infection): (2) Nephrolithiasis: Plan 76-year-old female with multiple medical comorbidities, doing well on cefepime and daptomycin. - Ureteral stent remains in place for ureteral stones. - Afebrile, lab work reviewed - creatinine 0.59, WBC 13.19, Hgb 10.6. - She still requires stent exchange, ureteroscopy and stone removal, however remains a high risk surgical candidate. - Urine culture with Enterococcus faecium VRE, blood cultures with gram-positive cocci in 1 of 2 tubes from 02/14/2022. - Repeat blood cultures 02/18 are pending, will await to ensure that they are negative. - Continue with Cefepime and Daptomycin. - Presuming she remains stable and medically optimized, plan for ureteroscopy with stone removal and stent exchange on 02/21. - Reviewed with Dr. Munoz, she can remain on Eliquis for procedure. - Maintain Ang catheter. - Continue supportive care, antibiotics, and medical management per primary team. - Urology will continue to follow along. Admission and Anticipated Discharge Date Admission Date: February 14, 2022 Subjective Patient seen and examined at bedside this AM. She is awake, alert and sitting up in bed. Tearful on arrival. She reports leg pains, attributes to phantom pain, and has discussed it with hospital team. Otherwise feeling much better. No abdominal, flank, or suprapubic discomfort. Ang intact and draining urine with brown sediment. Tolerating PO diet. No nausea or vomiting. No fever or chills. Mild increase in WBC today (13.19). Creatinine is at baseline (0.59). Urine culture with Enterococcus faecium VRE, blood cultures with gram-positive cocci in 1 of 2 tubes from 02/14/2022. Repeat blood cultures 02/18 pending. She remains on Cefepime and Daptomycin. Review of Systems Constitutional: as per Subjective / HPI Respiratory: no dyspnea Cardiovascular: no chest pain Gastrointestinal: as per Subjective / HPI Genitourinary: as per Subjective / HPI Musculoskeletal: as per Subjective / HPI Neurologic: as per Subjective / HPI Psychiatric: as per Subjective / HPI Physical Exam Constitutional: + obese; no acute distress Respiratory: no respiratory distress and no labored breathing Cardiovascular: Extremities: + edema (bilateral lower extremities) Gastrointestinal (Abdomen): Percussion/Palpation: abdomen soft; abdomen nontender Musculoskeletal: Head/Neck/Chest: normocephalic and head atraumatic Neurologic: awake Psychiatric: Orientation: alert and oriented x 3 tearful initially Genitourinary: Ang intact, patent and draining urine with brown sediment Results & Data ([facility]) Vital Signs (Past 12 Hours) Vital Signs Temp Pulse Pulse Resp BP Pulse Ox O2 Del Method 02/19/22 08:31 36.8 C 119 H 18 168/79 H 97 Room Air 02/19/22 03:35 36.8 C 84 17 129/73 93 Room Air 02/18/22 23:59 87 02/19/22 00:28 36.8 C 91 H 18 130/71 91 Room Air 02/19/22 00:03 Room Air PG Care Time/CCT Total # of Minutes Spent Total Time Spent with Patient: Total time spent is greater than 50% in coordination of care (as documented) at patient's floor/unit and/or counseling patient: Coding Level of Care Code 36081 Subseq Hosp Care Lvl 2 Diagnoses UTI (urinary tract infection) N39.0 Nephrolithiasis N20.0
[2022-02-19] MEDS: POTASSIUM CHLORIDE CRTAB 20 MEQ TABCR PO SCH (09:05)
--- NOTE | 2022-02-19 09:49 | Hospitalist Progress Note ---
Date of Service February 19, 2022 Assessment & Plan (1) UTI (urinary tract infection): Plan: 76-year-old woman with complicated medical history that includes multiple kidney stones (with ureteral stent), permanent A. fib on Eliquis, T8 burst fracture and accompanying chronic back pain, here for continued management of complicated UTI (VRE, Pseudomonas) on daptomycin and cefepime. Acute urinary tract infection -Initially received vancomycin until urine cultures returned VRE. Patient switched to daptomycin. -Metabolic encephalopathy present on admission now appears resolved. -WBC elevated at 12, up from 9 on 02/16/2022. Patient afebrile, dyspneic, or otherwise symptomatic. * Continue current antibiotics (daptomycin and cefepime): Day 6/10. * Consider CXR, additional blood cultures * Holding statin, given daptomycin course. Plan to resume upon completion of antibiotics. * Per urology: Tentative intervention once patient is medically stabilized, scheduled for the presuming stability Atrial fibrillation/Post-conversion sinus pause, question tachybradycardia syndrome * Continue Eliquis, amiodarone * IV Lasix 40 mg daily, do not want to induce gilberto given possible urologic internvention * Cardiology following Pressure ulcer(s) x2 -Newly developing sacral decubitus stage I ulcer. Patient has no recorded history of prior decubitus ulcer. Stage I ulcer of left heel. -Patient has been afebrile, with WBC downtrending on antibiotic therapy (daptomycin, cefepime). * Wound care consult placed. Appreciate recs with respect to hospital bed substitution. * Frequent repositioning Fecal incontinence -Unsure of etiology. Patient has been afebrile, and otherwise asymptomatic. W BC increased to 13 from 10. -Could be secondary to cephalosporin therapy, or burgeoning C. difficile infection. * C. difficile stool panel negative * Holding constipation meds: Senna, magnesium oxide, Colace. * Contact precautions ordered * Continue to monitor Hypertension -Home regimen: Losartan 25 mg daily, Lopressor 50 mg twice daily, furosemide 40 mg daily -Losartan held in the setting of patient's now resolved GILBERTO. -Lopressor dose adjusted due to hypotension on admission. Patient normotensive at present. * Continue holding losartan * Lopressor at half home dose (25 mg twice daily) * Trend vitals Pedal edema/volume overload -Patient weight on admission 135.8 kg, which appears to be baseline weight in 2021. Patient received IV fluids were discontinued yesterday for septic presentation. Home Lasix also held due to GILBERTO (now resolved) -Patient now 140.8 kg, with 1+ pitting edema bilaterally. No signs of pulmonary edema. Net I/O: -2.7 L over last 24 hours * Daily standing weights * Daily I's & O's * IV Lasix as above Hyperlipidemia: Holding home atorvastatin Chronic back pain: Continue home gabapentin. Holding home oxycodone Constipation: Continue home regimen Code: Full code Dispo: Med-Surg with telemetry FEN/GI: heart healthy DVT Prophylaxis: Eliquis 5 mg twice daily PT/OT: Ordered Consults: Urology, cardiology Case management: (2) Acute metabolic encephalopathy: (3) Back pain: (4) Pulmonary vascular congestion: (5) Atrial fibrillation with RVR: (6) GILBERTO (acute kidney injury): (7) HTN (hypertension): (8) HLD (hyperlipidemia): Admission and Anticipated Discharge Date Admission Date: February 14, 2022 Supervising Physician Co-Signing Physician Notes I personally examined the patient and verified all robins points of history and exam, discussed case, and agree with decision making with Dr Dong feeling OK leg cramps were bothersome but doing better now vitals noted nad heent nc at mmm breathing unlabored no accessory muscles good effort skin no rashes no pallor or icterus 1.UTI. Urine positive for Pseudomonas and VRE; repeat urine culture from 02/14 showing VRE. Continue dapto and cefepime; treat for 10 day course. Appreciate urology recommendations. 2.Positive blood culture. blood cultures with coag negative staph. Likely contaminant. Repeat blood cultures NGTD 3. Loose stools. C. Diff gene negative. May be related to antibiotics. Imodium PRN. no complaints of this today 4. Sacral ulcer. ongoing wound care 5.Acute metabolic encephalopathy in the setting of mild to moderate dementia. - improved. 6.Back pain. Chronic. Prior T8 burst fracture. home meds. no complaints of this today. 7.Pulmonary vascular congestion. now on RA 8.Atrial fibrillation with RVR. Now rate controlled and converted back to sinus. Repeat TTE on 02/16 with EF 55-60%, mild concentric LVH, moderate aortic valve sclerosis without significant abortive valvular stenosis, mild to moderate tricuspid regurgitation. 9.HTN. Continue current meds, BP acceptable 10.HLD. Holding statin since she is getting dapto. Subjective Patient seen at bedside this morning. Patient reports difficulty with sleeping due to muscle spasms in her lower extremities. Otherwise has intermittent back pain that the patient reports is tolerable. Alert and oriented to person and place. Adamant that she would like to have her procedure done that would help fix her stent but does seem somewhat depressed that she keeps having hurdles that she has to go over in order to have the procedure done. Otherwise still having the complaint of fecal incontinence. Reports having an accident this morning but does seem confused as to whether this actually happened or if this was a dream. Otherwise patient has no other complaints at this time. Review of Systems Review of Systems: All systems reviewed & are unremarkable except as noted in HPI & below Physical Exam Constitutional: well developed, well nourished, + obese, cooperative and comfortable Eyes: + anicteric sclerae Neck: normal visual inspection Respiratory: normal respiratory effort, lungs clear to auscultation Cardiovascular: Rate/Rhythm: + irregularly irregular Heart Sounds: + murmur Gastrointestinal (Abdomen): normal bowel sounds, soft, nontender, no he patosplenomegaly Musculoskeletal: Head/Neck/Chest: normocephalic and head atraumatic Skin: + ulcer (Bandaged) Psychiatric: Orientation: oriented to person and oriented to place; + not oriented to time Affect: euthymic affect Results & Data Results & Data ([facility]) Vital Signs (Past 12 Hours) Vital Signs Temp Pulse Pulse Resp BP Pulse Ox O2 Del Method 02/19/22 08:31 36.8 C 119 H 18 168/79 H 97 Room Air 02/19/22 03:35 36.8 C 84 17 129/73 93 Room Air 02/18/22 23:59 87 02/19/22 00:28 36.8 C 91 H 18 130/71 91 Room Air 02/19/22 00:03 Room Air
--- NOTE | 2022-02-19 10:43 | Cardiology Progress Note ---
Date of Service February 19, 2022 Assessment & Plan (1) Acute on chronic heart failure with preserved ejection fraction (HFpEF): (2) Paroxysmal atrial fibrillation: (3) Tachycardia-bradycardia syndrome: (4) Sepsis due to urinary tract infection: (5) S/P ureteral stent placement: (6) Acute dehydration: (7) RAYMUNDO (obstructive sleep apnea): Plan 76-year-old female admitted with sepsis. Urine culture growing vancomycin- resistant Enterococcus. Blood culture growing coagulase-negative staph (likely contaminant). Cardiology consultation requested due to paroxysmal atrial fibrillation with 3-4-second asymptomatic post-conversion pauses. She has remained in sinus rhythm x 4 days. No recurrent bradycardia or significant pauses. Appropriately anticoagulated with Eliquis. Metoprolol reduced to 25 mg twice daily. Continue amiodarone 200 mg daily. Monitor telemetry. Continue furosemide 40 mg twice daily (increased 02/18/2022). Supplement potassium and magnesium as indicated. Administer additional 20 mEq of oral potassium at noon today. Monitor daily weight, fluid balance, GFR, and electrolytes. Admission and Anticipated Discharge Date Admission Date: February 14, 2022 Subjective Patient seen examined the bedside. Fluid balance -2.6 L. Renal function remained stable. Edema improved. Hypokalemia noted. Telemetry reveals sinus rhythm. No recurrent atrial fibrillation or pauses. Review of Systems Review of Systems: All systems reviewed & are unremarkable except as noted in Subjective Physical Exam Constitutional: + morbidly obese; no acute distress Respiratory: no respiratory distress, no labored breathing and no retractions Auscultation: + diminished lung sounds (Bilateral, poor effort.); no rales, no rhonchi and no wheezes Cardiovascular: Rate/Rhythm: regular rate, regular rhythm, + tachycardic and + irregularly irregular Heart Sounds: normal S1 and normal S2; no murmur Vessels: no JVD (Difficult to assess due to body habitus) Extremities: + edema (2+ pretibial edema extending to the hips) Gastrointestinal (Abdomen): Inspection/Auscultation: abdomen not distended Percussion/Palpation: abdomen soft; abdomen nontender, no guarding and abdomen not rigid Neurologic: CN's II-XI intact bilaterally Results & Data ([facility]) Vital Signs (Past 12 Hours) Vital Signs Temp Pulse Pulse Resp BP Pulse Ox O2 Del Method 02/19/22 08:31 36.8 C 119 H 18 168/79 H 97 Room Air 02/19/22 03:35 36.8 C 84 17 129/73 93 Room Air 02/18/22 23:59 87 02/19/22 00:28 36.8 C 91 H 18 130/71 91 Room Air 02/19/22 00:03 Room Air
[2022-02-19] MEDS ORDERED: MAGNESIUM SULFATE / D5W 1 GM/100 ML BAG IV ONE (10:46)
[2022-02-19] MEDS ORDERED: POTASSIUM CHLORIDE CRTAB 20 MEQ TABCR PO ONE (12:00)
--- NOTE | 2022-02-19 18:21 | Billing Data ---
Date of Service February 19, 2022 Coding Level of Care Code 71906 Subseq Hosp Care Lvl 3
[2022-02-19] MEDS: DAPTOmycin 700 MG in SYRINGE 0 ML IV SCH (18:47)
[2022-02-19] MEDS: MELATONIN 3 MG TAB PO SCH (20:03)
[2022-02-19] MEDS: DULoxetine HCL 60 MG CAP PO SCH (20:04)
[2022-02-20] MEDS: ACETAMINOPHEN 500 MG TAB PO SCH ×3 (02:42→18:57)
[2022-02-20] MEDS: CEFEPIME 2,000 MG in SYRINGE 0 ML IV SCH ×3 (03:33→21:36)
--- NOTE | 2022-02-20 06:34 | Hospitalist Progress Note ---
Date of Service February 20, 2022 Assessment & Plan (1) UTI (urinary tract infection): Plan: 76-year-old woman with complicated medical history that includes multiple kidney stones (with ureteral stent), permanent A. fib on Eliquis, T8 burst fracture and accompanying chronic back pain, here for continued management of complicated UTI (VRE, Pseudomonas) on daptomycin and cefepime. Acute urinary tract infection -Initially received vancomycin until urine cultures returned VRE. Patient switched to daptomycin. -Metabolic encephalopathy present on admission now appears resolved. -WBC elevated at 12, down from 12 on 02/16/2022. Patient afebrile, dyspneic, or otherwise symptomatic. * Continue current antibiotics (daptomycin and cefepime): Day 7/10. * Additional blood cultures negative after 24 hours * Holding statin, given daptomycin course. Plan to resume upon completion of antibiotics. * Per urology: Tentative intervention once patient is medically stabilized, scheduled for the presuming stability Atrial fibrillation/Post-conversion sinus pause, question tachybradycardia syndrome * Continue Eliquis, amiodarone * IV Lasix 40 mg daily, do not want to induce gilberto given possible urologic internvention * Cardiology following, no changes currently Pressure ulcer(s) x2 -Newly developing sacral decubitus stage I ulcer. Patient has no recorded history of prior decubitus ulcer. Stage I ulcer of left heel. -Patient has been afebrile, with WBC downtrending on antibiotic therapy (daptomycin, cefepime). * Wound care consult placed. Appreciate recs with respect to hospital bed substitution. * Frequent repositioning Fecal incontinence -Unsure of etiology. Patient has been afebrile, and otherwise asymptomatic. WBC increased to 13 from 10. -Could be secondary to cephalosporin therapy, or burgeoning C. difficile infection. * C. difficile stool panel negative, seems improved today * Holding constipation meds: Senna, magnesium oxide, Colace. * Contact precautions ordered, continue * Continue to monitor Hypertension -Home regimen: Losartan 25 mg daily, Lopressor 50 mg twice daily, furosemide 40 mg daily -Losartan held in the setting of patient's now resolved GILBERTO, pressures are doing well -Lopressor dose adjusted due to hypotension on admission. Patient normotensive at present. * Continue holding losartan * Lopressor at half home dose (25 mg twice daily) * Trend vitals Pedal edema/volume overload -Patient weight on admission 135.8 kg, which appears to be baseline weight in 2021. Patient received IV fluids were discontinued yesterday for septic presentation. -Patient now 140.8 kg, with 1+ pitting edema bilaterally. No signs of pulmonary edema. Net I/O: -3.1 L over last 24 hours * Daily standing weights * Daily I's & O's * IV Lasix as above Hyperlipidemia: Holding home atorvastatin Chronic back pain: Continue home gabapentin. Holding home oxycodone Constipation: Continue home regimen Code: Full code Dispo:transfer to med surg FEN/GI: heart healthy DVT Prophylaxis: Eliquis 5 mg twice daily PT/OT: Ordered Consults: Urology, cardiology Case management: (2) Acute metabolic encephalopathy: (3) Back pain: (4) Pulmonary vascular congestion: (5) Atrial fibrillation with RVR: (6) GILBERTO (acute kidney injury): (7) HTN (hypertension): (8) HLD (hyperlipidemia): Admission and Anticipated Discharge Date Admission Date: February 14, 2022 Supervising Physician Co-Signing Physician Notes I personally examined the patient and verified all robins points of history and exam, discussed case, and agree with decision making with Dr Iker tapia when i see her. no new problems. for urology procedure tomorrow vitals noted nad heent nc at mmm breathing unlabored no accessory muscles good effort skin no rashes no pallor or icterus 1.UTI. Urine positive for Pseudomonas and VRE; repeat urine culture from 02/14 showing VRE. Continue dapto and cefepime; treat for 10 days total. Appreciate urology recommendations. 2.Positive blood culture. blood cultures with coag negative staph. Likely contaminant. Repeat blood cultures now negative for over 48 hours 3. Loose stools. C. Diff gene negative. May be related to antibiotics. Imodium PRN. 4. Sacral ulcer. ongoing wound care, wound team appreciated 5.Acute metabolic encephalopathy in the setting of mild to moderate dementia. - improved. 6.Back pain. Chronic. Prior T8 burst fracture. home meds. 7.Pulmonary vascular congestion. now on RA 8.Atrial fibrillation with RVR. Now rate controlled and converted back to sinus. Repeat TTE on 02/16 with EF 55-60%, mild concentric LVH, moderate aortic valve sclerosis without significant abortive valvular stenosis, mild to moderate tricuspid regurgitation. 9.HTN. Continue current meds, BP acceptable 10.HLD. Holding statin since she is getting dapto. Subjective Patient seen at bedside this morning. No acute events reported overnight. Patient overall doing well and feels comfortable at this time. Denies having any pain or worsening symptoms. Patient improves better cramping today when compared to yesterday. Reports some difficulty with sleeping and would like to have something to help her sleep. She takes melatonin at home and has not been receiving in the hospital. Review of Systems Review of Systems: All systems reviewed & are unremarkable except as noted in HPI & below Physical Exam Constitutional: well developed, well nourished, + obese, cooperative and comfortable Eyes: + anicteric sclerae Neck: normal visual inspection Respiratory: normal respiratory effort, lungs clear to auscultation Cardiovascular: Rate/Rhythm: + irregularly irregular Heart Sounds: + murmur Gastrointestinal (Abdomen): normal bowel sounds, soft, nontender, no hepatosplenomegaly Musculoskeletal: Head/Neck/Chest: normocephalic and head atraumatic Skin: + ulcer (Bandaged) Psychiatric: Orientation: oriented to person and oriented to place; + not oriented to time Affect: euthymic affect Results & Data Results & Data ([facility]) Vital Signs (Past 12 Hours) Vital Signs Temp Pulse Pulse Resp BP Pulse Ox Pulse Ox 02/20/22 03:38 36.8 C 103 H 17 96/64 L 94 02/19/22 23:39 36.7 C 87 17 122/72 93 02/19/22 23:13 79 02/19/22 23:05 98 02/19/22 19:55 36.9 C 108 H 18 130/64 92 O2 Del Method O2 Del Method 02/20/22 03:38 Room Air 02/19/22 23:39 Room Air 02/19/22 23:13 02/19/22 23:05 Room Air 02/19/22 19:55 Room Air
[2022-02-20 07:41] LABS: Basophils # (auto) 0.07 K/uL (0-0.2); Basophils % (auto) 0.6 %; Eosinophils # (auto) 0.52 K/uL (0-0.50); Eosinophils % (auto) 4.2 %; Hemoglobin 10.4 g/dl (12.0-16.0); Immature Granulocytes # (auto) 0.07 K/uL (0.00-0.02); Immature Granulocytes % (auto) 0.6 %; Lymphocytes # (auto) 3.49 K/uL (1.2-3.4); Lymphocytes % (auto) 28.3 %; Mean Corpuscular Hemoglobin 27.2 pg (25.0-34.0); Mean Corpuscular Hgb Conc 30.6 g/dL (32.0-36.0); Mean Corpuscular Volume 88.8 fL (80.0-100.0); Mean Platelet Volume 8.8 fL (9.4-12.3); Monocytes % (auto) 7.3 %; Neutrophils # (auto) 7.29 K/uL (1.4-6.5); Platelet Count 292 K/uL (130-400); RDW Coefficient of Variation 15.6 % (11.5-14.5); RDW Standard Deviation 50.6 fL (36.4-46.3); Red Blood Count 3.83 M/uL (3.93-5.22); White Blood Count 12.34 K/ul (4.8-10.8)
--- NOTE | 2022-02-20 08:27 | Urology Progress Note ---
Date of Service February 20, 2022 Assessment & Plan (1) Acute UTI: (2) Nephrolithiasis: Plan 76-year-old female with multiple medical comorbidities, doing well on cefepime and daptomycin. - Ureteral stent remains in place for ureteral stones. - Afebrile, lab work reviewed - creatinine 0.58, WBC 12.34, Hgb 10.4. - Urine culture with Enterococcus faecium VRE, blood cultures with gram-positive cocci in 1 of 2 tubes from 02/14/2022. - Repeat blood cultures 02/18 are prelim no growth x 24 hours, follow. - Continue with Cefepime and Daptomycin. - Discussed with Dr. Sanchez and patient is felt to be stable and optimized to proceed with surgery as planned on 02/21. - Plan for right ureteroscopy, laser lithotripsy and right stent exchange on 02/[address] Munoz. - Reviewed with Dr. Munoz, she can remain on Eliquis for procedure. - Make NPO at [place]. - Maintain Ang catheter. - Continue supportive care, antibiotics, and medical management per primary team. - Urology will continue to follow along. Admission and Anticipated Discharge Date Admission Date: February 14, 2022 Subjective Patient was seen and examined at bedside this AM. She is awake and resting in bed. She reports that she did not sleep well, but otherwise no complaints. No abdominal, suprapubic or flank pain. Ang intact and draining yellow urine with minimal sediment. No nausea or vomiting. No fever or chills. Review of Systems Constitutional: as per Subjective / HPI Respiratory: no dyspnea Cardiovascular: no chest pain Gastrointestinal: as per Subjective / HPI Genitourinary: as per Subjective / HPI Musculoskeletal: as per Subjective / HPI Neurologic: as per Subjective / HPI Psychiatric: as per Subjective / HPI Physical Exam Constitutional: + morbidly obese; no acute distress Respiratory: no respiratory distress and no labored breathing Cardiovascular: Extremities: + edema (bilateral lower extremities) Gastrointestinal (Abdomen): Percussion/Palpation: abdomen soft; abdomen nontender Musculoskeletal: Head/Neck/Chest: normocephalic and head atraumatic Skin: scattered ecchymosis Neurologic: awake Psychiatric: Orientation: alert and oriented x 3 Genitourinary: Ang intact, patent and draining yellow urine with minimal brown sediment Results & Data ([facility]) Vital Signs (Past 12 Hours) Vital Signs Temp Pulse Pulse Resp BP Pulse Ox Pulse Ox 02/20/22 07:58 92 H 02/20/22 07:35 36.7 C 96 H 20 164/83 H 92 02/20/22 03:38 36.8 C 103 H 17 96/64 L 94 02/19/22 23:39 36.7 C 87 17 122/72 93 02/19/22 23:13 79 02/19/22 23:05 98 O2 Del Method O2 Del Method 02/20/22 07:58 02/20/22 07:35 Room Air 02/20/22 03:38 Room Air 02/19/22 23:39 Room Air 02/19/22 23:13 02/19/22 23:05 Room Air PG Care Time/CCT Total # of Minutes Spent Total Time Spent with Patient: Total time spent is greater than 50% in coordination of care (as documented) at patient's floor/unit and/or counseling patient: Coding Level of Care Code 80705 Subseq Hosp Care Lvl 2 Diagnoses Acute UTI N39.0 Nephrolithiasis N20.0
[2022-02-20 08:29] LABS: Calcium 8.9 mg/dl (8.5-10.1); Creatinine Clr Calc Pharmacy 110.9 ml/min; Est GFR (African American) 102.3 ml/min; Est GFR (Non-African American) 88.3 ml/min; Magnesium 1.5 mg/dl (1.7-2.4); Potassium 3.6 mmol/L (3.5-5.1)
[2022-02-20] MEDS: POTASSIUM CHLORIDE CRTAB 20 MEQ TABCR PO SCH (09:18)
[2022-02-20] MEDS: AMIODARONE 200 MG TAB PO SCH (09:18)
[2022-02-20] MEDS: ASPIRIN 81 MG ECTAB PO SCH (09:19)
[2022-02-20] MEDS: MULTIVITAMIN TAB PO SCH (09:19)
[2022-02-20] MEDS: APIXABAN 5 MG TABLET PO SCH ×2 (09:19→21:38)
[2022-02-20] MEDS: METOPROLOL TARTRATE 25 MG TAB PO SCH ×2 (09:19→21:39)
[2022-02-20] MEDS: CALCIUM CARBONATE 1250MG TAB PO SCH ×2 (09:20→21:39)
[2022-02-20] MEDS: TAMSULOSIN HCL 0.4 MG CAP PO SCH (09:20)
[2022-02-20] MEDS: GABAPENTIN 600 MG TAB PO SCH ×3 (09:20→21:37)
[2022-02-20] MEDS: FUROSEMIDE 40 MG/4 ML VIAL IV SCH ×2 (09:20→17:21)
[2022-02-20] MEDS: CHOLECALCIFEROL 1,000 UNITS 25 MCG TAB PO SCH (09:20)
--- NOTE | 2022-02-20 09:29 | Cardiology Progress Note ---
Date of Service February 20, 2022 Assessment & Plan (1) Acute on chronic heart failure with preserved ejection fraction (HFpEF): (2) Paroxysmal atrial fibrillation: (3) Tachycardia-bradycardia syndrome: (4) Sepsis due to urinary tract infection: (5) S/P ureteral stent placement: (6) Acute dehydration: (7) RAYMUNDO (obstructive sleep apnea): Plan 76-year-old female admitted with sepsis. Urine culture growing vancomycin-resistant Enterococcus. Initial Blood culture growing coagulase-negative staph (likely contaminant). Repeat blood cultures (prelim) without growth. Continue antibiotics per hospitalist and urology. No recurrent atrial fibrillation or pauses in the last 5 days. Continue amiodarone, metoprolol, Eliquis. Continue furosemide 40 mg IV twice daily today for ongoing diuresis. Continues to have significant edema b/l. 3.5 L output since yesterday. Monitor I+O's and monitor daily weight Replace potassium and magnesium. Case discussed with Dr. Hdez. Will follow. Admission and Anticipated Discharge Date Admission Date: February 14, 2022 Supervising Physician Co-Signing Physician Notes Patient seen examined the bedside. Fluid balance negative more than 3 L. Renal function remains stable. Edema unchanged. Denies chest pain or shortness of breath. Telemetry reveals sinus rhythm and sinus tachycardia. No recurrent atrial fibrillation or bradycardia/pauses. PE: VSS. Gen: NAD, AAO x3. Heart: Regular rhythm, normal S1-S2. No murmur. Lungs: Clear bilateral, no rales, rhonchi, wheeze. Extremities: 2+ pretibial edema extending to the hips. A/P: Agree with above PA-C history, physical exam, assessment and plan. Continue IV diuretic therapy. Monitor fluid balance, daily weight, GFR, and electrolytes. Replace electrolytes as indicated. Subjective Patient resting in bed comfortably. Denies chest pain or SOB. Down 6 Kg with good urine output since yesterday. ongoing edema noted b/l, but improved from yesterday per patient. LE cramping also improved. Review of Systems Review of Systems: All systems reviewed & are unremarkable except as noted in HPI & below Physical Exam Constitutional: WD/WN, vitals as above + morbidly obese; no acute distress Respiratory: no respiratory distress, no labored breathing and no retractions Auscultation: + diminished lung sounds; no rales, no rhonchi and no wheezes Cardiovascular: Rate/Rhythm: regular rate, regular rhythm, + tachycardic and + irregularly irregular Heart Sounds: normal S1 and normal S2; no murmur Vessels: no JVD (Difficult to assess due to body habitus) Extremities: + edema (2+ pretibial edema extending to the hips) Gastrointestinal (Abdomen): Inspection/Auscultation: abdomen not distended Percussion/Palpation: abdomen soft; abdomen nontender, no guarding and abdomen not rigid Neurologic: CN's II-XI intact bilaterally Psychiatric: A+Ox3, euthymic affect [facility]) Vital Signs (Past 12 Hours) Vital Signs Temp Pulse Pulse Resp BP Pulse Ox Pulse Ox 02/20/22 07:58 92 H 02/20/22 07:35 36.7 C 96 H 20 164/83 H 92 02/20/22 03:38 36.8 C 103 H 17 96/64 L 94 02/19/22 23:39 36.7 C 87 17 122/72 93 02/19/22 23:13 79 02/19/22 23:05 98 O2 Del Method O2 Del Method 02/20/22 07:58 02/20/22 07:35 Room Air 02/20/22 03:38 Room Air 02/19/22 23:39 Room Air 02/19/22 23:13 02/19/22 23:05 Room Air Laboratory Results CBC 02/20/22 Range/Units 07:24 WBC 12.34 H (4.8-10.8) K/ul RBC 3.83 L (3.93-5.22) M/uL Hgb 10.4 L (12.0-16.0) g/dl Hct 34.0 L (34.1-44.9) % Plt Count 292 (130-400) K/uL Neut # (Auto) 7.29 H (1.4-6.5) K/uL Lymph # (Auto) 3.49 H (1.2-3.4) K/uL Boyle # (Auto) 0.90 H (0.24-0.82) K/uL Eos # (Auto) 0.52 H (0-0.50) K/uL Baso # (Auto) 0.07 (0-0.2) K/uL Comprehensive Metabolic Panel 02/20/22 Range/Units 07:24 Sodium 141 (136-145) mmol/L Potassium 3.6 (3.5-5.1) mmol/L Chloride 104 (98-107) mmol/L Carbon Dioxide 30 (21-32) mmol/L BUN 11 (6-23) mg/dl Creatinine 0.58 L (0.6-1.2) mg/dl Glucose 100 H (70-99(Fasting)) mg/dl Calcium 8.9 (8.5-10.1) mg/dl Intake and Output 02/19/22 02/20/22 02/20/22 22:59 06:59 14:59 Intake Total 120 / 220 Output Total 1650 / 3401 Balance -1530 / -3181 Intake: Oral 120 / 120 Output: Urine Amount (Catheter) 1650 / 3400 Ang/Indwelling 1650 / 3400 Other: Weight 134.2 kg Weight Measurement Method Built in [facility] Diagnostic Findings Telemetry reviewed: NSR, sinus tachycardia ranging 70-120's. No recurrent atrial fibrillation. Medications Administered Current Inpatient Medications Acetaminophen (Acetaminophen 500 Mg Tab) 1,000 mg PO Q8H PENDING SALE TO [facility] Stop: 03/17/22 18:44 Last Admin: 02/20/22 02:42 Dose: Not Given Amiodarone HCl (Amiodarone 200 Mg Tab) 200 mg PO QAM [facility] Stop: 03/17/22 08:59 Last Admin: 02/20/22 09:18 Dose: 200 mg Apixaban (Apixaban 5 Mg Tablet) 5 mg PO BID [facility] Stop: 03/16/22 20:59 Last Admin: 02/20/22 09:19 Dose: 5 mg Aspirin (Aspirin 81 Mg Ectab) 81 mg PO QAM [facility] Stop: 03/17/22 08:59 Last Admin: 02/20/22 09:19 Dose: 81 mg Atorvastatin Calcium (Atorvastatin 20 Mg Tab) 20 mg PO HS [facility] S[facility] Stop: 03/16/22 20:59 Calcium Carbonate (Calcium Carbonate 1250mg Tab) 1,250 mg PO BID [facility] Stop: 03/16/22 20:59 Last Admin: 02/20/22 09:20 Dose: 1,250 mg Carisoprodol (Carisoprodol 350 Mg Tablet) 350 mg PO Q6H PRN PRN Reason: muscle spasms Stop: 03/16/22 19:49 Docusate Sodium (Docusate Sodium 100 Mg Cap) 100 mg PO BID [facility] Stop: 03/16/22 20:59 Last Admin: 02/18/22 08:32 Dose: 100 mg Duloxetine HCl (Duloxetine Hcl 60 Mg Cap) 60 mg PO HS [facility] Stop: 03/16/22 20:59 Last Admin: 02/19/22 20:04 Dose: 60 mg Furosemide (Furosemide 40 Mg/4 Ml Vial) 40 mg IV BID17 ELLIE Stop: 03/20/22 17:59 Last Admin: 02/20/22 09:20 Dose: 40 mg Gabapentin (Gabapentin 600 Mg Tab) 600 mg PO TID [facility] Stop: 03/16/22 20:59 Last Admin: 02/20/22 09:20 Dose: 600 mg Daptomycin 700 mg/ Syringe 14 mls @ 5.25 mls/min IV Q24H [facility]END[facility] S[facility] TO [facility]; Protocol Stop: 02/25/22 18:59 Last Admin: 02/19/22 18:47 Dose: 5.25 mls/min Cefepime HCl 2,000 mg/ Syringe 20 mls @ 5 mls/min IV Q8H [facility]END[facility]; Protocol Stop: 02/25/22 03:59 Last Admin: 02/20/22 03:33 Dose: 5 mls/min Magnesium Oxide (Magnesium Oxide 400 Mg Tab) 400 mg PO QAM [facility] Stop: 03/17/22 08:59 Last Admin: 02/18/22 08:33 Dose: 400 mg Melatonin (Melatonin 3 Mg Tab) 9 mg PO [facility] Stop: 03/16/22 20:59 Last Admin: 02/19/22 20:03 Dose: 9 mg Metoprolol Tartrate (Metoprolol Tartrate 25 Mg Tab) 25 mg PO BID [facility] Stop: 03/17/22 20:59 Last Admin: 02/20/22 09:19 Dose: 25 mg Morphine Sulfate (Morphine Sulfate 2 Mg/Ml Carp) 2 mg IV Q30M PRN PRN Reason: Pain Stop: 02/28/22 16:14 Last Admin: 02/14/22 16:40 Dose: 2 mg Multivitamins (Multivitamin Tab) 1 tab PO QAM [facility] Stop: 03/17/22 08:59 Last Admin: 02/20/22 09:19 Dose: 1 tab Ondansetron HCl (Ondansetron Inj 2 Mg/Ml 2 Ml Vial) 4 mg IV Q6H PRN PRN Reason: Nausea Stop: 03/16/22 19:49 Oxycodone HCl (Oxycodone Hcl Ir 5 Mg Tab (Immediate Release)) 5 mg PO Q4H PRN PRN Reason: Pain Stop: 02/28/22 19:49 Last Admin: 02/19/22 08:49 Dose: 5 mg Potassium Chloride (Potassium Chloride Crtab 20 Meq Tabcr) 40 meq PO [facility] Stop: 03/21/22 08:59 Last Admin: 02/20/22 09:18 Dose: 40 meq Sennosides (Senna 8.6 Mg Tab) 8.6 mg PO BID [facility] Stop: 03/16/22 20:59 Last Admin: 02/18/22 08:32 Dose: 8.6 mg Tamsulosin HCl (Tamsulosin Hcl 0.4 Mg Cap) 0.4 mg PO [facility] Stop: 03/17/22 08:59 Last Admin: 02/20/22 09:20 Dose: 0.4 mg Vitamin D (Cholecalciferol 1,000 Units 25 Mcg Tab) 1,000 units PO [facility] Stop: 03/17/22 08:59 Last Admin: 02/20/22 09:20 Dose: 1,000 units
[2022-02-20] MEDS: MAGNESIUM SULFATE / D5W 1 GM/100 ML BAG IV SCH ×2 (10:49→13:09)
[2022-02-20] MEDS: oxyCODONE HCL IR 5 MG TAB (IMMEDIATE RELEASE) PO PRN (15:50)
--- NOTE | 2022-02-20 18:28 | Billing Data ---
Date of Service February 20, 2022 Coding Level of Care Code 44289 Subseq Hosp Care Lvl 1
[2022-02-20] MEDS: DAPTOmycin 700 MG in SYRINGE 0 ML IV SCH (21:33)
[2022-02-20] MEDS: MELATONIN 3 MG TAB PO SCH (21:39)
[2022-02-20] MEDS: DULoxetine HCL 60 MG CAP PO SCH (21:39)
[2022-02-21] MEDS: ACETAMINOPHEN 500 MG TAB PO SCH ×3 (02:59→18:06)
[2022-02-21] MEDS: CEFEPIME 2,000 MG in SYRINGE 0 ML IV SCH ×3 (04:43→19:25)
--- NOTE | 2022-02-21 07:09 | Urology Progress Note ---
Date of Service February 21, 2022 Assessment & Plan (1) S/P ureteral stent placement: (2) Hydronephrosis concurrent with and due to calculi of kidney and ureter: Plan We reviewed the plan for surgery today with ureteroscopy and laser lithotripsy. We discussed the risks of the procedure including bleeding, infection, injury to urinary tract, inability to remove the stone in a single procedure, inability to get to the stone and need for future procedure. She will likely require stent placement afterwards, but hopefully we will be able to leave tethers on the stent to facilitate early removal. She expressed understanding and willingness to proceed with surgery. Admission and Anticipated Discharge Date Admission Date: February 14, 2022 Subjective Feeling well, no fevers or chills. Vital signs within normal limits. No leukocytosis and stable creatinine. Review of Systems Review of Systems: 14 point review of systems negative except for otherwise indicated. Physical Exam Constitutional: well developed and well nourished; no acute distress Eyes: + anicteric sclerae; pupils not irregular Respiratory: normal respiratory effort; no respiratory distress, does not use accessory muscles and no cough Cardiovascular: well perfused Gastrointestinal (Abdomen): Inspection/Auscultation: abdomen normal to inspection; abdomen not distended Musculoskeletal: Extremities: extremities normal to inspection Skin: normal turgor; no rashes and no lesions Neurologic: moves all extremities and awake Psychiatric: Orientation: alert and oriented x 3 Genitourinary: Ang catheter in place draining clear yellow urine Results & Data ([facility]) Vital Signs (Past 12 Hours) Vital Signs Temp Pulse Resp BP Pulse Ox O2 Del Method 02/20/22 22:30 CPAP 02/20/22 22:14 36.5 C 85 18 146/79 H 93 Room Air PG Care Time/CCT Total # of Minutes Spent Total Time Spent with Patient: Total time spent is greater than 50% in coordination of care (as documented) at patient's floor/unit and/or counseling patient: Coding Level of Care Code 54821 Subseq Hosp Care Lvl 2 Diagnoses S/P ureteral stent placement Z96.0 Hydronephrosis concurrent with and due to calculi of kidney and ureter N13.2
[2022-02-21 07:47] LABS: Basophils % (auto) 0.8 %; Eosinophils # (auto) 0.58 K/uL (0-0.50); Eosinophils % (auto) 4.5 %; Hematocrit (blood only) 35.2 % (34.1-44.9); Hemoglobin 11.3 g/dl (12.0-16.0); Immature Granulocytes # (auto) 0.07 K/uL (0.00-0.02); Immature Granulocytes % (auto) 0.5 %; Lymphocytes # (auto) 4.76 K/uL (1.2-3.4); Lymphocytes % (auto) 37.2 %; Mean Corpuscular Hemoglobin 27.8 pg (25.0-34.0); Mean Corpuscular Hgb Conc 32.1 g/dL (32.0-36.0); Mean Corpuscular Volume 86.7 fL (80.0-100.0); Mean Platelet Volume 9.4 fL (9.4-12.3); Monocytes # (auto) 0.93 K/uL (0.24-0.82); Monocytes % (auto) 7.3 %; Neutrophils # (auto) 6.36 K/uL (1.4-6.5); Neutrophils % (auto) 49.7 %; Platelet Count 305 K/uL (130-400); RDW Coefficient of Variation 15.8 % (11.5-14.5); RDW Standard Deviation 49.6 fL (36.4-46.3); Red Blood Count 4.06 M/uL (3.93-5.22)
--- NOTE | 2022-02-21 07:59 | Anesthesiology Consultation ---
Date of Service February 21, 2022 Assessment & Plan (1) Encounter for pre-operative examination: Chart Review Chart Review: Acceptable Risk for Surgery History Surgery Operation Date: 02/21/22 09:20 Proposed Procedures p Cystoscopy, Right Ureteroscopy, Laser Lithotripsy, Right Stent Exchange - Rocky Munoz MD Height/Weight Height: 5 ft 5 in Weight: 132.8 kg Allergies Allergy/AdvReac Type Severity Reaction Status Date / Time Latex, Natural Rubber Allergy Mild Skin Verified 02/14/22 17:30 irritation tetracycline Allergy Mild Rash Verified 02/14/22 17:30 NSAIDS (Non-Steroidal Allergy Unknown Unknown Verified 02/14/22 17:30 Anti-Inflamma esomeprazole [From Nexium] AdvReac Intermediate Epistaxis Verified 02/14/22 17:30 adhesive AdvReac Mild Skin Verified 02/14/22 17:30 irritation Medications Home Medications Medication Instructions Recorded Confirmed Last Taken cholecalciferol (vitamin D3) 25 1,000 unit PO QAM 04/04/18 02/14/22 04/06/18 08:00 mcg (1,000 unit) capsule (Vitamin D3) duloxetine 30 mg capsule,delayed 60 mg PO 04/04/18 02/14/22 04/07/18 00:00 release (Cymbalta) fluticasone propionate 50 2 spray intranasal QA 04/04/18 02/14/22 02/14/22 mcg/actuation nasal spray,suspension (Flonase Allergy Relief) gabapentin 300 mg capsule 600 mg PO TID 04/04/18 02/14/22 02/14/22 12:30 metoprolol tartrate 50 mg tablet 50 mg PO BID 04/04/18 02/14/22 02/14/22 08:30 multivitamin 1 tab PO QAM 04/04/18 02/14/22 04/06/18 08:30 losartan 25 mg tablet 25 mg PO QAM 09/14/20 02/14/22 02/14/22 Lactobacills gasseri-Bifidobac 1 cap PO QAM 10/22/21 02/14/22 02/14/22 bifidum,longum 1.5 billion cell capsule (Varioptic) atorvastatin 20 mg tablet 20 mg PO HS 10/22/21 02/14/22 Unknown furosemide 40 mg tablet 40 mg PO QAM 04/02/14/22 02/14/22 magnesium oxide 400 mg PO QAM 10/22/21 02/14/22 02/14/22 acetaminophen 325 mg tablet 975 mg PO TID 02/01/22 02/14/22 02/14/22 12:30 albuterol sulfate 90 mcg/actuation 2 inh inhalation Q6H PRN sob 02/01/22 Unknown aerosol inhaler amiodarone 200 mg tablet 200 mg PO QAM 02/01/22 02/14/22 02/14/22 carisoprodol 350 mg tablet 350 mg PO Q6H PRN muscle spasms 02/01/22 02/14/22 Unknown docusate sodium 100 mg tablet 100 mg PO BID 02/01/22 02/14/22 02/14/22 08:30 lidocaine 4 % topical patch 1 patch topical BID PRN rib pain 02/01/22 02/14/22 02/14/22 oxycodone 5 mg tablet 5 mg PO Q4H PRN Pain 02/01/22 02/14/22 Unknown vit with calcium-iron 1 tab PO QAM 02/01/22 02/14/22 02/14/22 fum-folic acid 27 mg-1 mg tablet sennosides 8.6 mg tablet (senna) 17.2 mg PO BID 02/01/22 02/14/22 02/14/22 08:30 tamsulosin 0.4 mg capsule (Flomax) 0.4 mg PO QAM 02/01/22 02/14/22 02/14/22 aluminum-mag hydroxide-simethicone 10 ml PO Q4 PRN Indigestion 02/14/22 02/14/22 Unknown 400 mg-400 mg-40 mg/5 mL oral susp calcium carbonate 600 mg-vitamin 2 tab PO QAM 02/14/22 02/14/22 02/14/22 D3 5 mcg (200 unit) tablet (Calcium 600 + D(3)) nitrofurantoin 100 mg PO Q12 02/14/22 02/14/22 02/14/22 08:30 monohydrate/macrocrystals 100 mg capsule oxycodone 5 mg tablet 10 mg PO BID 02/14/22 02/14/22 02/14/22 08:30 Active Medications Generic Name Dose Route Start Last Admin Trade Name Freq PRN Reason Stop Dose Admin Acetaminophen 1,000 mg 02/15/22 18:45 02/21/22 02:59 Acetaminophen 500 Mg Tab PO 03/17/22 18:44 Not Given Q8H ELLIE Amiodarone HCl 200 mg 02/15/22 09:00 02/20/22 09:18 Amiodarone 200 Mg Tab PO 03/17/22 08:59 200 mg QAM ELLIE Administration Apixaban 5 mg 02/14/22 21:00 02/20/22 21:38 Apixaban 5 Mg Tablet PO 03/16/22 20:59 5 mg BID ELLIE Administration Aspirin 81 mg 02/15/22 09:00 02/20/22 09:19 Aspirin 81 Mg Ectab PO 03/17/22 08:59 81 mg QAM ELLIE Administration Calcium Carbonate 1,250 mg 02/14/22 21:00 02/20/22 21:39 Calcium Carbonate 1250mg Tab PO 03/16/22 20:59 1,250 mg BID ELLIE Administration Docusate Sodium 100 mg 02/14/22 21:00 02/18/22 08:32 Docusate Sodium 100 Mg Cap PO 03/16/22 20:59 100 mg BID ELLIE Administration Duloxetine HCl 60 mg 02/14/22 21:00 02/20/22 21:39 Duloxetine Hcl 60 Mg Cap PO 03/16/22 20:59 60 mg HS ELLIE Administration Furosemide 40 mg 02/18/22 18:00 02/20/22 17:21 Furosemide 40 Mg/4 Ml Vial IV 03/20/22 17:59 40 mg BID17 ELLIE Administration Gabapentin 600 mg 02/14/22 21:00 02/20/22 21:37 Gabapentin 600 Mg Tab PO 03/16/22 20:59 600 mg TID ELLIE Administration Daptomycin 700 mg/ Syringe 14 mls @ 5.25 mls/min 02/15/22 19:00 02/20/22 21:33 IV 02/25/22 18:59 5.25 mls/min Q24H ELLIE Administration Protocol Cefepime HCl 2,000 mg/ Syringe 20 mls @ 5 mls/min 02/16/22 12:00 02/21/22 04:43 IV 02/25/22 03:59 5 mls/min Q8H ELLIE Administration Protocol Magnesium Oxide 400 mg 02/15/22 09:00 08/14/22 08:33 Magnesium Oxide 400 Mg Tab PO 03/17/22 08:59 400 mg QAM ELLIE Administration Melatonin 9 mg 02/14/22 21:00 02/20/22 21:39 Melatonin 3 Mg Tab PO 03/16/22 20:59 9 mg HS ELLIE Administration Metoprolol Tartrate 25 mg 02/15/22 21:00 02/20/22 21:39 Metoprolol Tartrate 25 Mg Tab PO 03/17/22 20:59 25 mg BID ELLIE Administration Multivitamins 1 tab 02/15/22 09:00 02/20/22 09:19 Multivitamin Tab PO 03/17/22 08:59 1 tab QAM ELLIE Administration Oxycodone HCl 5 mg 02/14/22 19:50 02/20/22 15:50 Oxycodone Hcl Ir 5 Mg Tab (Immediate Release) PO 02/28/22 19:49 5 mg Q4H PRN Administration Pain Potassium Chloride 40 meq 02/19/22 09:00 02/20/22 09:18 Potassium Chloride Crtab 20 Meq Tabcr PO 03/21/22 08:59 40 meq QAM ELLIE Administration Sennosides 8.6 mg 02/14/22 21:00 02/18/22 08:32 Senna 8.6 Mg Tab PO 03/16/22 20:59 8.6 mg BID ELLIE Administration Tamsulosin HCl 0.4 mg 02/15/22 09:00 02/20/22 09:20 Tamsulosin Hcl 0.4 Mg Cap PO 03/17/22 08:59 0.4 mg QAM ELLIE Administration Vitamin D 1,000 units 02/15/22 09:00 02/20/22 09:20 Cholecalciferol 1,000 Units 25 Mcg Tab PO 03/17/22 08:59 1,000 units QAM ELLIE Administration Past Medical History Medical History Anemia No known hx of blood transfusions Anxiety Atrial fibrillation Follows with Dr. Cox Cardiology risk stratification request note from surgeon/urology in [facility] routed to Dr. Cox* CAD (coronary artery disease) Chronic back pain CKD (chronic kidney disease) stage 3, GFR 30-59 ml/min Crohns disease Heart failure, unspecified Hx of cervical cancer s/p hysterectomy BSO Hx of deep venous thrombosis LLE (1960s), no definitive etiology, no issues since Hx of ovarian cancer s/p hysterectomy BSO Hyperlipidemia Hypertension Irritable bowel syndrome (IBS) Kidney stones Macular degeneration Morbid obesity with BMI of 45.0-49.9, adult On home oxygen therapy 2L O2 continuous Osteoarthritis Osteomyelitis Present[place] [facility] [place] a transfer from [facility] for traumatic fall with pathologic T7/8 fracture concerning for OM s/p bone biopsy (+) Proteus and discharged on 6 weeks of IV Ceftriaxone with end date of 01/23/2022. [facility] infectious disease (01/24/22): "Recommend no additional antibiotics at this time, pt antibiotic course was completed.. Follow up as needed." Peripheral neuropathy Sleep apnea CPAP Past Family History Family History Father Family hx of colon cancer Daughter FHx: breast cancer FHx: ovarian cancer Other No family history of adverse response to anesthesia Past Surgical History Surgical History Difficult airway for intubation Difficult intubation 1975 ([facility]) "Needs small size/pediatric tube" History of cardiac cath 2014 x2 ([facility]) > no stents History of cataract surgery R/L History of cholecystectomy History of colonoscopy History of cystoscopy Cystoscopy, right stent (10/22/21): MAC at [facility]. No issues noted per post-op anesthesia progress note. History of dilatation and curettage History of hysterectomy BSO History of surgical removal of skin lesion Fatty tumor History of tonsillectomy History of tooth extraction History of total knee replacement Right Hx of hemorrhoidectomy Social History Smoking Status: Never smoker Hx Alcohol Use: No Hx Substance Use: No substance use type: does not use Physical Exam Vital Signs Last Vital Signs Temp 36.6 C 02/21/22 07:53 Pulse 84 02/21/22 07:53 Resp 17 02/21/22 07:53 BP 137/76 02/21/22 07:53 Pulse Ox 92 02/21/22 07:53 O2 Del Method 02/21/22 07:53 O2 Flow Rate 2 02/18/22 10:49 Testing Laboratory Results 02/21/22 07:12 PT 12.3 Seconds (9.0-12.0) H 02/14/22 15:03 INR 1.2 (0.9-1.1) H 02/14/22 15:03 APTT 27.0 Seconds (21.0-31.0) 02/14/22 15:03 Urine Color Yellow 02/14/22 17:02 Urine Appearance Turbid (Clear) A 02/14/22 17:02 Urine pH 5.5 (4.5-7.5) 02/14/22 17:02 Ur Specific [place] 1.015 (1.000-1.030) 02/14/22 17:02 Urine Protein 1+ (Negative) H 02/14/22 17:02 Urine Glucose (UA) Negative (Negative) 02/14/22 17:02 Urine Ketones Negative (Negative) 02/14/22 17: Urine Nitrite Negative (Negative) 02/14/22 17:02 Ur Leukocyte Esterase 3+ (Negative) H 02/14/22 17:02 Urine WBC (Auto) >30 /hpf (0-5) H 02/14/22 17:02 Urine RBC (Auto) 10-30 /hpf (0-4) H 02/14/22 17:02 U Hyaline Cast (Auto) 1-5 /lpf (0-5) 02/14/22 17:02 U Epithel Cells (Auto) >30 /lpf (0-5) H 02/14/22 17:02 Urine Bacteria (Auto) 2+ (Negative) H 02/14/22 17:02 02/18/22 13:05 Aerobic Blood Culture - Preliminary Blood No growth in Aerobic bottle after 48 hours. Anaerobic Blood Culture - Preliminary No growth in Anaerobic bottle after 48 hours. 02/18/22 13:15 Aerobic Blood Culture - Preliminary Blood No growth in Aerobic bottle after 48 hours. Anaerobic Blood Culture - Preliminary No growth in Anaerobic bottle after 48 hours. 02/14/22 15:17 Aerobic Blood Culture - Final Blood No growth in Aerobic bottle after 5 days. Anaerobic Blood Culture - Final No growth in Anaerobic bottle after 5 days. 02/14/22 15:03 Aerobic Blood Culture - Preliminary Blood Coag neg staph not lugdunensis Anaerobic Blood Culture - Final No growth in Anaerobic bottle after 5 days. 02/14/22 17:02 Urine Culture - Final Urine,Straight Cath Enterococcus faecium VRE Electrocardiogram Date: 02/16/22 Findings: + NSR @ (79) Echocardiogram Date: 02/16/22 EF: 55-60% Other Findings: + LVH Valvular Disease: + no significant valvular disease mild increase pulm pressure
[2022-02-21] MEDS ORDERED: ONDANSETRON INJ 2 MG/ML 2 ML VIAL ONE ×2 (08:20→09:40)
[2022-02-21] MEDS ORDERED: LIDOCAINE 2% 2 ML VIAL/AMP(20MG/ML) INFIL ONE (08:20)
[2022-02-21] MEDS ORDERED: PROPOFOL IV EMULSION 10 MG/ML 20 ML VIAL IV ONE (08:20)
[2022-02-21] MEDS ORDERED: fentaNYL citrate 100 MCG/2 ML VIAL ONE (08:21)
[2022-02-21] MEDS ORDERED: MIDAZOLAM HCL 1 MG/ML 2ML VIAL ONE (08:21)
[2022-02-21 08:31] LABS: BUN Creatinine Ratio 20.4 (10-20); Calcium 8.8 mg/dl (8.5-10.1); Creatinine Clr Calc Pharmacy 130.4 ml/min; Est GFR (African American) 108.2 ml/min; Est GFR (Non-African American) 93.3 ml/min; Potassium 3.4 mmol/L (3.5-5.1)
[2022-02-21] MEDS ORDERED: ONDANSETRON INJ 2 MG/ML 2 ML VIAL IV PRN (08:39)
[2022-02-21] MEDS ORDERED: fentaNYL citrate 100 MCG/2 ML VIAL IV PRN (08:39)
[2022-02-21] MEDS ORDERED: ATROPINE SULFATE 0.1 MG/ML 10ML SYR IV PRN (08:39)
[2022-02-21] MEDS ORDERED: LABETALOL HCL IV 5 MG/ML 20ML IV PRN (08:39)
[2022-02-21] MEDS ORDERED: SUGAMMADEX SODIUM 200 MG/2 ML VIAL IV ONE (09:28)
[2022-02-21] MEDS ORDERED: ROCURONIUM BROMIDE 10 MG/ML 5 ML VIAL IV ONE (09:28)
[2022-02-21] MEDS ORDERED: DEXAMETHASONE SOD INJ 4 MG/ML VIAL ONE (09:40)
[2022-02-21] MEDS ORDERED: PHENYLEPHRINE HCL 10 MG/ML VIAL ONE (09:47)
--- NOTE | 2022-02-21 10:49 | Post Operative Brief Note ---
PG Immediate Post Op with CF Date of Surgery February 21, 2022 Pre & Post Diagnosis Operation Date: 02/21/22 09:20 Pre-Op Diagnosis: Hydronephrosis concurrent with and due to calculi of kidney and ureter Post-Op Diagnosis: Hydronephrosis concurrent with and due to calculi of kidney and ureter I identified the patient and participated in the time-out.: Yes Procedure Operation Date: 02/21/22 09:20 Actual Procedures p Cystoscopy, Right Ureteroscopy, Laser Lithotripsy, Stone Basket Extraction, Right Stent Exchange(Right) - Rocky Munoz MD Surgeon Rocky Munoz MD Vapor Coater none Estimated Blood Loss 0 Findings See Below stent exchanged successfully. Large soft stone in interpolar region of right kidney, fragmented and removed. Small ureteral stones removed and sent for analysis. Specimens Specimen Description: permanent specimens: A) Right Renal Stones for chemical analysis B) Right ureteral stones Drains Ang Catheter Anesthesia Type General Complications none Disposition Disposition: Recovery Room
--- NOTE | 2022-02-21 10:53 | Fluoroscopy Report ---
INTRAOPERATIVE RADIOGRAPH CLINICAL HISTORY: Right ureteral stent exchange. Fluoroscopy time: 14 seconds. FINDINGS: A single spot fluoroscopic view of the right abdomen is correlated with abdominal CT dated 02/14/2022. The provided image shows the proximal end of a right ureteral stent projecting over the ri ght renal pelvis. IMPRESSION: Intraoperative image from a right ureteral stent exchange procedure. Electronically signed by: Freddie Irwin M.D. 02/21/2022 10:51 AM
--- NOTE | 2022-02-21 11:20 | Operative Report ---
PG Post Operative Report Pre & Post Diagnosis Operation Date: 02/21/22 09:20 Pre-Op Diagnosis: Hydronephrosis concurrent with and due to calculi of kidney and ureter Post-Op Diagnosis: Hydronephrosis concurrent with and due to calculi of kidney and ureter I identified the patient and participated in the time-out.: Yes Procedure Operation Date: 02/21/22 09:20 Actual Procedures p Cystoscopy, Right Ureteroscopy, Laser Lithotripsy, Stone Basket Extraction, Right Stent Exchange(Right) - Rocky Munoz MD Surgeon Rocky Munoz MD Food Counter Attendant none Estimated Blood Loss 0 Findings See Below Specimens 1) right renal stone 2) right ureteral stone Drains 6 Surinamese by 24 cm double-J ureteral stent, strings left attached to facilitate removal. Anesthesia Type General Complications none Disposition Disposition: Recovery Room Indications This is a 76-year-old female, previously seen by urology for right ureteral stone. She had a stent placed in October,. She returns to the OR today for definitive stone management. Description of Procedure The patient was identified in the holding area and informed consent was confirmed. She was marked on the right side, then was taken to the operating room where general anesthesia was initiated. She was placed in the dorsal lithotomy position with all pressure points appropriately padded. She was prepped and draped in the usual sterile fashion and a preoperative timeout was performed. A well-lubricated cystoscope was inserted per urethra and panendoscopy was performed. The urethra was normal with no strictures or mucosal abnormalities. Her bladder appeared somewhat irritable. Ureteral orifices were in orthotopic position. A stent was visible at the right ureteral orifice. 0.038 inch zip wire was advanced alongside the stent up to the kidney under fluoroscopic guidance. A pair of stent graspers was used to withdraw the stent. Alongside the wire, a semirigid ureteroscope was advanced into the ureter. There was no stones visible in the distal ureter. These were grasped with the Nitinol wire basket and withdrawn to the level of the bladder. The remainder of the ureter was surveyed and no further stones were identified. A second wire was placed up to the level of the kidney. Over one of the wires, a 12-14 Surinamese 36 cm ureteral access sheath was advanced. Once the sheath was in place, the flexible ureteroscope was inserted and used to survey the kidney. A large stone was visible in one of the interpolar calyces. This was approximately 1.5 to 2 cm in diameter, consistent with what has been seen on CT scan previously. The 270 m holmium laser fiber was introduced, then using high frequency / low amplitude settings, the stone was dusted and broke into smaller fragments. Once the fragments were satisfactorily small, they were removed with a wire basket. The fragments were soft, possibly consistent with struvite stone. A patient registration representative sample was sent for stone analysis. Additionally used a combination of flushing and lasering to remove as much of the stone as possible. Once satisfied that all stone fragments had been removed or were sufficiently small to pass without issue, the ureteroscope was withdrawn, surveying the ureter on the way out. There was no evidence of significant trauma or perforation. Over the wire, a 6 Surinamese x 24 centimeter double-J ureteral stent was advanced. When the wire was removed, the proximal curl was visualized in the kidney with x-ray, and the distal curl visualized in the bladder with the cystoscope. The strings were left attached to the stent to facilitate easier removal. The ureteral stones were then flushed out from the bladder and sent for analysis as a separate specimen. A 16 Surinamese Ang catheter was inserted per urethra, the balloon was inflated with 10 mL normal saline and it was attached to gravity drainage. The patient was then awakened from anesthesia and was brought to the PACU in stable condition. I attest to the content of the Intraoperative Record and any orders documented therein. Any exceptions are noted below.
[2022-02-21] MEDS: GABAPENTIN 600 MG TAB PO SCH ×3 (12:02→19:24)
[2022-02-21] MEDS: APIXABAN 5 MG TABLET PO SCH ×2 (12:03→19:23)
[2022-02-21] MEDS: POTASSIUM CHLORIDE CRTAB 20 MEQ TABCR PO SCH (12:04)
[2022-02-21] MEDS: CHOLECALCIFEROL 1,000 UNITS 25 MCG TAB PO SCH (12:05)
[2022-02-21] MEDS: TAMSULOSIN HCL 0.4 MG CAP PO SCH (12:05)
[2022-02-21] MEDS: MULTIVITAMIN TAB PO SCH (12:05)
[2022-02-21] MEDS: CALCIUM CARBONATE 1250MG TAB PO SCH ×2 (12:05→19:24)
[2022-02-21] MEDS: METOPROLOL TARTRATE 25 MG TAB PO SCH ×2 (12:05→19:23)
[2022-02-21] MEDS: ASPIRIN 81 MG ECTAB PO SCH (12:05)
[2022-02-21] MEDS: AMIODARONE 200 MG TAB PO SCH (12:06)
[2022-02-21] MEDS: FUROSEMIDE 40 MG/4 ML VIAL IV SCH ×2 (12:06→18:06)
--- NOTE | 2022-02-21 12:13 | Anesthesiology Progress Note ---
Date of Service February 21, 2022 Anesthesia Post Procedure Vital Signs Vital Signs: Temp Pulse Pulse Pulse Resp BP Pulse Ox 02/21/22 11:57 36.6 C 81 16 141/84 H 94 02/21/22 11:20 76 16 133/76 97 02/21/22 11:30 76 25 H 133/54 L 99 02/21/22 11:10 76 13 138/63 99 02/21/22 10:59 36.9 C 78 16 137/49 L 99 02/21/22 08:31 36.5 C 86 18 103/80 94 02/21/22 07:53 36.6 C 84 17 137/76 92 02/20/22 22:30 02/20/22 22:14 36.5 C 85 18 146/79 H 93 02/20/22 15:15 36.7 C 90 16 143/79 H 96 O2 Del Method O2 Flow Rate 02/21/22 11:57 Room Air 02/21/22 11:20 Oxymask 3 02/21/22 11:30 Oxymask 3 02/21/22 11:10 Oxymask 4 02/21/22 10:59 Oxymask 5 02/21/22 08:31 02/21/22 07:53 Room Air 02/20/22 22:30 CPAP 02/20/22 22:14 Room Air 02/20/22 15:15 Room Air Transfer of Care Handoff Completed per policy Notes Mental Status: alert / awake / arousable Patient Amnestic to Procedure: Yes Nausea / Vomiting: adequately controlled Pain: adequately controlled Airway Patency, RR, SpO2: stable & adequate BP & HR: stable & adequate Hydration State: stable & adequate Anesthetic Complications: no major complications apparent
--- NOTE | 2022-02-21 13:15 | Cardiology Progress Note ---
Date of Service February 21, 2022 Assessment & Plan (1) Acute on chronic heart failure with preserved ejection fraction (HFpEF): (2) Paroxysmal atrial fibrillation: (3) Tachycardia-bradycardia syndrome: (4) Sepsis due to urinary tract infection: (5) S/P ureteral stent placement: (6) Acute dehydration: (7) RAYMUNDO (obstructive sleep apnea): Plan 76-year-old female admitted with sepsis. Urine culture growing vancomycin-resistant Enterococcus. Initial Blood culture growing coagulase-negative staph (likely contaminant). Repeat blood cultures (prelim) without growth. Continue antibiotics per hospitalist and urology. Urologic surgery, cystoscopy, right ureteroscopy, laser lithotripsy, stone basket extraction, right stent exchange performed today. No recurrent atrial fibrillation or pauses since admission. Telemetry discontinued. Continue amiodarone, metoprolol, Eliquis. Continue furosemide 40 mg IV twice daily. Follow daily weight, GFR, and electrolytes. Replace potassium and magnesium as indicated. Admission and Anticipated Discharge Date Admission Date: February 14, 2022 Subjective Patient seen and examined status post urologic surgery. Feeling well. Edema mildly improved. Fluid balance -2551 cc. Renal function remained stable. Telemetry discontinued. Review of Systems Review of Systems: All systems reviewed & are unremarkable except as noted in Subjective Physical Exam Constitutional: + morbidly obese; no acute distress Respiratory: no respiratory distress, no labored breathing and no retractions Auscultation: + diminished lung sounds (Bilateral, poor effort.); no rales, no rhonchi and no wheezes Cardiovascular: Rate/Rhythm: regular rate and regular rhythm Heart Sounds: normal S1 and normal S2; no murmur Vessels: no JVD (Difficult to assess due to body habitus) Extremities: + edema (2+ pedal and pretibial edema ) Gastrointestinal (Abdomen): Inspection/Auscultation: abdomen not distended Percussion/Palpation: abdomen soft; abdomen nontender, no guarding and abdomen not rigid Neurologic: CN's II-XI intact bilaterally Results & Data ([facility]) Vital Signs (Past 12 Hours) Vital Signs Temp Pulse Pulse Resp BP Pulse Ox O2 Del Method 02/21/22 12:30 36.7 C 81 14 138/79 94 Room Air 02/21/22 11:57 36.6 C 81 16 141/84 H 94 Room Air 02/21/22 11:20 76 16 133/76 97 Oxymask 02/21/22 11:30 76 25 H 133/54 L 99 Oxymask 02/21/22 11:10 76 13 138/63 99 Oxymask 02/21/22 10:59 36.9 C 78 16 137/49 L 99 Oxymask 02/21/22 08:31 36.5 C 86 18 103/80 94 02/21/22 07:53 36.6 C 84 17 137/76 92 Room Air O2 Flow Rate 02/21/22 12:30 02/21/22 11:57 02/21/22 11:20 3 02/21/22 11:30 3 02/21/22 11:10 4 02/21/22 10:59 5 02/21/22 08:31 02/21/22 07:53
--- NOTE | 2022-02-21 16:55 | Hospitalist Progress Note ---
Date of Service February 21, 2022 Assessment & Plan (1) UTI (urinary tract infection): Plan: 76-year-old woman with complicated medical history that includes multiple kidney stones (with ureteral stent), permanent A. fib on Eliquis, T8 burst fracture and accompanying chronic back pain, here for continued management of complicated UTI (VRE, Pseudomonas) on daptomycin and cefepime. Now s/p stone removal and stent placed. Acute urinary tract infection -Initially received vancomycin until urine cultures returned VRE. Patient switched to daptomycin. -Metabolic encephalopathy present on admission now appears resolved. -WBC elevated at 12.8, down from 12 on 02/20/2022. Patient afebrile, dyspneic, or otherwise symptomatic. * Continue current antibiotics (daptomycin and cefepime): Day 02/14. * Additional blood cultures negative after 24 hours * Holding statin, given daptomycin course. Plan to resume upon completion of antibiotics. * Per urology: Status post stone removal with stone consistent of a struvite stone which is consistent with her Proteus infection. Stone was sent for examination. Additionally stent was replaced after stone was removed. Atrial fibrillation/Post-conversion sinus pause, question tachybradycardia syndrome * Continue Eliquis, amiodarone * IV Lasix 40 mg daily, do not want to induce gilberto given possible urologic intervention * Cardiology following, no changes currently Pressure ulcer(s) x2 -Newly developing sacral decubitus stage I ulcer. Patient has no recorded history of prior decubitus ulcer. Stage I ulcer of left heel. -Patient has been afebrile, with WBC downtrending on antibiotic therapy (daptomycin, cefepime). * Wound care consult placed. Appreciate recs with respect to hospital bed substitution. * Frequent repositioning Fecal incontinence -Unsure of etiology. Patient has been afebrile, and otherwise asymptomatic. -Could be secondary to cephalosporin therapy, or burgeoning C. difficile infection. * C. difficile stool panel negative, seems improved today * Holding constipation meds: Senna, magnesium oxide, Colace. * Contact precautions ordered, continue * Continue to monitor, seems to be improving Hypertension -Home regimen: Losartan 25 mg daily, Lopressor 50 mg twice daily, furosemide 40 mg daily -Losartan held in the setting of patient's now resolved GILBERTO, pressures are doing well -Lopressor dose adjusted due to hypotension on admission. Patient normotensive at present. * Continue holding losartan * Lopressor at half home dose (25 mg twice daily) * Trend vitals Pedal edema/volume overload -Patient weight on admission 135.8 kg, which appears to be baseline weight in 2021. Patient received IV fluids were discontinued yesterday for septic presentation. -Patient now 140.8 kg, with 1+ pitting edema bilaterally. No signs of pulmonary edema. Net I/O: -3.1 L over last 24 hours * Daily standing weights * Daily I's & O's * IV Lasix as above Hyperlipidemia: Holding home atorvastatin Chronic back pain: Continue home gabapentin. Holding home oxycodone Constipation: Continue home regimen Code: Full code Dispo: med surg FEN/GI: heart healthy DVT Prophylaxis: Eliquis 5 mg twice daily PT/OT: Ordered Consults: Urology, cardiology Case management: (2) Acute metabolic encephalopathy: (3) Back pain: (4) Pulmonary vascular congestion: (5) Atrial fibrillation with RVR: (6) GILBERTO (acute kidney injury): (7) HTN (hypertension): (8) HLD (hyperlipidemia): Admission and Anticipated Discharge Date Admission Date: February 14, 2022 Supervising Physician Co-Signing Physician Notes I personally examined the patient and verified all robins points of history and exam, discussed case, and agree with decision making with Dr Dong feeling good post procedure. vitals noted nad heent nc at mmm breathing unlabored no accessory muscles good effort skin no rashes no pallor or icterus 1.UTI. Urine positive for Pseudomonas and VRE; repeat urine culture from 02/14 showing VRE. Continue dapto and cefepime; treat for 10 days total (appears to be day 7 today). Appreciate urology recommendations/intervention. 2.Positive blood culture. blood cultures with coag negative staph. Likely contaminant. Repeat blood cultures now negative for over 72 hours 3. Loose stools. C. Diff gene negative. May be related to antibiotics. Imodium PRN. 4. Sacral ulcer. ongoing wound care, wound team appreciated 5.Acute metabolic encephalopathy in the setting of mild to moderate dementia - improved. mentation good 6.Back pain. Chronic. Prior T8 burst fracture. home meds. 7.Pulmonary vascular congestion. now on RA 8.Atrial fibrillation with RVR. Now rate controlled and converted back to sinus. Repeat TTE on 02/16 with EF 55-60%, mild concentric LVH, moderate aortic valve sclerosis without significant abortive valvular stenosis, mild to moderate tricuspid regurgitation. 9.HTN. Continue current meds, BP acceptable 10.HLD. Holding statin since she is getting dapto anticipate return to centre care once they can take her (or once IV abx complete) Subjective Patient seen this afternoon status post uroscopy and stone removal. Patient tolerated the procedure well and seemed to not have any complications. Patient overall feeling well and has no pain currently. Unfortunately reports that she did have some leg cramping last night that she had a taken oxycodone for which had allowed her to fall asleep. Otherwise patient is very appreciative of her care and has no other complaints at this time. Review of Systems Review of Systems: All systems reviewed & are unremarkable except as noted in HPI & below Physical Exam Constitutional: well developed, well nourished, + obese, cooperative and comfortable Eyes: + anicteric sclerae Neck: normal visual inspection Respiratory: normal respiratory effort, lungs clear to auscultation Cardiovascular: Rate/Rhythm: + irregularly irregular Heart Sounds: + murmur Gastrointestinal (Abdomen): normal bowel sounds, soft, nontender, no hepatosplenomegaly Musculoskeletal: Head/Neck/Chest: normocephalic and head atraumatic Skin: + ulcer (Bandaged) Psychiatric: Orientation: oriented to person and oriented to place; + not oriented to time Affect: euthymic affect Results & Data Results & Data ([facility]) Vital Signs (Past 12 Hours) Vital Signs Temp Pulse Pulse Resp BP Pulse Ox O2 Del Method 02/21/22 15:47 37.1 C 75 18 108/65 93 Room Air 02/21/22 07:30 Room Air 02/21/22 14:00 36.6 C 73 16 119/66 96 Room Air 02/21/22 13:25 36.5 C 78 16 127/73 92 Room Air 02/21/22 12:30 36.7 C 81 14 138/79 94 Room Air 02/21/22 11:57 36.6 C 81 16 141/84 H 94 Room Air 02/21/22 11:20 76 16 133/76 97 Oxymask 02/21/22 11:30 76 25 H 133/54 L 99 Oxymask 02/21/22 11:10 76 13 138/63 99 Oxymask 02/21/22 10:59 36.9 C 78 16 137/49 L 99 Oxymask 02/21/22 08:31 36.5 C 86 18 103/80 94 02/21/22 07:53 36.6 C 84 17 137/76 92 Room Air O2 Flow Rate 02/21/22 15:47 02/21/22 07:30 02/21/22 14:00 02/21/22 13:25 02/21/22 12:30 02/21/22 11:57 02/21/22 11:20 3 02/21/22 11:30 3 02/21/22 11:10 4 02/21/22 10:59 5 02/21/22 08:31 02/21/22 07:53
[2022-02-21] MEDS: oxyCODONE HCL IR 5 MG TAB (IMMEDIATE RELEASE) PO PRN ×2 (17:56→22:13)
[2022-02-21] MEDS: DAPTOmycin 700 MG in SYRINGE 0 ML IV SCH (19:22)
[2022-02-21] MEDS: MELATONIN 3 MG TAB PO SCH (19:24)
[2022-02-21] MEDS: DULoxetine HCL 60 MG CAP PO SCH (19:25)
--- NOTE | 2022-02-21 19:25 | Billing Data ---
Date of Service February 21, 2022 Coding Level of Care Code 71887 Subseq Hosp Care Lvl 2
[2022-02-21] MEDS: CARISOPRODOL 350 MG TABLET PO PRN (22:21)
[2022-02-22] MEDS: ACETAMINOPHEN 500 MG TAB PO SCH ×4 (02:18→20:40)
[2022-02-22] MEDS: CEFEPIME 2,000 MG in SYRINGE 0 ML IV SCH ×3 (05:09→20:26)
[2022-02-22] MEDS: FUROSEMIDE 40 MG/4 ML VIAL IV SCH ×2 (07:37→16:50)
[2022-02-22] MEDS: GABAPENTIN 600 MG TAB PO SCH ×3 (07:37→20:40)
[2022-02-22] MEDS: METOPROLOL TARTRATE 25 MG TAB PO SCH ×2 (07:38→20:41)
[2022-02-22] MEDS: APIXABAN 5 MG TABLET PO SCH ×2 (07:38→20:39)
[2022-02-22] MEDS: CHOLECALCIFEROL 1,000 UNITS 25 MCG TAB PO SCH (07:38)
[2022-02-22] MEDS: MULTIVITAMIN TAB PO SCH (07:38)
[2022-02-22] MEDS: CALCIUM CARBONATE 1250MG TAB PO SCH ×2 (07:39→20:40)
[2022-02-22] MEDS: TAMSULOSIN HCL 0.4 MG CAP PO SCH (07:39)
[2022-02-22] MEDS: ASPIRIN 81 MG ECTAB PO SCH (07:39)
[2022-02-22] MEDS: AMIODARONE 200 MG TAB PO SCH (07:39)
[2022-02-22] MEDS: POTASSIUM CHLORIDE CRTAB 20 MEQ TABCR PO SCH (07:45)
[2022-02-22 07:53] LABS: Basophils # (auto) 0.05 K/uL (0-0.2); Basophils % (auto) 0.3 %; Eosinophils # (auto) 0.01 K/uL (0-0.50); Eosinophils % (auto) 0.1 %; Hematocrit (blood only) 33.9 % (34.1-44.9); Hemoglobin 10.3 g/dl (12.0-16.0); Immature Granulocytes % (auto) 0.7 %; Lymphocytes # (auto) 3.74 K/uL (1.2-3.4); Lymphocytes % (auto) 24.9 %; Mean Corpuscular Hemoglobin 27.5 pg (25.0-34.0); Mean Corpuscular Hgb Conc 30.4 g/dL (32.0-36.0); Mean Corpuscular Volume 90.4 fL (80.0-100.0); Mean Platelet Volume 9.2 fL (9.4-12.3); Monocytes # (auto) 0.77 K/uL (0.24-0.82); Monocytes % (auto) 5.1 %; Neutrophils # (auto) 10.34 K/uL (1.4-6.5); Neutrophils % (auto) 68.9 %; Platelet Count 345 K/uL (130-400); RDW Coefficient of Variation 15.6 % (11.5-14.5); RDW Standard Deviation 50.9 fL (36.4-46.3); Red Blood Count 3.75 M/uL (3.93-5.22); White Blood Count 15.01 K/ul (4.8-10.8)
[2022-02-22 08:26] LABS: Calcium 8.9 mg/dl (8.5-10.1); Creatinine Clr Calc Pharmacy 104.6 ml/min; Est GFR (African American) 100.6 ml/min; Est GFR (Non-African American) 86.8 ml/min; Potassium 4.1 mmol/L (3.5-5.1)
--- NOTE | 2022-02-22 08:27 | Urology Progress Note ---
Date of Service February 22, 2022 Assessment & Plan (1) Nephrolithiasis: Plan Doing well s/p ureteroscopy, stone treatment and stent exchange. We will plan to remove her stent this morning. All of the residual stone debris in her kidney was small enough that it should pass spontaneously. Continuing on cefepime, assuming she remains afebrile for another 24 hours I think this can be stopped. Catheter can be removed per primary team. No further intervention planned while she is here in the hospital. Urology will coordinate outpatient follow-up in 3 to [address] scan prior. Admission and Anticipated Discharge Date Admission Date: February 14, 2022 Subjective 76-year-old female, postop day 1 from ureteroscopy and stent exchange. Feeling well this morning, not having any pain. Denies any fevers or chills overnight, no nausea or vomiting. Mild increase in WBC at this morning (up to 15), consistent with normal postop, low suspicion for SIRS response for significant worsening of infection. Creatinine is pending. Review of Systems Review of Systems: 14 point review of systems negative except for otherwise indicated. Physical Exam Physical Exam: NAD Constitutional: Well-developed Respiratory: breathing comfortably on room air Musculoskeletal: No movements of lower extremities Genitourinary: Ang catheter in place draining light brown-tinged urine Results & Data ([facility]) Vital Signs (Past 12 Hours) Vital Signs Temp Pulse Pulse Pulse Resp BP Pulse Ox 02/22/22 07:40 36.6 C 77 17 124/66 94 02/22/22 03:15 36.6 C 77 16 105/61 92 02/21/22 22:27 36.5 C 78 18 117/69 90 O2 Del Method 02/22/22 07:40 Room Air 02/22/22 03:15 CPAP 02/21/22 22:27 Room Air PG Care Time/CCT Total # of Minutes Spent Total Time Spent with Patient: Total time spent is greater than 50% in coordination of care (as documented) at patient's floor/unit and/or counseling patient: Coding Level of Care Code 91843 Subseq Obs Care Lvl 1 Diagnoses Nephrolithiasis N20.0
--- NOTE | 2022-02-22 10:35 | Cardiology Progress Note ---
Date of Service February 22, 2022 Assessment & Plan (1) Acute on chronic heart failure with preserved ejection fraction (HFpEF): (2) Paroxysmal atrial fibrillation: (3) Tachycardia-bradycardia syndrome: (4) Sepsis due to urinary tract infection: (5) S/P ureteral stent placement: (6) Acute dehydration: (7) RAYMUNDO (obstructive sleep apnea): Plan 76-year-old female admitted with sepsis. Urine culture growing vancomycin-resistant Enterococcus. Initial Blood culture growing coagulase-negative staph (likely contaminant). Repeat blood cultures negative. Continue antibiotics per hospitalist and urology. Urologic surgery, cystoscopy, right ureteroscopy, laser lithotripsy, stone basket extraction, right stent exchange performed 02/21/22 without complication. No recurrent atrial fibrillation or pauses since admission. Telemetry discontinued. Continue amiodarone, metoprolol, Eliquis. Continue furosemide 40 mg IV twice daily. Follow daily weight, GFR, and electrolytes. Replace potassium and magnesium as indicated. Transition back to oral furosemide 400 mg daily at discharge. Admission and Anticipated Discharge Date Admission Date: February 14, 2022 Subjective Patient seen and examined at the bedside. Fluid balance -700 cc. Feeling well today. No chest pain, fever, or chills. Telemetry discontinued. Denies palpitations, lightheadedness, or dizziness. Review of Systems Review of Systems: All systems reviewed & are unremarkable except as noted in Subjective Physical Exam Constitutional: + morbidly obese; no acute distress Respiratory: no respiratory distress, no labored breathing and no retractions Auscultation: + diminished lung sounds (Bilateral, poor effort.); no rales, no rhonchi and no wheezes Cardiovascular: Rate/Rhythm: regular rate, regular rhythm, + tachycardic and + irregularly irregular Heart Sounds: normal S1 and normal S2; no murmur Vessels: no JVD (Difficult to assess due to body habitus) Extremities: + edema (2+ pedal and pretibial edema ) Gastrointestinal (Abdomen): Inspection/Auscultation: abdomen not distended Percussion/Palpation: abdomen soft; abdomen nontender, no guarding and abdomen not rigid Neurologic: CN's II-XI intact bilaterally Results & Data ([facility]) Vital Signs (Past 12 Hours) Vital Signs Temp Pulse Pulse Resp BP Pulse Ox O2 Del Method 02/22/22 07:40 36.6 C 77 17 124/66 94 Room Air 02/22/22 03:15 36.6 C 77 16 105/61 92 CPAP
--- NOTE | 2022-02-22 16:33 | Hospitalist Progress Note ---
Date of Service February 22, 2022 Assessment & Plan (1) UTI (urinary tract infection): Plan: 76-year-old woman with complicated medical history that includes multiple kidney stones (with ureteral stent), permanent A. fib on Eliquis, T8 burst fracture and accompanying chronic back pain, here for continued management of complicated UTI (VRE, Pseudomonas) on daptomycin and cefepime. Now s/p stone removal and stent placed. Acute urinary tract infection -Initially received vancomycin until urine cultures returned VRE. Patient switched to daptomycin. -Metabolic encephalopathy present on admission now appears resolved. -WBC elevated at 12.8, down from 12 on 02/20/2022. Patient afebrile, dyspneic, or otherwise symptomatic. * Continue current antibiotics (daptomycin and cefepime): Last day of antibiotics would be 02/24 * Additional blood cultures negative after 48 hours * Holding statin, given daptomycin course. Plan to resume upon completion of antibiotics. * Per urology: Status post stone removal with stone consistent of a struvite stone which is consistent with her Proteus infection. Stone was sent for examination. Additionally stent was replaced after stone was removed. Stent removed bedside on 02/22 without complication * Ang catheter removed with voiding trial today Atrial fibrillation/Post-conversion sinus pause, question tachybradycardia syndrome * Continue Eliquis, amiodarone * IV Lasix 40 mg daily, do not want to induce gilberto given possible urologic intervention * Cardiology following, no changes currently Pressure ulcer(s) x2 -Newly developing sacral decubitus stage I ulcer. Patient has no recorded history of prior decubitus ulcer. Stage I ulcer of left heel. -Patient has been afebrile, with WBC downtrending on antibiotic therapy (daptomycin, cefepime). * Wound care consult placed. Appreciate recs with respect to hospital bed substitution. * Frequent repositioning Fecal incontinence -Unsure of etiology. Patient has been afebrile, and otherwise asymptomatic. -Could be secondary to cephalosporin therapy, or burgeoning C. difficile infection. * C. difficile stool panel negative, seems improved * Last BM today that was solid * Holding constipation meds: Senna, magnesium oxide, Colace. * Contact precautions ordered, continue * Continue to monitor, seems to be improving Hypertension -Home regimen: Losartan 25 mg daily, Lopressor 50 mg twice daily, furosemide 40 mg daily -Losartan held in the setting of patient's now resolved GILBERTO, pressures are doing well -Lopressor dose adjusted due to hypotension on admission. Patient normotensive at present. * Continue holding losartan * Lopressor at half home dose (25 mg twice daily) * Trend vitals Pedal edema/volume overload -Patient weight on admission 135.8 kg, which appears to be baseline weight in 2021. -Patient now 132.4 kg, with 1+ pitting edema bilaterally. No signs of pulmonary edema. Net I/O: -1.8 L over last 24 hours * Daily standing weights * Daily I's & O's * IV Lasix as above Hyperlipidemia: Holding home atorvastatin Chronic back pain: Continue home gabapentin. Holding home oxycodone Constipation: Continue home regimen Code: Full code Dispo: [facility] medical therapy completed FEN/GI: heart healthy DVT Prophylaxis: Eliquis 5 mg twice daily PT/OT: Ordered Consults: Urology, cardiology Case management: (2) Acute metabolic encephalopathy: (3) Back pain: (4) Pulmonary vascular congestion: (5) Atrial fibrillation with RVR: (6) GILBERTO (acute kidney injury): (7) HTN (hypertension): (8) HLD (hyperlipidemia): Admission and Anticipated Discharge Date Admission Date: February 14, 2022 Supervising Physician Co-Signing Physician Notes I personally examined the patient and verified all robins points of history and exam, discussed case, and agree with decision making with Dr Dong Feels pretty good overall. Leg cramps still present but improving. vitals noted nad heent nc at mmm breathing unlabored no accessory muscles good effort skin no rashes no pallor or icterus 1.UTI. Urine positive for Pseudomonas and VRE; repeat urine culture from 02/14 showing VRE. Continue dapto and cefepime; treat for 10 days total (day 8 today). Appreciate urology recommendations/intervention. Discussed with case management to coordinate with SNF regarding finishing antibiotics here versus if she would be able to go there to have complete her course. She would prefer to get out of the hospital as soon as possible. 2.Positive blood culture. blood cultures with coag negative staph. Likely contaminant. Repeat blood cultures now negative for 4 days 3. Loose stools. C. Diff gene negative. May be related to antibiotics. Imodium PRN. 4. Sacral ulcer. ongoing wound care, wound team appreciated 5.Acute metabolic encephalopathy in the setting of mild to moderate dementia - improved. mentation good 6.Back pain. Chronic. Prior T8 burst fracture. home meds. 7.Pulmonary vascular congestion. now on RA 8.Atrial fibrillation with RVR. Now rate controlled and converted back to sinus. Repeat TTE on 02/16 with EF 55-60%, mild concentric LVH, moderate aortic valve sclerosis without significant abortive valvular stenosis, mild to moderate tricuspid regurgitation. 9.HTN. Continue current meds, BP acceptable 10.HLD. Holding statin since she is getting dapto anticipate return to centre care once they can take her Physical Exam Constitutional: well developed, well nourished, + obese, cooperative and comfortable Eyes: + anicteric sclerae Neck: normal visual inspection Respiratory: normal respiratory effort, lungs clear to auscultation Cardiovascular: Rate/Rhythm: + irregularly irregular Heart Sounds: + murmur Gastrointestinal (Abdomen): normal bowel sounds, soft, nontender, no hepatosplenomegaly Musculoskeletal: Head/Neck/Chest: normocephalic and head atraumatic Skin: + ulcer (Bandaged) Psychiatric: Orientation: oriented to person and oriented to place; + not oriented to time Affect: euthymic affect Results & Data Results & Data ([facility]) Vital Signs (Past 12 Hours) Vital Signs Temp Pulse Pulse Resp BP Pulse Ox O2 Del Method 02/22/22 15:20 36.9 C 83 18 120/67 90 02/22/22 10:00 Room Air 02/22/22 11:00 36.7 C 72 17 137/72 95 Room Air 02/22/22 07:40 36.6 C 77 17 124/66 94 Room Air
--- NOTE | 2022-02-22 18:21 | Billing Data ---
Date of Service February 22, 2022 Coding Level of Care Code 88558 Subseq Hosp Care Lvl 3
[2022-02-22] MEDS: DAPTOmycin 700 MG in SYRINGE 0 ML IV SCH (20:26)
[2022-02-22] MEDS: DULoxetine HCL 60 MG CAP PO SCH (20:40)
[2022-02-22] MEDS: MELATONIN 3 MG TAB PO SCH (20:42)
[2022-02-22] MEDS ORDERED: MAGNESIUM OXIDE 400 MG TAB PO SCH (21:00)
[2022-02-22] MEDS: CARISOPRODOL 350 MG TABLET PO PRN (21:49)
[2022-02-23] MEDS ORDERED: MICONAZOLE NITRATE POWDER 43 GM EXT PRN (01:28)
[2022-02-23] MEDS: CEFEPIME 2,000 MG in SYRINGE 0 ML IV SCH ×2 (04:31→11:47)
[2022-02-23 07:19] VITALS: BP 142/74; TEMP 97.2; O2SAT 94
--- NOTE | 2022-02-23 08:03 | Urology Progress Note ---
Date of Service February 23, 2022 Assessment & Plan (1) S/P ureteral stent placement: (2) Nephrolithiasis: Plan Leslie is doing well after stent removal and catheter removal. No further interventions planned by urology at this point. We will arrange outpatient follow-up with a CT scan prior to reassess for any stone recurrence. Urology will sign off for now, please call with any questions or concerns. Admission and Anticipated Discharge Date Admission Date: February 14, 2022 Subjective Feeling well No fevers or chills overnight Not having any flank pain after stent removal Voiding spontaneously since the catheter has been removed Review of Systems Review of Systems: No fevers or chills Physical Exam Physical Exam: Well-appearing, NAD Respiratory: Breathing comfortably on room air Genitourinary: Clear yellow urine in purwick Canister Results & Data ([facility]) Vital Signs (Past 12 Hours) Vital Signs Temp Pulse Resp BP Pulse Ox O2 Del Method 02/23/22 07:19 36.2 C L 75 16 142/74 H 94 Room Air 02/22/22 21:38 36.7 C 77 18 123/53 L 92 Room Air 02/22/22 20:38 36.6 C 75 16 140/70 93 Room Air PG Care Time/CCT Total # of Minutes Spent Total Time Spent with Patient: Total time spent is greater than 50% in coordination of care (as documented) at patient's floor/unit and/or counseling patient: Coding Level of Care Code 62027 Subseq Hosp Care Lvl 1 Diagnoses S/P ureteral stent placement Z96.0 Nephrolithiasis N20.0
[2022-02-23 09:18] LABS: Calcium 8.7 mg/dl (8.5-10.1); Est GFR (African American) 99.1 ml/min; Est GFR (Non-African American) 85.5 ml/min; Potassium 3.7 mmol/L (3.5-5.1)
[2022-02-23] MEDS: POTASSIUM CHLORIDE CRTAB 20 MEQ TABCR PO SCH (09:34)
[2022-02-23] MEDS: METOPROLOL TARTRATE 25 MG TAB PO SCH (09:35)
[2022-02-23] MEDS: APIXABAN 5 MG TABLET PO SCH (09:35)
[2022-02-23] MEDS: MULTIVITAMIN TAB PO SCH (09:35)
[2022-02-23] MEDS: CALCIUM CARBONATE 1250MG TAB PO SCH (09:35)
[2022-02-23] MEDS: ASPIRIN 81 MG ECTAB PO SCH (09:35)
[2022-02-23] MEDS: TAMSULOSIN HCL 0.4 MG CAP PO SCH (09:35)
[2022-02-23] MEDS: CHOLECALCIFEROL 1,000 UNITS 25 MCG TAB PO SCH (09:35)
[2022-02-23] MEDS: GABAPENTIN 600 MG TAB PO SCH ×2 (09:35→14:54)
[2022-02-23] MEDS: FUROSEMIDE 40 MG/4 ML VIAL IV SCH (09:36)
[2022-02-23] MEDS: AMIODARONE 200 MG TAB PO SCH (09:36)
[2022-02-23 10:32] VITALS: PULSE 72
[2022-02-23] MEDS: ACETAMINOPHEN 500 MG TAB PO SCH (11:47)
--- NOTE | 2022-02-23 12:38 | Discharge Summary ---
Date of Service February 23, 2022 Admission HPI Per Admitting Provider This is a 76-year-old female with complicated past medical history including repeated kidney stones with ureteral stent, PAF on Eliquis, and chronic back pain secondary to previous burst fracture of T8 that presents today with worsening change in mental status. Patient is unable provide much history but the patient's daughter is at bedside. Daughter tells me that the patient has a stent from a previous infected kidney stone. She is following with urology. She did have an appointment in the near future to have the stent removed but approximately 1 week ago the patient started having some mild mental status changes. She became more lethargic and confused which is not her typical baseline. She was also diagnosed with a UTI and was started on oral ciprofloxacin on 02/06, this was changed over to Macrobid on 02/08. Cultures have returned Pseudomonas and VRE. The patient was sent from [facility] for more definitive treatment. The time my evaluation, the patient was awake but extremely comfortable. She was complaining of back pain, which is chronic for her. She is typically on oxycodone but has not received any dosing today which may explain her worsening pain. Vital signs are stable although she was somewhat tacky, likely secondary to distress from pain. ER physician apparently discussed with patient and daughter, patient is a full code. Principal Diagnosis Complicated UTI Discharge Exam Constitutional well developed, well nourished, + obese, cooperative and comfortable Eyes + anicteric sclerae Neck normal visual inspection Respiratory normal respiratory effort, lungs clear to auscultation Cardiovascular Rate/Rhythm: + irregularly irregular Heart Sounds: + murmur Gastrointestinal (Abdomen) normal bowel sounds, soft, nontender, no hepatosplenomegaly Musculoskeletal Head/Neck/Chest: normocephalic and head atraumatic Skin + ulcer (Bandaged) Psychiatric Orientation: oriented to person and oriented to place; + not oriented to time Affect: euthymic affect Discharge Data Allergies Allergy/AdvReac Type Severity Reaction Status Date / Time Latex, Natural Rubber Allergy Mild Skin Verified 02/14/22 17:30 irritation tetracycline Allergy Mild Rash Verified 02/14/22 17:30 NSAIDS (Non-Steroidal Allergy Unknown Unknown Verified 02/14/22 17:30 Anti-Inflamma esomeprazole [From Nexium] AdvReac Intermediate Epistaxis Verified 02/14/22 17:30 adhesive AdvReac Mild Skin Verified 02/14/22 17:30 irritation Consultations 02/14/22 18:44 ED Decision to Admit Stat 02/14/22 19:50 Consult Urology Routine 02/15/22 09:43 Consult Cardiology Routine Procedures Performed Operation Date: 02/21/22 09:20 Actual Procedures p Cystoscopy, Right Ureteroscopy, Laser Lithotripsy, Stone Basket Extraction,(Right) - Rocky Munoz MD s Right Stent Exchange(Right) - Rocky Munoz MD Ordered Studies 02/14/22 14:11 CT abd pelvis wo con Stat CT head/brain wo con Stat 02/21/22 09:20 FL retrograde includes kub Routine Hospital Course (1) UTI (urinary tract infection): 76-year-old woman with complicated medical history that includes multiple kidney stones (with ureteral stent), permanent A. fib on Eliquis, T8 burst fracture and accompanying chronic back pain, here for continued management of complicated UTI (VRE, Pseudomonas) on daptomycin and cefepime. Now s/p stone removal and stent placed. (1) UTI (urinary tract infection): Plan: 76-year-old woman with complicated medical history that includes multiple kidney stones (with ureteral stent), permanent A. fib on Eliquis, T8 burst fracture and accompanying chronic back pain, here for continued management of complicated UTI (VRE, Pseudomonas) on daptomycin and cefepime. Now s/p stone removal and stent placed. Acute urinary tract infection -Initially received vancomycin until urine cultures returned VRE. Patient switched to daptomycin. -Metabolic encephalopathy present on admission now appears resolved. -WBC elevated at 12.8, down from 12 on 02/20/2022. Patient afebrile, dyspneic, or otherwise symptomatic. * Continue current antibiotics (daptomycin and cefepime): Last day of antibiotics would be 02/24: requires on dose of daptomycin at 700 mg at 9 am on 02/24, and q8h dosing of cefepime 2000 mg starting at 8PM on 02/23 with last dose being 8 pm on 02/24 * Additional blood cultures negative after 48 hours * Holding statin, given daptomycin course. Plan to resume upon completion of antibiotics. * Per urology: Status post stone removal with stone consistent of a struvite stone which is consistent with her Proteus infection. Stone was sent for examination. Additionally stent was replaced after stone was removed. Stent removed bedside on 02/22 without complication * Ang catheter removed with voiding trial on 02/22 without issue Atrial fibrillation * Continue Eliquis, amiodarone * IV Lasix 40 mg daily, do not want to induce gilberto given possible urologic intervention * Cardiology following, no changes currently Pressure ulcer(s) x2 -Newly developing sacral decubitus stage I ulcer. Patient has no recorded history of prior decubitus ulcer. Stage I ulcer of left heel. -Patient has been afebrile, with WBC downtrending on antibiotic therapy (daptomycin, cefepime). * Wound care consult placed. Appreciate recs with respect to hospital bed substitution. * Frequent repositioning * Fecal incontinence -Unsure of etiology. Patient has been afebrile, and otherwise asymptomatic. -Could be secondary to cephalosporin therapy, or burgeoning C. difficile infection. * C. difficile stool panel negative, seems improved * Last BM was solid, consider resolved * Holding constipation meds: Senna, magnesium oxide, Colace, restart per SNF recs * Contact precautions discontinued on d/c Hypertension -Home regimen: Losartan 25 mg daily, Lopressor 50 mg twice daily, furosemide 40 mg daily -Losartan held in the setting of patient's now resolved GILBERTO, pressures are doing well -Lopressor dose adjusted due to hypotension on admission. Patient normotensive at present. * Continue losartan at d/c * Lopressor at 50 mg BID continued at D/C Pedal edema/volume overload -Patient weight on admission 135.8 kg, which appears to be baseline weight in 2021. -Patient now 132.4 kg, with 1+ pitting edema bilaterally. No signs of pulmonary edema. * Daily standing weights * Daily I's & O's * IV Lasix as above Hyperlipidemia: Restart atorvastatin at d/c Chronic back pain: Continue home gabapentin and oxycodone at d/c Constipation: Continue home regimen Code:Full code Dispo:[facility]fer to [facility] FEN/GI:heart healthy DVT Prophylaxis:Eliquis 5 mg twice daily (2) Acute metabolic encephalopathy: (3) Back pain: (4) Pulmonary vascular congestion: (5) Atrial fibrillation with RVR: (6) GILBERTO (acute kidney injury): (7) HTN (hypertension): (8) HLD (hyperlipidemia): Total Time Total Time Spent Total Time Spent (In Minutes): <30 Discharge Plan Discharge Items Patient Disposition: Transfer Residential Fac Reason For Visit: UTI Discharge Diagnosis: Complicated UTI Condition on Discharge: Serious Activity: Per Instructions section Non-emergency contact: Primary Care Provider and Urologist Call non-emergency contact if: you have any medication questions, your symptoms worsen and your temperature is above 101.5 Follow-up/Referrals: Rocky Munoz MD [Physician] - [facility] [Primary Care Provider] - Diet: Heart Healthy Addtl Attending Provider Instructions: (1) UTI (urinary tract infection): Plan: 76-year-old woman with complicated medical history that includes multiple kidney stones (with ureteral stent), permanent A. fib on Eliquis, T8 burst fracture and accompanying chronic back pain, here for continued management of complicated UTI (VRE, Pseudomonas) on daptomycin and cefepime. Now s/p stone removal and stent placed. Acute urinary tract infection -Initially received vancomycin until urine cultures returned VRE. Patient switched to daptomycin. -Metabolic encephalopathy present on admission now appears resolved. -WBC elevated at 12.8, down from 12 on 02/20/2022. Patient afebrile, dyspneic, or otherwise symptomatic. * Continue current antibiotics (daptomycin and cefepime): Last day of antibiotics would be 02/24: requires on dose of daptomycin at 700 mg at 9 am on 02/24, and q8h dosing of cefepime 2000 mg starting at 8PM on 02/23 with last dose being 8 pm on 02/24 * Additional blood cultures negative after 48 hours * Holding statin, given daptomycin course. Plan to resume upon completion of antibiotics. * Per urology: Status post stone removal with stone consistent of a struvite stone which is consistent with her Proteus infection. Stone was sent for examination. Additionally stent was replaced after stone was removed. Stent removed bedside on 02/22 without complication * Ang catheter removed with voiding trial on 02/22 without issue Atrial fibrillation * Continue Eliquis, amiodarone * IV Lasix 40 mg daily, do not want to induce gilberto given possible urologic intervention * Cardiology following, no changes currently Pressure ulcer(s) x2 -Newly developing sacral decubitus stage I ulcer. Patient has no recorded history of prior decubitus ulcer. Stage I ulcer of left heel. -Patient has been afebrile, with WBC downtrending on antibiotic therapy (daptomycin, cefepime). * Wound care consult placed. Appreciate recs with respect to hospital bed substitution. * Frequent repositioning * Fecal incontinence -Unsure of etiology. Patient has been afebrile, and otherwise asymptomatic. -Could be secondary to cephalosporin therapy, or burgeoning C. difficile infection. * C. difficile stool panel negative, seems improved * Last BM was solid, consider resolved * Holding constipation meds: Senna, magnesium oxide, Colace, restart per SNF recs * Contact precautions discontinued on d/c Hypertension -Home regimen: Losartan 25 mg daily, Lopressor 50 mg twice daily, furosemide 40 mg daily -Losartan held in the setting of patient's now resolved GILBERTO, pressures are doing well -Lopressor dose adjusted due to hypotension on admission. Patient normotensive at present. * Continue losartan at d/c * Lopressor at 50 mg BID continued at D/C Pedal edema/volume overload -Patient weight on admission 135.8 kg, which appears to be baseline weight in 2021. -Patient now 132.4 kg, with 1+ pitting edema bilaterally. No signs of pulmonary edema. * Daily standing weights * Daily I's & O's * IV Lasix as above Hyperlipidemia: Restart atorvastatin at d/c Chronic back pain: Continue home gabapentin and oxycodone at d/c Constipation: Continue home regimen LCode:Full code Dispo:trnasfer to [facility] FEN/GI:heart healthy DVT Prophylaxis:Eliquis 5 mg twice daily Pending Studies at Discharge: No Stand-Alone Forms: My [facility] Skilled Items Patient informed of condition?: Yes DNR: No Discharge Level of Care: Skilled Communicable Disease: No Discharge Prognosis: Stable Lines: US Guided Peripheral IV Urinary Catheter: No Medications and DC Order Prescriptions: Continued losartan 25 mg Tablet 25 mg PO QAM multivitamin Tablet 1 tab PO QAM metoprolol tartrate 50 mg Tablet 50 mg PO BID gabapentin 300 mg Capsule 600 mg PO TID fluticasone propionate [Flonase Allergy Relief] 50 mcg/actuation [place],Suspension 2 spray INTRANASAL QAM duloxetine [Cymbalta] 30 mg Capsule,Delayed Release(Dr/Ec) 60 mg PO HS cholecalciferol (vitamin D3) [Vitamin D3] 1,000 unit Capsule 1,000 unit PO QAM carisoprodol 350 mg Tablet 350 mg PO Q6H PRN (Reason: muscle spasms) sennosides [senna] 8.6 mg Tablet 17.2 mg PO BID acetaminophen 325 mg Tablet 975 mg PO TID lidocaine 4 % Adhesive Patch,Medicated 1 patch TOPICAL BID PRN (Reason: rib pain) amiodarone 200 mg Tablet 200 mg PO QAM vit-iron fum-folic ac 27-1 mg Tablet 1 tab PO QAM albuterol sulfate 90 mcg/actuation Hfa Aerosol Inhaler 2 inh INHALATION Q6H PRN (Reason: sob) docusate sodium 100 mg Tablet 100 mg PO BID oxycodone 5 mg Tablet 5 mg PO Q4H PRN (Reason: Pain) Rx Instructions: pain 1-4 tamsulosin [Flomax] 0.4 mg capsule 0.4 mg PO QAM alum-mag hydroxide-simeth 400-400-40 mg/5 mL Suspension 10 ml PO Q4 PRN (Reason: Indigestion) oxycodone 5 mg tablet 10 mg PO BID calcium carbonate-vitamin D3 [Calcium 600 + D(3)] 600 mg-5 mcg (200 unit) Tablet 2 tab PO QAM furosemide 40 mg tablet 40 mg PO QAM atorvastatin 20 mg tablet 20 mg PO HS [facility] 1.5 billion cell Capsule 1 cap PO QAM magnesium oxide 400 mg magnesium Capsule 400 mg PO QAM Discontinued nitrofurantoin monohyd/m-cryst 100 mg capsule 100 mg PO Q12 Rx Instructions: ends 02/15/22 at 0830 Discharge Orders: Discharge Order (Routine); Ordered 02/23/22 Ordered By: Nicola Dong Admission Data Admit Date/Time: 02/14/22 17:04 Attending Provider: Christopher Sanchez Admit Provider: Calixto Garcia Primary Care Provider: [place] [place] Other Providers: Guido Faith ; Calixto Garcia ; Rocky Munoz ; Luis Smith Other Interventions: Discharge Summary Assessment (RN) Last Done: 02/23/22 10:25 Supervising Physician Co-Signing Physician Notes I personally examined the patient and verified all robins points of history and exam, discussed case, and agree with decision making with Dr Dong feeling ok happy to be returning to SNF vitals noted nad heent nc at mmm breathing unlabored no accessory muscles good effort skin no rashes no pallor or icterus 1.UTI. Urine positive for Pseudomonas and VRE; repeat urine culture from 02/14 showing VRE. Continue dapto and cefepime; treat for 10 days total (day 9 today). Appreciate urology recommendations/intervention. 2.Positive blood culture. blood cultures with coag negative staph. Likely contaminant. Repeat blood cultures now negative for 4 days 3. Loose stools. C. Diff gene negative. May be related to antibiotics. Imodium PRN. 4. Sacral ulcer. ongoing wound care at SNF 5.Acute metabolic encephalopathy in the setting of mild to moderate dementia - improved. mentation good 6.Back pain. Chronic. Prior T8 burst fracture. home meds. 7.Pulmonary vascular congestion. now on RA 8.Atrial fibrillation with RVR. Now rate controlled and converted back to sinus. Repeat TTE on 02/16 with EF 55-60%, mild concentric LVH, moderate aortic valve sclerosis without significant abortive valvular stenosis, mild to moderate tricuspid regurgitation. 9.HTN. Continue current meds, BP acceptable 10.HLD. Holding statin since she is getting dapto safe for return to centre care
[2022-02-23] MEDS: oxyCODONE HCL IR 5 MG TAB (IMMEDIATE RELEASE) PO PRN (15:14)
--- NOTE | 2022-02-23 19:17 | Billing Data ---
Date of Service February 23, 2022 Coding Level of Care Code D/C DAY MANAGEMENT <30 MINS
[2022-02-24 02:41] LABS: Component 2 DNR; Source RIGHT RENAL STONE; Source RIGHT URETERAL STONE
--- NOTE | 2022-03-04 20:25 | Coding Query ---
SEPSIS To promote full compliance with coding requirements relating to patient care, physician participation is requested in all cases of packaging mechanic uncertainty. Please assist us with the question(s) below: In responding to this query, please exercise your independent professional judgement. The fact that a question is asked does not imply that any particular answer is desired or expected. We appreciate your clarification on this issue. Throughout the medical record, you have clearly documented a localized infection and your patient has clinical evidence of a generalized sepsis or severe sepsis. The term urosepsis is a nonspecific entity and is coded as an UTI. If the patient has sepsis, severe sepsis, from an urinary source or some other source, please clarify in your response below. The medical record reflects the following clinical findings: Pt admitted with UTI. 02/15 Card note documented sepsis as well as several Hospitalist Progress notes ie: 02/15, 02/17 . Please document below, if applicable. Thanks for your help! Daquan Gilbert [facility] ____ ( )Bacteremia (Nonspecific laboratory finding of bacteria in the blood) Specify Organism ( ) Present on Admission ( x) Not present on admission ( ) Unable to clinically determine ( ) Septicemia (Systemic disease associated with the presence of pathogenic microorganisms in the blood): Specify Organism ( ) Present on Admission ( ) Not present on admission ( ) Unable to clinically determine ( x) Sepsis Specify Organism VRE Specify Associated Condition/Diagnosis ( ) Present on Admission ( ) Not present on admission ( ) Unable to clinically determine (x ) Severe Sepsis (Sepsis associated with acute organ dysfunction) Specify Organism VRE Specify Associated Condition/Diagnosis encephalopathy ( ) Present on Admission ( ) Not present on admission ( ) Unable to clinically determine ( ) Septic Shock (Severe sepsis with acute circulatory failure, unexplained by other causes) ( ) Present on Admission ( ) Not present on admission ( ) Unable to clinically determine ( ) Other, patient has: MTDD
== END 2022-02-23 15:55 | DRG 853 ==
LOC: ED 13:56 → SUATTDRO 17:04 → EDINP 17:04 → 2S 02-15 06:54 → 3E 02-20 15:28
DX: B96.4 Proteus (mirabilis) (morganii) as the cause of diseases classified elsewhere; Z86.718 Personal history of other venous thrombosis and embolism; K59.00 Constipation, unspecified; L89.151 Pressure ulcer of sacral region, stage 1; Z68.42 Body mass index [BMI] 45.0-49.9, adult; G83.10 Monoplegia of lower limb affecting unspecified side; Z16.21 Resistance to vancomycin; G47.33 Obstructive sleep apnea (adult) (pediatric); Z79.01 Long term (current) use of anticoagulants; I48.0 Paroxysmal atrial fibrillation; B95.2 Enterococcus as the cause of diseases classified elsewhere; S22.061S Stable burst fracture of T7-T8 vertebra, sequela; G93.41 Metabolic encephalopathy; E78.5 Hyperlipidemia, unspecified; B96.5 Pseudomonas (aeruginosa) (mallei) (pseudomallei) as the cause of diseases classified elsewhere; Z85.43 Personal history of malignant neoplasm of ovary; N39.0 Urinary tract infection, site not specified; R41.82 Altered mental status, unspecified; Z88.1 Allergy status to other antibiotic agents; I13.0 Hypertensive heart and chronic kidney disease with heart failure and stage 1 through stage 4 chronic kidney disease, or unspecified chronic kidney disease; Z88.6 Allergy status to analgesic agent; E66.01 Morbid (severe) obesity due to excess calories; I25.10 Atherosclerotic heart disease of native coronary artery without angina pectoris; R15.9 Full incontinence of feces; Z96.651 Presence of right artificial knee joint; Z91.040 Latex allergy status; E86.0 Dehydration; N17.9 Acute kidney failure, unspecified; Z79.82 Long term (current) use of aspirin; A41.59 Other Gram-negative sepsis; Z99.81 Dependence on supplemental oxygen; K50.90 Crohn's disease, unspecified, without complications; I50.33 Acute on chronic diastolic (congestive) heart failure; N18.30 Chronic kidney disease, stage 3 unspecified; N20.0 Calculus of kidney

== ENCOUNTER 2025-04-01 18:03 | Inpatient (IN) ==
--- NOTE | 2025-04-01 18:38 | Emergency Department Note ---
Impression & Plan Urinary tract infection, Acute respiratory acidosis, Elevated troponin I level, Acute hypotension ED Provider Note NAME: KRISTOFER SUÁREZ AGE: 79 SEX: F : 1945 ARRIVES VIA: Ambulance INFORMANT: Patient, EMS ED PROVIDER(S): Nadeem Giordano DO CHIEF COMPLAINT: Fever HPI: The patient is an 79-year-old female who presented to the emergency department for an evaluation of fever. The patient was noted to have a fever last evening. She has a history of urine infections in the past. She was sent to the emergency department for further evaluation. The patient himself denies having any chest pain or difficulty breathing. The patient denies having any vomiting. She denies having abdominal pain or back pain. ROS: See above HPI for pertinent positives & negatives. A total of 10 systems reviewed and were otherwise negative. PAST MEDICAL HISTORY: See Below PAST SURGICAL HISTORY: See Below FAMILY HISTORY: See Below SOCIAL HISTORY: See Below HOME MEDICATIONS: See Below ALLERGIES: See Below VITALS: See Below PHYSICAL EXAMINATION: GENERAL: Patient is awake alert in no acute distress patient is resting comfortably and showing no signs of anxiety EYES: The conjunctivae are clear. The pupils are round and reactive. EARS, NOSE, MOUTH AND THROAT: The nose is without any evidence of any deformity. NECK: The neck is nontender and supple. RESPIRATORY: Normal respiratory effort is noted there is no evidence of wheezing rhonchi or rales CARDIOVASCULAR: Regular rate and rhythm noted there no murmurs rubs or gallops normal S1 normal S2. GASTROINTESTINAL: The abdomen is soft. Abdomen is nontender. MUSCULOSKELETAL/EXTREMITIES: There is no evidence of gross deformity full range of motion is noted in the hips and shoulders. SKIN: Skin was warm and dry. Trace pedal edema was noted bilaterally. NEUROLOGIC: Patient is awake alert and oriented x3 MEDICAL DECISION MAKING: The patient is an 79-year-old female who presented to the emergency department for an evaluation of fever. The patient had fever yesterday evening. She did not have many complaints upon arrival to the emergency department. She was found to be hypotensive. Initial I thought this could be the patient's body but is in difficulty obtaining a blood pressure. She was treated with IV department. She was also treated with IV antibiotics. The patient has a history of resistant E. coli in the urine. She was treated with an antibiotic to cover this. The patient was reevaluated. I discussed the patient's laboratory and radiographic studies with her and her family member. [facility] Triage Nursing notes reviewed. Prior medical records reviewed Vital Signs: reviewed and remarkable for hypotension. Differential diagnosis: Viral syndrome, otitis, pharyngitis, pneumonia, influenza, meningitis, urinary tract infection, sepsis, bacteremia, as well as other pathologies. ER treatment provided: See below Diagnostics interpreted by me: ECG: EKG was obtained in the emergency department. My interpretation is normal sinus rhythm at 66 bpm. There is no ectopy. There is no acute ST segment abnormalities noted. This was compared to a tracing: From December 15, 2024. No changes were noted. Cardiac Monitoring: An order was placed for continuous cardiac monitoring. The monitor shows a rate of 67 bpm with sinus rhythm. Laboratory studies: As stated above and show below. Imaging studies: See below. Radiographic imaging was reviewed by myself Consultation(s): I discussed this case with Dr. Gonzalez who is [facility]. ED COURSE: Procedures: none Critical Care: I have personally spent greater than 35 minutes of critical care time in the direct management of this patient. This includes bedside care, interpretation of diagnostic studies, and testing, discussion with consultants, patient, and family members, and other required patient management activities. This 35 minutes is in excess of all separately billable procedures. Past Med/Surg History Problem List (Updated 04/01/25 @ 21:23 by Nadeem Giordano DO) Acute hypotension (Acute) Elevated troponin I level (Acute) Acute respiratory acidosis (Acute) Urinary tract infection (Acute) Hypomagnesemia E. coli UTI E coli bacteremia Infection due to ESBL-producing Escherichia coli Metabolic encephalopathy Transaminitis Acute respiratory failure with hypoxia and hypercapnia Septic shock Transaminitis (Acute) Renal cyst Atrial fibrillation with RVR (Acute) Osteoporosis (Chronic) Encounter for pre-operative examination Adenomatous polyps Encounter for pre-operative examination Hydronephrosis concurrent with and due to calculi of kidney and ureter (Acute) Atrial fibrillation (Acute) S/P ureteral stent placement VRE (vancomycin resistant enterococcus) culture positive GILBERTO (acute kidney injury) Back pain Altered mental status (Acute) GILBERTO (acute kidney injury) (Acute) Hypotension (Acute) Acute dehydration (Acute) Acute UTI (Acute) Nephrolithiasis Sepsis due to urinary tract infection Paroxysmal atrial fibrillation Tachycardia-bradycardia syndrome Pulmonary vascular congestion Acute metabolic encephalopathy Acute on chronic heart failure with preserved ejection fraction (HFpEF) Medical History Chronic diastolic CHF (congestive heart failure) Morbid obesity RAYMUNDO (obstructive sleep apnea) HLD (hyperlipidemia) HTN (hypertension) Paralysis of both lower limbs post fall at home november 2021 On anticoagulant therapy UTI (urinary tract infection) Osteomyelitis Presentation to [facility] 11/23/21 as a transfer from [facility] for traumatic fall with pathologic T7/8 fracture concerning for OM s/p bone biopsy (+) Proteus and discharged on 6 weeks of IV Ceftriaxone with end date of 01/23/2022. [facility] infectious disease (01/24/22): "Recommend no additional antibiotics at this time, pt antibiotic course was completed.. Follow up as needed." On home oxygen therapy 2L O2 continuous Hx of cervical cancer s/p hysterectomy BSO Anxiety Crohns disease Heart failure, unspecified Irritable bowel syndrome (IBS) CAD (coronary artery disease) Anemia No known hx of blood transfusions CKD (chronic kidney disease) stage 3, GFR 30-59 ml/min Macular degeneration Peripheral neuropathy Hx of ovarian cancer s/p hysterectomy BSO Right knee pain Encounter for pre-operative examination Morbid obesity with BMI of 45.0-49.9, adult Chronic back pain Osteoarthritis Kidney stones Hx of deep venous thrombosis LLE (1960s), no definitive etiology, no issues since Hyperlipidemia Hypertension Atrial fibrillation Follows with Dr. Cox Cardiology risk stratification request note from surgeon/urology in [facility]) routed to Dr. Cox* Sleep apnea CPAP Surgical History History of cystoscopy Cystoscopy, right stent (10/22/21): MAC at [facility]. No issues noted per post-op anesthesia progress note. History of cholecystectomy History of tooth extraction History of cataract surgery R/L History of surgical removal of skin lesion Fatty tumor History of colonoscopy Difficult airway for intubation Difficult intubation 1975 ([facility]) "Needs small size/pediatric tube" History of tonsillectomy Hx of hemorrhoidectomy History of dilatation and curettage History of total knee replacement Right History of hysterectomy BSO History of cardiac cath 2014 x2 ([facility]) > no stents Family History Father Family hx of colon cancer Daughter FHx: breast cancer FHx: ovarian cancer Other No family history of adverse response to anesthesia Social History Smoking Status: Unknown if ever smoked Second Hand Exposure: No; Do You Dip or Chew Tobacco: No; Hx Alcohol Use: No Hx Substance Use: No Preferred Language: Greenlandic Communication Ability: Impaired Communication Ability Comment: a&o x3 Pc Support Specialist Required: No Beliefs That Will Affect Care: None marital status: / Current Living Situation: Custodial Current Living Situation Comment: [facility] Feels Safe at Home: Yes Assistive Devices: Oxygen - Continuous and Wheelchair Allergies Allergies Allergy/AdvReac Type Severity Reaction Status Date / Time adhesive Allergy Mild Skin Verified 04/01/25 20:24 irritation Latex, Natural Rubber Allergy Mild Skin Verified 04/01/25 20:24 irritation tetracycline Allergy Mild Rash Verified 04/01/25 20:24 NSAIDS (Non-Steroidal Allergy Unknown ON CENTRE Verified 04/01/25 20:24 Anti-Inflamma CARE MED LIST esomeprazole [From Nexium] AdvReac Intermediate Epistaxis Verified 04/01/25 20:24 Home Meds Home Medications Medication Instructions Recorded Confirmed metoprolol tartrate 50 mg tablet 50 mg PO BIDM 04/04/18 04/01/25 losartan 25 mg tablet 25 mg PO QAM 09/14/20 04/01/25 acetaminophen 325 mg tablet 650 mg PO Q6H PRN PAIN/FEVER 02/01/22 04/01/25 amiodarone 200 mg tablet 200 mg PO QAM 02/01/22 04/01/25 sennosides 8.6 mg tablet (senna) 17.2 mg PO QAM 02/01/22 04/01/25 melatonin 5 mg tablet 5 mg PO HS 03/26/22 04/01/25 apixaban 5 mg tablet (Eliquis) 5 mg PO BIDM 04/02/22 04/01/25 cyclobenzaprine 10 mg tablet 10 mg PO HS 11/04/24 04/01/25 pantoprazole 40 mg tablet,delayed 40 mg PO DAILY 11/04/24 04/01/25 release Saccharomyces boulardii 250 mg 1,000 mg PO QAM 12/15/24 04/01/25 capsule acetaminophen 500 mg tablet 1,000 mg PO BIDM 12/15/24 04/01/25 (Tylenol Extra Strength) aluminum-mag hydroxide-simethicone 10 ml PO QAM 12/15/24 04/01/25 200 mg-200 mg-20 mg/5 mL oral susp cranberry 500 mg capsule 500 mg PO QAM 12/15/24 04/01/25 d-mannose 500 mg capsule 500 mg PO QAM 12/15/24 04/01/25 duloxetine 20 mg capsule,delayed 20 mg PO HS 12/15/24 04/01/25 release fexofenadine 60 mg tablet 60 mg PO BIDM 12/15/24 04/01/25 furosemide 20 mg tablet (Lasix) 20 mg PO QAM 12/15/24 04/01/25 ipratropium 0.5 mg-albuterol 3 mg 3 ml inhalation Q2H PRN Shortness 12/15/24 04/01/25 (2.5 mg base)/3 mL nebulization Of Breath Or Wheezing soln levothyroxine 25 mcg tablet 25 mcg PO DAILYBB 12/15/24 04/01/25 (Synthroid) loperamide 2 mg tablet (Imodium 2 mg PO DIRECTED PRN Diarrhea 12/15/24 04/01/25 A-D) vit C 250 mg-vit E 90 mg-zinc 40 1 tab PO QAM 12/15/24 04/01/25 mg-copper 1 [id number] capsule (PreserVision AREDS-2) aluminum-mag hydroxide-simethicone 10 ml PO Q4H PRN Indigestion 04/01/25 04/01/25 200 mg-200 mg-20 mg/5 mL oral susp biotin 10,000 mcg/mL (10 mg/mL) 0 mcg PO Q2H PRN Dry Mouth 04/01/25 04/01/25 oral liquid gabapentin 600 mg tablet 600 mg PO TIDM 04/01/25 04/01/25 magnesium hydroxide 400 mg/5 mL 30 ml PO DAILY PRN NO BM FOR 3 DAYS 04/01/25 04/01/25 oral suspension (Milk of Magnesia) meclizine 12.5 mg tablet 12.5 mg PO Q6H PRN Vertigo 04/01/25 04/01/25 ondansetron HCl 4 mg tablet 4 mg PO Q6H PRN NAUSEA/VOMITING 04/01/25 04/01/25 oxycodone 10 mg tablet 10 mg PO BID 04/01/25 04/01/25 Results & Data (ED) Vital Signs Vital Signs - 24 hr 04/01/25 18:15 04/01/25 18:17 04/01/25 19:31 Temperature 36.7 C Temperature Source Oral Pulse Rate 66 67 Pulse Rate [Finger] 67 Respiratory Rate 20 24 Blood Pressure 89/42 L Blood Pressure [Right Arm] 100/56 L Blood Pressure Mean 57 Blood Pressure Mean [Right Arm] 70 Pulse Oximetry 93 96 Oxygen Delivery Method Nasal Cannula Nasal Cannula Oxygen Flow Rate 4 4 Sepsis Recent Fever Within 48 Hours Yes Sepsis New/Unexplained Change in Mental Status No Sepsis Action Taken by Nursing No Action Required 04/01/25 20:59 Temperature Temperature Source Pulse Rate Pulse Rate [Finger] 67 Respiratory Rate 22 Blood Pressure Blood Pressure [Right Arm] 72/38 L Blood Pressure Mean Blood Pressure Mean [Right Arm] 49 Pulse Oximetry 94 Oxygen Delivery Method Nasal Cannula Oxygen Flow Rate 4 Sepsis Recent Fever Within 48 Hours Sepsis New/Unexplained Change in Mental Status Sepsis Action Taken by Custodial Medications Current Medication List: was personally reviewed by me Laboratory Data Attestation: I reviewed the patient's lab results. 04/01/25 19:17 04/01/25 19:17 Lab Results 04/01/25 04/01/25 04/01/25 Range/Units 19:17 19:29 19:33 WBC 20.56 H (4.8-10.8) K/ul RBC 4.31 (4.20-5.40) M/uL Hgb 12.6 (12.0-16.0) g/dl Hct 43.1 (37.0-47.0) % MCV 100.0 (80.0-100.0) fL MCH 29.2 (25.0-34.0) pg MCHC 29.2 L (32.0-36.0) g/dL RDW Std Deviation 51.9 H (36.4-46.3) fL RDW Coeff of Massiel 14.0 (11.5-14.5) % Plt Count 223 (130-400) K/uL MPV 10.0 (9.4-12.4) fL Immature Gran % (Auto) 0.6 % Neut % (Auto) 72.2 % Lymph % (Auto) 12.4 % Burt % (Auto) 14.5 % Eos % (Auto) 0.0 % Baso % (Auto) 0.3 % Neut # (Auto) 14.83 H (1.40-6.50) K/uL Lymph # (Auto) 2.54 (1.20-3.40) K/uL Burt # (Auto) 2.98 H (0.11-0.59) K/uL Eos # (Auto) 0.01 (0.00-0.50) K/uL Baso # (Auto) 0.07 (0.00-0.20) K/uL Immature Gran # (Auto) 0.13 (0.01-0.20) K/uL PT 14.8 H (9.0-12.0) Seconds INR 1.4 H (0.9-1.1) APTT 38 H (21-31) Seconds PTT Ratio 1.4 VBG pH 7.21 L (7.36-7.41) VBG pCO2 92 H (38-50) mmHg VBG pO2 20 mmHg VBG HCO3 37 mmol/L VBG O2 Saturation < 60.0 % VBG Base Excess 5.5 mEq/L Sodium 139 (136-145) mmol/L Potassium 4.7 (3.5-5.1) mmol/L Chloride 97 L (98-107) mmol/L Carbon Dioxide 35 H (21-32) mmol/L Anion Gap 7 (3-11) BUN 16 (6-23) mg/dl Creatinine 1.58 H (0.6-1.2) mg/dl Est Cr Clr Drug Dosing 42.9 ml/min eGFR 32.69 BUN/Creatinine Ratio 10.1 (10-20) Glucose 131 H (70-99(Fasting)) mg/dl Lactate 3.2 H* (0.4-2.0) mmol/L Calcium 8.5 L (8.6-10.3) mg/dl Magnesium 2.2 (1.7-2.4) mg/dl Total Bilirubin 1.1 H (0.2-1.0) mg/dl Direct Bilirubin 0.6 H (0-0.2) mg/dl AST 175 H (13-39) U/L ALT 75 H (7-52) U/L Alkaline Phosphatase 123 H (34-104) U/L Troponin I High Sens 238.3 H* (0-14) pg/ml Total Protein 7.2 (6.0-8.3) gm/dl Albumin 3.3 L (3.4-5.0) gm/dl Procalcitonin 7.09 H (0-0.5) ng/ml Urine Color Dark Yellow Urine Appearance Turbid A (Clear) Urine pH 5.0 (4.5-7.5) Ur Specific [place] 1.025 (1.000-1.030) Urine Protein 3+ H (Negative) Urine Glucose (UA) Negative (Negative) Urine Ketones Trace H (Negative) Urine Blood 3+ H (Negative) Urine Nitrite Positive A (Negative) Urine Bilirubin 2+ H (Negative) Urine Urobilinogen Positive H (Negative) Ur Leukocyte Esterase 3+ H (Negative) Urine WBC (Auto) >50 H (0-5) /hpf Urine RBC (Auto) 11-20 H (0-2) /hpf U Hyaline Cast (Auto) 11-20 H (0-2) /lpf U Epithel Cells (Auto) >20 H (0-2) /hpf Urine Bacteria (Auto) 4+ H (None Seen) Hyaline Casts Present A (None Presnt) /lpf Granular Casts Present A (None Prsent) /lpf Urine Comment SARS-CoV-2 (PCR) NEGATIVE (Negative) Influenza Type A (PCR) Negative (Neg) Influenza Type B (PCR) Negative (Neg) RSV (RT-PCR) Negative (Neg) Administered Medications Discontinued Medications Sodium Chloride (Nss) 500 mls @ 999 mls/hr IV .Q31M ONE Stop: 04/01/25 19:03 Last Infusion: 04/01/25 19:50 Dose: Infused Documented By: Admin: 04/01/25 19:17 Dose: 999 mls/hr Documented By: OLU Piperacillin Sod/Tazobactam Sod (Zosyn) 4.5 gm in 100 mls @ 200 mls/hr IV NOW ONE; Protocol Stop: 04/01/25 20:24 Last Infusion: 04/01/25 20:34 Dose: Infused Documented By: Admin: 04/01/25 20:01 Dose: 200 mls/hr Documented By: OLU Sodium Chloride (Nss) 500 mls @ 999 mls/hr IV .Q31M ONE Stop: 04/01/25 20:25 Last Infusion: 04/01/25 20:35 Dose: Infused Documented By: Admin: 04/01/25 20:01 Dose: 999 mls/hr Documented By: OLU Sodium Chloride (Nss) 1,000 mls @ 999 mls/hr IV .Q1H1M ONE Stop: 04/01/25 21:11 Last Admin: 04/01/25 20:49 Dose: 999 mls/hr Documented By: OLU Imaging Data Attestation: I personally reviewed and interpreted this imaging study as follows: My Impression: 1 view chest x-ray was obtained in the emergency department. My interpretation is no free air or definite infiltrate, final report below. Radiologist's Impression: Chest X-Ray 04/01/25 18:33 Exam(s): XR CXR 1 VIEW EXAM: XR Chest, 1 View CLINICAL HISTORY: Reason for exam: Sepsis. TECHNIQUE: Frontal view of the chest. COMPARISON: No relevant prior studies available. FINDINGS: Lungs: No consolidation. No overt edema. Pleural space: No pleural effusion. No pneumothorax. Heart: Cardiomegaly. IMPRESSION: No acute findings in the chest. Electronically signed by: Adalid Jones MD 04/01/25 21:06 PM Discharge Plan Visit Data Chief Complaint: Urinary Symptoms ED Provider: Nadeem Giordano Discharge Problem: Urinary tract infection, Acute respiratory acidosis, Elevated troponin I level, Acute hypotension Patient Disposition: Being Evaluated by Hospitalist Condition: Fair Forms Stand Alone Forms: [facility] Prescriptions Prescriptions: No Action melatonin 5 mg tablet 5 mg PO HS cyclobenzaprine 10 mg tablet 10 mg PO HS pantoprazole 40 mg tablet,delayed release (DR/EC) 40 mg PO DAILY losartan 25 mg Tablet 25 mg PO QAM metoprolol tartrate 50 mg Tablet 50 mg PO BIDM sennosides [senna] 8.6 mg Tablet 17.2 mg PO QAM acetaminophen 325 mg Tablet 650 mg PO Q6H MDD 3 GRAMS/24 HOURS PRN (Reason: PAIN/FEVER) amiodarone 200 mg Tablet 200 mg PO QAM Eliquis 5 mg Tablet 5 mg PO BIDM gabapentin 600 mg Tablet 600 mg PO TIDM ondansetron HCl [Zofran] 4 mg Tablet 4 mg PO Q6H PRN (Reason: NAUSEA/VOMITING) Rx Instructions: STARTED 04/01/25 FOR 3 DAYS meclizine 12.5 mg Tablet 12.5 mg PO Q6H PRN (Reason: Vertigo) magnesium hydroxide [Milk of Magnesia] 400 mg/5 mL Suspension 30 ml PO DAILY PRN (Reason: NO BM FOR 3 DAYS) alum-mag hydroxide-simeth 200-200-20 mg/5 mL Suspension 10 ml PO Q4H PRN (Reason: Indigestion) Rx Instructions: administer between meals and at bedtime oxycodone 10 mg Tablet 10 mg PO BID biotin 10,000 mcg/mL Liquid 0 mcg PO Q2H PRN (Reason: Dry Mouth) Rx Instructions: SELF ADMINISTER -- 2 SPRAYS NEEDED. ipratropium-albuterol 0.5 mg-3 mg(2.5 mg base)/3 mL Solution For Nebulization 3 ml INHALATION Q2H PRN (Reason: Shortness Of Breath Or Wheezing) fexofenadine 60 mg Tablet 60 mg PO BIDM loperamide [Imodium A-D] 2 mg Tablet 2 mg PO DIRECTED MDD 6 DOSES/24 HOURS PRN (Reason: Diarrhea) acetaminophen [Tylenol Extra Strength] 500 mg Tablet 1,000 mg PO BIDM levothyroxine [Synthroid] 25 mcg Tablet 25 mcg PO DAILYBB furosemide [Lasix] 20 mg Tablet 20 mg PO QAM alum-mag hydroxide-simeth 200-200-20 mg/5 mL Suspension 10 ml PO QAM cranberry 500 mg Capsule 500 mg PO QAM Saccharomyces boulardii 250 mg Capsule 1,000 mg PO QAM duloxetine 20 mg capsule,delayed release(DR/EC) 20 mg PO HS PreserVision AREDS-2 250-90-40-1 mg Capsule 1 tab PO QAM d-mannose 500 mg Capsule 500 mg PO QAM Referrals Referrals: [facility] [Primary Care Provider] -
[2025-04-01] MEDS: SODIUM CHLORIDE 0.9% 500 ML IV ONE ×2 (19:17→20:01)
[2025-04-01 19:40] LABS: Hematocrit (blood only) 43.1 % (37.0-47.0); Hemoglobin 12.6 g/dl (12.0-16.0); Immature Granulocytes # (auto) 0.13 K/uL (0.01-0.20); Immature Granulocytes % (auto) 0.6 %; Mean Corpuscular Hemoglobin 29.2 pg (25.0-34.0); Mean Corpuscular Volume 100.0 fL (80.0-100.0); Platelet Count 223 K/uL (130-400); RDW Standard Deviation 51.9 fL (36.4-46.3); Red Blood Count 4.31 M/uL (4.20-5.40); White Blood Count 20.56 K/ul (4.8-10.8)
[2025-04-01 20:00] LABS: Alanine Aminotransferase 75.0 U/L (7-52); Albumin Level 3.3 gm/dl (3.4-5.0); Alkaline Phosphatase 123.0 U/L (34-104); Anion Gap 7.0 (3-11); Bilirubin,Total 1.1 mg/dl (0.2-1.0); Blood Urea Nitrogen 16.0 mg/dl (6-23); Calcium 8.5 mg/dl (8.6-10.3); Carbon Dioxide 35.0 mmol/L (21-32); Chloride 97.0 mmol/L (98-107); Creatinine Clr Calc Pharmacy 42.9 ml/min; Glucose 131.0 mg/dl (70-99(Fasting)); Magnesium 2.2 mg/dl (1.7-2.4); Potassium 4.7 mmol/L (3.5-5.1); Sodium 139.0 mmol/L (136-145); Total Protein 7.2 gm/dl (6.0-8.3)
[2025-04-01 20:00] LABS: Appearance Urine Turbid (Clear); Bacteria Urine Automated 4+ (None Seen); Epithelial Cell Urine Auto >20 /hpf (0-2); Glucose Urine UA Negative (Negative); WBC Urine Automated >50 /hpf (0-5)
[2025-04-01] MEDS: PIPERACILLIN/TAZOBACTAM 4.5 GM/100 ML BAG IV ONE (20:01)
[2025-04-01 20:09] LABS: Base Excess VBG 5.5 mEq/L; HCO3 VBG 37 mmol/L; Oxygen Saturation VBG < 60.0 %; PCO2 VBG 92 mmHg (38-50); PO2 VBG 20 mmHg; pH VBG 7.21 (7.36-7.41)
[2025-04-01 20:10] LABS: Influenza A virus by PCR Negative (Neg); Influenza B virus by PCR Negative (Neg); SARS CoV2 RNA(COVID-19) Ceph NEGATIVE (Negative)
[2025-04-01 20:12] LABS: INR 1.4 (0.9-1.1); Partial Thromboplastin Time 38 Seconds (21-31); Prothrombin Time 14.8 Seconds (9.0-12.0)
[2025-04-01] MEDS: SODIUM CHLORIDE 0.9% 1,000 ML IV ONE (20:49)
--- NOTE | 2025-04-01 21:07 | XRay Report ---
Exam(s): XR CXR 1 VIEW EXAM: XR Chest, 1 View CLINICAL HISTORY: Reason for exam: Sepsis. TECHNIQUE: Frontal view of the chest. COMPARISON: No relevant prior studies available. FINDINGS: Lungs: No consolidation. No overt edema. Pleural space: No pleural effusion. No pneumothorax. Heart: Cardiomegaly. IMPRESSION: No acute findings in the chest. Electronically signed by: Adalid Jones MD 04/01/25 21:06 PM
--- NOTE | 2025-04-01 21:48 | History & Physical Report ---
Date of Service April 01, 2025 Assessment & Plan (1) Acute respiratory failure with hypoxia and hypercapnia: (2) Septic shock: (3) Acute hypotension: (4) Elevated troponin I level: (5) GILBERTO (acute kidney injury): Plan The patient is a 79-year-old female with a past medical history including ESBL E. coli UTI, metabolic encephalopathy, acute respiratory failure with hypoxia and hypercapnia, septic shock, atrial fibrillation with RVR, status post ureteral stent placement, VRE, GILBERTO, hypertension, tachybradycardia syndrome, and HFpEF. The patient was referred to the emergency department [facility], where after staff thought that she had a urinary tract infection causing her to be altered and having an increased temperature. Upon arrival to the emergency department, the patient was confused, was found to have a low blood pressure of 62/45. Workup in the emergency department included abnormal LFTs, with total bilirubin 1.1, direct bilirubin 0.6, AST 175, ALT 75. Troponin was elevated to 38.3 with follow-up pending albumin was low at 3.3. Pro-Andi was elevated 7.09. From the ED she did receive normal saline 2 L bolus, and Zosyn 4.5 g IV. Her blood pressure however only increased to 72/38, which time she was given additional fluid boluses, albumin 25 g IV, impression admitted improved to the low 90s systolic. Due to low blood pressure, and difficulty with IV access, and history of requiring ICU treatment in the past, the patient was referred to the [facility] for further evaluation and treatment, and plans were being made for the patient to be admitted to the ICU. It was felt that the patient would likely need pressors to maintain adequate blood pressure, and try to improve mentation. Acute respiratory failure with hypoxia and hypercapnia/obesity hypoventilation syndrome/asthma- Patient initially placed on mask, and then was able to be tapered to nasal cannula oxygen Contributing factors are patient body habitus, asthma exacerbation, and sepsis from UTI DuoNebs every 2 hours as needed Most recent admission from 12/15-12/23/2024 with similar respiratory failure process. COVID, flu, RSV testing negative Septic shock due to urinary tract infection- Received normal saline 2 L bolus in the ED, then placed on maintenance fluids NSS at 125 mL mL x 2 L History of ESBL E. coli UTI Received Zosyn 4.5 g IV from the ED, will continue every 8 hours Follow urine culture and sensitivity Patient will be admitted to the ICU, as her pressure was initially responded to fluid resuscitation, but anticipate potential need for pressors. Zofran 4 mg IV every 6 hours as needed Pantoprazole 40 mg IV twice daily Given albumin 25 g IV x 1 Elevated troponin/hypertension/atrial fibrillation- The patient will be admitted to the ICU for serial cardiac enzymes, serial EKG's, cardiac rhythm monitoring and a 2-D echocardiogram with Dopplers. Troponin to 38.3 with follow-ups pending Continue Eliquis and amiodarone Hold furosemide, losartan, and metoprolol tartrate due to hypotension Most recent echocardiogram 02/16/2022 with ejection fraction 55-60% Acute kidney injury- Creatinine 1.58, with baseline 0.68 Fluid resuscitation as noted Improving systolic blood pressures with resuscitation and pressors as noted Repeat laboratories every morning Abnormal LFTs- Total bilirubin 1.1, direct bilirubin 0.6, AST 175, ALT 75 Likely an element of shock liver, which has happened to her in the past which has become septic Repeat laboratories in the a.m. Check an acetaminophen level History of Present Illness Chief Complaint: The patient was referred to the emergency department from her [facility], where after staff thought that she had a urinary tract infection causing her to be altered and having an increased temperature. Upon arrival to the emergency department, the patient was confused, was found to have a low blood pressure of 62/45. Workup in the emergency department included abnormal LFTs, with total bilirubin 1.1, direct bilirubin 0.6, AST 175, ALT 75. Troponin was elevated to 38.3 with follow-up pending albumin was low at 3.3. Pro-Andi was elevated 7.09. From the ED she did receive normal saline 2 L bolus, and Zosyn 4.5 g IV. Her blood pressure however only increased to 72/38, which time she was given additional fluid boluses, albumin 25 g IV, impression admitted improved to the low 90s systolic. Due to low blood pressure, and difficulty with IV access, and history of requiring ICU treatment in the past, the patient was referred to the [facility] for further evaluation and treatment, and plans were being made for the patient to be admitted to the ICU. It was felt that the patient would likely need pressors to maintain adequate blood pressure, and try to improve mentation. Primary Care Provider: [facility] The patient is a 79-year-old female with a past medical history including ESBL E. coli UTI, metabolic encephalopathy, acute respiratory failure with hypoxia and hypercapnia, septic shock, atrial fibrillation with RVR, status post ureteral stent placement, VRE, GILBERTO, hypertension, tachybradycardia syndrome, and HFpEF. The patient was referred to the emergency department from her [facility], where after staff thought that she had a urinary tract infection causing her to be altered and having an increased temperature. Upon arrival to the emergency department, the patient was confused, was found to have a low blood pressure of 62/45. Workup in the emergency department included abnormal LFTs, with total bilirubin 1.1, direct bilirubin 0.6, AST 175, ALT 75. Troponin was elevated to 38.3 with follow-up pending albumin was low at 3.3. Pro-Andi was elevated 7.09. From the ED she did receive normal saline 2 L bolus, and Zosyn 4.5 g IV. Her blood pressure however only increased to 72/38, which time she was given additional fluid boluses, albumin 25 g IV, impression admitted improved to the low 90s systolic. Due to low blood pressure, and difficulty with IV access, and history of requiring ICU treatment in the past, the patient was referred to the [facility] for further evaluation and treatment, and plans were being made for the patient to be admitted to the ICU. It was felt that the patient would likely need pressors to maintain adequate blood pressure, and try to improve mentation. Allergies Allergy/AdvReac Type Severity Reaction Status Date / Time adhesive Allergy Mild Skin Verified 04/01/25 20:24 irritation Latex, Natural Rubber Allergy Mild Skin Verified 04/01/25 20:24 irritation tetracycline Allergy Mild Rash Verified 04/01/25 20:24 NSAIDS (Non-Steroidal Allergy Unknown ON CENTRE Verified 04/01/25 20:24 Anti-Inflamma CARE MED LIST esomeprazole [From Nexium] AdvReac Intermediate Epistaxis Verified 04/01/25 20:24 Home Medications Medication Instructions Recorded Confirmed Type metoprolol tartrate 50 mg tablet 50 mg PO BIDM 04/04/18 04/01/25 History losartan 25 mg tablet 25 mg PO QAM 09/14/20 04/01/25 History acetaminophen 325 mg tablet 650 mg PO Q6H PRN PAIN/FEVER 02/01/22 04/01/25 History amiodarone 200 mg tablet 200 mg PO QAM 02/01/22 04/01/25 History sennosides 8.6 mg tablet (senna) 17.2 mg PO QAM 02/01/22 04/01/25 History melatonin 5 mg tablet 5 mg PO HS 03/26/22 04/01/25 History apixaban 5 mg tablet (Eliquis) 5 mg PO BIDM 04/02/22 04/01/25 History cyclobenzaprine 10 mg tablet 10 mg PO HS 11/04/24 04/01/25 History pantoprazole 40 mg tablet,delayed 40 mg PO DAILY 11/04/24 04/01/25 History release Saccharomyces boulardii 250 mg 1,000 mg PO QAM 12/15/24 04/01/25 History capsule acetaminophen 500 mg tablet 1,000 mg PO BIDM 12/15/24 04/01/25 History (Tylenol Extra Strength) aluminum-mag hydroxide-simethicone 10 ml PO QAM 12/15/24 04/01/25 History 200 mg-200 mg-20 mg/5 mL oral susp cranberry 500 mg capsule 500 mg PO QAM 12/15/24 04/01/25 History d-mannose 500 mg capsule 500 mg PO QAM 12/15/24 04/01/25 History duloxetine 20 mg capsule,delayed 20 mg PO HS 12/15/24 04/01/25 History release fexofenadine 60 mg tablet 60 mg PO BIDM 12/15/24 04/01/25 History furosemide 20 mg tablet (Lasix) 20 mg PO QAM 12/15/24 04/01/25 History ipratropium 0.5 mg-albuterol 3 mg 3 ml inhalation Q2H PRN Shortness 12/15/24 04/01/25 History (2.5 mg base)/3 mL nebulization Of Breath Or Wheezing soln levothyroxine 25 mcg tablet 25 mcg PO DAILYBB 12/15/24 04/01/25 History (Synthroid) loperamide 2 mg tablet (Imodium 2 mg PO DIRECTED PRN Diarrhea 12/15/24 04/01/25 History A-D) vit C 250 mg-vit E 90 mg-zinc 40 1 tab PO QAM 12/15/24 04/01/25 History mg-copper 1 [id number] capsule (PreserVision AREDS-2) aluminum-mag hydroxide-simethicone 10 ml PO Q4H PRN Indigestion 04/01/25 04/01/25 History 200 mg-200 mg-20 mg/5 mL oral susp biotin 10,000 mcg/mL (10 mg/mL) 0 mcg PO Q2H PRN Dry Mouth 04/01/25 04/01/25 History oral liquid gabapentin 600 mg tablet 600 mg PO TIDM 04/01/25 04/01/25 History magnesium hydroxide 400 mg/5 mL 30 ml PO DAILY PRN NO BM FOR 3 DAYS 04/01/25 04/01/25 History oral suspension (Milk of Magnesia) meclizine 12.5 mg tablet 12.5 mg PO Q6H PRN Vertigo 04/01/25 04/01/25 History ondansetron HCl 4 mg tablet 4 mg PO Q6H PRN NAUSEA/VOMITING 04/01/25 04/01/25 History oxycodone 10 mg tablet 10 mg PO BID 04/01/25 04/01/25 History Past Med/Surg History Problem List (Updated 04/02/25 @ 01:28 by OJ Chacko) Acute respiratory failure with hypercapnia Acute hypotension (Acute) Elevated troponin I level (Acute) Acute respiratory acidosis (Acute) Urinary tract infection (Acute) Hypomagnesemia E. coli UTI E coli bacteremia Infection due to ESBL-producing Escherichia coli Metabolic encephalopathy Transaminitis Acute respiratory failure with hypoxia and hypercapnia Septic shock Transaminitis (Acute) Renal cyst Atrial fibrillation with RVR (Acute) Osteoporosis (Chronic) Encounter for pre-operative examination Adenomatous polyps Encounter for pre-operative examination Hydronephrosis concurrent with and due to calculi of kidney and ureter (Acute) Atrial fibrillation (Acute) S/P ureteral stent placement VRE (vancomycin resistant enterococcus) culture positive GILBERTO (acute kidney injury) Back pain Altered mental status (Acute) GILBERTO (acute kidney injury) (Acute) Hypotension (Acute) Acute dehydration (Acute) Acute UTI (Acute) Nephrolithiasis Sepsis due to urinary tract infection Paroxysmal atrial fibrillation Tachycardia-bradycardia syndrome Pulmonary vascular congestion Acute metabolic encephalopathy Acute on chronic heart failure with preserved ejection fraction (HFpEF) Medical History Chronic diastolic CHF (congestive heart failure) Morbid obesity RAYMUNDO (obstructive sleep apnea) HLD (hyperlipidemia) HTN (hypertension) Paralysis of both lower limbs post fall at home november 2021 On anticoagulant therapy UTI (urinary tract infection) Osteomyelitis Presentation to [facility] [place] as a transfer from [facility] for traumatic fall with pathologic T7/8 fracture concerning for OM s/p bone biopsy (+) Proteus and discharged on 6 weeks of IV Ceftriaxone with end date of 01/23/2022. [facility] infectious disease (01/24/22): "Recommend no additional antibiotics at this time, pt antibiotic course was completed.. Follow up as needed." On home oxygen therapy 2L O2 continuous Hx of cervical cancer s/p hysterectomy BSO Anxiety Crohns disease Heart failure, unspecified Irritable bowel syndrome (IBS) CAD (coronary artery disease) Anemia No known hx of blood transfusions CKD (chronic kidney disease) stage 3, GFR 30-59 ml/min Macular degeneration Peripheral neuropathy Hx of ovarian cancer s/p hysterectomy BSO Right knee pain Encounter for pre-operative examination Morbid obesity with BMI of 45.0-49.9, adult Chronic back pain Osteoarthritis Kidney stones Hx of deep venous thrombosis LLE (1960s), no definitive etiology, no issues since Hyperlipidemia Hypertension Atrial fibrillation Follows with Dr. Cox Cardiology risk stratification request note from surgeon/urology in [facility] routed to Dr. Cox* Sleep apnea CPAP Surgical History History of cystoscopy Cystoscopy, right stent (10/22/21): MAC at [facility]. No issues noted per post-op anesthesia progress note. History of cholecystectomy History of tooth extraction History of cataract surgery R/L History of surgical removal of skin lesion Fatty tumor History of colonoscopy Difficult airway for intubation Difficult intubation 1975 ([facility]) "Needs small size/pediatric tube" History of tonsillectomy Hx of hemorrhoidectomy History of dilatation and curettage History of total knee replacement Right History of hysterectomy BSO History of cardiac cath 2013 x2 ([facility]) > no stents Family History Father Family hx of colon cancer Daughter FHx: breast cancer FHx: ovarian cancer Other No family history of adverse response to anesthesia Social History Smoking Status: Unknown if ever smoked Second Hand Exposure: No; Do You Dip or Chew Tobacco: No; Hx Alcohol Use: No Hx Substance Use: No Preferred Language: Burkinan Communication Ability: Impaired Communication Ability Comment: a&o x3 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 HEENT--PERRL, EOMI, mucous membranes and oropharynx dry. Neck--supple. No JVD. No bruits. Thyroid normal, trachea midline, no adenopathy. Heart--normal S1 and S2. No murmurs, rubs or gallops. Lungs--decreased breath sounds throughout. No respiratory distress, no accessory muscle use. Abdomen--normal bowel sounds and soft. Nontender. Nondistended. Morbidly obese Extremities-- No edema. Morbidly obese Dermatologic--normal skin turgor, normal color, no abnormal lymph nodes, no rash. Neurologic--cranial nerves II through XII grossly intact. Rheumatologic--limited examination Psychiatric--confused. Results & Data Results & Data Vital Signs (Past 12 Hours) Vital Signs Temp Pulse Pulse Resp BP BP Pulse Ox 04/01/25 21:45 69 22 96/50 L 95 04/01/25 20:59 67 22 72/38 L 94 04/01/25 19:31 67 24 100/56 L 96 04/01/25 18:17 36.7 C 67 20 89/42 L 93 04/01/25 18:15 66 O2 Del Method O2 Flow Rate 04/01/25 21:45 Nasal Cannula 4 04/01/25 20:59 Nasal Cannula 4 04/01/25 19:31 Nasal Cannula 4 04/01/25 18:17 Nasal Cannula 4 04/01/25 18:15 Laboratory Results Laboratory Results WBC 20.56 K/ul (4.8-10.8) H 04/01/25 19:17 RBC 4.31 M/uL (4.20-5.40) 04/01/25 19:17 Hgb 12.6 g/dl (12.0-16.0) 04/01/25 19:17 Hct 43.1 % (37.0-47.0) 04/01/25 19:17 MCV 100.0 fL (80.0-100.0) 04/01/25 19:17 MCH 29.2 pg (25.0-34.0) 04/01/25 19:17 MCHC 29.2 g/dL (32.0-36.0) L 04/01/25 19:17 RDW Std Deviation 51.9 fL (36.4-46.3) H 04/01/25 19:17 RDW Coeff of Massiel 14.0 % (11.5-14.5) 04/01/25 19:17 Plt Count 223 K/uL (130-400) 04/01/25 19:17 MPV 10.0 fL (9.4-12.4) 04/01/25 19:17 Immature Gran % (Auto) 0.6 % 04/01/25 19:17 Neut % (Auto) 72.2 % 04/01/25 19:17 Lymph % (Auto) 12.4 % 04/01/25 19:17 [place] % (Auto) 14.5 % 04/01/25 19:17 Eos % (Auto) 0.0 % 04/01/25 19:17 Baso % (Auto) 0.3 % 04/01/25 19:17 Neut # (Auto) 14.83 K/uL (1.40-6.50) H 04/01/25 19:17 Lymph # (Auto) 2.54 K/uL (1.20-3.40) 04/01/25 19:17 [place] # (Auto) 2.98 K/uL (0.11-0.59) H 04/01/25 19:17 Eos # (Auto) 0.01 K/uL (0.00-0.50) 04/01/25 19:17 Baso # (Auto) 0.07 K/uL (0.00-0.20) 04/01/25 19:17 Immature Gran # (Auto) 0.13 K/uL (0.01-0.20) 04/01/25 19:17 PT 14.8 Seconds (9.0-12.0) H 04/01/25 19:17 INR 1.4 (0.9-1.1) H 04/01/25 19:17 APTT 38 Seconds (21-31) H 04/01/25 19:17 PTT Ratio 1.4 04/01/25 19:17 VBG pH 7.21 (7.36-7.41) L 04/01/25 19:33 VBG pCO2 92 mmHg (38-50) H 04/01/25 19:33 VBG pO2 20 mmHg 04/01/25 19:33 VBG HCO3 37 mmol/L 04/01/25 19:33 VBG O2 Saturation < 60.0 % 04/01/25 19:33 VBG Base Excess 5.5 mEq/L 04/01/25 19:33 Sodium 139 mmol/L (136-145) 04/01/25 19:17 Potassium 4.7 mmol/L (3.5-5.1) 04/01/25 19:17 Chloride 97 mmol/L (98-107) L 04/01/25 19:17 Carbon Dioxide 35 mmol/L (21-32) H 04/01/25 19:17 Anion Gap 7 (3-11) 04/01/25 19:17 BUN 16 mg/dl (6-23) 04/01/25 19:17 Creatinine 1.58 mg/dl (0.6-1.2) H 04/01/25 19:17 Est Cr Clr Drug Dosing 42.9 ml/min 04/01/25 19:17 eGFR 32.69 04/01/25 19:17 BUN/Creatinine Ratio 10.1 (10-20) 04/01/25 19:17 Glucose 131 mg/dl (70-99(Fasting)) H 04/01/25 19:17 Lactate 3.1 mmol/L (0.4-2.0) H* 04/01/25 21:34 Calcium 8.5 mg/dl (8.6-10.3) L 04/01/25 19:17 Magnesium 2.2 mg/dl (1.7-2.4) 04/01/25 19:17 Total Bilirubin 1.1 mg/dl (0.2-1.0) H 04/01/25 19:17 Direct Bilirubin 0.6 mg/dl (0-0.2) H 04/01/25 19:17 AST 175 U/L (13-39) H 04/01/25 19:17 ALT 75 U/L (7-52) H 04/01/25 19:17 Alkaline Phosphatase 123 U/L (34-104) H 04/01/25 19:17 Troponin I High Sens 249.3 pg/ml (0-14) H* 04/01/25 21:34 Total Protein 7.2 gm/dl (6.0-8.3) 04/01/25 19:17 Albumin 3.3 gm/dl (3.4-5.0) L 04/01/25 19:17 Procalcitonin 7.09 ng/ml (0-0.5) H 04/01/25 19:17 Urine Color Dark Yellow 04/01/25 19: Urine Appearance Turbid (Clear) A 04/01/25 19: Urine pH 5.0 (4.5-7.5) 04/01/25 19: Ur Specific [place] 1.025 (1.000-1.030) 04/01/25 19: Urine Protein 3+ (Negative) H 04/01/25 19: Urine Glucose (UA) Negative (Negative) 04/01/25 19: Urine Ketones Trace (Negative) H 04/01/25 19: Urine Blood 3+ (Negative) H 04/01/25 19: Urine Nitrite Positive (Negative) A 04/01/25 19: Urine Bilirubin 2+ (Negative) H 04/01/25 19: Urine Urobilinogen Positive (Negative) H 04/01/25 19:29 Ur Leukocyte Esterase 3+ (Negative) H 04/01/25 19: Urine WBC (Auto) >50 /hpf (0-5) H 04/01/25 19:29 Urine RBC (Auto) 11-20 /hpf (0-2) H 04/01/25 19:29 U Hyaline Cast (Auto) 11-20 /lpf (0-2) H 04/01/25 19:29 U Epithel Cells (Auto) >20 /hpf (0-2) H 04/01/25 19:29 Urine Bacteria (Auto) 4+ (None Seen) H 04/01/25 19:29 Hyaline Casts Present /lpf (None Presnt) A 04/01/25 19:29 Granular Casts Present /lpf (None Prsent) A 04/01/25 19:29 Urine Comment 04/01/25 19:29 Nasal Screen MRSA (PCR) Negative (Negative) 04/02/25 Unknown Acetaminophen 3 ug/ml (10-30) L 04/02/25 01:24 SARS-CoV-2 (PCR) NEGATIVE (Negative) 04/01/25 19:17 Influenza Type A (PCR) Negative (Neg) 04/01/25 19:17 Influenza Type B (PCR) Negative (Neg) 04/01/25 19:17 RSV (RT-PCR) Negative (Neg) 04/01/25 19:17 Impressions Chest X-Ray 04/01/25 18:33 Exam(s): XR CXR 1 VIEW EXAM: XR Chest, 1 View CLINICAL HISTORY: Reason for exam: Sepsis. TECHNIQUE: Frontal view of the chest. COMPARISON: No relevant prior studies available. FINDINGS: Lungs: No consolidation. No overt edema. Pleural space: No pleural effusion. No pneumothorax. Heart: Cardiomegaly. IMPRESSION: No acute findings in the chest. Electronically signed by: Adalid Jones MD 04/01/25 21:06 PM Code Status & VTE Plan Code Status DNR/DNI VTE Prophylaxis Plan VTE Prophylaxis will be ordered: Yes PG Care Time/CCT Total # of Minutes Spent Total Time Spent with Patient: Total time spent is greater than 50% in coordination of care (as documented) at patient's floor/unit and/or counseling patient: 45 minutes Coding Level of Care Code 41297 INT INP/OBS CARE 3/75MIN Diagnoses Acute respiratory failure with hypoxia and hypercapnia J96.01; J96.02 Septic shock A41.9; R65.21 Acute hypotension I95.9 Elevated troponin I level R79.89 GILBERTO (acute kidney injury) N17.9
[2025-04-01] MEDS: SODIUM CHLORIDE 0.9% 1,000 ML IV SCH (22:05)
[2025-04-01] MEDS: ALBUMIN 25% 25 GM/100 ML VIAL IV ONE (22:05)
--- NOTE | 2025-04-01 22:15 | Critical Care Consultation ---
<Statement entered by Tian Francois MD - 04/02/25 14:16> I, Tian Francois MD, supervised and reviewed the physical exam, assessment, plan, and management as documented by the Advanced Care Provider for this patient encounter. I discussed the case with them, confirmed the findings, and I concur with the proposed plan of care. I was available for consultation throughout the encounter and provided guidance as needed. I separately evaluated the patient for robins portions of the history and the exam. I was present during the critical portion of medical decision making, and I discussed the case with the Advanced Care Provider. I agree with the findings and plan except for any additions/exceptions noted. Date of Consultation April 01, 2025 Assessment & Plan (1) Septic shock: (2) Transaminitis: (3) GILBERTO (acute kidney injury): (4) Acute UTI: (5) Acute respiratory failure with hypercapnia: (6) Elevated troponin I level: Plan Reason Critically Ill: Patient presents to ER for fever found to be with encephalopathy and hypotensive with organ dysfucntion. Concern for septic shock from UTI likely source at this time. Remained hypotensive with unchanged lactate, however will likely need more crystalloid and likely definitive way to measure BP to defend MAPS and end organ perfusion. Neuro - Metabolic Encephalopathy, hx: Chronic opiod use and anxiety CAM ICU: Negative - Metabolic encephalopathy most likely at this time secondary to elevated CO2 and Shock- likely septic- al to ICU - Continue supportive care - improved on arrival - BiPAP for CO2 - Hold home narcotics - as these with her body habitus are high risk for hypoventilation, hypoxia and Cardiac - Shock, elevated HsCTNI, HX: Afib, CAD, HTN, HLD, HFpEF - Shock - likely combination of hypovolemia and distributive- with organ dysfunction of elevated troponin, encephalopathy, GILBERTO, elevated liver enzymes - She is post 2L crystalloid infusion- evaluation of volume status extremely difficult secondary to obesity, this includes obtaining adequate POCUS windows. - Trend lactate levels with end organ biomarkers for perfusion - MAPS >65- currently - may need vasopressor support- if needed will use LEVOphed - send random cortisol - HsCTNI likely demand secondary to septic shock - NSR continue DOAC and amiodarone - Hold BB tonight until hemodynamics proven stable, Hold ARB until GILBERTO resolves and hemodynamics proven stable Respiratory - hypercarbic respiratory failure, Hx: RAYMUNDO home oxygen use - CPAP/BiPAP at night - VGB/ABG with mild hypercarbia but PH mostly preserved - trend overnight - No acute process on CT chest/CXR - Respiratory viral panel negative- COVID, FLUS, RSV GI - Elevated LFTS, Hx: hepatic steatosis, GERD - Elevated LFTS, likely secondary to sepsis and hypotension- will check INR, Acetaminophen level - Trend overnight following resuscitation and MAP support - If remains elevated, will obtain RUQ-US with Doppler RENAL/LYTES - Respiratory acidosis, chronic metabolic alkalosis, GILBERTO - Supportive care as above, defend MAP - Elevated PCO2- likely secondary to encephalopathy and obesity - Replete- ICU electrolyte protocol - Consider advanced imaging with re-current UTI, previous CT abd/pel with tiny nonobstructing stone. - NO acute need - See ID section below - yeboah to gravity ENDO - No acute need - ICU hyperglycemic protocol HEME - no acute need -- Monitor H&H ID - septic shock - Fever, Leukocytosis, elevated NLR, elevated PCT - Source at this time that is likely urine - Urine culture data reviewed with history of ESBL- Agree with Cherylysn for now- await culture data LINES/IV ACCESS - PIV x2, Yeboah May need arterial line for accurate monitoring of MAPS DVT PROPHYLAXIS - SCDS, Apixaban 5mg PO BID DISPO: ICU while on vasopressors I have personally spent 52 minutes of critical care time in the direct management of this patient. This is a life/limb threatening event. This includes time spent evaluating patient, direct bedside care, chart review, placing orders, interpretation of diagnostic studies, discussion with consultants, patient, and family members, as well as other required patient management activities. This time is exclusive of all separately billable procedures, and teaching time and separate from and in addition to any other critical care service time. 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 Patient came to the ER today for complaints of fever and fatigue. Patient reports that she has not been feeling well the past 3-4 days with fever, fatigue, and loss of appetite. She reports not getting up the past 2 days secondary to feeling unwell. She also doesn't think that she urinated the past 2 days, which she thinks was because she was not eating or drinking as well. Patient has history of UTI with E.Coli resistance in the past. In the ER she was noted to be hypotensive, she has received 2L of crystalloid infusion at this time secondary to body habitus and access issues. BP is difficult to obtain secondary to her body habitus, currently with forearm readings. Either way the patient does have evidence of elevated WBC and PCT as well as elevated lactate and organ dysfunction, she is also with elevated PcO2 on VBG with a respiratory acidosis. Blood cultures and urine cultures have been obtained. Patient is incontinent at this time but sheets are wet with urine. Patient will be brought to the ICU for continued resuscitation and monitoring of hemodynamics and end organ support. CODE: DNR/DNI Allergies Allergy/AdvReac Type Severity Reaction Status Date / Time adhesive Allergy Mild Skin Verified 04/01/25 20:24 irritation Latex, Natural Rubber Allergy Mild Skin Verified 04/01/25 20:24 irritation tetracycline Allergy Mild Rash Verified 04/01/25 20:24 NSAIDS (Non-Steroidal Allergy Unknown ON CENTRE Verified 04/01/25 20:24 Anti-Inflamma CARE MED LIST esomeprazole [From Nexium] AdvReac Intermediate Epistaxis Verified 04/01/25 20:24 Home Medications Medication Instructions Recorded Confirmed Type metoprolol tartrate 50 mg tablet 50 mg PO BIDM 04/04/18 04/01/25 History losartan 25 mg tablet 25 mg PO QAM 09/14/20 04/01/25 History acetaminophen 325 mg tablet 650 mg PO Q6H PRN PAIN/FEVER 02/01/22 04/01/25 History amiodarone 200 mg tablet 200 mg PO QAM 02/01/22 04/01/25 History sennosides 8.6 mg tablet (senna) 17.2 mg PO QAM 02/01/22 04/01/25 History melatonin 5 mg tablet 5 mg PO HS 03/26/22 04/01/25 History apixaban 5 mg tablet (Eliquis) 5 mg PO BIDM 04/02/22 04/01/25 History cyclobenzaprine 10 mg tablet 10 mg PO HS 11/04/24 04/01/25 History pantoprazole 40 mg tablet,delayed 40 mg PO DAILY 11/04/24 04/01/25 History release Saccharomyces boulardii 250 mg 1,000 mg PO QAM 12/15/24 04/01/25 History capsule acetaminophen 500 mg tablet 1,000 mg PO BIDM 12/15/24 04/01/25 History (Tylenol Extra Strength) aluminum-mag hydroxide-simethicone 10 ml PO QAM 12/15/24 04/01/25 History 200 mg-200 mg-20 mg/5 mL oral susp cranberry 500 mg capsule 500 mg PO QAM 12/15/24 04/01/25 History d-mannose 500 mg capsule 500 mg PO QAM 12/15/24 04/01/25 History duloxetine 20 mg capsule,delayed 20 mg PO HS 12/15/24 04/01/25 History release fexofenadine 60 mg tablet 60 mg PO BIDM 12/15/24 04/01/25 History furosemide 20 mg tablet (Lasix) 20 mg PO QAM 12/15/24 04/01/25 History ipratropium 0.5 mg-albuterol 3 mg 3 ml inhalation Q2H PRN Shortness 12/15/24 04/01/25 History (2.5 mg base)/3 mL nebulization Of Breath Or Wheezing soln levothyroxine 25 mcg tablet 25 mcg PO DAILYBB 12/15/24 04/01/25 History (Synthroid) loperamide 2 mg tablet (Imodium 2 mg PO DIRECTED PRN Diarrhea 12/15/24 04/01/25 History A-D) vit C 250 mg-vit E 90 mg-zinc 40 1 tab PO QAM 12/15/24 04/01/25 History mg-copper 1 [id number] capsule (PreserVision AREDS-2) aluminum-mag hydroxide-simethicone 10 ml PO Q4H PRN Indigestion 04/01/25 04/01/25 History 200 mg-200 mg-20 mg/5 mL oral susp biotin 10,000 mcg/mL (10 mg/mL) 0 mcg PO Q2H PRN Dry Mouth 04/01/25 04/01/25 History oral liquid gabapentin 600 mg tablet 600 mg PO TIDM 04/01/25 04/01/25 History magnesium hydroxide 400 mg/5 mL 30 ml PO DAILY PRN NO BM FOR 3 DAYS 04/01/25 04/01/25 History oral suspension (Milk of Magnesia) meclizine 12.5 mg tablet 12.5 mg PO Q6H PRN Vertigo 04/01/25 04/01/25 History ondansetron HCl 4 mg tablet 4 mg PO Q6H PRN NAUSEA/VOMITING 04/01/25 04/01/25 History oxycodone 10 mg tablet 10 mg PO BID 04/01/25 04/01/25 History Patient History Medical History Chronic diastolic CHF (congestive heart failure) Morbid obesity RAYMUNDO (obstructive sleep apnea) HLD (hyperlipidemia) HTN (hypertension) Paralysis of both lower limbs post fall at home november 2021 On anticoagulant therapy UTI (urinary tract infection) Osteomyelitis [place] [facility] [place] from [facility] for traumatic fall with pathologic T7/8 fracture concerning for OM s/p bone biopsy (+) Proteus and discharged on 6 weeks of IV Ceftriaxone with end date of 01/23/2022. [facility] infectious disease (01/24/22): "Recommend no additional antibiotics at this time, pt antibiotic course was completed.. Follow up as needed." On home oxygen therapy 2L O2 continuous Hx of cervical cancer s/p hysterectomy BSO Anxiety Crohns disease Heart failure, unspecified Irritable bowel syndrome (IBS) CAD (coronary artery disease) Anemia No known hx of blood transfusions CKD (chronic kidney disease) stage 3, GFR 30-59 ml/min Macular degeneration Peripheral neuropathy Hx of ovarian cancer s/p hysterectomy BSO Right knee pain Encounter for pre-operative examination Morbid obesity with BMI of 45.0-49.9, adult Chronic back pain Osteoarthritis Kidney stones Hx of deep venous thrombosis LLE (1960s), no definitive etiology, no issues since Hyperlipidemia Hypertension Atrial fibrillation Follows with Dr. Cox Cardiology risk stratification request note from surgeon/urology in [facility] routed to Dr. Cox* Sleep apnea CPAP Surgical History History of cystoscopy Cystoscopy, right stent (10/22/21): MAC at [facility]. No issues noted per post-op anesthesia progress note. History of cholecystectomy History of tooth extraction History of cataract surgery R/L History of surgical removal of skin lesion Fatty tumor History of colonoscopy Difficult airway for intubation Difficult intubation 1975 ([facility]) "Needs small size/pediatric tube" History of tonsillectomy Hx of hemorrhoidectomy History of dilatation and curettage History of total knee replacement Right History of hysterectomy BSO History of cardiac cath 2014 x2 ([facility]) > no stents Family History Father Family hx of colon cancer Daughter FHx: breast cancer FHx: ovarian cancer Other No family history of adverse response to anesthesia Social History Smoking Status: Unknown if ever smoked Second Hand Exposure: No; Do You Dip or Chew Tobacco: No; Hx Alcohol Use: No Hx Substance Use: No Preferred Language: Mohawk Communication Ability: Impaired Communication Ability Comment: a&o x3 Livestock Inspector Required: No Beliefs That Will Affect Care: None marital status: / Current Living Situation: [facility] Current Living Situation Comment: [facility] Feels Safe at Home: Yes Assistive Devices: Oxygen - Continuous and Wheelchair 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 Chest: equal rise and fall of the chest, no accessory muscle use, difficult to ascertain lung sounds secondary to obesity Cardiac: Regular rate and rhythm, telemetry reviewed- NSR no ectopy, skin warm dry, heart sounds difficult to ascertain secondary to obesity GI: obese soft, nontender to palpation, no rebound, guarding or tenderness : yeboah to gravity draining light yellow urine, no CVA tenderness appreciated Results & Data Results & Data Vital Signs (Past 12 Hours) Vital Signs Temp Pulse Pulse Resp BP BP Pulse Ox 04/01/25 21:45 69 22 96/50 L 95 04/01/25 20:59 67 22 72/38 L 94 04/01/25 19:31 67 24 100/56 L 96 04/01/25 18:17 36.7 C 67 20 89/42 L 93 04/01/25 18:15 66 O2 Del Method O2 Flow Rate 04/01/25 21:45 Nasal Cannula 4 04/01/25 20:59 Nasal Cannula 4 04/01/25 19:31 Nasal Cannula 4 04/01/25 18:17 Nasal Cannula 4 04/01/25 18:15 Laboratory Results Abnormal lab results 04/01/25 04/01/25 04/01/25 Range/Units 19:17 19:29 19:33 WBC 20.56 H (4.8-10.8) K/ul MCHC 29.2 L (32.0-36.0) g/dL RDW Std Deviation 51.9 H (36.4-46.3) fL Neut # (Auto) 14.83 H (1.40-6.50) K/uL [place] # (Auto) 2.98 H (0.11-0.59) K/uL PT 14.8 H (9.0-12.0) Seconds INR 1.4 H (0.9-1.1) APTT 38 H (21-31) Seconds VBG pH 7.21 L (7.36-7.41) VBG pCO2 92 H (38-50) mmHg Chloride 97 L (98-107) mmol/L Carbon Dioxide 35 H (21-32) mmol/L Creatinine 1.58 H (0.6-1.2) mg/dl Glucose 131 H (70-99(Fasting)) mg/dl Lactate 3.2 H* (0.4-2.0) mmol/L Calcium 8.5 L (8.6-10.3) mg/dl Total Bilirubin 1.1 H (0.2-1.0) mg/dl Direct Bilirubin 0.6 H (0-0.2) mg/dl AST 175 H (13-39) U/L ALT 75 H (7-52) U/L Alkaline Phosphatase 123 H (34-104) U/L Troponin I High Sens 238.3 H* (0-14) pg/ml Albumin 3.3 L (3.4-5.0) gm/dl Procalcitonin 7.09 H (0-0.5) ng/ml Urine Appearance Turbid A (Clear) Urine Protein 3+ H (Negative) Urine Ketones Trace H (Negative) Urine Blood 3+ H (Negative) Urine Nitrite Positive A (Negative) Urine Bilirubin 2+ H (Negative) Urine Urobilinogen Positive H (Negative) Ur Leukocyte Esterase 3+ H (Negative) Urine WBC (Auto) >50 H (0-5) /hpf Urine RBC (Auto) 11-20 H (0-2) /hpf U Hyaline Cast (Auto) 11-20 H (0-2) /lpf U Epithel Cells (Auto) >20 H (0-2) /hpf Urine Bacteria (Auto) 4+ H (None Seen) Hyaline Casts Present A (None Presnt) /lpf Granular Casts Present A (None Prsent) /lpf 04/01/ Range/Units 21:34 WBC (4.8-10.8) K/ul MCHC (32.0-36.0) g/dL RDW Std Deviation (36.4-46.3) fL Neut # (Auto) (1.40-6.50) K/uL [place] # (Auto) (0.11-0.59) K/uL PT (9.0-12.0) Seconds INR (0.9-1.1) APTT (21-31) Seconds VBG pH (7.36-7.41) VBG pCO2 (38-50) mmHg Chloride (98-107) mmol/L Carbon Dioxide (21-32) mmol/L Creatinine (0.6-1.2) mg/dl Glucose (70-99(Fasting)) mg/dl Lactate 3.1 H* (0.4-2.0) mmol/L Calcium (8.6-10.3) mg/dl Total Bilirubin (0.2-1.0) mg/dl Direct Bilirubin (0-0.2) mg/dl AST (13-39) U/L ALT (7-52) U/L Alkaline Phosphatase (34-104) U/L Troponin I High Sens (0-14) pg/ml Albumin (3.4-5.0) gm/dl Procalcitonin (0-0.5) ng/ml Urine Appearance (Clear) Urine Protein (Negative) Urine Ketones (Negative) Urine Blood (Negative) Urine Nitrite (Negative) Urine Bilirubin (Negative) Urine Urobilinogen (Negative) Ur Leukocyte Esterase (Negative) Urine WBC (Auto) (0-5) /hpf Urine RBC (Auto) (0-2) /hpf U Hyaline Cast (Auto) (0-2) /lpf U Epithel Cells (Auto) (0-2) /hpf Urine Bacteria (Auto) (None Seen) Hyaline Casts (None Presnt) /lpf Granular Casts (None Prsent) /lpf Diagnostic Findings Chest X-Ray 04/01/25 18:33 Exam(s): XR CXR 1 VIEW EXAM: XR Chest, 1 View CLINICAL HISTORY: Reason for exam: Sepsis. TECHNIQUE: Frontal view of the chest. COMPARISON: No relevant prior studies available. FINDINGS: Lungs: No consolidation. No overt edema. Pleural space: No pleural effusion. No pneumothorax. Heart: Cardiomegaly. IMPRESSION: No acute findings in the chest. Electronically signed by: Adalid Jones MD 04/01/25 21:06 PM Medications Administered Discontinued Medications Sodium Chloride (Nss) 500 mls @ 999 mls/hr IV .Q31M ONE Stop: 04/01/25 19:03 Last Infusion: 04/01/25 19:50 Dose: Infused Documented By: Admin: 04/01/25 19:17 Dose: 999 mls/hr Documented By: OLU Piperacillin Sod/Tazobactam Sod (Zosyn) 4.5 gm in 100 mls @ 200 mls/hr IV NOW ONE; Protocol Stop: 04/01/25 20:24 Last Infusion: 04/01/25 20:34 Dose: Infused Documented By: Admin: 04/01/25 20:01 Dose: 200 mls/hr Documented By: OLU Sodium Chloride (Nss) 500 mls @ 999 mls/hr IV .Q31M ONE Stop: 04/01/25 20:25 Last Infusion: 04/01/25 20:35 Dose: Infused Documented By: Admin: 04/01/25 20:01 Dose: 999 mls/hr Documented By: OLU Sodium Chloride (Nss) 1,000 mls @ 999 mls/hr IV .Q1H1M ONE Stop: 04/01/25 21:11 Last Infusion: 04/01/25 21:52 Dose: Infused Documented By: Admin: 04/01/25 20:49 Dose: 999 mls/hr Documented By: OLU ECG Additional Comments: Normal sinus rhythm Low voltage QRS Borderline ECG When compared with ECG [id number] 11:19, Vent. ratehas decreasedby 40bpm Coding Level of Care Code 00899 CRITICAL CARE 1ST 30-74M Diagnoses Septic shock A41.9; R65.21 Transaminitis R74.01 GILBERTO (acute kidney injury) N17.9 Acute UTI N39.0 Acute respiratory failure with hypercapnia J96.02 Elevated troponin I level R79.89
[2025-04-01] MEDS ORDERED: STAT IV Infusion **Titration per Protocol STA (23:22)
--- NOTE | 2025-04-02 00:03 | Procedure Note ---
<Statement entered by Tian Francois MD - 04/02/25 14:15> I, Tian Francois MD, was made aware of the indications for the procedure performed by the Advanced Care Provider. I discussed the case with them, confirmed the findings, and I concurred with the proposed plan of care. I was available for assistance and provided guidance as needed. Procedure Note Date of Service April 01, 2025 ARTERIAL LINE PROCEDURE NOTE: Procedure: Arterial Line Placement Proceduralist: Salvador MCWILLIAMS ([facility]) Attending: Dr. Francois Indication: Monitoring on Pressors Anesthesia: [x]Lidocaine 1% Verbal Consent was obtained from patietn as delegated to me by Dr. Frnacois. Indication, risks, and benefits were explained at length to include pain, damage to surrounding structures, thrombus, need for further emergent procedures. A time-out was completed verifying correct patient, procedure, site, positioning, Allens test was performed to ensure adequate perfusion. Patients LEFT wrist was prepped and draped in the usual sterile fashion. Ultrasound guidance was used to aid needle placement. A 20g Arrow arterial line was introduced into the LEFT RADIAL artery. Brisk blood return was noted the wire was advanced without resistance and the Catheter was threaded, Good waveform wa s observed, but is positional and correlating with NIBP. The patient tolerated the procedure well without any immediate complications noted. This was second site. Right side was initially chosen, Patients RIGHT wrist was prepped and draped in the usual sterile fashion. Ultrasound guidance was used to aid needle placement. A 20g Arrow arterial line was introduced into the RIGHT RADIAL artery. Brisk blood return was noted the wire was advanced and resistance met ultrasound used again to see needle in middle of lumen, the wire and catheter was advanced without resistance, however no pulsatile blood flow was noted, the catheter was backed out until pulsatile blood noted, the wire was re-advanced and still after 3 attempts unable to maintain blood flow. This site was aborted and LEFT was chosen with successful placement. Blood Loss: Minimal Complications: none immediate, but catheter is positional Artery Identified: YES Needle visualized in artery- YES Complications: NONE immediate Patient tolerated procedure: WELL Coding Additional Codes Date of Service ([facility].SURGERY)
[2025-04-02] MEDS: NOREPINEPHRINE/D5W 4 MG/250 ML PLCT IV SCH (00:06)
[2025-04-02] MEDS ORDERED: ONDANSETRON INJ 2 MG/ML 2 ML VIAL IV PRN (00:08)
[2025-04-02] MEDS ORDERED: MECLIZINE 12.5 MG TAB PO PRN (00:08)
[2025-04-02] MEDS ORDERED: MAGNESIUM HYDROXIDE SUSP 30 ML UDC PO PRN (00:08)
[2025-04-02] MEDS ORDERED: ALBUT/IPRATROP 3MG/0.5MG NEB 3 ML VIAL INH PRN (00:08)
[2025-04-02] MEDS ORDERED: BIOTIN PO PRN (00:08)
[2025-04-02] MEDS: NOREPINEPHRINE/D5W 4 MG/250 ML IV ONE (00:23)
[2025-04-02] MEDS ORDERED: ONDANSETRON 4 MG OD TAB PO PRN (00:42)
[2025-04-02] MEDS: PANTOprazole 40 MG/10 ML SYR IV SCH (01:21)
[2025-04-02] MEDS ORDERED: ALUMINUM/MAGNESIUM/SIMETH (MAALOX MAX) 30 ML UDC PO PRN (01:22)
[2025-04-02] MEDS: PIPERACILLIN/TAZOBACTAM 4.5 GM/100 ML BAG IV SCH (02:05)
[2025-04-02] MEDS: LACTATED RINGER'S 1,000 ML IV SCH (02:50)
--- NOTE | 2025-04-02 03:49 | Billing Data ---
Date of Service April 02, 2025 Coding Level of Care Code 76658 CRITICAL CARE
[2025-04-02 04:27] LABS: Hematocrit (blood only) 38.8 % (37.0-47.0); Hemoglobin 11.8 g/dl (12.0-16.0); Immature Granulocytes # (auto) 0.09 K/uL (0.01-0.20); Immature Granulocytes % (auto) 0.5 %; Mean Corpuscular Hemoglobin 30.0 pg (25.0-34.0); Mean Corpuscular Volume 98.7 fL (80.0-100.0); Platelet Count 204 K/uL (130-400); RDW Standard Deviation 52.5 fL (36.4-46.3); Red Blood Count 3.93 M/uL (4.20-5.40); White Blood Count 17.15 K/ul (4.8-10.8)
[2025-04-02 04:46] LABS: Alanine Aminotransferase 57.0 U/L (7-52); Albumin Globulin Ratio 1.1 (0.9-2); Albumin Level 3.5 gm/dl (3.4-5.0); Alkaline Phosphatase 106.0 U/L (34-104); Anion Gap 7.0 (3-11); Bilirubin,Total 1.3 mg/dl (0.2-1.0); Blood Urea Nitrogen 21.0 mg/dl (6-23); Calcium 8.1 mg/dl (8.6-10.3); Carbon Dioxide 29.0 mmol/L (21-32); Chloride 100.0 mmol/L (98-107); Creatinine Clr Calc Pharmacy 40.1 ml/min; Globulin 3.2 gm/dl (2.5-4.0); Glucose 162.0 mg/dl (70-99(Fasting)); Magnesium 2.0 mg/dl (1.7-2.4); Potassium 4.7 mmol/L (3.5-5.1); Sodium 136.0 mmol/L (136-145); Total Protein 6.7 gm/dl (6.0-8.3)
[2025-04-02 05:04] LABS: INR 1.5 (0.9-1.1); Prothrombin Time 15.4 Seconds (9.0-12.0)
[2025-04-02] MEDS: LEVOTHYROXINE SODIUM 25 MCG TABLET PO SCH (05:06)
[2025-04-02] MEDS: ACETAMINOPHEN 325 MG TAB PO PRN (05:13)
[2025-04-02 05:38] LABS: iSTAT Art Bld Gas Base Excess 1.0 mmol/L (-9-1.8); iSTAT Art Bld Gas pCO2 Correct 70 mmHg (35-46); iSTAT Art Bld Gas pH Corrected 7.225 (7.35-7.45); iSTAT Arterial Blood Gas pO2 C 61
--- NOTE | 2025-04-02 05:52 | CT Scan Report ---
EXAM: CT abd pelvis wo con CLINICAL HISTORY: assess for kidney stone TECHNIQUE: Contiguous axial images were obtained from the level of the diaphragm to the pubic symphysis without intravenous or oral contrast. Coronal and sagittal reconstructions were likewise performed and indicated to increase the sensitivity for detecting clinically relevant pathology. CT scan was performed according to ALARA (as low as reasonably achievable). 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 Minimal right sided pleural effusion/pleural thickening is seen Minimal pleural thickening is also noted on left side. Evaluation of the abdominal and pelvic visceral organs is limited without intravenous contrast. The liver is enlarged in size and reduced attenuation. The unenhanced spleen, and adrenal glands are grossly unremarkable. Pancreas shows mild peripancreatic fat stranding, around head and uncinate process with thickening of anterior pararenal fascia on right side. The gallbladder is not seen- likely post op. The kidneys are normal in size and attenuation. There is no hydronephrosis or perinephric stranding. Right kidney show nonobstructing calculus of size 2mm in middle calyx add 3 mm in lower calyx The ureters are normal in caliber. No adenopathy or fluid collections are seen. No evidence of focal or diffuse bowel wall thickening or evidence of bowel obstruction is seen. No imaging evidence of appendicitis. The aorta is normal in caliber. The urinary bladder is normal in contour. Pelvic viscera are grossly unremarkable. No aggressive appearing osseous lesions are identified. Diffuse atherosclerotic calcification is noted involving aorta iliac arteries. Colonic fecal and gaseous distension Multiple small uncomplicated sigmoid colonic diverticulosis Severe degenerative changes involving visualized spine. 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 Minimal right sided pleural effusion/pleural thickening is seen-stable. Minimal pleural thickening is also noted on left side.-stable. Small non-obstructing right renal calculi.-stable. Colonic fecal and gaseous distension. Pancreas shows mild peripancreatic fat stranding, around head and uncinate process with thickening of anterior pararenal fascia on right side. New finding. Possibility of acute pancreatitis. Advised clinical correlation and serum amylase/lipase correlation. Multiple small uncomplicated sigmoid colonic diverticulosis-stable. Electronically signed by Ajay Kern 04-02-2025 05:52 AM
[2025-04-02 06:56] LABS: A calco-baum cmplx NotReported Not Detected (NotDetected); Bact fragilis Not Reported Not Detected (NotDetected); Blood Culture Id Panel See PCR Comment (NotDetected); C auris Not Reported Not Detected (NotDetected); Calbicans Not Reported Not Detected (NotDetected); Candida glabrata Not Reported Not Detected (NotDetected); Candida krusei Not Reported Not Detected (NotDetected); Cneoformans/gatti Not Reported Not Detected (NotDetected); Cparapsilosis Not Reported Not Detected (NotDetected); Ctropicalis Not Reported Not Detected (NotDetected); E cloacae compx Not Reported Not Detected (NotDetected); Efaecalis Not Reported Not Detected (NotDetected); Efaecium Not Reported Not Detected (NotDetected); Enterobacterales DETECTED (NotDetected); Enterobacterales Not Reported DETECTED (NotDetected); Escherichia coli Not Reported DETECTED (NotDetected); H influenzae Not Reported Not Detected (NotDetected); K aerogenes Not Reported Not Detected (NotDetected); KPC Resistant Gene Not Detected (NotDetected); Koxytoca Not Reported Not Detected (NotDetected); Kpneumoniae grp Not Reported Not Detected (NotDetected); Lmonocyt Not Reported Not Detected (NotDetected); N meningitidis Not Reported Not Detected (NotDetected); NDM Resistant Gene Not Detected (NotDetected); OXA 48 Like Resistant Gene Not Detected (NotDetected); P aeruginosa Not Reported Not Detected (NotDetected); Proteus spp Not Reported Not Detected (NotDetected); Salmonella spp Not Reported Not Detected (NotDetected); Staph lugdunensis Not Reported Not Detected (NotDetected); Staph spp. Not Reported Not Detected (NotDetected); Staphaureus Not Reported Not Detected (NotDetected); Staphepi Not Reported Not Detected (NotDetected); Stenmaltophilia Not Reported Not Detected (NotDetected); Strep agal(GrpB) Not Reported Not Detected (NotDetected); Strep pneum Not Reported Not Detected (NotDetected); Strep pyog (GrpA) Not Reported Not Detected (NotDetected); Strep spp Not Reported Not Detected (NotDetected); VIM Resistant Gene Not Detected (NotDetected); mcr-1 Colistin Resistant Gene Not Detected (NotDetected)
[2025-04-02 07:16] LABS: IMP Resistant Gene Not Detected (NotDetected)
[2025-04-02 07:17] LABS: CTX-M Resistant Gene DETECTED (NotDetected)
[2025-04-02] MEDS ORDERED: NON-FORMULARY MEDICATION (Cranberry 500 mg Capsule) PO SCH (09:00)
[2025-04-02 11:09] LABS: Allen Test Pos (Pos); HCO3 ABG 28 mmol/L (19-24); Oxygen Saturation ABG 98.0 % (90-95); PCO2 ABG 56 mmHg (35-46); PO2 ABG 74 mmHg (80-95)
[2025-04-02] MEDS: MEROPENEM 500 MG in SYRINGE (Loading Dose-Optional) IV ONE (11:34)
--- NOTE | 2025-04-02 12:10 | Critical Care Progress Note ---
<Statement entered by Tian Francois MD - 04/02/25 15:40> I, Tian Francois MD, supervised and reviewed the physical exam, assessment, plan, and management as documented by the medical hospital sales for this patient encounter. I discussed the case with them, confirmed the findings, and I concur with the proposed plan of care. I was available for consultation throughout the encounter and provided guidance as needed. I separately evaluated the patient for robins portions of the history and the exam. I was present during the critical portion of medical decision making, and I d iscussed the case with the medical hospital sales. I agree with the findings and plan except for any additions/exceptions noted. Total Critical Care Time was: 55 minutes. This is a life/limb threatening event. This includes time spent evaluating patient, direct bedside care, chart review, placing orders, interpretation of diagnostic studies, discussion with consultants, patient, and/or family members regarding treatment decisions, as well as other required patient management activities. This time is exclusive of all separately-billable procedures, and teaching time and separate from and in addition to any other critical care service time. Date of Service April 02, 2025 Assessment & Plan (1) Acute respiratory failure with hypercapnia: (2) Acute hypotension: (3) Elevated troponin I level: (4) Acute respiratory acidosis: (5) Urinary tract infection: (6) Hypomagnesemia: (7) E. coli UTI: (8) E coli bacteremia: (9) Infection due to ESBL-producing Escherichia coli: (10) Metabolic encephalopathy: (11) Transaminitis: (12) Acute respiratory failure with hypoxia and hypercapnia: (13) Septic shock: (14) Transaminitis: (15) Renal cyst: (16) Atrial fibrillation with RVR: (17) Osteoporosis: (18) H/O total hysterectomy: Plan Reason Critically Ill: Patient presents to ER for fever found to be with encephalopathy and hypotensive with organ dysfunction. Concern for septic shock from UTI likely source at this time. Remained hypotensive with unchanged lactat e, however will likely need more crystalloid and likely definitive way to measure BP to defend MAPS and end organ perfusion. Neuro - Metabolic Encephalopathy, hx: Chronic opiod use and anxiety CAM ICU: Negative - Metabolic encephalopathy most likely at this time secondary to elevated CO2 and Shock- likely septic- al to ICU - Continue supportive care - improved on arrival - BiPAP for CO2 - Hold home narcotics - as these with her body habitus are high risk for hypoventilation, hypoxia and Cardiac - Shock, elevated HsCTNI, HX: Afib, CAD, HTN, HLD, HFpEF - Shock - likely combination of hypovolemia and distributive- with organ dysfunction of elevated troponin, encephalopathy, GILBERTO, elevated liver enzymes - She is post 2L crystalloid infusion- evaluation of volume status extremely difficult secondary to obesity, this includes obtaining adequate POCUS windows. - Lactate level down to 2.7 from 3.1 yesterday - patient is on Levophed 0.05mdg/kg/min - Random cortisol 37 - HsCTNI likely demand secondary to septic shock - NSR continue DOAC and amiodarone - Hold BB tonight until hemodynamics proven stable, Hold ARB until GILBERTO resolves and hemodynamics proven stable Respiratory - hypercarbic respiratory failure, Hx: RAYMUNDO home oxygen use - CPAP/BiPAP at night - VBG/ABG with mild hypercarbia but PH mostly preserved - Repeat ABG this morning - No acute process on CT chest/CXR - Respiratory viral panel negative- COVID, FLUS, RSV GI - Elevated LFTS, Hx: hepatic steatosis, GERD - Elevated LFTS, likely secondary to sepsis and hypotension- - If remains elevated, will obtain RUQ-US with Doppler RENAL/LYTES - Respiratory acidosis, chronic metabolic alkalosis, GILBERTO - Supportive care as above, defend MAP - Elevated PCO2- likely secondary to encephalopathy and obesity - Replete- ICU electrolyte protocol - Consider advanced imaging with re-current UTI, previous CT abd/pel with tiny nonobstructing stone. - NO acute need - See ID section below - yeboah to gravity ENDO - No acute need - ICU hyperglycemic protocol HEME - no acute need -- Monitor H&H ID - septic shock - Fever, Leukocytosis, elevated NLR, elevated PCT - Source at this time that is likely urine - Urine culture data reviewed with history of ESBL- Started on Meropenem LINES/IV ACCESS - PIV x3, Yeboah May need arterial line for accurate monitoring of MAPS DVT PROPHYLAXIS - SCDS, Apixaban 5mg PO BID DISPO: ICU while on vasopressors Admission and Anticipated Discharge Date Admission Date: April 01, 2025 Subjective Patient continues to be on Levophed @0.05mcg/kig,min. Started on Meropenem given the history of ESBL Ecoli. 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 Chest: equal rise and fall of the chest, no accessory muscle use, difficult to ascertain lung sounds secondary to obesity Cardiac: Regular rate and rhythm, telemetry reviewed- NSR no ectopy, skin warm dry, heart sounds difficult to ascertain secondary to obesity GI: obese soft, nontender to palpation, no rebound, guarding or tenderness : yeboah to gravity draining light yellow urine, no CVA tenderness appreciated Results & Data Results & Data Vital Signs (Past 12 Hours) Vital Signs Temp Pulse Resp BP Pulse Ox FiO2 04/02/25 11:30 37.5 C 72 21 94 04/02/25 11:24 37.5 C 71 15 92 04/02/25 11:18 37.5 C 70 17 95 04/02/25 11:03 37.6 C H 70 5 L 93 04/02/25 11:01 147/62 H 04/02/25 11:01 147/62 H 04/02/25 10:57 37.6 C H 71 6 L 93 04/02/25 10:56 66 17 96 30 04/02/25 10:51 37.6 C H 68 11 L 91 04/02/25 10:45 37.6 C H 67 19 94 04/02/25 10:21 37.7 C H 66 15 96 04/02/25 10:12 37.7 C H 67 15 95 04/02/25 10:01 158/58 H 04/02/25 10:00 37.7 C H 67 17 93 04/02/25 09:54 37.7 C H 67 19 97 04/02/25 09:42 37.7 C H 66 11 L 95 04/02/25 09:36 37.8 C H 66 95 04/02/25 09:21 37.8 C H 66 18 95 04/02/25 09:18 37.8 C H 65 25 H 94 04/02/25 09:01 115/51 L 04/02/25 08:42 37.8 C H 67 21 93 04/02/25 08:24 37.9 C H 67 16 94 04/02/25 08:20 67 17 95 35 04/02/25 08:15 37.9 C H 70 20 94 04/02/25 08:03 37.9 C H 73 22 96 04/02/25 08:00 123/82 04/02/25 08:00 123/82 04/02/25 08:00 123/82 04/02/25 07:39 38.2 C H 69 22 94 04/02/25 07:30 38.2 C H 68 19 93 04/02/25 07:30 106/68 04/02/25 07:21 38.3 C H 69 16 94 04/02/25 07:15 38.3 C H 68 18 95 04/02/25 07:03 38.3 C H 67 20 95 04/02/25 07:01 108/64 04/02/25 07:01 108/64 04/02/25 07:01 108/64 04/02/25 06:30 122/58 L 04/02/25 06:30 122/58 L 04/02/25 06:24 38.4 C H 70 30 H 95 04/02/25 06:15 38.5 C H 71 21 94 04/02/25 06:15 72 19 96 35 04/02/25 05:51 38.6 C H 75 23 96 04/02/25 05:39 38.6 C H 76 24 97 04/02/25 05:39 112/50 L 04/02/25 04:12 38.5 C H 79 21 95 04/02/25 04:00 38.4 C H 76 21 97 04/02/25 03:57 38.4 C H 77 21 95 04/02/25 03:33 38.2 C H 76 22 96 04/02/25 03:27 38.1 C H 76 22 98 04/02/25 03:12 38.0 C H 75 21 95 04/02/25 03:00 37.9 C H 74 20 89 L 04/02/25 02:57 37.9 C H 73 23 97 04/02/25 02:45 37.8 C H 73 21 98 04/02/25 02:39 37.8 C H 70 29 H 94 04/02/25 02:32 71 18 94 35 04/02/25 02:00 94/57 L 04/02/25 02:00 94/57 L 04/02/25 01:45 38.0 C H 70 19 93 04/02/25 01:33 93/53 L 04/02/25 01:33 38.0 C H 69 21 94 04/02/25 01:30 38.0 C H 69 20 94 04/02/25 01:27 38.0 C H 69 19 93 04/02/25 01:12 38.0 C H 68 20 95 04/02/25 00:34 77 20 95 35 04/02/25 00:30 38.0 C H 72 20 94 04/02/25 00:21 38.0 C H 73 20 94 04/02/25 00:18 38.0 C H 73 21 94 Coding Level of Care Code 21576 CRITICAL CARE 1ST 30-74M Diagnoses Acute respiratory failure with hypercapnia J96.02 Acute hypotension I95.9 Elevated troponin I level R79.89 Acute respiratory acidosis J96.02 Urinary tract infection N39.0 Hypomagnesemia E83.42 E. coli UTI N39.0; B96.20 E coli bacteremia R78.81; B96.20 Infection due to ESBL-producing Escherichia coli A49.8; Z16.12 Metabolic encephalopathy G93.41 Transaminitis R74.01 Acute respiratory failure with hypoxia and hypercapnia J96.01; J96.02 Septic shock A41.9; R65.21 Renal cyst N28.1 Atrial fibrillation with RVR I48.91 Osteoporosis M81.0 H/O total hysterectomy Z90.710 Resident Activity Tracking Resident Involvement: Resident Care Provided Care Provided: Adult Hospital Medicine
--- NOTE | 2025-04-02 12:18 | Hospitalist Progress Note ---
Date of Service April 02, 2025 Assessment & Plan (1) Septic shock: (2) Acute respiratory failure with hypoxia and hypercapnia: (3) GILBERTO (acute kidney injury): (4) Elevated troponin I level: Plan The patient is a 79-year-old female with a past medical history including ESBL E. coli UTI, metabolic encephalopathy, paroxysmal atrial fibrillation with RVR, hypertension, tachybradycardia syndrome, and chronic HFpEF admitted with septic shock from ESBL E. coli UTI and bacteremia. Also now with ATN/GILBERTO with oliguria, shock liver, myocardial demand ischemia, and acute on chronic respiratory failure with hypoxemia and hypercapnia. #Acute respiratory failure with hypoxia and hypercapnia/obesity hypoventilation syndrome/asthma-COVID/flu/RSV negative. Chest x-ray negative, CT abdomen/pelvis shows minimal right sided pleural effusion on right and left and subsegmental collapse of right lower lobe due to right diaphragmatic eventration. Likely secondary to sepsis, morbid obese body habitus. Now improving and on BiPAP -continue bronchodilators and BiPAP #Septic shock due to urinary tract infection/E. coli septicemia-remains on Levophed, getting maintenance fluids after received resuscitation isotonic fluids. Treating with IV antibiotics. Lactate remains elevated but decreased from previous. Blood cultures now positive for ESBL E. coli, urine culture pending. CT abdomen/pelvis with nonobstructing kidney stones but no evidence of pyelonephritis -Management with arterial line placed due to difficult blood pressure cuff readings - Continue Levophed and wean off as tolerated - Change Zosyn to meropenem for better coverage of ESBL E. coli -Follow urine culture and sensitivity and final blood culture sensitivities -Appreciate ICU management #Elevated troponin/hypertension/paroxysmal atrial fibrillation-myocardial demand ischemia secondary to septic shock. Serial troponin peaked at 249 and back down. No ischemic changes on ECG. Echocardiogram pending. Remains in sinus rhythm. Most recent echocardiogram 02/16/2022 with ejection fraction 55-60% -Continue Eliquis but decrease dose to 2.5 mg p.o. twice daily given age greater than 80 and creatinine greater than 1.5 - Continue home amiodarone for antiarrhythmic -Hold furosemide, losartan, and metoprolol tartrate due to hypotension and GILBERTO - Monitor on telemetry - Follow CBC, BMP, magnesium keep electrolytes replete #ATN/GILBERTO-Creatinine 1.58, with baseline 0.68. Creatinine worsening to 1.69 and with oliguria. Ang catheter in place. UA with granular casts indicating ATN -Continue maintenance IV fluids and Levophed for blood pressure support - Follow BMP #Shock liver-Total bilirubin 1.1, direct bilirubin 0.6, AST 175, ALT 75 and INR elevated on admission likely due to hypotension and shock liver. Improving today -Follow LFTs, INR DVT prophylaxis-Eliquis Disposition-continued stay in ICU Admission and Anticipated Discharge Date Admission Date: April 01, 2025 Subjective Patient more awake but remains on BiPAP. Denies shortness of breath. Denies abdominal pains. I discussed her care with the lathe set up operator OJ Physical Exam Constitutional: WD/WN, vitals as above + morbidly obese Respiratory: normal respiratory effort (On BiPAP) Auscultation: lungs clear to auscultation bilaterally and + diminished lung sounds (Throughout) Cardiovascular: Rate/Rhythm: regular rate and regular rhythm Heart Sounds: no murmur Extremities: + edema (2+ pitting edema bilateral lower extremities) Gastrointestinal (Abdomen): normal bowel sounds, soft, nontender, no hepatosplenomegaly Psychiatric: Orientation: alert, oriented to person, oriented to place and cooperative Results & Data Results & Data Vital Signs (Past 12 Hours) Vital Signs Temp Pulse Resp BP Pulse Ox FiO2 04/02/25 11:30 37.5 C 72 21 94 04/02/25 11:24 37.5 C 71 15 92 04/02/25 11:18 37.5 C 70 17 95 04/02/25 11:03 37.6 C H 70 5 L 93 04/02/25 11:01 147/62 H 04/02/25 11:01 147/62 H 04/02/25 10:57 37.6 C H 71 6 L 93 04/02/25 10:56 66 17 96 30 04/02/25 10:51 37.6 C H 68 11 L 91 04/02/25 10:45 37.6 C H 67 19 94 04/02/25 10:21 37.7 C H 66 15 96 04/02/25 10:12 37.7 C H 67 15 95 04/02/25 10:01 158/58 H 04/02/25 10:00 37.7 C H 67 17 93 04/02/25 09:54 37.7 C H 67 19 97 04/02/25 09:42 37.7 C H 66 11 L 95 04/02/25 09:36 37.8 C H 66 95 04/02/25 09:21 37.8 C H 66 18 95 04/02/25 09:18 37.8 C H 65 25 H 94 04/02/25 09:01 115/51 L 04/02/25 08:42 37.8 C H 67 21 93 04/02/25 08:24 37.9 C H 67 16 94 04/02/25 08:20 67 17 95 35 04/02/25 08:15 37.9 C H 70 20 94 04/02/25 08:03 37.9 C H 73 22 96 04/02/25 08:00 123/82 04/02/25 08:00 123/82 04/02/25 08:00 123/82 04/02/25 07:39 38.2 C H 69 22 94 04/02/25 07:30 38.2 C H 68 19 93 04/02/25 07:30 106/68 04/02/25 07:21 38.3 C H 69 16 94 04/02/25 07:15 38.3 C H 68 18 95 04/02/25 07:03 38.3 C H 67 20 95 04/02/25 07:01 108/64 04/02/25 07:01 108/64 04/02/25 07:01 108/64 04/02/25 06:30 122/58 L 04/02/25 06:30 122/58 L 04/02/25 06:24 38.4 C H 70 30 H 95 04/02/25 06:15 38.5 C H 71 21 94 04/02/25 06:15 72 19 96 35 04/02/25 05:51 38.6 C H 75 23 96 04/02/25 05:39 38.6 C H 76 24 97 04/02/25 05:39 112/50 L 04/02/25 04:12 38.5 C H 79 21 95 04/02/25 04:00 38.4 C H 76 21 97 04/02/25 03:57 38.4 C H 77 21 95 04/02/25 03:33 38.2 C H 76 22 96 04/02/25 03:27 38.1 C H 76 22 98 09/26/25 03:12 38.0 C H 75 21 95 04/02/25 03:00 37.9 C H 74 20 89 L 04/02/25 02:57 37.9 C H 73 23 97 04/02/25 02:45 37.8 C H 73 21 98 04/02/25 02:39 37.8 C H 70 29 H 94 04/02/25 02:32 71 18 94 35 04/02/25 02:00 94/57 L 04/02/25 02:00 94/57 L 04/02/25 01:45 38.0 C H 70 19 93 04/02/25 01:33 93/53 L 04/02/25 01:33 38.0 C H 69 21 94 04/02/25 01:30 38.0 C H 69 20 94 04/02/25 01:27 38.0 C H 69 19 93 04/02/25 01:12 38.0 C H 68 20 95 04/02/25 00:34 77 20 95 35 04/02/25 00:30 38.0 C H 72 20 94 04/02/25 00:21 38.0 C H 73 20 94 04/02/25 00:18 38.0 C H 73 21 94 Laboratory Results CBC, CMP, ABG, lactate, HgbA1c, troponin, blood cultures reviewed PG Care Time/CCT Total # of Minutes Spent Total Time Spent with Patient: Total time spent is greater than 50% in coordination of care (as documented) at patient's floor/unit and/or counseling patient: Coding Level of Care Code 88486 SUB INP/OBS CARE 3/50MIN Diagnoses Septic shock A41.9; R65.21 Acute respiratory failure with hypoxia and hypercapnia J96.01; J96.02 GILBERTO (acute kidney injury) N17.9 Elevated troponin I level R79.89
[2025-04-02] MEDS: CEROVITE ADV FORMULA TAB PO SCH (13:56)
[2025-04-02] MEDS: FEXOFENADINE 60 MG TAB PO SCH (13:56)
[2025-04-02] MEDS: APIXABAN 2.5 MG TAB PO SCH (13:56)
[2025-04-02] MEDS: ALUMINUM/MAGNESIUM/SIMETH (MAALOX MAX) 30 ML UDC PO SCH (13:56)
[2025-04-02] MEDS: SENNA 8.6 MG TAB PO SCH (13:58)
[2025-04-02] MEDS: AMIODARONE 200 MG TAB PO SCH (13:58)
[2025-04-02] MEDS: SACCHAROMYCES BOULARDII 250 MG CAP PO SCH (14:01)
[2025-04-02] MEDS: MEROPENEM 1,000 MG OVER 3 HRS IV SCH (16:42)
[2025-04-02] MEDS: HYDROmorphone INJ 1 MG/ML SYRINGE IV PRN (16:44)
[2025-04-02] MEDS: APIXABAN 5 MG TABLET PO SCH (16:55)
[2025-04-02] MEDS: GABAPENTIN 600 MG TAB PO SCH (16:55)
[2025-04-02] MEDS: GABAPENTIN 300 MG CAP PO SCH (19:57)
[2025-04-02] MEDS: MELATONIN 3 MG TAB PO SCH (19:58)
--- NOTE | 2025-04-02 20:57 | XCELERA ---
[id number] \\[id number]
[2025-04-03 05:22] LABS: Hematocrit (blood only) 40.3 % (37.0-47.0); Hemoglobin 12.3 g/dl (12.0-16.0); Immature Granulocytes # (auto) 0.07 K/uL (0.01-0.20); Immature Granulocytes % (auto) 0.6 %; Mean Corpuscular Hemoglobin 30.1 pg (25.0-34.0); Mean Corpuscular Volume 98.8 fL (80.0-100.0); Platelet Count 229 K/uL (130-400); RDW Standard Deviation 52.7 fL (36.4-46.3); Red Blood Count 4.08 M/uL (4.20-5.40); White Blood Count 12.06 K/ul (4.8-10.8)
[2025-04-03 05:40] LABS: Alanine Aminotransferase 49.0 U/L (7-52); Albumin Globulin Ratio 0.8 (0.9-2); Albumin Level 3.2 gm/dl (3.4-5.0); Alkaline Phosphatase 129.0 U/L (34-104); Anion Gap 8.0 (3-11); Bilirubin,Total 1.1 mg/dl (0.2-1.0); Blood Urea Nitrogen 19.0 mg/dl (6-23); Calcium 8.6 mg/dl (8.6-10.3); Carbon Dioxide 31.0 mmol/L (21-32); Chloride 100.0 mmol/L (98-107); Creatinine Clr Calc Pharmacy 58.3 ml/min; Globulin 3.8 gm/dl (2.5-4.0); Glucose 161.0 mg/dl (70-99(Fasting)); Magnesium 2.1 mg/dl (1.7-2.4); Potassium 4.4 mmol/L (3.5-5.1); Sodium 139.0 mmol/L (136-145); Total Protein 7.0 gm/dl (6.0-8.3)
[2025-04-03 05:56] LABS: INR 1.4 (0.9-1.1); Prothrombin Time 14.3 Seconds (9.0-12.0)
[2025-04-03] MEDS ORDERED: Nursing to Pharmacy Communication SCH (11:00)
[2025-04-03] MEDS: POLYETHYLENE (MIRALAX) 17 GM PACK PO SCH (11:31)
[2025-04-03] MEDS: ACETAMINOPHEN 500 MG TAB PO PRN (11:31)
--- NOTE | 2025-04-03 12:07 | Critical Care Progress Note ---
Date of Service April 03, 2025 Assessment & Plan (1) Acute respiratory failure with hypercapnia: Plan: At least partly exacerbation of obesity-hypoventilation secondary to accumulation of sedatives and painkillers. Improved. (2) E. coli UTI: Plan: On Meropenem for ESBL E. coli. (3) E coli bacteremia: (4) Infection due to ESBL-producing Escherichia coli: (5) Septic shock: Plan: Improved. Continue tapering Vasopressors as tolerated. Maintain MAP 65-70 mmHg. (6) GILBERTO (acute kidney injury): Plan: Improved. (7) Obesity hypoventilation syndrome: Plan: Has been non-compliant with treatment with Positive-Pressure Ventilation. Tolerating BiPAP well. (8) Pulmonary hypertension: Plan: Elevated TR gradient on Echo suggestive of pulmonary hypertension, at least partly secondary to OHS. Admission and Anticipated Discharge Date Admission Date: April 01, 2025 Subjective An 79-year-old female presented to the ER with fever and altered mental status. She had a history of chronic opioid use and anxiety. She was found to be encephalopathic and hypotensive, with evidence of organ dysfunction. The likely source of sepsis was a urinary tract infection (UTI). She had a history of RAYMUNDO on home oxygen, obesity hypoventilation syndrome, asthma, paroxysmal atrial fibrillation with RVR, CAD, HTN, HLD, HFpEF, hepatic steatosis, GERD, and recurrent ESBL E. coli UTI. She also had a history of total hysterectomy. The patient has been started on Meropenem. Urine and blood cultures have been consistent with recurrent ESBL E. coli. Overall the patient has been responding well. Her home-dose Gabapentin has been reduced, and her opioids have been switched to PRN Dilaudid. Today the patient complained of increased pain in her right knee, which is the site of previous knee-replacement. However, when I exposed the right knee to maker sure that there is no evidence of arthritis, it turned out that the knee was pushed against the bed-rail, with the skin indented around 2 cm deep. The patient reported improvement in the discomfort as soon as the pressure was taken off of the knee! The patient tolerated BiPAP well last night. She admits to feeling better than when she came in, and denies any dyspnea at rest. Echo was mostly suggestive of Elevated TR gradient on Echo suggestive of pulmonary hypertension, at least partly secondary to OHS. Review of Systems Review of Systems: All systems reviewed & are unremarkable except as noted in HPI & below Physical Exam Physical Exam: Vitals and labs reviewed. General: In no acute distress, using Oxygenvia nasal cannula. Morbidly obese. Skin: Warm and dry to touch. Eyes: Anicteric.Noconjunctival hyperemia or exudates.No periorbital edema. ENT: No oral thrush. No oropharyngeal erythema or exudates. Mallampati 4. Neck: No palpable masses or adenopathy. Respiratory: Diffusely decreased breath sounds, no wheezing or crackles. No use of accessory muscles and no prolonged exhalation. Cardiac: Distant sounds, regular rhythm, no murmurs, no gallops, no rubs; could not appreciate JV pulse elevation. GI: Soft, nontender, normal bowel sounds. Extremities No clubbing,no cyanosis,1-2+ edema. Skin over right knee indented at around 2 cm deep. Neuro: No gross motor deficits. Seems appropriate. Results & Data Results & Data Vital Signs (Past 12 Hours) Vital Signs Temp Pulse Resp BP Pulse Ox O2 Del Method O2 Flow Rate 04/03/25 10:30 85/60 L 04/03/25 10:30 37.4 C 94 H 22 96 Nasal Cannula 2 04/03/25 10:09 37.5 C 98 H 19 100 04/03/25 09:21 37.5 C 99 H 21 100 04/03/25 09:16 Nasal Cannula 04/03/25 09:00 102/68 04/03/25 08:57 37.4 C 93 H 17 98 Nasal Cannula 04/03/25 08:56 138/48 L 04/03/25 08:42 37.4 C 99 H 26 H 99 04/03/25 08:00 37.4 C 90 19 99 04/03/25 08:00 91 H 04/03/25 07:54 37.4 C 87 17 98 04/03/25 07:30 106/40 L 04/03/25 07:21 37.4 C 90 19 97 BiPAP 04/03/25 07:00 110/51 L 04/03/25 06:54 37.5 C 90 17 98 04/03/25 06:36 37.5 C 94 H 18 97 04/03/25 06:00 37.6 C H 93 H 19 97 04/03/25 05:30 37.6 C H 96 H 21 96 04/03/25 05:30 107/45 L 04/03/25 05:24 37.6 C H 96 H 17 96 04/03/25 05:00 37.6 C H 92 H 14 85 L 04/03/25 05:00 105/39 L 04/03/25 05:00 105/39 L 04/03/25 04:54 37.6 C H 89 17 91 04/03/25 04:42 37.6 C H 85 19 96 04/03/25 04:35 37.5 C 89 18 98 04/03/25 04:32 97/74 L 04/03/25 04:32 97/74 L 04/03/25 04:32 97/74 L 04/03/25 04:30 72/58 L 04/03/25 04:29 37.5 C 89 22 97 04/03/25 04:23 37.5 C 89 21 96 04/03/25 04:11 37.5 C 91 H 18 97 04/03/25 04:00 100/59 L 04/03/25 04:00 37.5 C 93 H 19 94 04/03/25 03:44 37.5 C 95 H 19 95 04/03/25 03:44 88 18 96 04/03/25 03:33 37.5 C 93 H 21 96 04/03/25 03:30 127/50 L 04/03/25 03:29 37.5 C 93 H 19 96 04/03/25 03:18 37.5 C 92 H 22 94 04/03/25 03:02 37.5 C 91 H 25 H 95 04/03/25 03:00 117/66 04/03/25 03:00 117/66 04/03/25 02:51 37.4 C 89 18 83 L 04/03/25 02:31 121/86 04/03/25 02:30 37.4 C 88 19 93 04/03/25 02:01 116/84 04/03/25 02:00 37.3 C 92 H 15 96 04/03/25 01:51 37.3 C 92 H 32 H 87 L 04/03/25 01:30 94/69 L 04/03/25 01:27 37.3 C 92 H 21 95 04/03/25 01:12 37.2 C 91 H 18 94 04/03/25 01:09 37.2 C 93 H 15 95 04/03/25 01:04 127/73 04/03/25 01:04 127/73 04/03/25 00:54 37.2 C 90 20 95 04/03/25 00:51 37.2 C 90 19 95 04/03/25 00:39 37.2 C 92 H 21 95 04/03/25 00:21 37.2 C 91 H 24 93 FiO2 04/03/25 10:30 04/03/25 10:30 04/03/25 10:09 04/03/25 09:21 04/03/25 09:16 04/03/25 09:00 04/03/25 08:57 04/03/25 08:56 04/03/25 08:42 04/03/25 08:00 04/03/25 08:00 04/03/25 07:54 04/03/25 07:30 04/03/25 07:21 04/03/25 07:00 04/03/25 06:54 04/03/25 06:36 04/03/25 06:00 04/03/25 05:30 04/03/25 05:30 04/03/25 05:24 04/03/25 05:00 04/03/25 05:00 04/03/25 05:00 04/03/25 04:54 04/03/25 04:42 04/03/25 04:35 04/03/25 04:32 04/03/25 04:32 04/03/25 04:32 04/03/25 04:30 04/03/25 04:29 04/03/25 04:23 04/03/25 04:11 04/03/25 04:00 04/03/25 04:00 04/03/25 03:44 04/03/25 03:44 30 04/03/25 03:33 04/03/25 03:30 04/03/25 03:29 04/03/25 03:18 04/03/25 03:02 04/03/25 03:00 04/03/25 03:00 04/03/25 02:51 04/03/25 02:31 04/03/25 02:30 04/03/25 02:01 04/03/25 02:00 04/03/25 01:51 04/03/25 01:30 04/03/25 01:27 04/03/25 01:12 04/03/25 01:09 04/03/25 01:04 04/03/25 01:04 04/03/25 00:54 04/03/25 00:51 04/03/25 00:39 04/03/25 00:21 Laboratory Results 04/01/25 19:29 Urine Culture - Final Urine,Straight Cath Escherichia coli ESBL 04/01/25 19:33 Aerobic Blood Culture - Preliminary Blood Escherichia coli Anaerobic Blood Culture - Preliminary Escherichia coli 04/01/25 19:17 Aerobic Blood Culture - Preliminary Blood Escherichia coli Anaerobic Blood Culture - Preliminary Escherichia coli 04/03/25 04/03/25 04/03/25 11:31 08:53 08:04 WBC RBC Hgb Hct MCV MCH MCHC RDW Std Deviation RDW Coeff of Massiel Plt Count MPV Immature Gran % (Auto) Neut % (Auto) Lymph % (Auto) Ellis % (Auto) Eos % (Auto) Baso % (Auto) Neut # (Auto) Lymph # (Auto) Ellis # (Auto) Eos # (Auto) Baso # (Auto) Immature Gran # (Auto) PT INR Sodium Potassium Chloride Carbon Dioxide Anion Gap BUN Creatinine Est Cr Clr Drug Dosing eGFR BUN/Creatinine Ratio Glucose POC Glucose (other) 144 H 156 H Lactate 1.6 Calcium Magnesium Total Bilirubin AST ALT Alkaline Phosphatase Troponin I High Sens Total Protein Albumin Globulin Albumin/Globulin Ratio 04/03/25 04/02/25 04/02/25 04:41 17:45 16:43 WBC 12.06 H RBC 4.08 L Hgb 12.3 Hct 40.3 MCV 98.8 MCH 30.1 MCHC 30.5 L RDW Std Deviation 52.7 H RDW Coeff of Massiel 14.5 Plt Count 229 MPV 9.8 Immature Gran % (Auto) 0.6 Neut % (Auto) 76.2 Lymph % (Auto) 9.9 Ellis % (Auto) 12.9 Eos % (Auto) 0.2 Baso % (Auto) 0.2 Neut # (Auto) 9.18 H Lymph # (Auto) 1.19 L Ellis # (Auto) 1.56 H Eos # (Auto) 0.03 Baso # (Auto) 0.03 Immature Gran # (Auto) 0.07 PT 14.3 H INR 1.4 H Sodium 139 Potassium 4.4 Chloride 100 Carbon Dioxide 31 Anion Gap 8 BUN 19 Creatinine 1.17 D Est Cr Clr Drug Dosing 58.3 eGFR 46.88 BUN/Creatinine Ratio 16.2 Glucose 161 H POC Glucose (other) 148 H Lactate Calcium 8.6 Magnesium 2.1 Total Bilirubin 1.1 H AST 83 H ALT 49 Alkaline Phosphatase 129 H Troponin I High Sens 100.3 H* Total Protein 7.0 Albumin 3.2 L Globulin 3.8 Albumin/Globulin Ratio 0.8 L Coding Level of Care Code 57540 CRITICAL CARE 1ST 30-74M Diagnoses Acute respiratory failure with hypercapnia J96.02 E. coli UTI N39.0; B96.20 E coli bacteremia R78.81; B96.20 Infection due to ESBL-producing Escherichia coli A49.8; Z16.12 Septic shock A41.9; R65.21 GILBERTO (acute kidney injury) N17.9 Obesity hypoventilation syndrome E66.2 Pulmonary hypertension I27.20 Time Spent (min) 55 Comment Total Critical Care Time was: 55 minutes.
[2025-04-03] MEDS: MEROPENEM 2,000 MG OVER 3 HRS IV SCH (16:24)
--- NOTE | 2025-04-03 17:50 | Hospitalist Progress Note ---
Date of Service April 03, 2025 Assessment & Plan (1) Septic shock: Plan: RESOLVING with patient OFF norepinephrine infusion as MAP remains > 65 mm Hg. Continue infusion rate of lactated Ringers @ 110 mL/hr (04/03/2025, 11:31am). s/p meropenem 1g IV q8 x 3 doses (04/02/2025, 4:42pm, 11:22pm; 04/03/2025, 8:47am). Start meropene 2g IV q8 (04/03/2025, 4:24pm). (2) Acute respiratory failure with hypoxia and hypercapnia: Plan: RESOLVING with patient breathing comfortably on BIPAP @ night (given RAYMUNDO and obesity hypoventilation syndrome). Continue 2 liters/minute O2 via nasal cannula with O2 sat 99% (04/03/2025, 4:00pm) (3) GILBERTO (acute kidney injury): Plan: RESOLVING with lactated Ringers @ 110 mL/hr (04/03/2025, 11:31am). BUN 16, creatinine 1.58 (04/01/2025, 7:17pm). BUN 21, creatinine 1.69 (04/02/2025, 4:10am). BUN 19, creatinine 1.17 (04/03/2025, 4:41am). (4) Elevated troponin I level: Plan: cf., troponin-I #1 238.3 pg/mL (04/01/2025, 7:17pm). cf., troponin-I #2 249.3 pg/mL (04/01/2025, 9:34pm). cf., troponin-I #3 161.2 pg/mL (04/02/2025, 4:10am). cf., troponin-I #4 107.9 pg/mL (04/02/2025, 10:52am). cf., troponin-I #5 100.3 pg/mL (04/02/2025, 4:43pm). Etiology of nominal troponin-I elevation is due to demand ischemia, which in turn, is due to: (a) sepsis, which in turn, is due to ESBL E. coli UTI with hematogenous dissemination of ESBL E. coli UTI, and (b) acute kidney injury, which in turn, is due to acute tubular necrosis, which in turn, is due to sepsis. cf., TTE (04/02/2026, 7:57am): "no visualized regional wall motion abnormalities, but cannot exclude regional wall motion abnormalities given poor image quality", which in turn, are due to the fact that patient is morbidly obese with BMI 61.3 (height 165.1 cm; weight 167.1 kg) and her neck/check remain amorphous, and as such, resists further characterization via TTE. Subsequently, I have opted to observe this laboratory anomaly without further evaluation/intervention while patient remains in [facility] [address] Plan The patient is a 79-year-old female with a past medical history including ESBL E. coli UTI, metabolic encephalopathy, paroxysmal atrial fibrillation with RVR, hypertension, tachybradycardia syndrome, and chronic HFpEF admitted with septic shock from ESBL E. coli UTI and bacteremia. Also now with ATN/GILBERTO with oliguria, shock liver, myocardial demand ischemia, and acute on chronic respiratory failure with hypoxemia and hypercapnia. #Acute respiratory failure with hypoxia and hypercapnia/obesity hypoventilation syndrome/asthma-COVID/flu/RSV negative. Chest x-ray negative, CT abdomen/pelvis shows minimal right sided pleural effusion on right and left and subsegmental collapse of right lower lobe due to right diaphragmatic eventration. Likely se condary to sepsis, morbid obese body habitus. Now improving and on BiPAP -continue bronchodilators and BiPAP #Septic shock due to urinary tract infection/E. coli septicemia-remains on Levophed, getting maintenance fluids after received resuscitation isotonic fluids. Treating with IV antibiotics. Lactate remains elevated but decreased from previous. Blood cultures now positive for ESBL E. coli, urine culture pending. CT abdomen/pelvis with nonobstructing kidney stones but no evidence of pyelonephritis -Management with arterial line placed due to difficult blood pressure cuff readings - Continue Levophed and wean off as tolerated - Change Zosyn to meropenem for better coverage of ESBL E. coli -Follow urine culture and sensitivity and final blood culture sensitivities -Appreciate ICU management #Elevated troponin/hypertension/paroxysmal atrial fibrillation-myocardial demand ischemia secondary to septic shock. Serial troponin peaked at 249 and back down. No ischemic changes on ECG. Echocardiogram pending. Remains in sinus rhythm. Most recent echocardiogram 02/16/2022 with ejection fraction 55-60% -Continue Eliquis but decrease dose to 2.5 mg p.o. twice daily given age greater than 80 and creatinine greater than 1.5 - Continue home amiodarone for antiarrhythmic -Hold furosemide, losartan, and metoprolol tartrate due to hypotension and GILBERTO - Monitor on telemetry - Follow CBC, BMP, magnesium keep electrolytes replete #ATN/GILBERTO-Creatinine 1.58, with baseline 0.68. Creatinine worsening to 1.69 and with oliguria. Yeboah catheter in place. UA with granular casts indicating ATN -Continue maintenance IV fluids and Levophed for blood pressure support - Follow BMP #Shock liver-Total bilirubin 1.1, direct bilirubin 0.6, AST 175, ALT 75 and INR elevated on admission likely due to hypotension and shock liver. Improving today -Follow LFTs, INR DVT prophylaxis-Eliquis Disposition-continued stay in ICU Admission and Anticipated Discharge Date Admission Date: April 01, 2025 Subjective "I feel 40% better today (04/03/2025) then when I came into this hospital (04/01/2025). Review of Systems Constitutional: Negative for antecedent/coincident fevers, chills, diaphoresis, cough, wheeze, sore throat, hemoptysis, chest pains, palpitations, pleurisy, nausea, vomiting, diarrhea, abdominal pain, pelvic pain, hematemesis, hematochezia, melena, hematuria, dysuria, frequency, urgency, headaches, dizziness, lightheadedness, visual changes, hearing changes, weakness, falls, syncope, trauma, travel history, sick contacts, or food/drug ingestions novel or new. All other review of systems are reported as negative by the patient on 04/03/2025. Physical Exam Constitutional: General: Comfortable, cooperative, coherent. Wide awake and alert. Not confused, lethargic, or obtunded. Patient speaks in complete, fluent, and articulate sentences without pause, interruption, cough, or wheeze. Breathing comfortably on 2 liters/minute O2 via NC and BIPAP with O2 sat 99% (04/03/2025, 4:00pm). HEENT: Normocephalic, atraumatic. Extra-ocular muscles intact. Pupils equally round and reactive to light. No nystagmus, gaze paresis, anisocoria, miosis, mydriasis, hyphema, chemosis, scleral injection, conjunctivitis, or pterygium. No otorrhea or rhinorrhea. No pharyngeal discharge or exudate. Neck: Supple, no stridor or bruit. Jugular venous pressure cannot be estimated in this patient as I cannot identify the sternal angle of Star in this patient for the precise reason that patient is morbidly obese with BMI 61.3 (height 165.1 cm; weight 167.1 kg) and her neck/check remain amorphous. Lymphatics: No anterior/posterior cervical, infraclavicular, supraclavicular, a xillary, epitrochlear, or inguinal adenopathy. Chest: Symmetric rise and fall with respirations. Non-tender to palpation. Lungs: Clear to auscultation and percussion. No audible expiratory wheeze, egophony, pectoriloquy, increase in tactile fremitus, or flatness/dullness to percussion at the bases. Heart: Regular rate and rhythm. S1 and S2 noted. No S3 or S4 summation gallop. No tripartite friction rub. Grade II/ early systolic murmur at left lower sternal border without radiation to the carotids, axilla, or back, and which remains invariant in regards to the respiratory cycle. Abdomen: Soft, non-tender, non-distended. No rebound, guarding, Whitt's sign, or organomegaly. Bowel sounds auscultated in all 4 quadrants. Extremities: No clubbing, cyanosis, or edema. 2+ pedal pulses bilaterally. Skin: No decubitus ulcer, exanthem, or enanthem. Urology: + yeboah catheter with urine output 0.33 mL/kg/hr (04/02/2025, 5:17pm to 04/03/2025, 5:17pm). No purewick. No urethral discharge. Neurology: Alert and oriented in regards to person, place, time, and situation. DTR+. 5/5 motor strength in all 4 extremities, both proximally and distally. Psychiatry: No flat affect. No monotone voice. Smiles appropriately. Results & Data Results & Data Vital Signs (Past 12 Hours) Vital Signs Temp Pulse Resp BP Pulse Ox O2 Del Method O2 Flow Rate 04/03/25 16:00 139/47 L 04/03/25 16:00 86 04/03/25 15:36 37.3 C 86 21 99 04/03/25 15:00 37.3 C 85 16 98 04/03/25 15:00 143/63 H 04/03/25 15:00 143/63 H 04/03/25 15:00 143/63 H 04/03/25 15:00 143/63 H 04/03/25 14:09 37.4 C 86 18 99 04/03/25 14:00 119/53 L 04/03/25 13:57 37.3 C 87 17 100 04/03/25 13:03 37.4 C 94 H 20 95 04/03/25 13:00 130/109 H 04/03/25 12:51 37.4 C 90 21 95 04/03/25 12:42 37.3 C 90 18 94 04/03/25 12:40 150/56 H 04/03/25 12:39 37.4 C 90 19 97 04/03/25 12:33 37.4 C 91 H 25 H 95 04/03/25 12:27 37.4 C 90 19 94 04/03/25 12:01 132/77 04/03/25 11:51 37.4 C 94 H 28 H 89 L 04/03/25 11:01 90/55 L 04/03/25 10:30 85/60 L 04/03/25 10:30 37.4 C 94 H 22 96 Nasal Cannula 2 04/03/25 10:09 37.5 C 98 H 19 100 04/03/25 09:21 37.5 C 99 H 21 100 04/03/25 09:16 Nasal Cannula 04/03/25 09:00 102/68 04/03/25 08:57 37.4 C 93 H 17 98 Nasal Cannula 04/03/25 08:56 138/48 L 04/03/25 08:42 37.4 C 99 H 26 H 99 04/03/25 08:00 37.4 C 90 19 99 04/03/25 08:00 91 H 04/03/25 07:54 37.4 C 87 17 98 04/03/25 07:30 106/40 L 04/03/25 07:21 37.4 C 90 19 97 BiPAP 04/03/25 07:00 110/51 L 04/03/25 06:54 37.5 C 90 17 98 04/03/25 06:36 37.5 C 94 H 18 97 04/03/25 06:00 37.6 C H 93 H 19 97 04/03/25 05:30 37.6 C H 96 H 21 96 04/03/25 05:30 107/45 L 04/03/25 05:24 37.6 C H 96 H 17 96 Laboratory Results WBC 20.56, N72 L12 M15 (04/01/2025, 7:17pm). WBC 17.15, N74 L11 M14 (04/02/2025, 4:10am). WBC 12.06, N76 L10 M13 (04/03/2025, 4:41am). Urine culture (04/01/2025, 10:45am): ESBL E. coli Urine culture (04/01/2025, 7:29pm): ESBL E. coli Blood culture (04/01/2025, 7:17pm): ESBL E. coli Blood culture (04/01/2025, 7:33pm): ESBL E. coli BUN 16, creatinine 1.58 (04/01/2025, 7:17pm). BUN 21, creatinine 1.69 (04/02/2025, 4:10am). BUN 19, creatinine 1.17 (04/03/2025, 4:41am). Diagnostic Findings Urine culture (04/01/2025, 10:45am): ESBL E. coli Urine culture (02/21/2025, 2:30pm): ESBL E. coli Urine culture (12/15/2024, 10:40pm): ESBL E. coli Urine culture (05/30/2024, 2:20am): ESBL E. coli Urine culture (10/04/2023, 2:00pm): ESBL E. coli Urine culture (08/30/2022, 10:20am): ESBL E. coli Urine culture (06/26/2022, 2:00pm): ESBL E. coli Urine culture (03/25/2022, 2:30am): VRE Enterococcus faecium Urine culture (02/14/2022, 5:02pm): VRE Enterococcus faecium Urine culture (10/22/2021, 6:04pm): Proteus mirabilis Blood culture (12/15/2024, 9:50pm): ESBL E. coli Blood culture (12/15/2024, 8:56pm): ESBL E. coli PG Care Time/CCT Total # of Minutes Spent Total Time Spent with Patient: Total time spent is greater than 50% in coordination of care (as documented) at patient's floor/unit and/or counseling patient: Coding Level of Care Code 00367 SUB INP/OBS CARE 3/50MIN Diagnoses Septic shock A41.9; R65.21 Acute respiratory failure with hypoxia and hypercapnia J96.01; J96.02 GILBERTO (acute kidney injury) N17.9 Elevated troponin I level R79.89
[2025-04-03] MEDS: APIXABAN 5 MG TABLET PO SCH (20:36)
[2025-04-04 05:22] LABS: Albumin Level 3.0 gm/dl (3.4-5.0); Anion Gap 6.0 (3-11); Bilirubin,Total 0.9 mg/dl (0.2-1.0); Calcium 8.6 mg/dl (8.6-10.3); Carbon Dioxide 31.0 mmol/L (21-32); Chloride 102.0 mmol/L (98-107); Magnesium 2.2 mg/dl (1.7-2.4); Potassium 5.0 mmol/L (3.5-5.1); Sodium 139.0 mmol/L (136-145)
[2025-04-04 05:28] LABS: Alanine Aminotransferase 42.0 U/L (7-52); Albumin Globulin Ratio 0.8 (0.9-2); Alkaline Phosphatase 126.0 U/L (34-104); Blood Urea Nitrogen 16.0 mg/dl (6-23); Creatinine Clr Calc Pharmacy 81.8 ml/min; Globulin 3.7 gm/dl (2.5-4.0); Glucose 121.0 mg/dl (70-99(Fasting)); Total Protein 6.7 gm/dl (6.0-8.3)
[2025-04-04 05:31] LABS: Hematocrit (blood only) 39.8 % (37.0-47.0); Hemoglobin 12.3 g/dl (12.0-16.0); Immature Granulocytes # (auto) 0.03 K/uL (0.01-0.20); Immature Granulocytes % (auto) 0.4 %; Mean Corpuscular Hemoglobin 30.4 pg (25.0-34.0); Mean Corpuscular Volume 98.3 fL (80.0-100.0); Platelet Count 188 K/uL (130-400); RDW Standard Deviation 52.0 fL (36.4-46.3); Red Blood Count 4.05 M/uL (4.20-5.40); White Blood Count 6.84 K/ul (4.8-10.8)
[2025-04-04 05:52] LABS: INR 1.3 (0.9-1.1); Prothrombin Time 13.4 Seconds (9.0-12.0)
--- NOTE | 2025-04-04 07:56 | Critical Care Progress Note ---
Date of Service April 04, 2025 Assessment & Plan (1) Acute respiratory failure with hypercapnia: Plan: At least partly exacerbation of obesity-hypoventilation secondary to accumulation of sedatives and painkillers. Improved. (2) E. coli UTI: Plan: On Meropenem for ESBL E. coli. (3) E coli bacteremia: (4) Infection due to ESBL-producing Escherichia coli: (5) Septic shock: Plan: Resolved. Arterial line discontinued. (6) GILBERTO (acute kidney injury): Plan: Resolved. (7) Obesity hypoventilation syndrome: Plan: The patient reports that at the long-term facility where she resides, she is maintained on Oxygen at 2 L/min during the day, and then she uses BiPAP during sleep (previous reports indicated that the patient uses Oxygen during sleep because she couldn't tolerate BiPAP!). (8) Pulmonary hypertension: Plan: Elevated TR gradient on Echo suggestive of pulmonary hypertension, at least partly secondary to OHS. Plan Replace electrolytes (hypophosphatemia) Resume home meds (Lasix, Metoprolol). Discontinue IV fluids Consult dietitian. Admission and Anticipated Discharge Date Admission Date: April 01, 2025 Subjective An 79-year-old female presented to the ER with fever and altered mental status. She had a history of chronic opioid use and anxiety. She was found to be encephalopathic and hypotensive, with evidence of organ dysfunction. The likely source of sepsis was a urinary tract infection (UTI). She had a history of RAYMUNDO on home oxygen, obesity hypoventilation syndrome, asthma, paroxysmal atrial fibrillation with RVR, CAD, HTN, HLD, HFpEF, hepatic steatosis, GERD, and recurrent ESBL E. coli UTI. She also had a history of total hysterectomy. The patient has been started on Meropenem. Urine and blood cultures have been consistent with recurrent ESBL E. coli. Overall the patient has been responding well. Her home-dose Gabapentin has been reduced, and her opioids have been switched to PRN Dilaudid. The patient didn't use BiPAP much last night. Seems to be a little more confused this am, but have moderate recollection of yesterday's events. She reports that at the long-term facility where she resides, she is maintained on Oxygen at 2 L/min during the day, and then she uses BiPAP during sleep (previous reports indicated that the patient uses Oxygen during sleep because she couldn't tolerate BiPAP!). She admits to feeling better than when she came in, and denies any dyspnea at rest. Today the patient reports only minimal discomfort in the area of her right knee, where the skin had been pushed against the bed-rail. It seems that the patient has been refusing to eat the meat in her meals, though bedside nurse reports that the patient had eaten meat the day prior. Review of Systems Review of Systems: All systems reviewed & are unremarkable except as noted in HPI & below Physical Exam Physical Exam: Vitals and labs reviewed. General: In no acute distress, using Oxygenvia nasal cannula. Morbidly obese. Eyes: Anicteric.Noconjunctival hyperemia or exudates.No periorbital edema. Respiratory: Diffusely decreased breath sounds, no wheezing or crackles. No use of accessory muscles and no prolonged exhalation. Cardiac: Distant sounds, regular rhythm, no murmurs, no gallops, no rubs; could not appreciate JV pulse elevation. GI: Soft, nontender. Extremities No clubbing,no cyanosis,1-2+ edema. Neuro: No gross motor deficits. Oriented to person and place. Not sure about time. Otherwise seems appropriate. Results & Data Results & Data Vital Signs (Past 12 Hours) Vital Signs Temp Pulse Pulse Resp BP Pulse Ox O2 Del Method 04/04/25 07:12 100 H 04/04/25 00:00 97 H 04/03/25 21:58 Nasal Cannula 04/03/25 21:00 97 H 18 98 04/03/25 20:13 37 C 96 H 21 162/71 H 92 Nasal Cannula 04/03/25 20:00 Nasal Cannula O2 Flow Rate FiO2 04/04/25 07:12 04/04/25 00:00 04/03/25 21:58 2 04/03/25 21:00 30 04/03/25 20:13 2 04/03/25 20:00 2 Coding Level of Care Code 67263 SUB INP/OBS CARE 3/50MIN Diagnoses Acute respiratory failure with hypercapnia J96.02 E. coli UTI N39.0; B96.20 E coli bacteremia R78.81; B96.20 Infection due to ESBL-producing Escherichia coli A49.8; Z16.12 Septic shock A41.9; R65.21 GILBERTO (acute kidney injury) N17.9 Obesity hypoventilation syndrome E66.2 Pulmonary hypertension I27.20 Time Spent (min) 55 Comment Review chart/ imaging studies, history/ physical, update patient, family, nurse, provider.
[2025-04-04] MEDS ORDERED: SODIUM PHOSPHATE 3 MMOL/1 ML 5 ML VIAL IV ONE (08:00)
[2025-04-04] MEDS: SODIUM PHOSPHATE 30 MMOL in SODIUM CHLORIDE 0.9% 500 ML IV ONE (08:49)
[2025-04-04] MEDS: FUROSEMIDE 20 MG TAB PO SCH (14:01)
--- NOTE | 2025-04-04 15:37 | Hospitalist Progress Note ---
Date of Service April 04, 2025 Assessment & Plan (1) Septic shock: Plan: RESOLVING with patient OFF norepinephrine infusion since 04/03/2025, 10:48am as MAP continues to remain > 65 mm Hg. Continue infusion rate of lactated Ringers @ 75 mL/hr (04/03/2025, 11:01am). s/p zosyn 4.5g IV x 2 doses (04/01/2025, 8:01pm; 04/02/2025, 2:05am). s/p meropenem 500mg IV x 1 dose (04/02/2025, 11:34am). s/p meropenem 1g IV q8 x 3 doses (04/02/2025, 4:42pm, 11:22pm; 04/03/2025, 8:47am). Continue meropenem 2g IV q8 x 3 doses thus far (04/03/2025, 4:24pm; 04/04/2025, 1:02am, 8:56am). Of note, etiology of septic shock with end-organ failure (e.g., acute kidney injury) is due to recurrent ESBL E. coli UTI with hematogenous dissemination (e.g. 04/01/2025, 7:17pm and 7:33pm blood cultures positive) of ESBL E. coli UTI. Check vitals, WBC w/diff, lactic acid, procalcitonin, repeat blood cultures #3 and #4 (04/04/2025, 3:25pm), creatinine level in the 04/05/2025 am. (2) Acute respiratory failure with hypoxia and hypercapnia: Plan: RESOLVING with patient breathing comfortably on BIPAP @ night (given RAYMUNDO and obesity hypoventilation syndrome). Continue 2 liters/minute O2 via nasal cannula with O2 sat 99% (04/03/2025, 4:00pm). Continue 3 liters/minute O2 via nasal cannula with O2 sat 100% (04/04/2025, 2:56pm). Of note, etiology of acute hypoxic and hypercapnic respiratory failure is due to chronic RAYMUNDO and obesity hypoventilation syndrome. Of note, patient does not have acute CAP as a potential etiology for her acute hypoxic and hypercapnic respiratory failure. cf., Portable CXR (04/01/2025, 6:33pm): 1. No infiltrate, effusion, cardiomegaly, pulmonary vascular congestion, or pneumothorax (by my review). (3) GILBERTO (acute kidney injury): Plan: RESOLVING with lactated Ringers @ 75 mL/hr (04/03/2025, 11:01am). BUN 16, creatinine 1.58 (04/01/2025, 7:17pm). BUN 21, creatinine 1.69 (04/02/2025, 4:10am). BUN 19, creatinine 1.17 (04/03/2025, 4:41am). BUN 16, creatinine 0.86 (04/04/2025, 4:59am). Of note, etiology of acute kidney injury is due to acute tubular necrosis, which in turn, is due to severe septic shock with end-organ failure (e.g., acute kidney injury), which in turn, is due to recurrent ESBL E. coli UTI with hematogenous dissemination (e.g. 04/01/2025, 7:17pm and 7:33pm blood cultures positive) of ESBL E. coli UTI. (4) Elevated troponin I level: Plan: cf., troponin-I #1 238.3 pg/mL (04/01/2025, 7:17pm). cf., troponin-I #2 249.3 pg/mL (04/01/2025, 9:34pm). cf., troponin-I #3 161.2 pg/mL (04/02/2025, 4:10am). cf., troponin-I #4 107.9 pg/mL (04/02/2025, 10:52am). cf., troponin-I #5 100.3 pg/mL (04/02/2025, 4:43pm). Etiology of nominal troponin-I elevation is due to demand ischemia, which in turn, is due to: (a) sepsis, which in turn, is due to ESBL E. coli UTI with hematogenous dissemination of ESBL E. coli UTI, and (b) acute kidney injury, which in turn, is due to acute tubular necrosis, which in turn, is due to sepsis. cf., TTE (04/02/2026, 7:57am): "no visualized regional wall motion abnormalities, but cannot exclude regional wall motion abnormalities given poor image quality", which in turn, are due to the fact that patient is morbidly obese with BMI 61.3 (height 165.1 cm; weight 167.1 kg) and her neck/check remain amorphous, and as such, resists further characterization via TTE. Subsequently, I have opted to observe this laboratory anomaly without further evaluation/intervention while patient remains in [facility].. Plan 79 years old female with PMH of DNR/DNI @ [facility] ([place], [place]), morbid obesity with BMI 61.3 (height 165.1 cm; weight 167.1 kg), metabolic encephalopathy, paroxysmal atrial fibrillation with RVR, hypertension, tachybradycardia syndrome, and chronic HFpEF 65-70% (as noted on 04/02/2025, 7:57am, CARDS Dr. Shaun Zhu), who was admitted to the inpatient hospitalist service @ [facility] on 04/01/2025 with the following diagnosis: 1. Severe septic shock with end-organ failure (e.g., acute kidney injury with admission creatinine 1.58 mg/dL (04/01/2025, 7:17pm), due to [id number] ESBL E. coli UTI and ESBL E. coli bacteremia. 2. Acute hypoxic/hypercapnic respiratory failure, due to RAYMUNDO and obesity hypoventilation syndrome. 3. Acute type II NSTEMI with nominal troponin-I elevation with troponin-I #1 238.3 pg/mL (04/01/2025, 7:17pm). The following medical issues are being addressed: #Septic shock due to urinary tract infection/E. coli septicemia-remains on Levophed, getting maintenance fluids after received resuscitation isotonic fluids. Treating with IV antibiotics. Lactate remains elevated but decreased from previous. Blood cultures now positive for ESBL E. coli, urine culture pending. CT abdomen/pelvis with nonobstructing kidney stones but no evidence of pyelonephritis -Management with arterial line placed due to difficult blood pressure cuff readings - Continue Levophed and wean off as tolerated - Change Zosyn to meropenem for better coverage of ESBL E. coli -Follow urine culture and sensitivity and final blood culture sensitivities -Appreciate ICU management #ATN/GILBERTO-Creatinine 1.58, with baseline 0.68. Creatinine worsening to 1.69 and with oliguria. Yeboah catheter in place. UA with granular casts indicating ATN -Continue maintenance IV fluids and Levophed for blood pressure support - Follow BMP #Acute respiratory failure with hypoxia and hypercapnia/obesity hypoventilation syndrome/asthma-COVID/flu/RSV negative. Chest x-ray negative, CT abdomen/pelvis shows minimal right sided pleural effusion on right and left and subsegmental collapse of right lower lobe due to right diaphragmatic eventration. Likely secondary to sepsis, morbid obese body habitus. Now improving and on BiPAP -continue bronchodilators and BiPAP #Elevated troponin/hypertension/paroxysmal atrial fibrillation-myocardial demand ischemia secondary to septic shock. Serial troponin peaked at 249 and back down. No ischemic changes on ECG. Echocardiogram pending. Remains in sinus rhythm. Most recent echocardiogram 02/16/2022 with ejection fraction 55-60% -Continue Eliquis but decrease dose to 2.5 mg p.o. twice daily given age greater than 80 and creatinine greater than 1.5 - Continue home amiodarone for antiarrhythmic -Hold furosemide, losartan, and metoprolol tartrate due to hypotension and GILBERTO - Monitor on telemetry - Follow CBC, BMP, magnesium keep electrolytes replete #Shock liver-Total bilirubin 1.1, direct bilirubin 0.6, AST 175, ALT 75 and INR elevated on admission likely due to hypotension and shock liver. Improving today -Follow LFTs, INR DVT prophylaxis-Eliquis Disposition-continued stay in ICU Admission and Anticipated Discharge Date Admission Date: April 01, 2025 Subjective "I don't feel so good today (04/04/2025). I can't explain it other than that." Review of Systems Constitutional: Negative for antecedent/coincident fevers, chills, diaphoresis, cough, wheeze, sore throat, hemoptysis, chest pains, palpitations, pleurisy, nausea, vomiting, diarrhea, abdominal pain, pelvic pain, hematemesis, hematochezia, melena, hematuria, dysuria, frequency, urgency, headaches, dizziness, lightheadedness, visual changes, hearing changes, weakness, falls, syncope, trauma, travel history, sick contacts, or food/drug ingestions novel or new. All other review of systems are reported as negative by the patient on 04/04/2025. Physical Exam Constitutional: General: Comfortable, cooperative, coherent. Wide awake and alert. Not confused, lethargic, or obtunded. Patient speaks in complete, fluent, and articulate sentences without pause, interruption, cough, or wheeze. Breathing comfortably on 2 liters/minute O2 via NC and BIPAP with O2 sat 99% (04/03/2025, 4:00pm). HEENT: Normocephalic, atraumatic. Extra-ocular muscles intact. Pupils equally round and reactive to light. No nystagmus, gaze paresis, anisocoria, miosis, mydriasis, hyphema, chemosis, scleral injection, conjunctivitis, or pterygium. No otorrhea or rhinorrhea. No pharyngeal discharge or exudate. Neck: Supple, no stridor or bruit. Jugular venous pressure cannot be estimated in this patient as I cannot identify the sternal angle of Star in this patient for the precise reason that patient is morbidly obese with BMI 61.3 (height 165.1 cm; weight 167.1 kg) and her neck/check remain amorphous. Lymphatics: No anterior/posterior cervical, infraclavicular, supraclavicular, axillary, epitrochlear, or inguinal adenopathy. Chest: Symmetric rise and fall with respirations. Non-tender to palpation. Lungs: Clear to auscultation and percussion. No audible expiratory wheeze, ego phony, pectoriloquy, increase in tactile fremitus, or flatness/dullness to percussion at the bases. Heart: Regular rate and rhythm. S1 and S2 noted. No S3 or S4 summation gallop. No tripartite friction rub. Grade II/ early systolic murmur at left lower sternal border without radiation to the carotids, axilla, or back, and which remains invariant in regards to the respiratory cycle. Abdomen: Soft, non-tender, non-distended. No rebound, guarding, Whitt's sign, or organomegaly. Bowel sounds auscultated in all 4 quadrants. Extremities: No clubbing, cyanosis, or edema. 2+ pedal pulses bilaterally. Skin: No decubitus ulcer, exanthem, or enanthem. Urology: + yeboah catheter with urine output 0.33 mL/kg/hr (04/02/2025, 5:17pm to 04/03/2025, 5:17pm). Urology: + yeboah catheter with urine output 0.71 mL/kg/hr (04/03/2025, 3:11pm to 04/04/2025, 3:11pm). Urology: No purewick. No urethral discharge. Neurology: Alert and oriented in regards to person, place, time, and situation. DTR+. 5/5 motor strength in all 4 extremities, both proximally and distally. Psychiatry: No flat affect. No monotone voice. Smiles appropriately. Results & Data Results & Data Vital Signs (Past 12 Hours) Vital Signs Temp Pulse Resp BP Pulse Ox O2 Del Method 04/04/25 14:56 94 H 04/04/25 14:20 Nasal Cannula 04/04/25 14:00 159/57 H 04/04/25 14:00 37.6 C H 99 H 26 H 100 Nasal Cannula 04/04/25 13:00 162/69 H 04/04/25 13:00 37.8 C H 97 H 31 H 99 04/04/25 12:27 37.8 C H 99 H 29 H 98 04/04/25 12:00 163/70 H 04/04/25 11:24 37.9 C H 97 H 29 H 96 04/04/25 11:00 157/64 H 04/04/25 11:00 37.8 C H 92 H 24 96 04/04/25 10:13 164/70 H 04/04/25 10:03 37.7 C H 103 H 28 H 89 L 04/04/25 10:00 37.7 C H 104 H 25 H 89 L 04/04/25 10:00 181/78 H 04/04/25 09:06 37.7 C H 103 H 22 92 Nasal Cannula 04/04/25 09:00 162/74 H 04/04/25 08:51 37.7 C H 103 H 20 92 Nasal Cannula 04/04/25 08:33 37.7 C H 105 H 27 H 93 Nasal Cannula 04/04/25 08:00 159/69 H 04/04/25 07:51 37.6 C H 102 H 29 H 91 Nasal Cannula 04/04/25 07:12 100 H 04/04/25 07:06 37.6 C H 103 H 22 90 Nasal Cannula 04/04/25 07:00 159/64 H Laboratory Results WBC 20.56, N72 L12 M15 (04/01/2025, 7:17pm). WBC 17.15, N74 L11 M14 (04/02/2025, 4:10am). WBC 12.06, N76 L10 M13 (04/03/2025, 4:41am). WBC 6.84, N67 L17 M14 E1 (04/04/2025, 4:59am). Urine culture (04/01/2025, 10:45am): ESBL E. coli Urine culture (04/01/2025, 7:29pm): ESBL E. coli Blood culture #1 (04/01/2025, 7:17pm): ESBL E. coli Blood culture #2 (04/01/2025, 7:33pm): ESBL E. coli Blood culture #3 (04/04/2025, 3:25pm): Blood culture #4 (04/04/2025, 3:25pm): BUN 16, creatinine 1.58 (04/01/2025, 7:17pm). BUN 21, creatinine 1.69 (04/02/2025, 4:10am). BUN 19, creatinine 1.17 (04/03/2025, 4:41am). BUN 16, creatinine 0.86 (04/04/2025, 4:59am). Urine culture (04/01/2025, 10:45am): ESBL E. coli Urine culture (02/21/2025, 2:30pm): ESBL E. coli Urine culture (12/15/2024, 10:40pm): ESBL E. coli Urine culture (05/30/2024, 2:20am): ESBL E. coli Urine culture (10/04/2023, 2:00pm): ESBL E. coli Urine culture (08/30/2022, 10:20am): ESBL E. coli Urine culture (06/26/2022, 2:00pm): ESBL E. coli Urine culture (03/25/2022, 2:30am): VRE Enterococcus faecium Urine culture (02/14/2022, 5:02pm): VRE Enterococcus faecium Urine culture (10/22/2021, 6:04pm): Proteus mirabilis Blood culture (12/15/2024, 9:50pm): ESBL E. coli Blood culture (12/15/2024, 8:56pm): ESBL E. coli Diagnostic Findings Portable CXR (04/01/2025, 6:33pm): 1. No infiltrate, effusion, cardiomegaly, pulmonary vascular congestion, or pneumothorax (by my review). CT abd/pelvis without IV contrast (04/01/2025, 10:14pm): 1. Right diaphragmatic eventration with passive subsegmental collapse of right lower lobe is seen.-stable. 2. Minimal right sided pleural effusion/pleural thickening is seen-stable. 3. Minimal pleural thickening is also noted on left side.-stable. 4. Small non-obstructing right renal calculi.-stable. 5. Colonic fecal and gaseous distension. 6. Pancreas shows mild peripancreatic fat stranding, around head and uncinate process with thickening of anterior pararenal fascia on right side. New finding. Possibility of acute pancreatitis. 7. Multiple small uncomplicated sigmoid colonic diverticulosis-stable. TTE (04/02/2025, 7:57am): 1. LVEF 65-70%. No visualized regional wall motion abnormalities, but cannot exclude regional wall motion abnormalities given poor image quality due to morbid obesity with BMI 61.3 (height 165.1 cm; weight 167.1 kg). Mild concentric LVH. 2. RV not well visualized. 3. LA not well visualized. 4. RA not well visualized. 5. AV not well visualized. No AR. No . 6. PV not well visualized. 7. MV grossly normal. No MR. No MS. 8. TV not well visualized. 9. Aortic root not well visualized. 10.No pericardial effusion. (as per CARDS Dr. Shaun Zhu). PG Care Time/CCT Total # of Minutes Spent Total Time Spent with Patient: Total time spent is greater than 50% in coordination of care (as documented) at patient's floor/unit and/or counseling patient: Coding Level of Care Code 80775 SUB INP/OBS CARE 2/35MIN Diagnoses Septic shock A41.9; R65.21 Acute respiratory failure with hypoxia and hypercapnia J96.01; J96.02 GILBERTO (acute kidney injury) N17.9 Elevated troponin I level R79.89
[2025-04-04] MEDS: METOPROLOL SUCC 50MG EXT REL TAB PO SCH (20:19)
--- NOTE | 2025-04-04 21:46 | Electrocardiogram Report ---
Test Reason : Blood Pressure : */* mmHG Vent. Rate : 66 BPM Atrial Rate : 66 BPM P-R Int : 152 ms QRS Dur : 86 ms QT Int : 446 ms P-R-T Axes : 49 62 50 degrees QTcB Int : 467 ms Normal sinus rhythm Low voltage QRS Borderline ECG When compared with ECG of 21-Dec-2024 11:19, Vent. rate has decreased by 40 bpm Confirmed by Shaun Zhu [id number] on 04/04/2025 9:45:30 PM Referred By: [facility] Confirmed By: Shaun Zhu
[2025-04-05 04:31] LABS: Hematocrit (blood only) 39.6 % (37.0-47.0); Hemoglobin 12.1 g/dl (12.0-16.0); Immature Granulocytes # (auto) 0.03 K/uL (0.01-0.20); Immature Granulocytes % (auto) 0.4 %; Mean Corpuscular Hemoglobin 30.2 pg (25.0-34.0); Mean Corpuscular Volume 98.8 fL (80.0-100.0); Platelet Count 218 K/uL (130-400); RDW Standard Deviation 51.4 fL (36.4-46.3); Red Blood Count 4.01 M/uL (4.20-5.40); White Blood Count 7.02 K/ul (4.8-10.8)
[2025-04-05 04:47] LABS: Anion Gap 3.0 (3-11); Blood Urea Nitrogen 11.0 mg/dl (6-23); Calcium 8.6 mg/dl (8.6-10.3); Carbon Dioxide 38.0 mmol/L (21-32); Chloride 100.0 mmol/L (98-107); Creatinine Clr Calc Pharmacy 105.1 ml/min; Glucose 113.0 mg/dl (70-99(Fasting)); Magnesium 2.1 mg/dl (1.7-2.4); Potassium 4.1 mmol/L (3.5-5.1); Sodium 141.0 mmol/L (136-145)
[2025-04-05] MEDS ORDERED: SODIUM PHOSPHATE 3 MMOL/1 ML 5 ML VIAL IV ONE (07:32)
--- NOTE | 2025-04-05 07:48 | Critical Care Progress Note ---
Date of Service April 05, 2025 Assessment & Plan (1) Obesity hypoventilation syndrome: (2) Infection due to ESBL-producing Escherichia coli: (3) E coli bacteremia: Plan Impression: 79-year-old female admitted from senior living facility with E BSL E. coli bacteremia from probable urinary source and septic shock with acute kidney injury. She is markedly improved and appears to be back to her baseline. She been hemodynamically stable and off pressors greater than 36 hours. Recommendations: 1. Severe sepsis with septic shock: Resolved. 2. E BSL E. coli bacteremia: Surveillance cultures of show no growth to date. Currently on meropenem. Defer duration of antimicrobial therapy to primary admitting service. 3. Acute on chronic hypercarbic respiratory failure: Continue BiPAP at night. Avoid respiratory suppressant medications including narcotics benzodiazepines etc.. 4. Acute kidney injury: Resolved. Acid-base status, electrolytes acceptable. 5. A-fib with RVR: Currently anticoagulated with Eliquis and on amiodarone. Appears to be in sinus with frequent ectopic beats but is adequately rate controlled and hemodynamically stable. Continue beta-agnes The patient's critical care issues are now resolved. She can transfer to the floor under the care of the hospitalist. Critical care will sign off. Feel free to contact us with questions or concerns Admission and Anticipated Discharge Date Admission Date: April 01, 2025 Subjective Patient seen and examined. EMR reviewed. 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 Reviewed with hospitalist this morning. Patient is currently on noninvasive positive pressure ventilation as per her norm. She has no complaints this morning. She has been hemodynamically stable. Review of Systems Review of Systems: All systems reviewed & are unremarkable except as noted in Subjective Physical Exam Constitutional: + morbidly obese; no acute distress Neck: trachea midline, no thyromegaly Respiratory: normal respiratory effort, lungs clear to auscultation Cardiovascular: RRR, no murmur, no edema Gastrointestinal (Abdomen): normal bowel sounds, soft, nontender, no hepatosplenomegaly Musculoskeletal: Extremities: extremities normal to inspection Skin: no rashes, warm and dry Neurologic: Paretic at baseline Lymphatic: no cervical lymphadenopathy Results & Data Results & Data Vital Signs (Past 12 Hours) Vital Signs Temp Pulse Pulse Resp BP BP Pulse Ox 04/05/25 07:01 142/59 H 04/05/25 07:00 37.5 C 66 22 95 04/05/25 05:12 37.4 C 66 21 96 04/05/25 05:06 37.4 C 67 22 94 04/05/25 05:00 157/74 H 04/05/25 05:00 157/74 H 04/05/25 04:48 37.4 C 67 23 93 04/05/25 04:36 37.4 C 66 20 96 04/05/25 04:24 37.4 C 67 19 96 04/05/25 04:09 37.4 C 65 21 96 04/05/25 04:00 144/67 H 04/05/25 03:51 37.4 C 68 21 98 04/05/25 03:45 37.4 C 69 21 96 04/05/25 03:30 37.4 C 68 21 95 04/05/25 03:27 37.4 C 68 19 96 04/05/25 03:15 37.4 C 66 19 95 04/05/25 03:00 37.4 C 66 20 94 04/05/25 03:00 142/62 H 04/05/25 03:00 142/62 H 04/05/25 02:42 37.4 C 66 19 94 04/05/25 02:39 37.4 C 67 18 95 04/05/25 02:27 37.4 C 68 18 94 04/05/25 02:20 65 19 96 04/05/25 02:00 163/74 H 04/05/25 02:00 37.4 C 69 23 92 04/05/25 01:57 37.4 C 67 19 97 04/05/25 01:33 37.2 C 70 21 94 04/05/25 01:24 37.2 C 70 20 92 04/05/25 01:03 37.2 C 69 19 92 04/05/25 01:01 146/72 H 04/05/25 00:42 37.2 C 69 18 95 04/05/25 00:30 37.2 C 69 19 93 04/05/25 00:00 69 04/04/25 23:36 37.3 C 68 19 93 04/04/25 23:21 37.2 C 69 23 93 04/04/25 23:12 37.2 C 72 24 97 04/04/25 23:06 37.2 C 68 23 92 04/04/25 22:42 37.2 C 73 23 95 04/04/25 22:30 37.2 C 77 26 H 95 04/04/25 22:30 76 21 95 04/04/25 22:21 37.2 C 80 22 97 04/04/25 22:18 37.2 C 81 23 96 04/04/25 22:01 139/65 04/04/25 22:01 139/65 04/04/25 21:57 37.2 C 82 23 96 04/04/25 21:33 37.3 C 84 22 96 04/04/25 21:18 37.3 C 87 20 96 04/04/25 21:09 37.3 C 86 23 96 04/04/25 21:04 04/04/25 20:54 37.3 C 86 23 96 04/04/25 20:30 37.4 C 93 H 24 97 04/04/25 20:15 37.4 C 87 22 96 04/04/25 20:06 37.4 C 87 22 96 04/04/25 20:00 169/71 H 04/04/25 20:00 169/71 H 04/04/25 20:00 37 C 85 22 169/71 H 96 O2 Del Method O2 Flow Rate FiO2 04/05/25 07:01 04/05/25 07:00 04/05/25 05:12 04/05/25 05:06 04/05/25 05:00 04/05/25 05:00 04/05/25 04:48 04/05/25 04:36 04/05/25 04:24 04/05/25 04:09 04/05/25 04:00 04/05/25 03:51 04/05/25 03:45 04/05/25 03:30 04/05/25 03:27 04/05/25 03:15 04/05/25 03:00 04/05/25 03:00 04/05/25 03:00 04/05/25 02:42 04/05/25 02:39 04/05/25 02:27 04/05/25 02:20 30 04/05/25 02:00 04/05/25 02:00 04/05/25 01:57 04/05/25 01:33 04/05/25 01:24 04/05/25 01:03 04/05/25 01:01 04/05/25 00:42 04/05/25 00:30 04/05/25 00:00 04/04/25 23:36 04/04/25 23:21 04/04/25 23:12 04/04/25 23:06 04/04/25 22:42 04/04/25 22:30 04/04/25 22:30 30 04/04/25 22:21 04/04/25 22:18 04/04/25 22:01 04/04/25 22:01 04/04/25 21:57 04/04/25 21:33 04/04/25 21:18 04/04/25 21:09 04/04/25 21:04 Nasal Cannula 4 04/04/25 20:54 04/04/25 20:30 04/04/25 20:15 04/04/25 20:06 04/04/25 20:00 04/04/25 20:00 04/04/25 20:00 Nasal Cannula 4 Critical Care Results & Data Vital Signs (Past 12 Hours) Vital Signs Temp Pulse Pulse Resp BP BP Pulse Ox 04/05/25 07:01 142/59 H 04/05/25 07:00 37.5 C 66 22 95 04/05/25 05:12 37.4 C 66 21 96 04/05/25 05:06 37.4 C 67 22 94 04/05/25 05:00 157/74 H 04/05/25 05:00 157/74 H 04/05/25 04:48 37.4 C 67 23 93 04/05/25 04:36 37.4 C 66 20 96 04/05/25 04:24 37.4 C 67 19 96 04/05/25 04:09 37.4 C 65 21 96 04/05/25 04:00 144/67 H 04/05/25 03:51 37.4 C 68 21 98 04/05/25 03:45 37.4 C 69 21 96 04/05/25 03:30 37.4 C 68 21 95 04/05/25 03:27 37.4 C 68 19 96 04/05/25 03:15 37.4 C 66 19 95 04/05/25 03:00 37.4 C 66 20 94 04/05/25 03:00 142/62 H 04/05/25 03:00 142/62 H 04/05/25 02:42 37.4 C 66 19 94 04/05/25 02:39 37.4 C 67 18 95 04/05/25 02:27 37.4 C 68 18 94 04/05/25 02:20 65 19 96 04/05/25 02:00 163/74 H 04/05/25 02:00 37.4 C 69 23 92 04/05/25 01:57 37.4 C 67 19 97 04/05/25 01:33 37.2 C 70 21 94 04/05/25 01:24 37.2 C 70 20 92 04/05/25 01:03 37.2 C 69 19 92 04/05/25 01:01 146/72 H 04/05/25 00:42 37.2 C 69 18 95 04/05/25 00:30 37.2 C 69 19 93 04/05/25 00:00 69 04/04/25 23:36 37.3 C 68 19 93 04/04/25 23:21 37.2 C 69 23 93 04/04/25 23:12 37.2 C 72 24 97 04/04/25 23:06 37.2 C 68 23 92 04/04/25 22:42 37.2 C 73 23 95 04/04/25 22:30 37.2 C 77 26 H 95 04/04/25 22:30 76 21 95 04/04/25 22:21 37.2 C 80 22 97 04/04/25 22:18 37.2 C 81 23 96 04/04/25 22:01 139/65 04/04/25 22:01 139/65 04/04/25 21:57 37.2 C 82 23 96 04/04/25 21:33 37.3 C 84 22 96 04/04/25 21:18 37.3 C 87 20 96 04/04/25 21:09 37.3 C 86 23 96 04/04/25 21:04 04/04/25 20:54 37.3 C 86 23 96 04/04/25 20:30 37.4 C 93 H 24 97 04/04/25 20:15 37.4 C 87 22 96 04/04/25 20:06 37.4 C 87 22 96 04/04/25 20:00 169/71 H 04/04/25 20:00 169/71 H 04/04/25 20:00 37 C 85 22 169/71 H 96 O2 Del Method O2 Flow Rate FiO2 04/05/25 07:01 04/05/25 07:00 04/05/25 05:12 04/05/25 05:06 04/05/25 05:00 04/05/25 05:00 04/05/25 04:48 04/05/25 04:36 04/05/25 04:24 04/05/25 04:09 04/05/25 04:00 04/05/25 03:51 04/05/25 03:45 04/05/25 03:30 04/05/25 03:27 04/05/25 03:15 04/05/25 03:00 04/05/25 03:00 04/05/25 03:00 04/05/25 02:42 04/05/25 02:39 04/05/25 02:27 04/05/25 02:20 30 04/05/25 02:00 04/05/25 02:00 04/05/25 01:57 04/05/25 01:33 04/05/25 01:24 04/05/25 01:03 04/05/25 01:01 04/05/25 00:42 04/05/25 00:30 04/05/25 00:00 04/04/25 23:36 04/04/25 23:21 04/04/25 23:12 04/04/25 23:06 04/04/25 22:42 04/04/25 22:30 04/04/25 22:30 30 04/04/25 22:21 04/04/25 22:18 04/04/25 22:01 04/04/25 22:01 04/04/25 21:57 04/04/25 21:33 04/04/25 21:18 04/04/25 21:09 04/04/25 21:04 Nasal Cannula 4 04/04/25 20:54 04/04/25 20:30 04/04/25 20:15 04/04/25 20:06 04/04/25 20:00 04/04/25 20:00 04/04/25 20:00 Nasal Cannula 4 Lab & Micro Results (Past 24 Hours) RBC 4.01 M/uL (4.20-5.40) L 04/05/25 WBC 7.02 K/ul (4.8-10.8) 04/05/25 Hgb 12.1 g/dl (12.0-16.0) 04/05/25 Hct 39.6 % (37.0-47.0) 04/05/25 MCV 98.8 fL (80.0-100.0) 04/05/25 MCH 30.2 pg (25.0-34.0) 04/05/25 MCHC 30.6 g/dL (32.0-36.0) L 04/05/25 RDW Standard Deviation 51.4 fL (36.4-46.3) H 04/05/25 RDW Coefficient of Variation 14.2 % (11.5-14.5) 04/05/25 Plt Count 218 K/uL (130-400) 04/05/25 MPV 9.5 fL (9.4-12.4) 04/05/25 Neutrophils (%) (Auto) 59.5 % 04/05/25 Lymphocytes (%) (Auto) 24.2 % 04/05/25 Monocytes # (Auto) 0.93 K/uL (0.11-0.59) H 04/05/25 Eosinophils # (Auto) 0.16 K/uL (0.00-0.50) 04/05/25 Immature Granulocyte % (Auto) 0.4 % 04/05/25 Neutrophils # (Auto) 4.17 K/uL (1.40-6.50) 04/05/25 Lymphocytes # (Auto) 1.70 K/uL (1.20-3.40) 04/05/25 Monocytes # (Auto) 0.93 K/uL (0.11-0.59) H 04/05/25 Eosinophils # (Auto) 0.16 K/uL (0.00-0.50) 04/05/25 Basophils # (Auto) 0.03 K/uL (0.00-0.20) 04/05/25 Immature Granulocyte # (Auto) 0.03 K/uL (0.01-0.20) 5 Na 141 mmol/L (136-145) 04/05/25 K 4.1 mmol/L (3.5-5.1) 04/05/25 Cl 100 mmol/L (98-107) 04/05/25 CO2 38 mmol/L (21-32) H 04/05/25 Anion Gap 3 (3-11) 04/05/25 BUN 11 mg/dl (6-23) 04/05/25 Creatinine 0.67 mg/dl (0.6-1.2) 04/05/25 BUN/Creatinine Ratio 16.4 (10-20) 04/05/25 Glu 113 mg/dl (70-99(Fasting)) H 04/05/25 Ca 8.6 mg/dl (8.6-10.3) 04/05/25 Phosphorus Level 2.2 mg/dl (2.5-4.9) L 04/05/25 Mg 2.1 mg/dl (1.7-2.4) 04/05/25 04:13 Calcium Level 8.6 mg/dl (8.6-10.3) 04/05/25 04:13 Microbiology 04/01/25 19:33 Aerobic Blood Culture - Final Blood Escherichia coli ESBL Anaerobic Blood Culture - Final Escherichia coli ESBL 04/01/25 19:17 Aerobic Blood Culture - Final Blood Escherichia coli ESBL Anaerobic Blood Culture - Final Escherichia coli ESBL I & O Totals 24 Hours 04/04/25 04/05/25 04/06/25 06:59 06:59 06:59 Intake Total 2800.000 / 2800.000 2420 / 2420 Output Total 2105 / 2105 2875 / 2875 Balance 695.000 / 695.000 -455 / -455 Cumulative 04/01/25 17:48 thru 04/05/25 06:00 Intake Total 52257.664 Output Total 6293 Balance 5917.664 RT Ventilator Mngmt (Last Documented) Ventilator Ordered Settings Respiratory Rate 22 04/05/25 07:00 Fraction of Inspired Oxygen 30 04/05/25 02:20 Ventilator - PT Measurements Respiratory Rate 22 Coding Level of Care Code 89818 SUB INP/OBS CARE 2/35MIN Diagnoses Obesity hypoventilation syndrome E66.2 Infection due to ESBL-producing Escherichia coli A49.8; Z16.12 E coli bacteremia R78.81; B96.20
[2025-04-05] MEDS: SODIUM PHOSPHATE 30 MMOL in SODIUM CHLORIDE 0.9% 500 ML IV ONE (08:29)
[2025-04-05] MEDS: ERTAPENEM 1000MG 1,000 MG/10 ML SYR IV SCH (12:00)
[2025-04-05 14:37] LABS: Urea Nitrogen, Random Urine 356 mg/dL
--- NOTE | 2025-04-05 19:54 | Hospitalist Progress Note ---
Date of Service April 05, 2025 Assessment & Plan (1) Septic shock: Plan: RESOLVED with patient OFF norepinephrine infusion since 04/03/2025, 10:48am as MAP continues to remain > 65 mm Hg. s/p lactated Ringers @ 75 mL/hr (04/03/2025, 11:01am - 04/04/2025, 2:06pm). Given resolution of septic shock OFF pressor support, patient was [facility] ICU bed [facility] Patient subsequently reported acute onset of multiple episodes of watery, non- bloody, non-oily diarrhea on 04/05/2025 am [facility], with no prior reports/complaints of N/V/D while in ICU bed #[id number] from admission date 04/01/2025 to current date 04/05/2025. Etiology of diarrhea remains unclear, but is most probably antibiotic-associated diarrhea; diarrheal stools do not smell like Clostridium difficile to me. Nonetheless, patient awaits Clostridium difficile PCR DNA and toxin B testing (ordered 04/05/2025, 2:13pm, but not yet collected due to lack of subsequent diarrheal stools.) s/p zosyn 4.5g IV x 2 doses (04/01/2025, 8:01pm; 04/02/2025, 2:05am). s/p meropenem 500mg IV x 1 dose (04/02/2025, 11:34am). s/p meropenem 1g IV q8 x 3 doses (04/02/2025, 4:42pm, 11:22pm; 04/03/2025, 8:47am). s/p meropenem 2g IV q8 x 6 doses (04/03/2025, 4:24pm; 04/04/2025, 1:02am, 8:56am, 4:18pm; 04/05/2025, 12:59am, 8:29am). Started ertapenem 1g IV daily (04/05/2025, 12:00pm) given once-a-day dosing of ertapenem compared to q8 dosing of meropenem. Of note, etiology of septic shock with end-organ failure (e.g., acute kidney injury) is due to recurrent ESBL E. coli UTI with hematogenous dissemination (e.g. 04/01/2025, 7:17pm and 7:33pm blood cultures positive) of ESBL E. coli UTI. Check vitals, WBC w/diff, lactic acid, procalcitonin, repeat blood cultures #3 and #4 (04/04/2025, 3:25pm), creatinine level in the 04/06/2025 am. (2) Acute respiratory failure with hypoxia and hypercapnia: Plan: RESOLVING with patient breathing comfortably on BIPAP @ night (given RAYMUNDO and obesity hypoventilation syndrome). Continue 2 liters/minute O2 via nasal cannula with O2 sat 99% (04/03/2025, 4:00pm). Continue 3 liters/minute O2 via nasal cannula with O2 sat 100% (04/04/2025, 2:56pm). Continue 2 liters/minute O2 via nasal cannula with O2 sat 95% (04/05/2025, 3:23pm). Of note, etiology of acute hypoxic and hypercapnic respiratory failure is due to chronic RAYMUNDO and obesity hypoventilation syndrome. Of note, patient does not have acute CAP as a potential etiology for her acute hypoxic and hypercapnic respiratory failure. cf., Portable CXR (04/01/2025, 6:33pm): 1. No infiltrate, effusion, cardiomegaly, pulmonary vascular congestion, or pneumothorax (by my review). (3) GILBERTO (acute kidney injury): Plan: RESOLVING with lactated Ringers @ 75 mL/hr (04/03/2025, 11:01am). BUN 16, creatinine 1.58 (04/01/2025, 7:17pm). BUN 21, creatinine 1.69 (04/02/2025, 4:10am). BUN 19, creatinine 1.17 (04/03/2025, 4:41am). BUN 16, creatinine 0.86 (04/04/2025, 4:59am). BUN 11, creatinine 0.67 (04/05/2025, 4:13am). Of note, etiology of acute kidney injury is due to acute tubular necrosis, which in turn, is due to severe septic shock with end-organ failure (e.g., acute kidney injury), which in turn, is due to recurrent ESBL E. coli UTI with hematogenous dissemination (e.g. 04/01/2025, 7:17pm and 7:33pm blood cultures positive) of ESBL E. coli UTI. (4) Elevated troponin I level: Plan: cf., troponin-I #1 238.3 pg/mL (04/01/2025, 7:17pm). cf., troponin-I #2 249.3 pg/mL (04/01/2025, 9:34pm). cf., troponin-I #3 161.2 pg/mL (04/02/2025, 4:10am). cf., troponin-I #4 107.9 pg/mL (04/02/2025, 10:52am). cf., troponin-I #5 100.3 pg/mL (04/02/2025, 4:43pm). Etiology of nominal troponin-I elevation is due to demand ischemia, which in turn, is due to: (a) sepsis, which in turn, is due to ESBL E. coli UTI with hematogenous dissemination of ESBL E. coli UTI, and (b) acute kidney injury, which in turn, is due to acute tubular necrosis, which in turn, is due to sepsis. cf., TTE (04/02/2026, 7:57am): "no visualized regional wall motion abnormalities, but cannot exclude regional wall motion abnormalities given poor image quality", which in turn, are due to the fact that patient is morbidly obese with BMI 61.3 (height 165.1 cm; weight 167.1 kg) and her neck/check remain amorphous, and as such, resists further characterization via TTE. Subsequently, I have opted to observe this laboratory anomaly without further evaluation/intervention while patient remains in [facility].. (5) DNR (do not resuscitate): Plan: DNR/DNI @ [facility] ([place]). As septic shock and acute kidney injury have both resolved as of 04/04/2025, patient may be discharged back to [facility] ([place]). Patient will need PICC or midline, through which, patient may continue to receive ertapenem 1g IV daily for the next 13 days (04/06/2025 - 04/18/2025) to complete a 14 day course of treatment for recurrent ESBL E. coli UTI with hematogenous dissemination (e.g. 04/01/2025, 7:17pm and 7:33pm blood cultures positive) of ESBL E. coli UTI, contingent on 04/04/2025, 3:52pm and 3:58pm blood cultures remaining negative. Confer with Case Management Service in the 04/06/2025 am to determine if patient can be discharged back to [facility] ([place], [place]). Plan 79 years old female with PMH of DNR/DNI @ [facility] ([place], [place]), morbid obesity with BMI 61.3 (height 165.1 cm; weight 167.1 kg), metabolic encephalopathy, paroxysmal atrial fibrillation with RVR, hypertension, tachybradycardia syndrome, and chronic HFpEF 65-70% (as noted on 04/02/2025, 7:57am, CARDS Dr. Shaun Zhu), who was admitted to the inpatient hospitalist service @ [facility] on 04/01/2025 with the following diagnosis: 1. Severe septic shock with end-organ failure (e.g., acute kidney injury with admission creatinine 1.58 mg/dL (04/01/2025, 7:17pm), due to [id number] ESBL E. coli UTI and ESBL E. coli bacteremia. 2. Acute hypoxic/hypercapnic respiratory failure, due to RAYMUNDO and obesity hypoventilation syndrome. 3. Acute type II NSTEMI with nominal troponin-I elevation with troponin-I #1 238.3 pg/mL (04/01/2025, 7:17pm). The following medical issues are being addressed: #Septic shock due to urinary tract infection/E. coli septicemia-remains on Levophed, getting maintenance fluids after received resuscitation isotonic fluids. Treating with IV antibiotics. Lactate remains elevated but decreased from previous. Blood cultures now positive for ESBL E. coli, urine culture pending. CT abdomen/pelvis with nonobstructing kidney stones but no evidence of pyelonephritis -Management with arterial line placed due to difficult blood pressure cuff readings - Continue Levophed and wean off as tolerated - Change Zosyn to meropenem for better coverage of ESBL E. coli -Follow urine culture and sensitivity and final blood culture sensitivities -Appreciate ICU management #ATN/GILBERTO-Creatinine 1.58, with baseline 0.68. Creatinine worsening to 1.69 and with oliguria. Yeboah catheter in place. UA with granular casts indicating ATN -Continue maintenance IV fluids and Levophed for blood pressure support - Follow BMP #Acute respiratory failure with hypoxia and hypercapnia/obesity hypoventilation syndrome/asthma-COVID/flu/RSV negative. Chest x-ray negative, CT abdomen/pelvis shows minimal right sided pleural effusion on right and left and subsegmental collapse of right lower lobe due to right diaphragmatic eventration. Likely secondary to sepsis, morbid obese body habitus. Now improving and on BiPAP -continue bronchodilators and BiPAP #Elevated troponin/hypertension/paroxysmal atrial fibrillation-myocardial demand ischemia secondary to septic shock. Serial troponin peaked at 249 and back down. No ischemic changes on ECG. Echocardiogram pending. Remains in sinus rhythm. Most recent echocardiogram 02/16/2022 with ejection fraction 55-60% -Continue Eliquis but decrease dose to 2.5 mg p.o. twice daily given age greater than 80 and creatinine greater than 1.5 - Continue home amiodarone for antiarrhythmic -Hold furosemide, losartan, and metoprolol tartrate due to hypotension and GILBERTO - Monitor on telemetry - Follow CBC, BMP, magnesium keep electrolytes replete #Shock liver-Total bilirubin 1.1, direct bilirubin 0.6, AST 175, ALT 75 and INR elevated on admission likely due to hypotension and shock liver. Improving today -Follow LFTs, INR DVT prophylaxis-Eliquis Disposition-continued stay in ICU Admission and Anticipated Discharge Date Admission Date: April 01, 2025 Subjective "I'm having a lot of diarrhea this morning. No blood. No nausea or vomit or belly pain. No fevers. Other than that, I am ok. Why am I having diarrhea?" Review of Systems Constitutional: Positive for watery, non-bloody, non-oily diarrhea on 04/05/2025. Negative for antecedent/coincident fevers, chills, diaphoresis, cough, wheeze, sore throat, hemoptysis, chest pains, palpitations, pleurisy, nausea, vomiting, abdominal pain, pelvic pain, hematemesis, hematochezia, melena, hematuria, dysuria, frequency, urgency, headaches, dizziness, lightheadedness, visual changes, hearing changes, weakness, falls, syncope, trauma, travel history, sick contacts, or food/drug ingestions novel or new. All other review of systems are reported as negative by the patient on 04/05/2025. Physical Exam Constitutional: General: Comfortable, cooperative, coherent. Wide awake and alert. Not confused, lethargic, or obtunded. Patient speaks in complete, fluent, and articulate sentences without pause, interruption, cough, or wheeze. Breathing comfortably on 2 liters/minute O2 via NC and BIPAP with O2 sat 99% (04/03/2025, 4:00pm). HEENT: Normocephalic, atraumatic. Extra-ocular muscles intact. Pupils equally round and reactive to light. No nystagmus, gaze paresis, anisocoria, miosis, mydriasis, hyphema, chemosis, scleral injection, conjunctivitis, or pterygium. No otorrhea or rhinorrhea. No pharyngeal discharge or exudate. Neck: Supple, no stridor or bruit. Jugular venous pressure cannot be estimated in this patient as I cannot identify the sternal angle of Star in this patient for the precise reason that patient is morbidly obese with BMI 61.3 (height 165.1 cm; weight 167.1 kg) and her neck/check remain amorphous. Lymphatics: No anterior/posterior cervical, infraclavicular, supraclavicular, axillary, epitrochlear, or inguinal adenopathy. Chest: Symmetric rise and fall with respirations. Non-tender to palpation. Lungs: Clear to auscultation and percussion. No audible expiratory wheeze, egophony, pectoriloquy, increase in tactile fremitus, or flatness/dullness to percussion at the bases. Heart: Regular rate and rhythm. S1 and S2 noted. No S3 or S4 summation gallop. No tripartite friction rub. Grade II/ early systolic murmur at left lower sternal border without radiation to the carotids, axilla, or back, and which remains invariant in regards to the respiratory cycle. Abdomen: Soft, non-tender, non-distended. No rebound, guarding, Whitt's sign, or organomegaly. Bowel sounds auscultated in all 4 quadrants. Extremities: No clubbing, cyanosis, or edema. 2+ pedal pulses bilaterally. Skin: No decubitus ulcer, exanthem, or enanthem. Urology: + yeboah catheter with urine output 0.33 mL/kg/hr (04/02/2025, 5:17pm to 04/03/2025, 5:17pm). Urology: + yeboah catheter with urine output 0.71 mL/kg/hr (04/03/2025, 3:11pm to 04/04/2025, 3:11pm). Urology: + yeboah catheter with urine output 0.41 mL/kg/hr (04/04/2025, 7:49pm to 04/05/2025, 7:49pm). Urology: No purewick. No urethral discharge. Neurology: Alert and oriented in regards to person, place, time, and situation. DTR+. 5/5 motor strength in all 4 extremities, both proximally and distally. Psychiatry: No flat affect. No monotone voice. Smiles appropriately. Results & Data Results & Data Vital Signs (Past 12 Hours) Vital Signs Temp Pulse Pulse Resp BP BP Pulse Ox 04/05/25 15:23 36.4 C L 67 18 155/69 H 95 04/05/25 10:39 04/05/25 09:03 37.6 C H 72 24 99 04/05/25 08:21 178/84 H 04/05/25 08:00 04/05/25 07:57 37.6 C H 65 20 96 O2 Del Method O2 Flow Rate 04/05/25 15:23 Nasal Cannula 2.0 04/05/25 10:39 Nasal Cannula, BiPAP 2 04/05/25 09:03 04/05/25 08:21 04/05/25 08:00 Nasal Cannula 2 04/05/25 07:57 Laboratory Results WBC 20.56, N72 L12 M15 (04/01/2025, 7:17pm). WBC 17.15, N74 L11 M14 (04/02/2025, 4:10am). WBC 12.06, N76 L10 M13 (04/03/2025, 4:41am). WBC 6.84, N67 L17 M14 E1 (04/04/2025, 4:59am). WBC 7.02, N60 L24 M13 E2 (04/05/2025, 4:13am). Urine culture (04/01/2025, 10:45am): ESBL E. coli Urine culture (04/01/2025, 7:29pm): ESBL E. coli Blood culture #1 (04/01/2025, 7:17pm): ESBL E. coli Blood culture #2 (04/01/2025, 7:33pm): ESBL E. coli Blood culture #3 (04/04/2025, 3:25pm): Blood culture #4 (04/04/2025, 3:25pm): BUN 16, creatinine 1.58 (04/01/2025, 7:17pm). BUN 21, creatinine 1.69 (04/02/2025, 4:10am). BUN 19, creatinine 1.17 (04/03/2025, 4:41am). BUN 16, creatinine 0.86 (04/04/2025, 4:59am). BUN 11, creatinine 0.67 (04/05/2025, 4:13am). Urine culture (04/01/2025, 10:45am): ESBL E. coli Urine culture (02/21/2025, 2:30pm): ESBL E. coli Urine culture (12/15/2024, 10:40pm): ESBL E. coli Urine culture (05/30/2024, 2:20am): ESBL E. coli Urine culture (10/04/2023, 2:00pm): ESBL E. coli Urine culture (08/30/2022, 10:20am): ESBL E. coli Urine culture (06/26/2022, 2:00pm): ESBL E. coli Urine culture (03/25/2022, 2:30am): VRE Enterococcus faecium Urine culture (02/14/2022, 5:02pm): VRE Enterococcus faecium Urine culture (10/22/2021, 6:04pm): Proteus mirabilis Blood culture (12/15/2024, 9:50pm): ESBL E. coli Blood culture (12/15/2024, 8:56pm): ESBL E. coli Diagnostic Findings Portable CXR (04/01/2025, 6:33pm): 1. No infiltrate, effusion, cardiomegaly, pulmonary vascular congestion, or pneumothorax (by my review). CT abd/pelvis without IV contrast (04/01/2025, 10:14pm): 1. Right diaphragmatic eventration with passive subsegmental collapse of right lower lobe is seen.-stable. 2. Minimal right sided pleural effusion/pleural thickening is seen-stable. 3. Minimal pleural thickening is also noted on left side.-stable. 4. Small non-obstructing right renal calculi.-stable. 5. Colonic fecal and gaseous distension. 6. Pancreas shows mild peripancreatic fat stranding, around head and uncinate process with thickening of anterior pararenal fascia on right side. New finding. Possibility of acute pancreatitis. 7. Multiple small uncomplicated sigmoid colonic diverticulosis-stable. TTE (04/02/2025, 7:57am): 1. LVEF 65-70%. No visualized regional wall motion abnormalities, but cannot exclude regional wall motion abnormalities given poor image quality due to morbid obesity with BMI 61.3 (height 165.1 cm; weight 167.1 kg). Mild concentric LVH. 2. RV not well visualized. 3. LA not well visualized. 4. RA not well visualized. 5. AV not well visualized. No AR. No . 6. PV not well visualized. 7. MV grossly normal. No MR. No MS. 8. TV not well visualized. 9. Aortic root not well visualized. 10.No pericardial effusion. (as per CARDS Dr. Shaun Zhu). PG Care Time/CCT Total # of Minutes Spent Total Time Spent with Patient: Total time spent is greater than 50% in coordination of care (as documented) at patient's floor/unit and/or counseling patient: Coding Level of Care Code 28171 SUB INP/OBS CARE 3/50MIN Diagnoses Septic shock A41.9; R65.21 Acute respiratory failure with hypoxia and hypercapnia J96.01; J96.02 GILBERTO (acute kidney injury) N17.9 Elevated troponin I level R79.89 DNR (do not resuscitate) Z66
[2025-04-05 21:23] LABS: Cdiff Toxin B Gene (2yr or >) Negative Cdiff Gene (Neg)
[2025-04-06] MEDS: LORazepam 0.5 MG TAB PO STA ×2 (00:21→00:22)
[2025-04-06 10:42] LABS: Hematocrit (blood only) 41.5 % (37.0-47.0); Hemoglobin 12.5 g/dl (12.0-16.0); Immature Granulocytes # (auto) 0.02 K/uL (0.01-0.20); Immature Granulocytes % (auto) 0.3 %; Mean Corpuscular Hemoglobin 29.1 pg (25.0-34.0); Mean Corpuscular Volume 96.7 fL (80.0-100.0); Platelet Count 259 K/uL (130-400); RDW Standard Deviation 50.4 fL (36.4-46.3); Red Blood Count 4.29 M/uL (4.20-5.40); White Blood Count 7.37 K/ul (4.8-10.8)
--- NOTE | 2025-04-06 10:42 | Hospitalist Progress Note ---
Date of Service April 06, 2025 Assessment & Plan (1) Septic shock: Plan: RESOLVED with patient OFF norepinephrine infusion since 04/03/2025, 10:48am as MAP continues to remain > 65 mm Hg. s/p lactated Ringers @ 75 mL/hr (04/03/2025, 11:01am - 04/04/2025, 2:06pm). 2nd to ESBL bacteremia -Started ertapenem 1g IV daily (04/05/2025, 12:00pm) given once-a-day dosing of ertapenem compared to q8 dosing of meropenem. -PICC line placement and ertapenem till 04/18/25 (2) Acute respiratory failure with hypoxia and hypercapnia: Plan: RESOLVING with patient breathing comfortably on BIPAP @ night (given RAYMUNDO and obesity hypoventilation syndrome). Continue 2 liters/minute O2 via nasal cannula with O2 sat 95% (04/05/2025, 3:23pm). (3) GILBERTO (acute kidney injury): Plan: RESOLVING with lactated Ringers @ 75 mL/hr (04/03/2025, 11:01am). BUN 11, creatinine 0.67 (04/05/2025, 4:13am). (4) Elevated troponin I level: Plan: cf., troponin-I #1 238.3 pg/mL (04/01/2025, 7:17pm). cf., troponin-I #2 249.3 pg/mL (04/01/2025, 9:34pm). cf., troponin-I #3 161.2 pg/mL (04/02/2025, 4:10am). cf., troponin-I #4 107.9 pg/mL (04/02/2025, 10:52am). cf., troponin-I #5 100.3 pg/mL (04/02/2025, 4:43pm). Etiology of nominal troponin-I elevation is due to demand ischemia, which in turn, is due to: (a) sepsis, which in turn, is due to ESBL E. coli UTI with hematogenous dissemination of ESBL E. coli UTI, and (b) acute kidney injury, which in turn, is due to acute tubular necrosis, which in turn, is due to sepsis. cf., TTE (04/02/2026, 7:57am): "no visualized regional wall motion abnormalities, but cannot exclude regional wall motion abnormalities given poor image quality", which in turn, are due to the fact that patient is morbidly obese with BMI 61.3 (height 165.1 cm; weight 167.1 kg) and her neck/check remain amorphous, and as such, resists further characterization via TTE. Subsequently, I have opted to observe this laboratory anomaly without further evaluation/intervention while patient remains in [facility].. (5) DNR (do not resuscitate): Plan: DNR/DNI @ [facility] ([place], [place]). Plan 79 years old female with PMH of DNR/DNI @ [facility] ([place], [place]), morbid obesity with BMI 61.3 (height 165.1 cm; weight 167.1 kg), metabolic encephalopathy, paroxysmal atrial fibrillation with RVR, hypertension, tachybradycardia syndrome, and chronic HFpEF 65-70% (as noted on 04/02/2025, 7:57am, CARDS Dr. Shaun Zhu), who was admitted to the inpatient hospitalist service @ [facility] on 04/01/2025 with the following diagnosis: 1. Severe septic shock with end-organ failure (e.g., acute kidney injury with admission creatinine 1.58 mg/dL (04/01/2025, 7:17pm), due to [id number] ESBL E. coli UTI and ESBL E. coli bacteremia. 2. Acute hypoxic/hypercapnic respiratory failure, due to RAYMUNDO and obesity hypoventilation syndrome. 3. Acute type II NSTEMI with nominal troponin-I elevation with troponin-I #1 238.3 pg/mL (04/01/2025, 7:17pm). Patient can be discharged back to [facility] once PICC line placement Admission and Anticipated Discharge Date Admission Date: April 01, 2025 Subjective No events overnight. Pt agreeing to picc line placement this am. Review of Systems Review of Systems: CONST: Negative for fever, body aches and chills. HENT: Negative for neck pain/stiffness, headache, congestion, sore throat, swelling. EYES: Negative for discharge/pain or vision changes. RESP: Negative for cough/hemoptysis and shortness of breath. CV: Negative chest pain, difficulty breathing, palpitations. ABD: Negative pain, nausea, vomiting. : Negative increase frequency, dysuria, blood in urine or stool. MUSC: Negative for muscle aches, edema. SKIN: Negative rash, lesions/sores. NEURO: Negative headache, dizziness, weakness. Physical Exam Physical Exam: GENERAL APPEARANCE NAD, activity normal for age, well developed/ well nourished, no cyanosis, pallor, or diaphoresis. EYES lids/conjunctiva normal. EARS/NOSE/THROAT Mucous membranes moist, nares normal, lips/teeth normal uvula midline without oral pharyngeal erythema, exudate or swelling TMs normal bilaterally. No lymphangitis/lymphedema. HEAD/NECK normocephalic atraumatic, no facial trauma, neck is supple. RESPIRATORY respiratory effort normal, speaks in full sentences, no tripod position, no accessory muscle use. Lungs clear to auscultation without rhonchi, wheezes, rales CARDIAC Regular rate and rhythm, no edema. ABDOMINAL Soft, ND/NT. No evidence of fluid wave. No pulsatile masses on exam, rebound tenderness, Whitt sign or pain over Mcburney's point. MUSCLES/EXTREMITIES No abnormal range of motion, no swelling. SKIN Warm, pink and dry. No rashes, dermatoses, petechiae or lesions. NEUROLOGICAL Speech is clear and appropriate. Normal level of consciousness. Gait and coordination are normal. 5/5 strength in all extremities. PSYCH Normal mood and affect. Judgement/competence is appropriate Results & Data Results & Data Vital Signs (Past 12 Hours) Vital Signs Temp Pulse Resp BP Pulse Ox O2 Del Method O2 Flow Rate 04/06/25 07:40 37.1 C 67 16 162/78 H 97 Nasal Cannula 2 04/05/25 23:00 36.4 C L 67 18 135/74 95 Room Air PG Care Time/CCT Total # of Minutes Spent Total Time Spent with Patient: Total time spent is greater than 50% in coordination of care (as documented) at patient's floor/unit and/or counseling patient: Coding Level of Care Code 85658 SUB INP/OBS CARE 2/35MIN Diagnoses Septic shock A41.9; R65.21 Acute respiratory failure with hypoxia and hypercapnia J96.01; J96.02 GILBERTO (acute kidney injury) N17.9 Elevated troponin I level R79.89 DNR (do not resuscitate) Z66
[2025-04-06 10:59] LABS: Anion Gap 3.0 (3-11); Blood Urea Nitrogen 10.0 mg/dl (6-23); Calcium 8.6 mg/dl (8.6-10.3); Carbon Dioxide 37.0 mmol/L (21-32); Chloride 101.0 mmol/L (98-107); Creatinine Clr Calc Pharmacy 123.1 ml/min; Glucose 132.0 mg/dl (70-99(Fasting)); Magnesium 2.0 mg/dl (1.7-2.4); Potassium 4.2 mmol/L (3.5-5.1); Sodium 141.0 mmol/L (136-145)
[2025-04-06] MEDS ORDERED: INFLUENZA VACC TS2025-26(65y+)/PF (IIV3) 0.5mL Syr IM ONE (14:01)
[2025-04-06] MEDS ORDERED: SODIUM CHLORIDE 0.65% NA SOLN 45 ML (OCEAN) PRN (16:23)
--- NOTE | 2025-04-06 18:23 | Electrocardiogram Report ---
Test Reason : Blood Pressure : */* mmHG Vent. Rate : 65 BPM Atrial Rate : 65 BPM P-R Int : 146 ms QRS Dur : 96 ms QT Int : 458 ms P-R-T Axes : 55 74 52 degrees QTcB Int : 476 ms Sinus rhythm with Premature atrial complexes Low voltage QRS Poor R wave progression, consider anterior HI vs. lead placement vs. LVH Abnormal ECG When compared with ECG of 01-Apr-2025 18:43, Premature atrial complexes are now Present Confirmed by Krunal Mcintyre ([id number]) on 04/06/2025 6:23:14 PM Referred By: [facility] [place] Confirmed By: Krunal Mcintyre
[2025-04-06 23:52] VITALS: BP 153/78; PULSE 70; RESP 18; TEMP 97.9; O2SAT 97
--- NOTE | 2025-04-07 10:03 | Discharge Summary ---
Discharge Summary Date of Service April 07, 2025 Principal Dx & Hospital Course #1 = Principal Diagnosis (1) Septic shock: RESOLVED with patient OFF norepinephrine infusion since 04/03/2025, 10:48am as MAP continues to remain > 65 mm Hg. s/p lactated Ringers @ 75 mL/hr (04/03/2025, 11:01am - 04/04/2025, 2:06pm). 2nd to ESBL bacteremia -Started ertapenem 1g IV daily (04/05/2025, 12:00pm) given once-a-day dosing of ertapenem compared to q8 dosing of meropenem. -PICC line placement and ertapenem till 04/18/25 (2) Acute respiratory failure with hypoxia and hypercapnia: RESOLVING with patient breathing comfortably on BIPAP @ night (given RAYMUNDO and obesity hypoventilation syndrome). Continue 2 liters/minute O2 via nasal cannula with O2 sat 95% (04/05/2025, 3:23pm). (3) GILBERTO (acute kidney injury): RESOLVING with lactated Ringers @ 75 mL/hr (04/03/2025, 11:01am). BUN 11, creatinine 0.67 (04/05/2025, 4:13am). (4) Elevated troponin I level: cf., troponin-I #1 238.3 pg/mL (04/01/2025, 7:17pm). cf., troponin-I #2 249.3 pg/mL (04/01/2025, 9:34pm). cf., troponin-I #3 161.2 pg/mL (04/02/2025, 4:10am). cf., troponin-I #4 107.9 pg/mL (04/02/2025, 10:52am). cf., troponin-I #5 100.3 pg/mL (04/02/2025, 4:43pm). Etiology of nominal troponin-I elevation is due to demand ischemia, which in turn, is due to: (a) sepsis, which in turn, is due to ESBL E. coli UTI with hematogenous dissemination of ESBL E. coli UTI, and (b) acute kidney injury, which in turn, is due to acute tubular necrosis, which in turn, is due to sepsis. cf., TTE (04/02/2026, 7:57am): "no visualized regional wall motion abnormalities, but cannot exclude regional wall motion abnormalities given poor image quality", which in turn, are due to the fact that patient is morbidly obese with BMI 61.3 (height 165.1 cm; weight 167.1 kg) and her neck/check remain amorphous, and as such, resists further characterization via TTE. Subsequently, I have opted to observe this laboratory anomaly without further evaluation/intervention while patient remains in [facility].. (5) DNR (do not resuscitate): DNR/DNI @ [facility] ([place], [place]). Plan 79 years old female with PMH of DNR/DNI @ [facility] ([place], [place]), morbid obesity with BMI 61.3 (height 165.1 cm; weight 167.1 kg), metabolic encephalopathy, paroxysmal atrial fibrillation with RVR, hypertension, tachybradycardia syndrome, and chronic HFpEF 65-70% (as noted on 04/02/2025, 7:57am, CARDS Dr. Shaun Zhu), who was admitted to the inpatient hospitalist service @ [facility] on 04/01/2025 with the following diagnosis: 1. Severe septic shock with end-organ failure (e.g., acute kidney injury with admission creatinine 1.58 mg/dL (04/01/2025, 7:17pm), due to amlux-te-ijhlivl ESBL E. coli UTI and ESBL E. coli bacteremia. 2. Acute hypoxic/hypercapnic respiratory failure, due to RAYMUNDO and obesity hypoventilation syndrome. 3. Acute type II NSTEMI with nominal troponin-I elevation with troponin-I #1 238.3 pg/mL (04/01/2025, 7:17pm). Patient can be discharged back to [facility] once PICC line placement Admission HPI Per Admitting Provider The patient is a 79-year-old female with a past medical history including ESBL E. coli UTI, metabolic encephalopathy, acute respiratory failure with hypoxia and hypercapnia, septic shock, atrial fibrillation with RVR, status post ureteral stent placement, VRE, GILBERTO, hypertension, tachybradycardia syndrome, and HFpEF. The patient was referred to the emergency department from her assisted, where after staff thought that she had a urinary tract infection causing her to be altered and having an increased temperature. Upon arrival to the emergency department, the patient was confused, was found to have a low blood pressure of 62/45. Workup in the emergency department included abnormal LFTs, with total bilirubin 1.1, direct bilirubin 0.6, AST 175, ALT 75. Troponin was elevated to 38.3 with follow-up pending albumin was low at 3.3. Pro-Andi was elevated 7.09. From the ED she did receive normal saline 2 L bolus, and Zosyn 4.5 g IV. Her blood pressure however only increased to 72/38, which time she was given additional fluid boluses, albumin 25 g IV, impression admitted improved to the low 90s systolic. Due to low blood pressure, and difficulty with IV access, and history of requiring ICU treatment in the past, [facility] and plans were being made for the patient to be admitted to the ICU. It was felt that the patient would likely need pressors to maintain adequate blood pressure, and try to improve mentation. Discharge Exam GENERAL APPEARANCE NAD, activity normal for age, well developed/ well nourished, no cyanosis, pallor, or diaphoresis. EYES lids/conjunctiva normal. EARS/NOSE/THROAT Mucous membranes moist, nares normal, lips/teeth normal uvula midline without oral pharyngeal erythema, exudate or swelling TMs normal bilaterally. No lymphangitis/lymphedema. HEAD/NECK normocephalic atraumatic, no facial trauma, neck is supple. RESPIRATORY respiratory effort normal, speaks in full sentences, no tripod position, no accessory muscle use. Lungs clear to auscultation without rhonchi, wheezes, rales CARDIAC Regular rate and rhythm, no edema. ABDOMINAL Soft, ND/NT. No evidence of fluid wave. No pulsatile masses on exam, rebound tenderness, Whitt sign or pain over Mcburney's point. MUSCLES/EXTREMITIES No abnormal range of motion, no swelling. SKIN Warm, pink and dry. No rashes, dermatoses, petechiae or lesions. NEUROLOGICAL Speech is clear and appropriate. Normal level of consciousness. Gait and coordination are normal. 5/5 strength in all extremities. PSYCH Normal mood and affect. Judgement/competence is appropriate Discharge Plan Discharge Items Patient Disposition: Home - Self-Care Reason For Visit: SEPTIC SHOCK DUE TO UTI,GILBERTO Discharge Diagnosis: ESBL bacteremia Condition on Discharge: Fair Activity: Resume your previous activity Non-emergency contact: Primary Care Provider Call non-emergency contact if: you have any medication questions Follow-up/Referrals: [facility] [Primary Care Provider] - Diet: Regular Addtl Attending Provider Instructions: Follow up with PMD in 1 week Pending Studies at Discharge: No Stand-Alone Forms: My [facility] [place], Smoking Cessation Medications and DC Order Prescriptions: New ertapenem 1 gram recon soln 1 g IV DAILY 13 Days Continued melatonin 5 mg tablet 5 mg PO HS cyclobenzaprine 10 mg tablet 10 mg PO HS pantoprazole 40 mg tablet,delayed release (DR/EC) 40 mg PO DAILY losartan 25 mg Tablet 25 mg PO QAM metoprolol tartrate 50 mg Tablet 50 mg PO BIDM sennosides [senna] 8.6 mg Tablet 17.2 mg PO QAM acetaminophen 325 mg Tablet 650 mg PO Q6H MDD 3 GRAMS/24 HOURS PRN (Reason: PAIN/FEVER) amiodarone 200 mg Tablet 200 mg PO QAM Eliquis 5 mg Tablet 5 mg PO BIDM gabapentin 600 mg Tablet 600 mg PO TIDM ondansetron HCl 4 mg Tablet 4 mg PO Q6H PRN (Reason: NAUSEA/VOMITING) Rx Instructions: STARTED 04/01/25 FOR 3 DAYS meclizine 12.5 mg Tablet 12.5 mg PO Q6H PRN (Reason: Vertigo) magnesium hydroxide [Milk of Magnesia] 400 mg/5 mL Suspension 30 ml PO DAILY PRN (Reason: NO BM FOR 3 DAYS) alum-mag hydroxide-simeth 200-200-20 mg/5 mL Suspension 10 ml PO Q4H PRN (Reason: Indigestion) Rx Instructions: administer between meals and at bedtime oxycodone 10 mg Tablet 10 mg PO BID biotin 10,000 mcg/mL Liquid 0 mcg PO Q2H PRN (Reason: Dry Mouth) Rx Instructions: SELF ADMINISTER -- 2 SPRAYS NEEDED. ipratropium-albuterol 0.5 mg-3 mg(2.5 mg base)/3 mL Solution For Nebulization 3 ml INHALATION Q2H PRN (Reason: Shortness Of Breath Or Wheezing) fexofenadine 60 mg Tablet 60 mg PO BIDM loperamide [Imodium A-D] 2 mg Tablet 2 mg PO DIRECTED MDD 6 DOSES/24 HOURS PRN (Reason: Diarrhea) acetaminophen [Tylenol Extra Strength] 500 mg Tablet 1,000 mg PO BIDM levothyroxine [Synthroid] 25 mcg Tablet 25 mcg PO DAILYBB furosemide [Lasix] 20 mg Tablet 20 mg PO QAM alum-mag hydroxide-simeth 200-200-20 mg/5 mL Suspension 10 ml PO QAM cranberry 500 mg Capsule 500 mg PO QAM Saccharomyces boulardii 250 mg Capsule 1,000 mg PO QAM duloxetine 20 mg capsule,delayed release(DR/EC) 20 mg PO HS PreserVision AREDS-2 250-90-40-1 mg Capsule 1 tab PO QAM d-mannose 500 mg Capsule 500 mg PO QAM Discharge Orders: Discharge Order (Routine); Ordered 04/07/25 Ordered By: Nathen Blair Admission Data Admit Date/Time: 04/01/25 21:47 Attending Provider: Nathen Blair Admit Provider: Bjorn Beal Primary Care Provider: [facility] Other Providers: Bjorn Beal; Tian Francois Hospital Stay Data Consultations 04/01/25 20:11 ED Decision to Admit Stat 04/02/25 00:08 Consult Teacher Asst Routine Diagnostic Imagining Performed 04/01/25 22:14 CT Abd and Pelvis [CT abd pelvis wo con] Stat Pending Results Patient Have Any Pending Studies at Discharge: No Discharge Instructions Given to Patient (Per Discharging Provider) Follow up with PMD in 1 week Total Time Total Time Spent Total Time Spent (In Minutes): 50 Coding Level of Care Code 35733 INP/OBS DISCH >30 MIN Diagnoses Septic shock A41.9; R65.21 Acute respiratory failure with hypoxia and hypercapnia J96.01; J96.02 GILBERTO (acute kidney injury) N17.9 Elevated troponin I level R79.89 DNR (do not resuscitate) Z66
== END 2025-04-07 13:28 | DRG 871 ==
LOC: ED 18:03 → 1E 21:47 → SUATTDRO 21:47 → 1E 22:13 → 3W 04-05 10:06